=== PATIENT | male | born 1960 | race Caucasian/White ===

== ENCOUNTER 2023-01-07 07:30 | Outpatient (RCR) | payer BC, SELFPAY | END 2023-03-04 11:50 | disposition home or self-care (01) | PROVIDERS: PCP Family Medicine; Visit Provider Family Medicine | DX: M54.12 Radiculopathy, cervical region (principal); R07.89 Other chest pain; Z74.09 Other reduced mobility; Z51.89 Encounter for other specified aftercare | CPT/HCPCS: 97110; 97140; 97161 ==

== ENCOUNTER 2023-06-25 16:30 | Outpatient (RCR) | payer BC, SELFPAY | END 2023-08-13 10:17 | disposition home or self-care (01) | PROVIDERS: PCP Family Medicine; Visit Provider Family Medicine | DX: M17.0 Bilateral primary osteoarthritis of knee (principal); M25.562 Pain in left knee; M25.561 Pain in right knee; M62.81 Muscle weakness (generalized); Z51.89 Encounter for other specified aftercare | CPT/HCPCS: 97110; 97161 ==

== ENCOUNTER 2023-09-08 21:51 | Emergency (ER) | payer BC, SELFPAY ==
[2023-09-08] VITALS (8 sets, daily range): BP systolic 130–164; BP diastolic 66–88; PULSE 56–71; RESP 16; TEMP 36.6; O2SAT 92–95; BMI 35.7
--- NOTE | 2023-09-08 22:35 | CRLHL7_ITS ---
For Patients: As a result of the Century Cures Act, medical imaging exams and procedure reports are released immediately into your electronic medical record. You may view this report before your referring provider. If you have questions, please contact your health care provider. Indication: Chest pain Technique: Chest 2 views Comparison: September 19, 2020 Findings/Impression: Cardiovascular and mediastinum: Heart size and vasculature are normal in caliber and appearance. Mediastinum is within normal limits. Lungs and pleural spaces: Stable curvilinear density in the right upper lobe consistent with the known pulmonary venous anomaly. No sign of pleural effusion or infiltrate. No pneumothorax. Bones and soft tissues: No significant findings. Dictated by Elizabeth Luna MD @ 09/09/2023 1:00:23 AM (Electronically Signed)
--- OUTSIDE RECORDS SUMMARY | 2023-09-08 22:38 | XMS_ITS | Continuity of Care Document ---
Author Name Unknown Organization [facility] Address [address] [place] [address] Phone Care Team Providers Care Sheet Metal Contractor Name Role Phone Christiano Guzman Unavailable Unavailable Allergies, Adverse Reactions, Alerts Substance Reaction Status Criticality No Known Allergies Active No Inform ation Medications Medication Instructions Dosage Effective Dates (start - stop) Status Comments WARFARIN SODIUM (unknown strength) Not Available - Active GLUCOSAMINE-CHONDROITI N (unknown strength) Not Available - Active FLECAINIDE ACETATE (unknown strength) Not Available - Active DILTIAZEM 12HR ER (unknown strength) Not Available - Active ASPIRIN EC (unknown strength) Not Available - Active Procedures Procedure Date Office/Outpatient Visit,Est, Mod 2018 Office/Outpatient Visit,New, Mod 2017 Advance Directives Directive Yes / No Effective Date File Name No Information Encounters Encounter Description Practice Location Reason(s) For Visit Diagnoses Date Provider Providers Copied on Encounter Office/Outpat ient Visit,Est, Mod [facility], [address], [facility] [place], [id number], [place] tel:[phone] [facility] [place] Spinal stenosis, cervical regionOther spondylosis, lumbar region 9 Mike Alvarado. [facility], [address], [place], [place], [id number] , [place]. tel:[phone] Referring Provider: Christiano Mckeon, [facility] [address], [place], [address] . tel:[phone] Office/Outpat ient Visit,New, Mod [facility], [address], [place], [id number], [place] tel:[phone] [facility] [place] CervicalgiaLow back pain 8 Mike Alvarado. [facility], [address], [place], [place], [id number] , [place]. [phone] Referring Provider: Christiano Mckeon, [facility] [address], [facility] [place], [address] . tel:[phone] Family History Family Member Type Diagnosis Age At Onset No Information Payers Payer name Insurance type Covered democrat ID Valentine greer(s) [facility] [id number] [facility] [id number] Social History Type Description Quantity Date Captured Comments Alcohol Use Details Unknown Caffeine Use Details Unknown Tobacco Use Status Never smoked tobacco 2018 Smoking Status Never smoker Sex Male Vital Signs Date / Time: Height Weight BMI Pulse Rate Blood Pressure Temperature Respiratory Rate Body Surface Area Head Circumference Head Circ. Percentile Wt./Erick. Percentile BMI percentile Pulse Ox Inhaled Ox 1:29 PM 67.80 in 106.776 kg (235.40 lbs) 36.0 0 kg/m eter (2) 75 /min 112/68 mm[Hg] Chief Complaint And Reason For Visit No Information Reason For Referral Reason For Referral No Information History Of Present Illness Encounter Date Complaint History Of Prese nt Illness No Information Functional Status Date Functional Assessmen t No Information Instructions Date Instruction Additional Infor mation No Information Assessments Type Assessment Date assessment Spinal stenosis, cervical region assessment Other spondylosis, lumbar region Patient Care Teams Name Effective Dates (start - stop) Status Members No Information
--- OUTSIDE RECORDS SUMMARY | 2023-09-08 22:38 | XMS_ITS | Continuity of Care Document ---
Author Name Unknown Organization [facility] Address [address] [place] [address] Phone Care Team Providers Care Supervisor Hydrochloric Area Name Role Phone Christiano Guzman Unavailable Unavailable Allergies, Adverse Reactions, Alerts Substance Reaction Status Criticality No Known Allergies Active No Inform ation Medications Medication Instructions Dosage Effective Dates (start - stop) Status Comments ASPIRIN EC (unknown strength) Not Available - Active DILTIAZEM 12HR ER (unknown strength) Not Available - Active FLECAINIDE ACETATE (unknown strength) Not Available - Active GLUCOSAMINE-CHONDROITI N (unknown strength) Not Available - Active WARFARIN SODIUM (unknown strength) Not Available - Active Procedures Procedure Date Office/Outpatient Visit,Est, Mod 2018 Office/Outpatient Visit,New, Mod 2017 Advance Directives Directive Yes / No Effective Date File Name No Information Encounters Encounter Description Practice Location Reason(s) For Visit Diagnoses Date Provider Providers Copied on Encounter Office/Outpat ient Visit,Est, Mod [facility], [address], [facility] [place], [id number], [place] tel:[phone] [facility] [place] Spinal stenosis, cervical regionOther spondylosis, lumbar region 9 Mike Alvarado. [facility], [address], [place], [place], [id number] , [place]. tel:[phone] Referring Provider: Christiano Mckeon, [facility] [address], [place], [address] . tel:[phone] Office/Outpat ient Visit,New, Mod [facility], [address], [place], [id number], [place] tel:[phone] [facility] [place] CervicalgiaLow back pain 8 Mike Alvarado. [facility], [address], [place], [place], [id number] , [place]. [phone] Referring Provider: Christiano Mckeon, [facility] [address], [facility] [place], [address] . tel:[phone] Family History Family Member Type Diagnosis Age At Onset No Information Payers Payer name Insurance type Covered democrat ID Valentine greer(s) [facility] [id number] [facility] [id number] Social History Type Description Quantity Date Captured [...]
--- NOTE | 2023-09-08 22:58 | ED_ITS ---
HPI - Chest Pain General Date Seen: 09/08/23 <Cristi Marshall MD - Last Filed: 09/08/23 23:00> Chief Complaint: Chest Pain <Cristi Marshall MD - Last Filed: 09/08/23 23:00> Stated Complaint: afib <Cristi Marshall MD - Last Filed: 09/08/23 23:00> Time Seen by Provider: 09/08/23 22:18 <Cristi Marshall MD - Last Filed: 09/08/23 23:00> Source: patient and family <Cristi Marshall MD - Last Filed: 09/08/23 23:00> Mode of arrival: ambulatory <Cristi Marshall MD - Last Filed: 09/08/23 23:00> Limitations: no limitations <Cristi Marshall MD - Last Filed: 09/08/23 23:00> History of Present Illness HPI narrative: Patient is a 63-year-old gentleman, who presents here with chest pain and rapid heart rate, tells me has known atrial fibrillation tonight approximately an hour ago he felt his heart rate going fast her he felt some chest discomfort and some shortness of breath. He took his pulse and he thinks it was like 140. Feels better now, but not completely back to normal. He did drink some alcohol tonight, he just recently went off and went back on his Coumadin, as he had a colonoscopy. <Cristi Marshall MD - Last Filed: 09/08/23 23:00> MD complaint: chest pain and chest discomfort <Cristi Marshall MD - Last Filed: 09/08/23 23:00> Prior episodes: Yes <Cristi Marshall MD - Last Filed: 09/08/23 23:00> Onset: during rest <Cristi Marshall MD - Last Filed: 09/08/23 23:00> Pain location: substernal and left chest <Cristi Marshall MD - Last Filed: 09/08/23 23:00> Pain radiation: none <Cristi Marshall MD - Last Filed: 09/08/23 23:00> Severity: moderate <Cristi Marshall MD - Last Filed: 09/08/23 23:00> Quality: tightness and heaviness <Cristi Marshall MD - Last Filed: 09/08/23 23:00> Relieving factors: nothing <Cristi Marshall MD - Last Filed: 09/08/23 23:00> Exacerbating factors: nothing <Cristi Marshall MD - Last Filed: 09/08/23 23:00> Treatment prior to arrival: none <Cristi Marshall MD - Last Filed: 09/08/23 23:00> Related Data Home Medications: Home Medications Medication Instructions Recorded Confirmed diltiazem HCl 120 mg 120 mg PO DAILY 05/09/23 09/08/23 capsule,extended release 24 hr famotidine 20 mg tablet 20 mg PO BID PRN 05/09/23 09/08/23 flecainide 100 mg tablet 100 mg PO BID 05/09/23 09/08/23 omeprazole 20 mg capsule,delayed 20 mg PO DAILY 05/09/23 09/08/23 release warfarin 2 mg tablet 3 mg PO 05/09/23 05/09/23 <Cristi Marshall MD - Last Filed: 09/08/23 23:00> Allergies/Adverse Reactions: Allergies Allergy/AdvReac Type Severity Reaction Status Date / Time No Known Drug Allergies Allergy Verified 09/08/23 22:01 <Cristi Marshall MD - Last Filed: 09/08/23 23:00> Review of Systems Status of ROS Reports: 10 or more systems reviewed and unremarkable except as noted in History and below <Cristi Marshall MD - Last Filed: 09/08/23 23:00> [facility] Medical History: Medical History Elevated cholesterol ?E78.00 - Pure hypercholesterolemia, unspecified (ICD-10) Arthritis ?M19.90 - Unspecified osteoarthritis, unspecified site (ICD-10) GERD (gastroesophageal reflux disease) ?K21.9 - Gastro-esophageal reflux disease without esophagitis (ICD-10) DVT (deep venous thrombosis) ?I82.409 - Acute embolism and thrombosis of unspecified deep veins of unspecified lower extremity (ICD-10) Pulmonary emboli ?I26.99 - Other pulmonary embolism without acute cor pulmonale (ICD-10) Sleep apnea ?G47.30 - Sleep apnea, unspecified (ICD-10) Atrial fibrillation ?I48.91 - Unspecified atrial fibrillation (ICD-10) <Cristi Marshall MD - Last Filed: 09/08/23 23:00> Surgical History: Surgical History History of radiofrequency ablation (RFA) procedure for cardiac arrhythmia ?Z98.890 - Other specified postprocedural states (ICD-10) H/O cardiac catheterization (02/14/18) ?Z98.890 - Other specified postprocedural states (ICD-10) H/O arthroscopy of left knee ?Z98.890 - Other specified postprocedural states (ICD-10) H/O repair of right rotator cuff (11/2016) ?Z98.890 - Other specified postprocedural states (ICD-10) H/O excision of mass (10/05/19) ?Z98.890 - Other specified postprocedural states (ICD-10) S/P reconstruction of anterior cruciate ligament ?Z98.890 - Other specified postprocedural states (ICD-10) <Cristi Marshall MD - Last Filed: 09/08/23 23:00> Family History: Family History Mother Diabetes Father Brain tumor <Cristi Marshall MD - Last Filed: 09/08/23 23:00> Social History: Social History Smoking Status: Never smoker How often do you have a drink containing alcohol: 2-4 times a month How often do you have six or more drinks on one occasion: Never AUDIT-C Alcohol total score: 2 Non-prescribed substance use: denies use <Cristi Marshall MD - Last Filed: 09/08/23 23:00> Exam Narrative Exam Narrative: Patient is seen and stabilization room 2 he is in no apparent distress, he moves and speaks normally. Pupils equal round reactive to light there is no scleral icterus redness is TMs are normal oropharynx normal there is no adenopathy anterior posterior chains, chest is good air entry bilateral with no wheezing crackles noted his heart sounds are normal no clicks murmurs or gallops his abdomen is soft and obese there is no guarding no past splenomegaly. Bowel sounds are normal, he has no edema of his lower extremities. Skin reveals no petechiae rashes. <Cristi Marshall MD - Last Filed: 09/08/23 23:00> Const Vital Signs, click to edit/add: Vital Signs - 24 hr 09/08/23 22:01 09/08/23 22:19 09/08/23 22:30 Temperature 97.8 F Pulse Rate 63 68 Pulse Rate [Pulse Oximeter] 71 Respiratory Rate 16 Blood Pressure Blood Pressure [Right Upper Arm] 164/88 H Pulse Oximetry 94 93 92 Oxygen Delivery Method Room Air 09/08/23 22:32 09/08/23 23:22 Temperature Pulse Rate 67 60 Pulse Rate [Pulse Oximeter] Respiratory Rate Blood Pressure 146/88 H Blood Pressure [Right Upper Arm] Pulse Oximetry 94 95 Oxygen Delivery Method <Cristi Marshall MD - Last Filed: 09/08/23 23:00> Vital Signs - 24 hr 09/08/23 22:01 09/08/23 22:19 09/08/23 22:30 Temperature 97.8 F Pulse Rate 63 68 Pulse Rate [Pulse Oximeter] 71 Respiratory Rate 16 Blood Pressure Blood Pressure [Right Upper Arm] 164/88 H Pulse Oximetry 94 93 92 Oxygen Delivery Method Room Air 09/08/23 22:32 09/08/23 23:22 Temperature Pulse Rate 67 60 Pulse Rate [Pulse Oximeter] Respiratory Rate Blood Pressure 146/88 H Blood Pressure [Right Upper Arm] Pulse Oximetry 94 95 Oxygen Delivery Method <Romina Patel MD - Last Filed: 09/09/23 01:40> Documenting provider has reviewed patient's vital signs: yes <Cristi Marshall MD - Last Filed: 09/08/23 23:00> Course Course ED Course: This patient was signed out to me by Dr. Marshall. Patient had initial negative troponin and reassuring EKG. He has been resting comfortably. <Romina Patel MD - Last Filed: 09/09/23 01:40> Vital Signs Vital signs: Initial Vital Signs Temperature 97.8 F 09/08/23 22:01 Temperature Source Temporal Artery Scan 09/08/23 22:01 Pulse Rate 71 11/05/23 22:01 Respiratory Rate 16 09/08/23 22:01 Blood Pressure 164/88 H 09/08/23 22:01 Blood Pressure Mean 113 H 09/08/23 22:01 Blood Pressure Position Sitting 09/08/23 22:01 Pulse Oximetry 94 09/08/23 22:01 Oxygen Delivery Method Room Air 09/08/23 22:01 Vital Signs Temperature 97.8 F 09/08/23 22:01 Pulse Rate 71 09/08/23 22:01 Respiratory Rate 16 09/08/23 22:01 Blood Pressure 164/88 H 09/08/23 22:01 Pulse Oximetry 94 09/08/23 22:01 Oxygen Delivery Method Room Air 09/08/23 22:01 Temperature 97.8 F 09/08/23 22:01 Pulse Rate 60 09/08/23 23:22 Respiratory Rate 16 09/08/23 22:01 Blood Pressure 146/88 H 09/08/23 22:32 Pulse Oximetry 95 09/08/23 23:22 Oxygen Delivery Method Room Air 09/08/23 22:01 <Cristi Marshall MD - Last Filed: 09/08/23 23:00> Initial Vital Signs Temperature 97.8 F 09/08/23 22:01 Temperature Source Temporal Artery Scan 09/08/23 22:01 Pulse Rate 71 09/08/23 22:01 Respiratory Rate 16 09/08/23 22:01 Blood Pressure 164/88 H 09/08/23 22:01 Blood Pressure Mean 113 H 09/08/23 22:01 Blood Pressure Position Sitting 09/08/23 22:01 Pulse Oximetry 94 09/08/23 22:01 Oxygen Delivery Method Room Air 09/08/23 22:01 Vital Signs Temperature 97.8 F 09/08/23 22:01 Pulse Rate 71 09/08/23 22:01 Respiratory Rate 16 09/08/23 22:01 Blood Pressure 164/88 H 09/08/23 22:01 Pulse Oximetry 94 09/08/23 22:01 Oxygen Delivery Method Room Air 09/08/23 22:01 Temperature 97.8 F 09/08/23 22:01 Pulse Rate 60 09/08/23 23:22 Respiratory Rate 16 09/08/23 22:01 Blood Pressure 146/88 H 09/08/23 22:32 Pulse Oximetry 95 09/08/23 23:22 Oxygen Delivery Method Room Air 09/08/23 22:01 <Romina Patel MD - Last Filed: 09/09/23 01:40> MDM - Chest Pain MDM Narrative Medical decision making narrative: Differential diagnosis includes but is not limited to psychosocial stress, thyroid abnormalities, CHF, SVT, atrial fibrillation, ventricular tachycardia an d ventricular fibrillation. This includes the life-threatening complications of heart failure, V-tach, and VFib During the evaluation of this patient I considered multiple differential diagnosis is. The life-threatening differential diagnosis include coronary disease/IA, pulmonary embolism, pneumothorax, pneumonia, and aortic dissection. Other differential diagnosis included but were not limited to pericarditis, myocarditis, chest wall pain, GERD, esophageal rupture, rib fracture contusion, pleurisy, as well as other etiologies. <Cristi Marshall MD - Last Filed: 09/08/23 23:00> Differential diagnosis includes but is not limited to psychosocial stress, thyroid abnormalities, CHF, SVT, atrial fibrillation, ventricular tachycardia and ventricular fibrillation. This includes the life-threatening complications of heart failure, V-tach, and VFib During the evaluation of this patient I considered multiple differential darlene gnosis is. The life-threatening differential diagnosis include coronary disease/IA, pulmonary embolism, pneumothorax, pneumonia, and aortic dissection. Other differential diagnosis included but were not limited to pericarditis, myocarditis, chest wall pain, GERD, esophageal rupture, rib fracture contusion, pleurisy, as well as other etiologies. Assessment/plan: 1. Atrial fibrillation transient-patient noted rapid heart rate lasted approximately 30 minutes and was associated with chest pain. Fortunately 2 EKGs and 2 sets of cardiac enzymes in the ED 90 minutes apart were negative. Patient has been in sinus rhythm since he has been here. 2. Chronic anticoagulation-patient recently restarted warfarin after colonoscopy. INR pending. Patient may call tomorrow morning for results. 3. Disposition-patient is discharged home in the care of his . Recommend increasing fluids, avoiding alcohol, vagal maneuvers are discussed. Return as needed. <Romina Patel MD - Last Filed: 09/09/23 01:40> Medical Records Data Attestation: I reviewed the patient's medical records. <Cristi Marshall MD - Last Filed: 11/05/23 23:00> Lab Data Attestation: I reviewed the patient's lab results. <Romina Patel MD - Last Filed: 09/09/23 01:40> Labs: Lab Results 09/08/23 09/08/23 09/09/23 Range/Units 23:28 23:30 01:05 WBC 8.81 (4.50-11.00) K/uL RBC 5.19 (4.30-5.90) m/uL Hgb 14.9 (13.5-17.5) gm/dL Hct 45.2 (37.0-53.0) % MCV 87 (80-100) fL MCH 29 (26-34) pg MCHC 33 (32-36) gm/dL RDW Coeff of [place] 13.3 (11.5-15.5) % Plt Count 325 (140-440) K/uL Neut % (Auto) 60.7 (42.0-72.0) % Lymph % (Auto) 24.2 (20-44) % [place] % (Auto) 12.5 H (0.0-11.0) % Eos % (Auto) 1.7 (0.0-7.0) % Baso % (Auto) 0.6 (0.0-3.0) % Neut # (Auto) 5.35 (1.7-7.0) K/uL Lymph # (Auto) 2.13 (0.90-2.90) K/uL [place] # (Auto) 1.10 H (0.00-0.90) K/UL Eos # (Auto) 0.15 (0.00-0.50) K/uL Baso # (Auto) 0.05 (0.00-0.30) K/uL Abs Immat Gran (auto) 0.03 (0.00-0.30) K/uL Imm/Tot Granulo (auto) 0.3 % Sodium 137 (135-149) mmol/L Potassium 3.8 (3.6-5.1) mmol/L Chloride 104 (96-114) mmol/L Carbon Dioxide 26 (20-32) mmol/L Anion Gap 7 (7-15) mEq/L BUN 12 (7-30) mg/dL Creatinine 0.8 (0.5-1.5) mg/dL Estimated Creat Clear 71.25 Estimated GFR 98 ml/min Glucose 114 (60-115) mg/dL Calcium 9.0 (8.4-10.6) mg/dL Magnesium 2.4 (1.5-2.6) mg/dL NT-Pro-B Natriuret Pep 160 pg/mL Ethyl Alcohol < 0.01 L (0.01-0.03) % SARS-CoV-2 (PCR) Negative SARS-CoV-2 (Negative) Influenza Type A (PCR) Negative PCR FLU A (Negative) Influenza Type B (PCR) Negative PCR FLU B (Negative) RSV (PCR) Negative PCR RSV (Negative) Lab Acknowledgement POC Troponin I 0.00 L 0.00 L (0.01-0.04) ng/ml 09/09/23 Range/Units 01:29 WBC (4.50-11.00) K/uL RBC (4.30-5.90) m/uL Hgb (13.5-17.5) gm/dL Hct (37.0-53.0) % MCV (80-100) fL MCH (26-34) pg MCHC (32-36) gm/dL RDW Coeff of [place] (11.5-15.5) % Plt Count (140-440) K/uL Neut % (Auto) (42.0-72.0) % Lymph % (Auto) (20-44) % [place] % (Auto) (0.0-11.0) % Eos % (Auto) (0.0-7.0) % Baso % (Auto) (0.0-3.0) % Neut # (Auto) (1.7-7.0) K/uL Lymph # (Auto) (0.90-2.90) K/uL [place] # (Auto) (0.00-0.90) K/UL Eos # (Auto) (0.00-0.50) K/uL Baso # (Auto) (0.00-0.30) K/uL Abs Immat Gran (auto) (0.00-0.30) K/uL Imm/Tot Granulo (auto) % Sodium (135-149) mmol/L Potassium (3.6-5.1) mmol/L Chloride (96-114) mmol/L Carbon Dioxide (20-32) mmol/L Anion Gap (7-15) mEq/L BUN (7-30) mg/dL Creatinine (0.5-1.5) mg/dL Estimated Creat Clear Estimated GFR ml/min Glucose (60-115) mg/dL Calcium (8.4-10.6) mg/dL Magnesium (1.5-2.6) mg/dL NT-Pro-B Natriuret Pep pg/mL Ethyl Alcohol (0.01-0.03) % SARS-CoV-2 (PCR) (Negative) Influenza Type A (PCR) (Negative) Influenza Type B (PCR) (Negative) RSV (PCR) (Negative) Lab Acknowledgement Test Added POC Troponin I (0.01-0.04) ng/ml <Cristi Marshall MD - Last Filed: 09/08/23 23:00> Lab Results 09/08/23 09/08/23 09/09/23 Range/Units 23:28 23:30 01:05 WBC 8.81 (4.50-11.00) K/uL RBC 5.19 (4.30-5.90) m/uL Hgb 14.9 (13.5-17.5) gm/dL Hct 45.2 (37.0-53.0) % MCV 87 (80-100) fL MCH 29 (26-34) pg MCHC 33 (32-36) gm/dL RDW Coeff of [place] 13.3 (11.5-15.5) % Plt Count 325 (140-440) K/uL Neut % (Auto) 60.7 (42.0-72.0) % Lymph % (Auto) 24.2 (20-44) % [place] % (Auto) 12.5 H (0.0-11.0) % Eos % (Auto) 1.7 (0.0-7.0) % Baso % (Auto) 0.6 (0.0-3.0) % Neut # (Auto) 5.35 (1.7-7.0) K/uL Lymph # (Auto) 2.13 (0.90-2.90) K/uL [place] # (Auto) 1.10 H (0.00-0.90) K/UL Eos # (Auto) 0.15 (0.00-0.50) K/uL Baso # (Auto) 0.05 (0.00-0.30) K/uL Abs Immat Gran (auto) 0.03 (0.00-0.30) K/uL Imm/Tot Granulo (auto) 0.3 % Sodium 137 (135-149) mmol/L Potassium 3.8 (3.6-5.1) mmol/L Chloride 104 (96-114) mmol/L Carbon Dioxide 26 (20-32) mmol/L Anion Gap 7 (7-15) mEq/L BUN 12 (7-30) mg/dL Creatinine 0.8 (0.5-1.5) mg/dL Estimated Creat Clear 71.25 Estimated GFR 98 ml/min Glucose 114 (60-115) mg/dL Calcium 9.0 (8.4-10.6) mg/dL Magnesium 2.4 (1.5-2.6) mg/dL NT-Pro-B Natriuret Pep 160 pg/mL Ethyl Alcohol < 0.01 L (0.01-0.03) % SARS-CoV-2 (PCR) Negative SARS-CoV-2 (Negative) Influenza Type A (PCR) Negative PCR FLU A (Negative) Influenza Type B (PCR) Negative PCR FLU B (Negative) RSV (PCR) Negative PCR RSV (Negative) Lab Acknowledgement POC Troponin I 0.00 L 0.00 L (0.01-0.04) ng/ml 09/09/23 Range/Units 01:29 WBC (4.50-11.00) K/uL RBC (4.30-5.90) m/uL Hgb (13.5-17.5) gm/dL Hct (37.0-53.0) % MCV (80-100) fL MCH (26-34) pg MCHC (32-36) gm/dL RDW Coeff of [place] (11.5-15.5) % Plt Count (140-440) K/uL Neut % (Auto) (42.0-72.0) % Lymph % (Auto) (20-44) % [place] % (Auto) (0.0-11.0) % Eos % (Auto) (0.0-7.0) % Baso % (Auto) (0.0-3.0) % Neut # (Auto) (1.7-7.0) K/uL Lymph # (Auto) (0.90-2.90) K/uL [place] # (Auto) (0.00-0.90) K/UL Eos # (Auto) (0.00-0.50) K/uL Baso # (Auto) (0.00-0.30) K/uL Abs Immat Gran (auto) (0.00-0.30) K/uL Imm/Tot Granulo (auto) % Sodium (135-149) mmol/L Potassium (3.6-5.1) mmol/L Chloride (96-114) mmol/L Carbon Dioxide (20-32) mmol/L Anion Gap (7-15) mEq/L BUN (7-30) mg/dL Creatinine (0.5-1.5) mg/dL Estimated Creat Clear Estimated GFR ml/min Glucose (60-115) mg/dL Calcium (8.4-10.6) mg/dL Magnesium (1.5-2.6) mg/dL NT-Pro-B Natriuret Pep pg/mL Ethyl Alcohol (0.01-0.03) % SARS-CoV-2 (PCR) (Negative) Influenza Type A (PCR) (Negative) Influenza Type B (PCR) (Negative) RSV (PCR) (Negative) Lab Acknowledgement Test Added POC Troponin I (0.01-0.04) ng/ml <Romina Patel MD - Last Filed: 09/09/23 01:40> Imaging Data Chest x-ray: Attestation: I have reviewed the pertinent imaging results. <Romina Patel MD - Last Filed: 09/09/23 01:40> My impression: No obvious infiltrates by my read. <Romina Patel MD - Last Filed: 09/09/23 01:40> Radiologist's impression: Cardiovascular and mediastinum: Heart size and vasculature are normal in caliber and appearance. Mediastinum is within normal limits. Lungs and pleural spaces: Stable curvilinear density in the right upper lobe consistent with the known pulmonary venous anomaly. No sign of pleural effusion or infiltrate. No pneumothorax. Bones and soft tissues: No significant findings. <Romina Patel MD - Last Filed: 09/09/23 01:40> ECG Data Attestation: I personally reviewed and interpreted this ECG as follows: <Romina Patel MD - Last Filed: 09/09/23 01:40> ECG interpretation date: 09/09/23 <Romina Patel MD - Last Filed: 09/09/23 01:40> Interpretation: EKG 1. By my read shows sinus rhythm at a rate of 62. No acute ST or T- wave changes are noted. QT and [place] intervals within normal limits. EKG 2. Shows sinus rhythm at a rate of 57 by my read. No acute ST or T-wave changes are noted. <Romina Patel MD - Last Filed: 09/09/23 01:40> Discharge Plan Discharge Clinical Impression: Atrial fibrillation, transient Chest pain Qualifiers: Chest pain type: unspecified Qualified Code(s): R07.9 - Chest pain, unspecified <Cristi Marshall MD - Last Filed: 09/08/23 23:00> Patient Disposition: Home, Self-Care <Cristi Marshall MD - Last Filed: 09/08/23 23:00> Condition: Improved <Cristi Marshall MD - Last Filed: 09/08/23 23:00> Additional Instructions: Avoid alcohol. Stay well hydrated. Follow-up with your primary MD. You may call tomorrow morning for INR results. Return to the emergency room as needed. <Cristi Marshall MD - Last Filed: 09/08/23 23:00> Prescriptions: No Action warfarin 2 mg tablet 3 mg PO diltiazem HCl 120 mg capsule,extended release 24hr 120 mg PO DAILY flecainide 100 mg tablet 100 mg PO BID famotidine 20 mg tablet 20 mg PO BID PRN omeprazole 20 mg capsule,delayed release(DR/EC) 20 mg PO DAILY <Cristi Marshall MD - Last Filed: 09/08/23 23:00> Follow Up/Referrals: Ed Del Toro MD [Primary Care Provider] - <Cristi Marshall MD - Last Filed: 09/08/23 23:00> Stand Alone Forms: [facility] Info Instructions <Cristi Marshall MD - Last Filed: 09/08/23 23:00>
[2023-09-08] MEDS: 0.9 % SODIUM CHLORIDE 1000 ml 1,000 ML IV (23:30)
[2023-09-08 23:42] LABS: Basophils Absolute Auto 0.05 K/uL (0.00-0.30); Basophils Percent Auto 0.6 % (0.0-3.0); Eosinophils Absolute Auto 0.15 K/uL (0.00-0.50); Eosinophils Percent Auto 1.7 % (0.0-7.0); Hematocrit 45.2 % (37.0-53.0); Hemoglobin* 14.9 gm/dL (13.5-17.5); Immature Granulocytes Abs Auto 0.03 K/uL (0.00-0.30); Immature Granulocytes Pct Auto 0.3 %; Lymphocytes Absolute Auto 2.13 K/uL (0.90-2.90); Lymphocytes Percent Auto 24.2 % (20-44); Mean Corpuscular HGB Conc 33 gm/dL (32-36); Mean Corpuscular Hemoglobin 29 pg (26-34); Mean Corpuscular Volume 87 fL (80-100); Monocytes Percent Auto 12.5 % (0.0-11.0); Neutrophils Absolute Auto 5.35 K/uL (1.7-7.0); Neutrophils Percent Auto 60.7 % (42.0-72.0); Platelet Count* 325 K/uL (140-440); RDW Coefficient of Variation % 13.3 % (11.5-15.5); Red Blood Count 5.19 m/uL (4.30-5.90); White Blood Count* 8.81 K/uL (4.50-11.00)
[2023-09-08 23:55] LABS: Slide Review Reflex No
[2023-09-08 23:58] LABS: Chloride* 104 mmol/L (96-114); Sodium* 137 mmol/L (135-149)
[2023-09-08 23:59] LABS: Potassium* 3.8 mmol/L (3.6-5.1)
[2023-09-09] VITALS (8 sets, daily range): BP systolic 137–142; BP diastolic 58–83; PULSE 52–62; O2SAT 92–96
[2023-09-09 00:01] LABS: Anion Gap 7 mEq/L (7-15); Blood Urea Nitrogen* 12 mg/dL (7-30); Carbon Dioxide* 26 mmol/L (20-32); Creatinine* 0.8 mg/dL (0.5-1.5); Est. Creatinine Clearance* 71.25; Estimated Glomerular Filt Rate 98 ml/min
[2023-09-09 00:02] LABS: Glucose* 114 mg/dL (60-115); Magnesium* 2.4 mg/dL (1.5-2.6)
[2023-09-09 00:07] LABS: Ethanol* < 0.01 % (0.01-0.03)
[2023-09-09 00:11] LABS: NT Pro B Type NatriureticPept* 160 pg/mL
[2023-09-09 00:26] LABS: PCR FLU A Negative PCR FLU A (Negative); PCR FLU B Negative PCR FLU B (Negative); PCR RSV Negative PCR RSV (Negative)
[2023-09-09 00:33] LABS: SARS PCR* Negative SARS-CoV-2 (Negative)
[2023-09-09 01:41] LABS: Prothrombin Time 14.9 Seconds
== END 2023-09-09 01:41 | disposition home or self-care (01) ==
PROVIDERS: Family Medicine; Emergency Provider Family Medicine; PCP Family Medicine
DX: I48.91 Unspecified atrial fibrillation (principal); R07.9 Chest pain, unspecified
CPT/HCPCS: 36415; 71046; 80048; 82077; 83735; 83880; 84484; 85025; 85610; 87631; 93005; 94761; 99284; 99285; J7030

== ENCOUNTER 2024-04-02 20:47 | Observation (INO) | payer BC, MEDICARE, SELFPAY ==
[2024-04-02] VITALS (24 sets, daily range): BP systolic 93–168; BP diastolic 59–124; PULSE 77–143; RESP 16–32; TEMP 36.2; O2SAT 86–97; BMI 35.7
[2024-04-02 21:30] LABS: Basophils Percent Auto 0.3 % (0.0-3.0); Eosinophils Percent Auto 1.1 % (0.0-7.0); Hematocrit 48.5 % (37.0-53.0); Hemoglobin* 15.7 gm/dL (13.5-17.5); Immature Granulocytes Pct Auto 0.1 %; Lymphocytes Percent Auto 21.2 % (20-44); Mean Corpuscular HGB Conc 32 gm/dL (32-36); Mean Corpuscular Hemoglobin 27 pg (26-34); Mean Corpuscular Volume 85 fL (80-100); Monocytes Percent Auto 10.4 % (0.0-11.0); Neutrophils Percent Auto 66.9 % (42.0-72.0); Platelet Count* 411 K/uL (140-440); Red Blood Count 5.73 m/uL (4.30-5.90)
--- OUTSIDE RECORDS SUMMARY | 2024-04-02 21:41 | XMS_ITS | Encounter Summary ---
Author Organization [employer] Address [address] [place] [address] Care Team Providers Care Lens Block Gauger Name Role Phone Ed Del Toro MD Primary Care Provider Reason for Visit * Reason Comments Knee Problem Encounter Details Date Type Department Care Team (Late st Contact Info) Description 12/30/2023 4:00 PM PATIENT SERVICES SPECIALIST Therapy [facility], Physical Therapy [address] [place] [address] Álvaro Flores, PT [address] [place], [place] [id number] Aftercare following right knee joint replacement surgery (Primary Dx) Social History Tobacco Use Types Packs/Day Years Used Date Smoking Tobacco: Never Smokeless Tobacco: Never Humiliation, Afraid, Rape, and Kick questionnair e Answer Date Recorded Fear of Current or Ex-Partner Not on file Emotionally Abused Not on file 11/20/2023 Within the last year, have y ou been kicked, hit, slapped, or otherwise physically hurt by your partner or ex-partner? No 11/20/2023 Within the last year, have y ou been raped or forced to have any kind of sexual activity by your partner or ex-partner? No 11/20/2023 Housing Stability Vital Sign Answer Dimitry e Recorded In the last 12 months, was t here a time when you were not able to pay the mortgage or rent on time? No 11/20/2023 [address] of Places Lived in the Last Year Not on f ile 11/20/2023 In the last 12 months, was t here a time when you did not have a steady place to sleep or slept in a fci (including now)? No 11/20/2023 Sex and Gender Information Value Date Recorded Sex Assigned at Not on file Gender Identity Not on file Sexual Orientation Not on file documented as of this encounter Progress Notes * Álvaro Flores, PT - 12/30/2023 4:00 PM CST Physical Therapy Post-Op Right Total Knee Arthroplasty Daily Note Visit number: 11 + 1 for pre-operative evaluation [place]BS [place] Initial Certification Period: 10/23/23 to 01/21/24 Referring Provider: Costa Chino Referring Diagnosis: Osteoarthritis, R knee Scheduled Day of Surgery: 11/20/23 Orders: Evaluate and Treat, Total/Mohamud Knee Arthroplasty Gait Training and Exercise Instruction, Pre and Post-Op Education Precautions/Contraindications: None Weight-bearing Status: Post-operatively weight-bearing as tolerated Date of Onset: chronic History: DANITA: reports long history of R>L knee pain dating back 5-10 years which has progressively gottenworse over the past year. Denies DANITA. X-rays confirmed knee OA. Has tried conservative tx, such as physical therapy, biking, cortisone and lubricant injections, pain meds, ice, rest, and activity modification with short term relief. Decided to pursue R TKA scheduled for 11/20 at [facility] and will be piyush vering at the [facility] for 1-night. Functional Limitations: prolong walking, stairs, getting in/out of a car, sleep Patient's Therapy Goals: PLOF, pain free ADLs, walking, stairs, walking, ladders, Patient's gymnastic coach was physically present during pre-op session: No Yard Operator: - Emma Stairs INTO house: 3 steps Stairs WITHIN house: Basement stairs with single railing Pets: no Shower: Walk in Toilet Height: Comfort Assistive Devices: FWW and B crutches Vehicle: Float: [place] Outpatient PT plan: Here at [facility] SUBJECTIVE: Patient Report: Almost 6 weeks s/p R TKA and reports doing well overall. No longer walking with SPC, however still using it on stairs. HEP going well. Pain Ratin/10 current, 3/10 with activity OBJECTIVE: Observation/Gait: mild antalgic gait without AD, walking stiff legged Inspection of knee/LE: well healing incisions ROM ([id number]): Right Knee: 0-120 after manual tx Strength: Right Lower Extremity: Quad set: good Supine SLR: wnl TREATMENT TODAY: Manual Treatment x 8 minutes: Knee flex PROM with PT asssit Knee ext stretch with towel prop Therapeutic Exercise: 15 minutes: - Nu-step warm up - DL leg press 25lbs 2 x 10 - knee ext machine DL 20lbs and 30lbs x 10 each; SL 10lbs x 10 - Sit to stands with butt taps 2 x 10 - recumbent bike x 3 mins Gait Training x 8 minutes: Fwd walking along railing focusing on knee flex during swing phase Timed Code Treatment Minutes: 31 Total Treatment Minutes: 31 Plan for next treatment session: progress knee ROM, quad strength, gait training, step progression,leg press, Recumbent bike, ASSESSMENT: Therapist Impression: Almost 6 weeks s/p R TKA. Improved knee ROM to 0-120 after manual tx and stretching. Able to progress resistance on leg press and knee ext machine with great quad fatigue vs anterior knee discomfort. Good understanding with updated HEP. EXPECTED FUNCTIONAL OUTCOMES/GOALS: Post-operative Goals: HEP/Independent Management: Demonstrate independence with HEP and self- management following each treatment session Ambulation: Patient will be able to demonstrate up/down 1 flight of stairs with a step through gaitpattern and use of 0-1 railing in 10-12 weeks Ambulation: Patient will be able to ambulate community distances with minimal to no symptoms/limp in 12 weeks. ADL's: Resume previous sleep pattern without awakening due to symptoms in 4 weeks. ADL: Patient will be able to demonstrate sit to stand transfers using right /left LE equally 2-4 weeks ADL: Able to dress lower extremities with ease due to improved ROM in 4-6 weeks. ADL: Squat to peanut picker items from floor with minimal/no symptoms in 8-10 weeks. Therapist: Álvaro Flores, PT 4:06 PM 12/30/2023 ENT SERVICES SPECIALIST documented in this encounter Plan of Treatment Scheduled Procedures Name Priority Associated Diagnoses Date/Ti me TOTAL KNEE JOINT REPLACEMENT Arthritis of left knee documented as of this encounter Goals Goal Patient Goal Type Associated Problems Recent Progress Patient-Stated? Author Right Knee Replacement Care Plan ET PROE RIGHT KNEE Emperatriz Dover, RN, [place] PARAPROFESSIONAL ROLLING ATTENDANT documented as of this encounter Visit Diagnoses Diagnosis Aftercare following right knee joint replacement surgery- Primary documented in this encounter Additional Health Concerns Active Problems Noted Date Diagnosed Date ET PROE RIGHT KNEE 07/30/2023 documented as of this encounter Care Teams Lens Block Gauger Relationship Specialty Start Date End Date dE Del Toro MD [address] [place] [address] PCP - General Family Practice 07/25/22 documented as of this encounter
--- OUTSIDE RECORDS SUMMARY | 2024-04-02 21:41 | XMS_ITS | Encounter Summary ---
Author Organization [employer] Address [address] [place] [address] Care Team Providers Care Oil Expeller Operator Name Role Phone Ed Del Toro MD Primary Care Provider [phone] Reason for Visit * Reason Comments Knee Problem Encounter Details Date Type Department Care Team (Late st Contact Info) Description 01/06/2024 12:[address] ATTENDANT Therapy [facility], Physical Therapy [address] [place] [address] Álvaro Flores, PT [address] [place], [place] [id number] Aftercare following right knee joint replacement surgery [...] place to sleep or slept in a correction (including now)? No 11/20/2023 Sex and Gender Information Value Date Recorded Sex Assigned at Not on file Gender Identity Not on file Sexual Orientation Not on file documented as of this encounter Progress Notes * Álvaro Flores, PT - 01/06/2024 12:00 PM CST Physical Therapy Post-Op Right Total Knee Arthroplasty Daily Note Visit number: 13 + 1 for pre-operative evaluation [place] [...] pursue R TKA scheduled for 11/20 at [facility] and will be piyush vering at the [facility] for 1-night. Functional Limitations: prolong walking, stairs, getting in/out of a car, sleep Patient's Therapy Goals: PLOF, pain free ADLs, walking, stairs, walking, ladders, Patient's health and wellness coach was physically present during pre-op session: No Barman: - Emma Stairs INTO house: 3 steps Stairs WITHIN house: Basement stairs with single railing Pets: no Shower: Walk in Toilet Height: Comfort Assistive Devices: FWW and B crutches Vehicle: [place] Outpatient PT plan: Here at [facility] SUBJECTIVE: Patient Report: Dhaval 6+ weeks s/p R TKA and reports feeling good on average. Increased tolerance to ADLs, walking, and HEP. Still getting some soreness in lateral knee, but could be from over doingit. Pain Ratin/10 current, 3/10 with activity OBJECTIVE: Observation/Gait: mild antalgic gait without AD, less stiff today Inspection of knee/LE: well healing incisions ROM ([id number]): Right Knee: 0-120 after manual tx Strength: Right Lower Extremity: Quad set: good Supine SLR: wnl TREATMENT TODAY: Manual Treatment x 10 minutes: Supine knee flex PROM with PT assist Knee ext stretch with with PT overpressure Therapeutic Exercise: 15 minutes: - Recumbent bike warm up - DL leg press 25lbs x 10 - Eccentric leg press 25 lbs x 10 - SL Press with 10 lbs 2 x 10 reps Genu ease x 5 mins (0-125) Therapeutic Activities (CPT 98987) x 10 minutes: Dynamic activities utilized to improve functional performance. - step ups on 8 step 2 x 10 - butt tap squats on table Timed Code Treatment Minutes: 35 Total Treatment Minutes: 35 Plan for next treatment session: progress knee ROM, quad strength, gait training, step progression,leg press, Recumbent bike, genu ease as needed ASSESSMENT: Therapist Impression: 6+ weeks s/p R TKA. Maintained good knee ROM after manual tx and stretching, but improved knee flex to 125 degs on genu ease. Increased tolerance to functional exercises with step ups and squats. EXPECTED FUNCTIONAL OUTCOMES/GOALS: Post-operative Goals: HEP/Independent Management: [...] ROM in 4-6 weeks. ADL: Squat to bulk picker items from floor with minimal/no symptoms in 8-10 weeks. Therapist: Álvaro Flores, PT 12:02 PM 01/06/[address] documented in this encounter Plan of Treatment Scheduled Procedures Name Priority Associated Diagnoses Date/Ti me TOTAL KNEE JOINT REPLACEMENT Arthritis of left knee documented as of this encounter Goals Goal Patient Goal Type Associated Problems Recent Progress Patient-Stated? Author Right Knee Replacement Care Plan ET PROE RIGHT KNEE No Emperatriz Richter, RN, ELECTRIC TRUCK CRANE OPERATOR SURVEY RESEARCH PROFESSOR Left Knee Care Plan ET PROE LEFT KNEE No Emperatriz Richter, RN, ELECTRIC TRUCK CRANE OPERATOR SURVEY RESEARCH PROFESSOR documented as of this encounter Visit Diagnoses Diagnosis Aftercare following right knee joint replacement surgery- Primary documented in this encounter Additional Health Concerns Active Problems Noted Date Diagnosed Date ET PROE RIGHT KNEE 07/30/2023 ET PROE LEFT KNEE 12/31/2023 documented as of this encounter Care Teams Oil Expeller Operator Relationship Specialty Start Date End Date Ed Del Toro MD [address] [place] [address] PCP - General Family Practice 07/25/22 documented as of this encounter
--- OUTSIDE RECORDS SUMMARY | 2024-04-02 21:41 | XMS_ITS | Encounter Summary ---
Author Organization [employer] Address [address] [place] [address] [place] [address] Care Team Providers Care Psychology Intern Name Role Phone Ed Del Toro MD Primary Care Provider [phone] Reason for Visit * Reason Comments Knee Problem Encounter Details Date Type Department Care Team (Late st Contact Info) Description 01/31/2024 8:45 AM CDT Therapy [facility], Physical Therapy [address] [address] Elvis Nunn, PT [address] [place] [address] Aftercare following right knee joint replacement surgery [...] place to sleep or slept in a long term (including now)? No 11/20/2023 Sex and Gender Information Value Date Recorded Sex Assigned at Not on file Gender Identity Not on file Sexual Orientation Not on file documented as of this encounter Progress Notes * Elvis Nunn, PT - 01/31/2024 8:45 AM CDT Physical Therapy Post-Op Right Total Knee Arthroplasty Daily Note /Recertification of Physical Therapy Plan of Care Start of Care Date: 10/23/23 See below for current functional status, updated goals and therapy plan which necessitates continued therapy/skilled care treatment Visit number: 16 + 1 for pre-operative evaluation [place] Re-Certification Period: 01/31/24 to 04/30/24 Referring Provider: Costa Chino Referring Diagnosis: Osteoarthritis, [...] R TKA scheduled for 11/20 at [facility] and will be piyush vering at the [facility] for 1-night. Functional Limitations: prolong walking, stairs, getting in/out of a car, sleep Patient's Therapy Goals: PLOF, pain free ADLs, walking, stairs, walking, ladders, Patient's wrestling coach was physically present during pre-op session: No Cruise Staff Member: - Emma Stairs INTO house: 3 steps Stairs WITHIN house: Basement stairs with single railing Pets: no Shower: Walk in Toilet Height: Comfort Assistive Devices: FWW and B crutches Vehicle: [place] Outpatient PT plan: Here at [facility] SUBJECTIVE: Patient Report: Overall doing well and feeling improvement. Still feels stiff all the times, intermittent sharp pain along lateral knee-random causes but seems to happen more with weight bearing. Feels good after biking. Functionally he feels like he is more limited by his left knee at this point. Returns to work on Saturday. Pain Ratin/10 current, 2/10 with activity OBJECTIVE: Observation/Gait: very mild antalgic gait Inspection of knee/LE: well healing incisions ROM ([id number]-hgi-bshi): Right Knee: 0-124 after manual tx Strength: Right Lower Extremity: Quad set: good Supine SLR: wnl TREATMENT TODAY: Manual Treatment x 8 minutes: Supine knee flexion gapping mobilization grade 3-4 //Flexion to 124 with overpressure Therapeutic Exercise: 14 minutes: - Recumbent bike warm up - Eccentric leg press 25 lbs x 10 - Single leg press 2 x 10 reps at 10 to 20 lbs Therapeutic Activities (CPT 55964) x 10 minutes: Dynamic activities utilized to improve functional performance. - Staggered stance sit to stands, right leg back 3 x 10 reps - HEP Review. Encouraged him to focus on bike, knee flexion stretch on stair, step ups, squats, andknee extensions. Timed Code Treatment Minutes: 32 Total Treatment Minutes: 32 Plan for next treatment session: Discuss HEP and exercises to focus on. progress knee ROM, quad strength step progression, leg press, Recumbent bike, genu ease as needed; sled push? Continue with PT every other week for a couple more sessions. ASSESSMENT: Therapist Impression: 2+ months s/p R TKA. Maintaining good knee ROM at 0-124 after manual tx. Tolerating strengthening exercises well without increase in pain. Advised to progress activities as symptoms allow. EXPECTED FUNCTIONAL OUTCOMES/GOALS: Post-operative Goals: Met: HEP/Independent Management: Demonstrate independence with HEP and self- management following each treatment session ADL's: Resume previous sleep pattern without awakening due to symptoms in 4 weeks. ADL: Patient will be able to demonstrate sit to stand transfers using right /left LE equally 2-4 weeks ADL: Able to dress lower extremities with ease due to improved ROM in 4-6 weeks. ADL: Squat to pickle solution maker items from floor with minimal/no symptoms in 8-10 weeks. Ambulation: Patient will be able to demonstrate up/down 1 flight of stairs with a step through gaitpattern and use of 0-1 railing in 10-12 weeks Ongoing: Ambulation: Patient will be able to ambulate community distances with minimal to no symptoms/limp in 12 weeks. Sometimes knee still feels stiff. New: Return to work without limitations or increase in symptoms in 8 weeks. Therapist: Elvis Nunn, PT 9:17 AM 01/31/2024 documented in this encounter Plan of Treatment Scheduled Procedures Name Priority Associated Diagnoses Date/Ti me TOTAL KNEE JOINT REPLACEMENT Arthritis of left knee documented as of this encounter Goals Goal Patient Goal Type Associated Problems Recent Progress Patient-Stated? Author Right Knee Replacement Care Plan ET PROE RIGHT KNEE No Emperatriz Richter, RN, MUSHROOM CULTIVATOR BENDING SHED WORKER Left Knee Care Plan ET PROE LEFT KNEE No Emperatriz Richter, RN, MUSHROOM CULTIVATOR BENDING SHED WORKER documented as of this encounter Visit Diagnoses Diagnosis Aftercare following right knee joint replacement surgery- Primary documented in this encounter Additional Health Concerns Active Problems Noted Date Diagnosed Date ET PROE RIGHT KNEE 07/30/2023 ET PROE LEFT KNEE 12/31/2023 documented as of this encounter Care Teams Psychology Intern Relationship Specialty Start Date End Date Ed Del Toro MD [address] [place] [address] PCP - General Family Practice 07/25/22 documented as of this encounter
--- OUTSIDE RECORDS SUMMARY | 2024-04-02 21:41 | XMS_ITS | Encounter Summary ---
Author Organization [facility] Address [address] [place] [address] Care Team Providers Care System Architect Name Role Phone Ed Del Toro MD Primary Care Provider Reason for Visit * Procedure/Equipment (Routine) - Incomplete Specialty Diagnoses / Procedures Referred By Contac t Referred To Contact Diagnoses Arthritis of left knee Procedures XR Leg Length Emperatriz Richter RN, FIXTURE MAKER BEHAVIORAL CONSULTANT [address] [place] [address] Referral ID Status Reason Start Date Expiration Date V isits Requested Visits Authorized [id number] Incomplete 12/31/2023 03/31/2025 1 1 Encounter Details Date Type Department Care Team (Late st Contact Info) Description 12/31/2023 11:45 AM ASPHALT TAR AND GRAVEL ROOFER Ancillary Procedure [facility] [address] [place] [address] Emperatriz Richter RN, FIXTURE MAKER BEHAVIORAL CONSULTANT [address] [place] [address] Arthritis of left knee Social History Tobacco Use Types Packs/Day Years [...] place to sleep or slept in a retirement (including now)? No 11/20/2023 Sex and Gender Information Value Date Recorded Sex Assigned at Not on file Gender Identity Not on file Sexual Orientation Not on file documented as of this encounter Plan of Treatment Scheduled Procedures Name Priority Associated Diagnoses Date/Ti me TOTAL KNEE JOINT REPLACEMENT Arthritis of left knee documented as of this encounter Goals Goal Patient Goal Type Associated Problems Recent Progress Patient-Stated? Author Right Knee Replacement Care Plan ET PROE RIGHT KNEE No Emperatriz Richter, RN, FIXTURE MAKER BEHAVIORAL CONSULTANT Left Knee Care Plan ET PROE LEFT KNEE No Emperatriz Richter, RN, FIXTURE MAKER BEHAVIORAL CONSULTANT documented as of this encounter Procedures Procedure Name Priority Date/Time Associated Diagnosis Comments XR LEG LENGTH Routine 12/31/2023 11:53 AM ASPHALT TAR AND GRAVEL ROOFER Arthritis of left knee documented in this encounter Results * XR Leg Length (12/31/2023 11:53 AM ASPHALT TAR AND GRAVEL ROOFER) Anatomical Region Laterality Modality Lower Extremity, Pelvis, Hip, Thigh, Knee, Leg, Ankle Digital Radiography 12/31/2023 11:4 1 AM ASPHALT TAR AND GRAVEL ROOFER Impressions 12/31/2023 12:36 PM ASPHALT TAR AND GRAVEL ROOFER COMPARISON: ??07/30/2023. FINDINGS: ??Since the earlier study, the patient has undergone right total knee arthroplasty. Postsurgical changes of prior ACL repair and DJD again demonstrated on the left. The left lower extremity measures 77.3 cm, and the right lower extremity measures ??77.9 cm, for a discrepancy of 0.6 cm. Narrative Procedure Note Angeles Narvaez MD - 12/31/2023 IMPRESSION COMPARISON: 07/30/2023. FINDINGS: Since the earlier study, the patient has undergone right totalknee arthroplasty. Postsurgical changes of prior ACL repair and DJD againdemonstrated on the left. The left lower extremity measures 77.3 cm, andthe right lower extremity measures 77.9 cm, for a discrepancy of 0.6cm. Emperatriz Richter RN, FIXTURE MAKER BEHAVIORAL CONSULTANT RAD GD documented in this encounter Visit Diagnoses Diagnosis Arthritis of left knee Unspecified arthropathy, lower leg documented in this encounter Additional Health Concerns Active Problems Noted Date Diagnosed Date ET PROE RIGHT KNEE 07/30/2023 ET PROE LEFT KNEE 12/31/2023 documented as of this encounter Care Teams System Architect Relationship Specialty Start Date End Date Ed Del Toro MD [address] [place] [address] PCP - General Family Practice 07/25/22 documented as of this encounter
--- OUTSIDE RECORDS SUMMARY | 2024-04-02 21:41 | XMS_ITS | Encounter Summary ---
Author Organization [facility] Address [address] [place] [address] Care Team Providers Care Drilling Plant Operator Name Role Phone Ed Del Toro MD Primary Care Provider Reason for Visit * Procedure/Equipment (Routine) - Incomplete Specialty Diagnoses / Procedures Referred By Contac t Referred To Contact Diagnoses Status post total knee replacement, right Procedures XR Knee Rt 3 Views Emperatriz Richter RN, OVERHEAD GARAGE DOOR HANGER SENIOR CONSTRUCTION ESTIMATOR [address] [place] [address] Referral ID Status Reason Start Date Expiration Date V isits Requested Visits Authorized [id number] Incomplete 12/31/2023 03/31/2025 1 1 Encounter Details Date Type Department Care Team (Late st Contact Info) Description 12/31/2023 11:10 AM NOTE TELLER Ancillary Procedure [facility] [address] [place] [address] Emperatriz Richter, RN, OVERHEAD GARAGE DOOR HANGER SENIOR CONSTRUCTION ESTIMATOR [address] [place] [address] Status post total knee replacement, right Social History Tobacco Use Types Packs/Day Years [...] place to sleep or slept in a snf (including now)? No 11/20/2023 Sex and Gender [...] PROE RIGHT KNEE No Emperatriz Richter, RN, OVERHEAD GARAGE DOOR HANGER SENIOR CONSTRUCTION ESTIMATOR Left Knee Care Plan ET PROE LEFT KNEE No Emperatriz Richter, RN, OVERHEAD GARAGE DOOR HANGER SENIOR CONSTRUCTION ESTIMATOR documented as of this encounter Procedures Procedure Name Priority Date/Time Associated Diagnosis Comments XR KNEE RT 3 VIEWS Routine 12/31/2023 11 :14 AM NOTE TELLER Status post total knee replacement, right documented in this encounter Results * XR Knee Rt 3 Views (12/31/2023 11:14 AM NOTE TELLER) Anatomical Region Laterality Modality Lower Extremity, Knee Digital Ra diography 12/31/2023 11:0 6 AM NOTE TELLER Impressions 12/31/2023 11:45 AM NOTE TELLER COMPARISON: ??07/30/2023 FINDINGS: ??Postsurgical changes of right total knee arthroplasty; no evidence of hardware complication. Small-moderate joint effusion. No periprosthetic fracture. Calcific atherosclerotic disease identified within the soft tissues. Narrative Procedure Note Amandeep Agustin MD - 12/31/2023 IMPRESSION COMPARISON: 07/30/2023 FINDINGS: Postsurgical changes of right total knee arthroplasty; noevidence of hardware complication. Small-moderate joint effusion. Noperiprosthetic fracture. Calcific atherosclerotic disease identifiedwithin the soft tissues. Emperatriz Richter RN, OVERHEAD GARAGE DOOR HANGER SENIOR CONSTRUCTION ESTIMATOR RAD GD documented in this encounter Visit Diagnoses Diagnosis Status post total knee replacement, right documented in this encounter Additional Health Concerns Active Problems Noted Date Diagnosed Date ET PROE RIGHT KNEE 07/30/2023 ET PROE LEFT KNEE 12/31/2023 documented as of this encounter Care Teams Drilling Plant Operator Relationship Specialty Start Date End Date Ed Del Toro MD [address] [place] [address] PCP - General Family Practice 07/25/22 documented as of this encounter
--- OUTSIDE RECORDS SUMMARY | 2024-04-02 21:41 | XMS_ITS | Encounter Summary ---
[facility] Organization [facility] Address [address] [place] [address] Care Team Providers Care Power Sewing Machine Operator Name Role Phone Ed Del Toro MD Primary Care Provider [phone] Reason for Visit * Procedure/Equipment (Routine) - Incomplete Specialty Diagnoses / Procedures Referred By Contac t Referred To Contact Diagnoses Arthritis of left knee Procedures XR Knee Lt 2 Views Emperatriz Richter RN, DUST MIXER MANAGER SPA [address] [place] [address] Referral ID Status Reason Start Date Expiration Date V isits Requested Visits Authorized [id number] Incomplete 12/31/2023 03/31/2025 1 1 Encounter Details Date Type Department Care Team (Late st Contact Info) Description 12/31/2023 11:40 AM MARKET RESEARCH CONSULTANT Ancillary Procedure [facility] [address] [place] [address] Emperatriz Richter RN, DUST MIXER MANAGER SPA [address] [place] [address] Arthritis of left knee Social History Tobacco [...] place to sleep or slept in a halfway (including now)? No 11/20/2023 Sex and Gender [...] PROE RIGHT KNEE No Emperatriz Richter, RN, DUST MIXER MANAGER SPA Left Knee Care Plan ET PROE LEFT KNEE No Emperatriz Richter, RN, DUST MIXER MANAGER SPA documented as of this encounter Procedures Procedure Name Priority Date/Time Associated Diagnosis Comments XR KNEE LT 2 VIEWS Routine 12/31/2023 11 :52 AM MARKET RESEARCH CONSULTANT Arthritis of left knee documented in this encounter Results * XR Knee Lt 2 Views (12/31/2023 11:52 AM MARKET RESEARCH CONSULTANT) Anatomical Region Laterality Modality Lower Extremity, Knee Digital Ra diography 12/31/2023 11:4 1 AM MARKET RESEARCH CONSULTANT Impressions 12/31/2023 12:34 PM MARKET RESEARCH CONSULTANT COMPARISON: ??07/30/2023 FINDINGS: ??Severe joint space narrowing involving the medial and lateral compartments. Moderate degenerative changes of the patellofemoral compartment. Postoperative evidence of ACL reconstruction. No fracture or dislocation. Narrative Procedure Note Russell Flores MD - 12/31/2023 IMPRESSION COMPARISON: 07/30/2023 FINDINGS: Severe joint space narrowing involving the medial and lateralcompartments. Moderate degenerative changes of the patellofemoralcompartment. Postoperative evidence of ACL reconstruction. No fracture ordislocation. Emperatriz Richter RN, DUST MIXER MANAGER SPA RAD GD documented in this encounter Visit Diagnoses Diagnosis Arthritis of left knee Unspecified arthropathy, lower leg documented in this encounter Additional Health Concerns Active Problems Noted Date Diagnosed Date ET PROE RIGHT KNEE 07/30/2023 ET PROE LEFT KNEE 12/31/2023 documented as of this encounter Care Teams Power Sewing Machine Operator Relationship Specialty Start Date End Date Ed Del Toro MD [address] [place] [address] PCP - General Family Practice 07/25/22 documented as of this encounter
--- OUTSIDE RECORDS SUMMARY | 2024-04-02 21:41 | XMS_ITS | Encounter Summary ---
Author Organization [facility] Address [address] [place] [address] [place] [address] Care Team Providers Care Piped Pocket Machine Operator Name Role Phone Ed Del Toro MD Primary Care Provider Reason for Visit * Reason Comments Knee Problem Encounter Details Date Type Department Care Team (Late st Contact Info) Description 01/02/2024 11:15 AM OUTDOOR GUIDE Therapy [facility], Physical Therapy [address] [address] Elvis Nunn, PT [address] [place] [address] Aftercare following right knee joint replacement surgery (Primary Dx); Primary osteoarthritis of one knee Social History Tobacco Use Types Packs/Day [...] place to sleep or slept in a custodial (including now)? No 11/20/2023 Sex and Gender Information Value Date Recorded Sex Assigned at Not on file Gender Identity Not on file Sexual Orientation Not on file documented as of this encounter Progress Notes * Edouard Elvis Jose Luis, PT - 01/02/2024 11:15 AM CST Physical Therapy Post-Op Right Total Knee Arthroplasty Daily Note Visit number: 12 + 1 for pre-operative evaluation [place] [...] pursue R TKA scheduled for 11/20 at [facility] and will be piyush vering at the [place] for 1-night. Functional Limitations: prolong walking, stairs, getting in/out of a car, sleep Patient's Therapy Goals: PLOF, pain free ADLs, walking, stairs, walking, ladders, Patient's transit coach operator was physically present during pre-op session: No Garbage Pick Up Man: - Emma Stairs INTO house: 3 steps Stairs WITHIN house: Basement stairs with single railing Pets: no Shower: Walk in Toilet Height: Comfort Assistive Devices: FWW and B crutches Vehicle: [employer] Outpatient PT plan: Here at [facility] SUBJECTIVE: Patient Report: Dhaval reports doing well overall. HEP going well. Planning for left TKA later this year. Pain is tolerable-mostly feels stiff. Not relying on cane as much on stairs. Descending still more challenging than ascending stairs- feels like this is impacted more by his left knee than his right knee. Pain Ratin/10 current, 3/10 with activity OBJECTIVE: Observation/Gait: mild antalgic gait without AD, less stiff today Inspection of knee/LE: well healing incisions ROM ([id number]-hyu-vjpl): Right Knee: 0-120 after manual tx Strength: Right Lower Extremity: Quad set: good Supine SLR: wnl TREATMENT TODAY: Manual Treatment x 8 minutes: Seated knee flexion mobs, grade 3-4, multiple rounds Therapeutic Exercise: 12 minutes: - Recumbent bike warm up - Eccentric leg press 15 lbs x 10 - SL Press with 10 lbs 2 x 10 reps Therapeutic Activities (CPT 25032) x 10 minutes: Dynamic activities utilized to improve functional performance. - 6 Lateral step up 2 x 10 reps - PT instructed patient in floor transfers and cued for sequencing while patient practiced. Used chair for assistance. Timed Code Treatment Minutes: 30 Total Treatment Minutes: 30 Plan for next treatment session: progress knee ROM, quad strength, gait training, step progression,leg press, Recumbent bike, ASSESSMENT: Therapist Impression: About 6 weeks s/p R TKA. Has good range of motion and improving gait. Able toprogress to single leg press with great quad fatigue and no reports of pain. Good understanding with updated HEP. EXPECTED FUNCTIONAL [...] ROM in 4-6 weeks. ADL: Squat to sampler pickup items from floor with minimal/no symptoms in 8-10 weeks. Therapist: Elvis Nunn, PT 11:49 AM 01/02/2024 OOR GUIDE documented in this encounter Plan of Treatment Scheduled Procedures Name Priority Associated Diagnoses Date/Ti me TOTAL KNEE JOINT REPLACEMENT Arthritis of left knee documented as of this encounter Goals Goal Patient Goal Type Associated Problems Recent Progress Patient-Stated? Author Right Knee Replacement Care Plan ET PROE RIGHT KNEE No Emperatriz Richter, RN, PAPER SALES REPRESENTATIVE TERMINOLOGIST Left Knee Care Plan ET PROE LEFT KNEE No Emperatriz Richter, RN, PAPER SALES REPRESENTATIVE TERMINOLOGIST documented as of this encounter Visit Diagnoses Diagnosis Aftercare following right knee joint replacement surgery- Primary Primary osteoarthritis of one knee Primary localized osteoarthrosis, lower leg documented in this encounter Additional Health Concerns Active Problems Noted Date Diagnosed Date ET PROE RIGHT KNEE 07/30/2023 ET PROE LEFT KNEE 12/31/2023 documented as of this encounter Care Teams Piped Pocket Machine Operator Relationship Specialty Start Date End Date Ed Del Toro MD [address] [place] [address] PCP - General Family Practice 07/25/22 documented as of this encounter
--- OUTSIDE RECORDS SUMMARY | 2024-04-02 21:41 | XMS_ITS | Encounter Summary ---
Author Organization [facility] Address [address] [place] [address] Care Team Providers Care Real Estate Officer Name Role Phone Ed Del Toro MD Primary Care Provider Reason for Referral * Procedure/Equipment (Routine) - Incomplete Specialty Diagnoses / Procedures Referred By Contac t Referred To Contact Diagnoses Arthritis of left knee Procedures Case Request OR - Orthopedic Surgery: TOTAL KNEE JOINT REPLACEMENT - possible hardware removal Emperatriz Maldonado, RN, SPEARER EVENT PROMOTIONS COORDINATOR [address] [place] [address] Referral ID Status Reason Start Date Expiration Date V isits Requested Visits Authorized [id number] Incomplete 12/31/2023 03/31/2025 1 1 Electronically signed by Emperatriz Maldonado RN, SPEARER EVENT PROMOTIONS COORDINATOR at 12/31/2023 12:05 PM PRODUCTION DRILLING MACHINE OPERATOR * Procedure/Equipment (Routine) - Incomplete Specialty Diagnoses / Procedures Referred By Contac t Referred To Contact Diagnoses Arthritis of left knee Procedures XR Leg Length Emperatriz Maldonado, BARI, SPEARER EVENT PROMOTIONS COORDINATOR [address] [place] [address] Referral ID Status Reason Start Date Expiration Date V isits Requested Visits Authorized [id number] Incomplete 12/31/2023 03/31/2025 1 1 Electronically signed by Emperatriz Maldonado RN, SPEARER EVENT PROMOTIONS COORDINATOR at 12/31/2023 11:39 AM PRODUCTION DRILLING MACHINE OPERATOR * Procedure/Equipment (Routine) - Incomplete Specialty Diagnoses / Procedures Referred By Contac t Referred To Contact Diagnoses Arthritis of left knee Procedures XR Knee Lt 2 Views Emperatriz Maldonado, BARI, SPEARER EVENT PROMOTIONS COORDINATOR [address] [place] [address] Referral ID Status Reason Start Date Expiration Date V isits Requested Visits Authorized [id number] Incomplete 12/31/2023 03/31/2025 1 1 Electronically signed by Emperatriz Maldonado RN, SPEARER EVENT PROMOTIONS COORDINATOR at 12/31/2023 11:39 AM PRODUCTION DRILLING MACHINE OPERATOR * Procedure/Equipment (Routine) - Incomplete Specialty Diagnoses / Procedures Referred By Contac t Referred To Contact Diagnoses Status post total knee replacement, right Procedures XR Knee Rt 3 Views Emperatriz Maldonado RN, SPEARER EVENT PROMOTIONS COORDINATOR [address] [place] [address] Referral ID Status Reason Start Date Expiration Date V isits Requested Visits Authorized [id number] Incomplete 12/31/2023 03/31/2025 1 1 Electronically signed by Emperatriz Maldonado RN, SPEARER EVENT PROMOTIONS COORDINATOR at 12/31/2023 11:06 AM PRODUCTION DRILLING MACHINE OPERATOR Reason for Visit * Reason Comments Post Op Exam Encounter Details Date Type Department Care Team (Late st Contact Info) Description 12/31/2023 11:00 AM PRODUCTION DRILLING MACHINE OPERATOR Office Visit [facility] [address] [place] [address] Emperatriz Maldonado RN, SPEARER EVENT PROMOTIONS COORDINATOR [address] [place] [address] Status post total knee replacement, right (Primary Dx); Arthritis of left knee Social History Tobacco [...] on file documented as of this encounter Patient Instructions * Patient Instructions* Eli Sosa LPN - 12/31/2023 11:00 AM PRODUCTION DRILLING MACHINE OPERATOR Thank you for Choosing [employer] for your health care visit today. Emperatriz Chino MD Orthopaedic Surgeon Medication Requests: Prescriptions are not filled on weekends or on weekdays after 3:00 PM. For all medication refills: Request a refill using MyChart or contact your pharmacy. What is Know Your Cost? Know Your Cost is a service for patients and patient/members to call and receive personalized cost information and estimates across our care group. The phone number is (COST) Saturday - Saturday 8 AM to 5 PM Advanced Imaging Scheduling: To schedule an MRI, Ultrasound, or Image guided injection at [facility] please call [phone]. To schedule an MRI or CT at a [facility] please call [phone]. [facility] Workers' Compensation [address] [place] [address] (Phone) Email: [email or web address] Release of Information: Radiology/Imaging [address] [place], [place] [phone] (Phone) Health Information Management [address] [place] [address] (Phone) [employer] UCTION DRILLING MACHINE OPERATOR documented in this encounter Progress Notes * Emperatriz Maldonado RN, SPEARER EVENT PROMOTIONS COORDINATOR - 12/31/2023 11:00 AM CSTAddended by: EMPERATRIZ MALDONADO on: 12/31/2023 12:05 PM Modules accepted: Orders Electronically signed by Emperatriz Maldonado RN, SPEARER EVENT PROMOTIONS COORDINATOR at 12/31/2023 12:05 PM PRODUCTION DRILLING MACHINE OPERATOR * Emperatriz Maldonado RN, SPEARER EVENT PROMOTIONS COORDINATOR - 12/31/2023 11:00 AM CSTAddended by: EMPERATRIZ MALDONADO on: 12/31/2023 12:05 PM Modules accepted: Level of Service Electronically signed by Emperatriz Madlonado RN, SPEARER EVENT PROMOTIONS COORDINATOR at 12/31/2023 12:05 PM PRODUCTION DRILLING MACHINE OPERATOR * Emperatriz Maldonado RN, SPEARER EVENT PROMOTIONS COORDINATOR - 12/31/2023 11:00 AM CST Beau Melgar Age: 63 y.o. Date of : 1960 Interval History Beau Melgar is a 63 y.o. male who returns today for a post-operative follow up visit s/p: 11/20/23 right tka Dhaval has been making excellent progress following the knee replacement. The patient's pain, mobility has been steadily improving. The range of motion has also improved. He notes that the range of motion has been to 0-120 at physical therapy. He continues to do the knee exercises. He is currently not taking narcotics for pain. He is walking without any assistive devices. All-in-all he feels like he is good progress and is happy with progress he is making. Dhaval also wonders when he can proceed with his left tka. He states he now feels as though he is relying on the right knee to help support his left knee. He is thinking he would like to proceed with surgery sometime in 4th quarter. Physical Exam: NAD AOx3 Interactive and cooperative with the exam. He walks with a well-balanced gait. He has no pain with gentle knee range of motion. Knee range of motion is from 0 to 115. The extensor mechanism is intact. The incision is well-healed. left painful knee Overall limb alignment is: moderate varus, correctable Effusion or swelling of the knee: mild Tenderness to palpation: mild medial compartment ROM: 10 to 100 Pain with knee ROM: mild Extensor lag: none MCL stability: stable, mild laxity Lateral Stability: stable Lewis: stable Posterior stability: stable Pain with passive full hip range of motion: none Prior surgical incision: none Motor: normal ehl/fhl/gs/at strength Sensory: normal sensation in DP/SP/T/S/S distributions Vascular: 2+ PT pulse Data: Imaging: X-rays demonstrate well-fixed well-positioned cemented knee replacement implants. Full length standing bilateral lower extremity alignment radiograph was obtained which shows neutral of the right limb and varus alignment of the left limb. There is no degenerative arthritis of the bilateral hips. There are also severe degenerative changes of the right knee(s [place], lateral, and sunrise views of the patient's left knee were also obtained and shows severe degenerative arthritis, anchors present. Assessment and Plan: Beau Melgar is a 63 y.o. male is s/p the above procedure. He is making excellent progress following the knee replacement. He will continue to progress with activities as tolerated in a stepwise fashion. We discssed the terminal worker recovery process and naturalhistory of total knee replacement. I would expect the strength, mobility, and function to continue to steadily improve. If things continue to progress smoothly, I will see him back for a routine 1 year follow-up visit. He will let me know if he has any questions or concerns in meantime. We discussed and reviewed the patient???s symptoms, clinical exam findings and radiographs. The most likely source of the pain is from degenerative arthritis of the right knee. We discussed the natural history, treatment options and recommendations including operative and non-operative options. Thepatient has failed conservative treatment options including injections, therapy, activity modification. Their daily activities are negatively impacted. The patient has reasonable expectations of painrelief and return to activities following operative treatment. They are a good candidate for left total knee arthroplasty. Given his need for transport from [facility] to [facility] for YARELY concerns, we will plan on left tka at [facility] and again plan on coumadin POD#0, no bridge post operatively. Emperatriz Maldonado RN, SPEARER EVENT PROMOTIONS COORDINATOR 12/31/2023, 11:45 AM Electronically signed by Emperatriz Maldonado RN, SPEARER EVENT PROMOTIONS COORDINATOR at 12/31/2023 12:05 PM PRODUCTION DRILLING MACHINE OPERATOR documented in this encounter Plan of Treatment Scheduled Procedures Name Priority Associated Diagnoses Date/Ti me TOTAL KNEE JOINT REPLACEMENT Arthritis of left knee documented as of this encounter Goals Goal Patient Goal Type Associated Problems Recent Progress Patient-Stated? Author Right Knee Replacement Care Plan ET PROE RIGHT KNEE No Emperatriz Maldonado, BARI, SPEARER EVENT PROMOTIONS COORDINATOR Left Knee Care Plan ET PROE LEFT KNEE No Emperatriz Maldonado, BARI, SPEARER EVENT PROMOTIONS COORDINATOR documented as of this encounter Results * XR Leg Length (12/31/2023 11:53 AM PRODUCTION DRILLING MACHINE OPERATOR) Anatomical Region Laterality Modality Lower Extremity, Pelvis, Hip, Thigh, Knee, Leg, Ankle Digital Radiography 12/31/2023 11:4 1 AM PRODUCTION DRILLING MACHINE OPERATOR Impressions 12/31/2023 12:36 PM PRODUCTION DRILLING MACHINE OPERATOR COMPARISON: ??07/30/2023. FINDINGS: ??Since the earlier study, [...] cm, for a discrepancy of 0.6cm. Emperatriz Maldonado RN, SPEARER EVENT PROMOTIONS COORDINATOR RAD GD * XR Knee Lt 2 Views (12/31/2023 11:52 AM PRODUCTION DRILLING MACHINE OPERATOR) Anatomical Region Laterality Modality Lower Extremity, Knee Digital Ra diography 12/31/2023 11:4 1 AM PRODUCTION DRILLING MACHINE OPERATOR Impressions 12/31/2023 12:34 PM PRODUCTION DRILLING MACHINE OPERATOR COMPARISON: ??07/30/2023 FINDINGS: ??Severe joint space narrowing [...] of ACL reconstruction. No fracture ordislocation. Emperatriz Maldonado RN, SPEARER EVENT PROMOTIONS COORDINATOR RAD GD * XR Knee Rt 3 Views (12/31/2023 11:14 AM PRODUCTION DRILLING MACHINE OPERATOR) Anatomical Region Laterality Modality Lower Extremity, Knee Digital Ra diography 12/31/2023 11:0 6 AM PRODUCTION DRILLING MACHINE OPERATOR Impressions 12/31/2023 11:45 AM PRODUCTION DRILLING MACHINE OPERATOR COMPARISON: ??07/30/2023 FINDINGS: ??Postsurgical changes of right [...] atherosclerotic disease identifiedwithin the soft tissues. Emperatriz Maldonado RN, SPEARER EVENT PROMOTIONS COORDINATOR RAD GD documented in this encounter Visit Diagnoses Diagnosis Status post total knee replacement, right- Primary Arthritis of left knee Unspecified arthropathy, lower leg Status post total knee replacement, right Arthritis of left knee Unspecified arthropathy, lower leg Arthritis of left knee Unspecified arthropathy, lower leg documented in this encounter Additional Health Concerns Active Problems Noted Date Diagnosed Date ET PROE RIGHT KNEE 07/30/2023 ET PROE LEFT KNEE 12/31/2023 documented as of this encounter Care Teams Real Estate Officer Relationship Specialty Start Date End Date Ed Del Toro MD [address] [place] [address] PCP - General Family Practice 07/25/22 documented as of this encounter
--- OUTSIDE RECORDS SUMMARY | 2024-04-02 21:41 | XMS_ITS | Encounter Summary ---
Author Organization [facility] [facility] Address [address] [place] [address] Care Team Providers Care Fibre Technologist Name Role Phone Ed Del Toro MD Primary Care Provider Reason for Visit * Reason Comments Knee Problem Encounter Details Date Type Department Care Team (Late st Contact Info) Description 01/16/2024 9:00 AM CDT Therapy [facility], Physical Therapy [address] [place] [address] Álvaro Flores, PT [address] [place], [place] [id number] Aftercare following right knee joint replacement surgery [...] place to sleep or slept in a usp (including now)? No 11/20/2023 Sex and Gender Information Value Date Recorded Sex Assigned at Not on file Gender Identity Not on file Sexual Orientation Not on file documented as of this encounter Progress Notes * Álvaro Flores, PT - 01/16/2024 9:00 AM CDT Physical Therapy Post-Op Right Total Knee Arthroplasty Daily Note Visit number: 15 + 1 for pre-operative evaluation [place]BS [place] [...] pursue R TKA scheduled for 11/20 at [facility] and will be piyush vering at the [place] for 1-night. Functional Limitations: prolong walking, stairs, getting in/out of a car, sleep Patient's Therapy Goals: PLOF, pain free ADLs, walking, stairs, walking, ladders, Patient's etiquette coach was physically present during pre-op session: No Bicycle Ii Assembler: - Emma Stairs INTO house: 3 steps Stairs WITHIN house: Basement stairs with single railing Pets: no Shower: Walk in Toilet Height: Comfort Assistive Devices: FWW and B crutches Vehicle: [employer] Outpatient PT plan: Here at [facility] SUBJECTIVE: Patient Report: Dhaval is almost 2 months s/p R TKA and reports knee feeling ok on average, but morestiff than expected. Feels better after afternoon stationary bike ride. Pain Ratin/10 current, 2/10 with activity OBJECTIVE: Observation/Gait: very mild antalgic gait Inspection of knee/LE: well healing incisions ROM ([id number]-gjc-mory): Right Knee: 0-123 after manual tx Strength: Right Lower Extremity: Quad set: good Supine SLR: wnl TREATMENT TODAY: Manual Treatment x 10 minutes: Supine knee flex PROM with PT assist Knee ext stretch with with PT overpressure Therapeutic Exercise: 25 minutes: - Recumbent bike warm up - DL leg press 40lbs x 15 - Eccentric leg press 25 lbs x 10 - side steps with band - seated knee ext with band - genu ease x 5 mins (0-0-127) Therapeutic Activities (CPT 85136) x 10 minutes: Dynamic activities utilized to improve functional performance. - Runner step ups on 8 step 2 x 10 - butt tap squats on table - SL heel raise Timed Code Treatment Minutes: 45 Total Treatment Minutes: 45 Plan for next treatment session: progress knee ROM, quad strength step progression, leg press, Recumbent bike, genu ease as needed; sled push? ASSESSMENT: Therapist Impression: 2 months s/p R TKA. Maintained good knee ROM at 0-123 after manual tx and stretching, and improved knee ROM to 127 degs flex on genu ease. Able to increase resistance on leg press with good muscle fatigue with no knee discomfort. Advised to progress activities as symptoms allow. [...] ROM in 4-6 weeks. ADL: Squat to pick pulling machine operator items from floor with minimal/no symptoms in 8-10 weeks. Ongoing: Ambulation: Patient will be able to demonstrate up/down 1 flight of stairs with a step through gaitpattern and use of 0-1 railing in 10-12 weeks Ambulation: Patient will be able to ambulate community distances with minimal to no symptoms/limp in 12 weeks. Therapist: Álvaro Flroes PT 9:03 AM 01/16/2024 documented in this encounter Plan of Treatment Scheduled Procedures Name Priority Associated Diagnoses Date/Ti me TOTAL KNEE JOINT REPLACEMENT Arthritis of left knee documented as of this encounter Goals Goal Patient Goal Type Associated Problems Recent Progress Patient-Stated? Author Right Knee Replacement Care Plan ET PROE RIGHT KNEE No Emperatriz Richter, RN, TIMBER INCISOR OPERATOR HEALTH SCIENCE INSTRUCTOR Left Knee Care Plan ET PROE LEFT KNEE No Emperatriz Richter, RN, TIMBER INCISOR OPERATOR HEALTH SCIENCE INSTRUCTOR documented as of this encounter Visit Diagnoses Diagnosis Aftercare following right knee joint replacement surgery- Primary documented in this encounter Additional Health Concerns Active Problems Noted Date Diagnosed Date ET PROE RIGHT KNEE 07/30/2023 ET PROE LEFT KNEE 12/31/2023 documented as of this encounter Care Teams Fibre Technologist Relationship Specialty Start Date End Date Ed Del Toro MD [address] [place] [address] PCP - General Family Practice 07/25/22 documented as of this encounter
--- OUTSIDE RECORDS SUMMARY | 2024-04-02 21:41 | XMS_ITS | Encounter Summary ---
Author Organization [employer] Address [address] [place] [address] Care Team Providers Care Physical Therapist Center Manager Name Role Phone Ed Del Toro MD Primary Care Provider [phone] Reason for Visit * Reason Comments Knee Problem Encounter Details Date Type Department Care Team (Late st Contact Info) Description 01/09/2024 4:30 PM AIRCRAFT ENGINEER Therapy [facility], Physical Therapy [address] [place] [place] [address] Álvaro Flores, PT [address] [place], [place] [address] Aftercare following right knee joint replacement surgery [...] place to sleep or slept in a m[facility]p (including now)? No 11/20/2023 Sex and Gender Information Value Date Recorded Sex Assigned at Not on file Gender Identity Not on file Sexual Orientation Not on file documented as of this encounter Progress Notes * Álvaro Flores, PT - 01/09/2024 4:30 PM CST Physical Therapy Post-Op Right Total Knee Arthroplasty Daily Note Visit number: 14 + 1 for pre-operative evaluation [place] [...] pursue R TKA scheduled for 11/20 at [facility] and will be piyush vering at the [facility] for 1-night. Functional Limitations: prolong walking, stairs, getting in/out of a car, sleep Patient's Therapy Goals: PLOF, pain free ADLs, walking, stairs, walking, ladders, Patient's project manager/team coach was physically present during pre-op session: No Grinder Brake Lining: - Emma Stairs INTO house: 3 steps Stairs WITHIN house: Basement stairs with single railing Pets: no Shower: Walk in Toilet Height: Comfort Assistive Devices: FWW and B crutches Vehicle: [employer] Outpatient PT plan: Here at [facility] SUBJECTIVE: Patient Report: Dhaval 7 weeks s/p R TKA and reports knee feeling fairly good overall. Still gettingsome stiffness and swelling first thing in the morning and after prolong sitting. Feels much betterafter light activity and using stationary bike at home 2x daily. Pain Ratin/10 current, 2/10 with activity OBJECTIVE: Observation/Gait: very mild antalgic gait Inspection of knee/LE: well healing incisions ROM ([id number]-ktw-cxcz): Right Knee: 0-123 after manual tx Strength: Right Lower Extremity: Quad set: good Supine SLR: wnl TREATMENT TODAY: Manual Treatment x 10 minutes: Supine knee flex PROM with PT assist Knee ext stretch with with PT overpressure Therapeutic Exercise: 15 minutes: - Recumbent bike warm up - DL leg press 25lbs x 10 - Eccentric leg press 25 lbs x 10 - knee ext machine DL 40lbs and SL Therapeutic Activities (CPT 48760) x 10 minutes: Dynamic activities utilized to improve functional performance. - Runner step ups on 8 step 2 x 10 - butt tap squats on table Timed Code Treatment Minutes: 35 Total Treatment Minutes: 35 Plan for next treatment session: progress knee ROM, quad strength step progression, leg press, Recumbent bike, genu ease as needed; sled push? ASSESSMENT: Therapist Impression: 7 weeks s/p R TKA. Maintained good knee ROM at 0-123 after manual tx and stretching. Able to increase resistance on leg press and knee ext machine with good muscle fatigue and only slight anterior knee discomfort. EXPECTED FUNCTIONAL OUTCOMES/GOALS: Post-operative Goals: HEP/Independent Management: [...] ROM in 4-6 weeks. ADL: Squat to grain picker items from floor with minimal/no symptoms in 8-10 weeks. Therapist: Álvaro Flores, PT 4:33 PM 01/09/2024 RAFT ENGINEER documented in this encounter Plan of Treatment Scheduled Procedures Name Priority Associated Diagnoses Date/Ti me TOTAL KNEE JOINT REPLACEMENT Arthritis of left knee documented as of this encounter Goals Goal Patient Goal Type Associated Problems Recent Progress Patient-Stated? Author Right Knee Replacement Care Plan ET PROE RIGHT KNEE No Emperatriz Richter, RN, COMPRESSION MOLDING MACHINE TENDER ELECTRIC KNIFE OPERATOR Left Knee Care Plan ET PROE LEFT KNEE No Emperatriz Rihcter, RN, COMPRESSION MOLDING MACHINE TENDER ELECTRIC KNIFE OPERATOR documented as of this encounter Visit Diagnoses Diagnosis Aftercare following right knee joint replacement surgery- Primary documented in this encounter Additional Health Concerns Active Problems Noted Date Diagnosed Date ET PROE RIGHT KNEE 07/30/2023 ET PROE LEFT KNEE 12/31/2023 documented as of this encounter Care Teams Physical Therapist Center Manager Relationship Specialty Start Date End Date Ed Del Toro MD [address] [place] [address] PCP - General Family Practice 07/25/22 documented as of this encounter
--- OUTSIDE RECORDS SUMMARY | 2024-04-02 21:41 | XMS_ITS | Clinical Summary ---
Author Organization [facility] Address [address] [address] Care Team Providers Care Sales Planner Name Role Phone Ed Del Toro MD Primary Care Provider [phone] Source Comments You are receiving this document as you are listed as the primary care provider,follow-up provider, or the patient has been referred to you for consultation.This is in compliance with the Medicare and[facility] EHR Incentive Program,which states Providers who transition their patient to another setting of careor provider of care or refers their patient to another provider of care shouldprovide summary care record for each transition of care or referral. [facility] Allergies No known active allergies Medications Medication Sig Dispensed Refills Start Date End Date Status oxyCODONE (ROXICODONE) 5 MG immediate release tablet 5 mg tab, take 1-2 tablets by mouth every 4 hours as needed for pain 42 Tablet 11/20/2023 Active Additional Information Patient not taking.Reported on 12/05/2023 ondansetron (ZOFRAN-ODT) 4 MG disintegrating tablet Take 1 Tablet (4 mg) by mouth every 8 hours as needed for Nausea (Vomiting). Dissolve tablet on tongue. 30 Tablet 11/20/2023 Active senna (SENOKOT) 8.6 MG tablet Take 1 Tablet by mouth at bedtime as needed for Constipation (Constipation (while on pain pills)). 100 Tablet 11/20/2023 Active dilTIAZem CD (CARDIZEM CD) 120 MG 24 hour release capsule Take 1 Capsule (120 mg) by mouth daily. 11/01/2023 Active flecainide (TAMBOCOR) 100 MG tablet Take 1 Tablet (100 mg) by mouth two times a day. 11/03/2023 Active warfarin 2 MG tablet Take by mouth 3 mg every day in the evening OR as directed 11/07/2023 Active omeprazole (PRILOSEC) 20 MG capsule Take 1 Capsule (20 mg) by mouth daily. Take 1 hour before a meal. Active amoxicillin (AMOXIL) 500 MG capsuleIndications:S tatus post total knee replacement, right Take 4 capsules (2,000mg) 1 hour before Dental Procedure. 8 Capsule 1 12/10/2023 Active Active Problems Problem Noted Date Diagnosed Date Arthritis of left knee 12/31/2023 Status post total knee replacement, right 2023 Overview: Dr. Chino 11/20/2023 Hypoxia 11/20/2023 YARELY (obstructive sleep apnea) 11/20/2023 Atrial fibrillation, transient 11/20/2023 Primary localized osteoarthritis of right knee 0 07/30/2023 History of pulmonary embolus (PE) 08/31/2019 Overview: 2018 Obesity 08/07/2017 Encounters Date Type Department Care Team Description 02/18/2024 7:00 AM CDT Therapy [facility], Physical Therapy [facility] [place] [address] Álvaro Flores, PT Aftercare following right knee joint replacement surgery (Primary Dx) 01/31/2024 8:45 AM CDT Therapy [facility], Physical Therapy [facility] [place] [address] Elvis Nunn, PT Aftercare following right knee joint replacement surgery (Primary Dx) 01/16/2024 9:00 AM CDT Therapy [facility], Physical Therapy [address] [place] [address] Álvaro Flores, PT Aftercare following right knee joint replacement surgery (Primary Dx) 01/09/2024 4:30 PM COMMERCIAL SPECIALIST Therapy [facility], Physical Therapy [address] [place] [address] Álvaro Flores, PT Aftercare following right knee joint replacement surgery (Primary Dx) 01/06/2024 12:00 PM COMMERCIAL SPECIALIST Therapy [facility], Physical Therapy [address] [place] [address] Álvaro Flores, PT Aftercare following right knee joint replacement surgery (Primary Dx) 01/02/2024 11:15 AM COMMERCIAL SPECIALIST Therapy [facility], Physical Therapy [address] [place] [address] Elvis Nunn, PT Aftercare following right knee joint replacement surgery (Primary Dx); Primary osteoarthritis of one knee from Last 3 Months Social History Tobacco Use Types Packs/Day Years Used Date Smoking Tobacco: Never Smokeless Tobacco: Never Tobacco Cessation:Counseling Given: Not Answered Humiliation, Afraid, Rape, and Kick questionnair e [...] place to sleep or slept in a m[facility] (including now)? No 11/20/2023 Sex and Gender Information Value Date Recorded Sex Assigned at Not on file Gender Identity Not on file Sexual Orientation Not on file Last Filed Vital Signs Vital Sign Reading Time Taken Comments Blood Pressure 136/72 11/21/2023 10:46 AM COMMERCIAL SPECIALIST Pulse 61 11/21/2023 10:46 AM COMMERCIAL SPECIALIST Temperature 36.9 ??C (98.4 ??F) 11/21/2023 10:[address] Respiratory Rate 16 11/21/2023 10:46 AM COMMERCIAL SPECIALIST Oxygen Saturation 95% 11/21/2023 10:46 AM COMMERCIAL SPECIALIST Inhaled Oxygen Concentration - - Weight 108.9 kg (240 lb) 11/20/2023 3:50 PM COMMERCIAL SPECIALIST Height 172.7 cm (5' 8) 11/20/2023 5:33 PM COMMERCIAL SPECIALIST Body Mass Index 36.49 11/20/2023 3:50 PM COMMERCIAL SPECIALIST Plan of Treatment Scheduled Procedures Name Priority Associated Diagnoses Date/Ti me TOTAL KNEE JOINT REPLACEMENT Arthritis of left knee Health Maintenance Due Date Last Done Comments Colon Cancer Screening Plan Due 1960 Diabetes Screening- (based o n age and BMI) 1960 Hep C Screening (Preventive Services) 1960 Adult Preventive Visit 1976 Cholesterol 1993 Zoster/Shingles (1 of 2) 2008 Pneumococcal 65+ Yrs (1 - PCV) 2023 COVID-19 Vaccine (2 - 2022-2 4 season) 2023 02/13/2021 Influenza (Season Ended) 2024 PSA Screening Discussion 09/13/2024 09/13/2023 DTaP/Tdap/Td (2 - Tdap) 03/03/2025 03/03/2015 HepA Aged Out No longer eligi ble based on patient's age to complete this topic HepB Aged Out No longer eligi ble based on patient's age to complete this topic Hib Aged Out No longer eligi ble based on patient's age to complete this topic IPV (Polio) Aged Out No longer eligi ble based on patient's age to complete this topic MCV4 Aged Out No longer eligi ble based on patient's age to complete this topic Goals Goal Patient Goal Type Associated Problems Recent Progress Patient-Stated? Author Right Knee Replacement Care Plan ET PROE RIGHT KNEE No Emperatriz Richter, RN, TIRE SERVICE TECHNICIAN CIRCUIT WALKER Left Knee Care Plan ET PROE LEFT KNEE No Emperatriz Richter, RN, TIRE SERVICE TECHNICIAN CIRCUIT WALKER Medical Devices Implanted Type Area Evs Tech Device Identifier Shelf Expiration Date Model / Serial / Lot Jose Bone [employer]omet R 1x40 - [id number] Implanted:Qty: 2 on 11/20/2023 by Costa Chino MD at [facility] Right: KNEE [employer] 04/03/2026 [id number] / 0 / [id number] Patella All Poly Ply 35mm - [id number] Implanted:Qty: 1 on 11/20/2023 by Costa Chino MD at [facility] Right: KNEE [employer] 09/14/2028 [id number] / 0 / [id number] Comp Fem Ps Ccr Ps Std Sz7 Rt - [id number] Implanted:Qty: 1 on 11/20/2023 by Costa Chino MD at [facility] Right: KNEE [employer] 07/06/2033 [id number] / 0 / [id number] Stem Tib 5deg Szg Rt - [id number] Implanted:Qty: 1 on 11/20/2023 by Costa Chino MD at [facility] Right: KNEE [employer] 08/23/2033 [id number] / 0 / [id number] Asf Ps Poly 11mm 69 Gh Rt - [id number] Implanted:Qty: 1 on 11/20/2023 by Costa Chino MD at [facility] Right: KNEE [employer] 01/23/2028 [id number] / 0 / [id number] Additional Health Concerns Active Problems Noted Date Diagnosed Date ET PROE RIGHT KNEE 07/30/2023 ET PROE LEFT KNEE 12/31/2023 Advance Directives * Full Code (Latest Code Status on File) Date Activated Date Inactivated Comments 11/20/2023 4:32 PM 11/21/2023 3:07 PM * Full Code Date Activated Date Inactivated Comments 11/20/2023 7:10 AM 11/20/2023 3:45 PM Care Teams Sales Planner Relationship Specialty Start Date End Date Ed Del Toro MD [address] [place] [address] PCP - General Family Practice 07/25/22
--- OUTSIDE RECORDS SUMMARY | 2024-04-02 21:41 | XMS_ITS | Encounter Summary ---
Author Organization [employer] Address [address] [place] [address] Care Team Providers Care Bag Loader Machine Operator Name Role Phone Ed Del Toro MD Primary Care Provider [phone] Reason for Visit * Reason Comments Knee Problem Encounter Details Date Type Department Care Team (Late st Contact Info) Description 02/18/2024 7:00 AM CDT Therapy [facility], Physical Therapy [address] [place] [address] Álvaro Flores, PT [address] [place], [place] [address] Aftercare following right knee joint replacement surgery [...] Progress Notes * Álvaro Flores, PT - 02/18/2024 7:00 AM CDT Physical Therapy Post-Op Right Total Knee Arthroplasty Daily Note/Discharge Summary Start of Care Date: 10/23/23 See below for current functional status, updated goals and therapy plan which necessitates continued therapy/skilled care treatment Visit number: 17 + 1 for pre-operative evaluation [place] [...] pursue R TKA scheduled for 11/20 at [facility] and will be piyush vering at the [place] for 1-night. Functional Limitations: prolong walking, stairs, getting in/out of a car, sleep Patient's Therapy Goals: PLOF, pain free ADLs, walking, stairs, walking, ladders, Patient's coach tour driver was physically present during pre-op session: No Foam Rubber Molder: - Emma Stairs INTO house: 3 steps Stairs WITHIN house: Basement stairs with single railing Pets: no Shower: Walk in Toilet Height: Comfort Assistive Devices: FWW and B crutches Vehicle: [place] Outpatient PT plan: Here at [facility] SUBJECTIVE: Patient Report: 3 months s/p R TKA and reports feeling good overall. Still waking up with increasedstiffness, which improves after light activity and using stationary bike. Pain Ratin/10 current, 2/10 with activity OBJECTIVE: Observation/Gait: wnl Inspection of knee/LE: well healing incisions ROM (jvzihosvv-hss-eklt): Right Knee: 0-123 after manual tx Strength: Right Lower Extremity: Quad set: good Supine SLR: wnl TREATMENT TODAY: Manual Treatment x 8 minutes: Knee flex PROM with PT assist Posterior tibiofemoral jt oscillations grade 1-2 Therapeutic Exercise: 23 minutes: Recumbent bike warm up x 4 mins Bridge SL leg press 10lbs and 25 lbs x 10 Access Code: [email or web address] HEP Exercises performed and verbally reviewed: - Upright Bike Pendulum Swings - 1 x daily - 7 x weekly - 10-15 mins hold - Supine Bridge - 1 x daily - 5 x weekly - 2 sets - 10 reps - 2-3 sec hold - Small Range Straight Leg Raise (Mirrored) - 1 x daily - 5 x weekly - 2 sets - 10 reps - slow hold - Eccentric Knee Extension with Weight Machine - 1 x daily - 5 x weekly - 2 sets - 15 reps - slow hold - Sit to Stand Without Arm Support - 10 x daily - 5 x weekly - 2 sets - 10 reps - slow hold - Single Leg Stance (Mirrored) - 1 x daily - 5 x weekly - 2-3 sets - 30 sec hold - Side Stepping with Resistance at Ankles - 1 x daily - 5 x weekly - 4 sets - slow hold - 10 steps Timed Code Treatment Minutes: 31 Total Treatment Minutes: 31 Plan for next treatment session: D/c per HEP ASSESSMENT: Therapist Impression: 3 months s/p R TKA. Maintaining good knee ROM after stationary bike and lightactivity. Demonstrated great muscle fatigue during exercises progression. Updated HEP with good understanding. Advised to progress activities as symptoms allow. D/c per HEP. EXPECTED FUNCTIONAL OUTCOMES/GOALS: Post-operative Goals: Met: HEP/Independent [...] ROM in 4-6 weeks. ADL: Squat to filler picker items from floor with minimal/no symptoms in 8-10 weeks. Ambulation: Patient will be able to demonstrate up/down 1 flight of stairs with a step through gaitpattern and use of 0-1 railing in 10-12 weeks Ambulation: Patient will be able to ambulate community distances with minimal to no symptoms/limp in 12 weeks. Sometimes knee still feels stiff. Return to work without limitations or increase in symptoms in 8 weeks. Therapist: Álvaro Flores, PT 7:02 AM 02/18/2024 [facility] Physical Therapy Discharge Summary Attainment of goals: See above Patient Compliance with Physical Therapy: Patient was compliant with attendance and therapy recommendations. Discharge recommendations: Patient will continue to work independently with home program/self management strategies. documented in this encounter Plan of Treatment Scheduled Procedures Name Priority Associated Diagnoses Date/Ti me TOTAL KNEE JOINT REPLACEMENT Arthritis of left knee documented as of this encounter Goals Goal Patient Goal Type Associated Problems Recent Progress Patient-Stated? Author Right Knee Replacement Care Plan ET PROE RIGHT KNEE No Emperatriz Richter, RN, PAINTER APPRENTICE WHITE SUGAR PAN TANK OPERATOR Left Knee Care Plan ET PROE LEFT KNEE No Emperatriz Richter, RN, PAINTER APPRENTICE WHITE SUGAR PAN TANK OPERATOR documented as of this encounter Visit Diagnoses Diagnosis Aftercare following right knee joint replacement surgery- Primary documented in this encounter Additional Health Concerns Active Problems Noted Date Diagnosed Date ET PROE RIGHT KNEE 07/30/2023 ET PROE LEFT KNEE 12/31/2023 documented as of this encounter Care Teams Bag Loader Machine Operator Relationship Specialty Start Date End Date Ed Del Toro MD [address] [place] [address] PCP - General Family Practice 07/25/22 documented as of this encounter
[2024-04-02 21:42] LABS: Chloride* 105 mmol/L (96-114); Sodium* 138 mmol/L (135-149)
--- OUTSIDE RECORDS SUMMARY | 2024-04-02 21:42 | XMS_ITS | Continuity of Care Document ---
Author Organization [facility] Address [address] [place] [address] Phone Care Team Providers Care Release Manager Name Role Phone Christiano Guzman Unavailable Unavailable [...] Visit,Est, [facility], [address], [place], [place], [id number], [place] tel:[phone] [facility] [place] Spinal stenosis, cervical regionOther spondylosis, lumbar region 9 Mike Alvarado. [facility], [address], [place], [place], [id number] , [place]. tel:[phone] Referring Provider: Christiano Mckeon, [facility] [address], [place], [address] . tel:[phone] Office/Outpat ient Visit,New, [facility], [address], [place], [id number], [place] tel:[phone] [facility] [place] CervicalgiaLow back pain 8 Mike Alvarado. [facility], [address], [place], [place], [id number] , [place]. [phone] Referring Provider: Christiano Mckeon, [facility] [address], [place], [address] . tel:[phone] Family History Family Member Type Diagnosis Age At Onset No Information Payers Payer name Insurance type Covered libertarian ID Valentine greer(s) [facility] [id number] [facility] [id number] Social History Type Description Quantity Date Captured [...]
--- OUTSIDE RECORDS SUMMARY | 2024-04-02 21:42 | XMS_ITS | Clinical Summary ---
Author Organization [facility] Address [place], [place] [address] Care Team Providers Care Patient Service Associate Name Role Phone Romina Cristobal NP Unavailable Stephen Mcguire Unavailable [phone] Ed Del Toro MD Primary Care Provider Cassandra Kearney MD Unavailable Allergies No known active allergies Medications Medication Sig Dispensed Refills Start Date End Date Status famotidine (PEPCID) 20 mg tabletIndications :Chronic GERD TAKE UP TO 1 TABLET BY MOUTH TWICE DAILY WHEN NEEDED FOR REFLUX OR SYMPTOMS OR FLARE UP 180 Tablet 3 08/09/2023 Active omeprazole (PRILOSEC) 20 mg Delayed-Release capsuleIndication s:Chronic GERD Take 1 Capsule (20 mg) by mouth once daily before a meal. 90 Capsule 2 08/09/2023 Active warfarin (COUMADIN) 2 mg tabletIndications :Anticoagulation monitoring, INR range 2-3,History of pulmonary embolus (PE),Atrial fibrillation with RVR (HC) Take by mouth 3 mg (2 mg x 1.5) every day in the evening OR as directed. 138 Tablet 03/03/2024 Active dilTIAZem CD (CARDIZEM CD) 120 mg extended release 24 hr capsuleIndication s:Atrial fibrillation with RVR (HC) Take 1 Capsule (120 mg) by mouth once daily. This replaces previous Prescription 90 Capsule 04/01/2024 Active flecainide (TAMBOCOR) 100 mg tabletIndications :Atrial fibrillation with RVR (HC) Take 1 Tablet (100 mg) by mouth every 12 hours. 180 Tablet 04/01/2024 Active glucosamine-chond roitin, 500-400 mg, (COSAMIN DS 500/400) 500-400 mg cap Take by mouth 2 capsule by mouth once daily. 0 09/27/2020 4 Discontinue d(*Patient states no longer taking) flecainide (TAMBOCOR) 100 mg tabletIndications :Atrial fibrillation with RVR (HC) TAKE 1 TABLET(100 MG) BY MOUTH EVERY 12 HOURS 180 Tablet 02/12/2024 4 Discontinue d(Reorder (E-cancel not sent)) dilTIAZem CD (CARDIZEM CD) 120 mg extended release 24 hr capsuleIndication s:Atrial fibrillation with RVR (HC) Take 1 Capsule (120 mg) by mouth once daily. This replaces previous Prescription 90 Capsule 03/04/2024 4 Discontinue d(Reorder (E-cancel not sent)) Active Problems Problem Noted Date Diagnosed Date Hemosiderin pigmentation of skin 03/03/2021 Venous stasis dermatitis 03/03/2021 Varicose veins of both lower extremities 021 History of pulmonary embolus (PE) 08/31/2019 Overview: 2018 Anticoagulation monitoring, INR range 2-3 2017 ACP (advance care planning) 05/30/2018 Sinus tachycardia 05/30/2018 Obesity 08/07/2017 Hyperlipidemia 01/29/2007 Impotence of organic origin 01/29/2007 SYNDROME, CARPAL TUNNEL 12/13/2000 YARELY (obstructive sleep apnea) Resolved Problems Problem Noted Date Diagnosed Date Resolved Date Prediabetes 03/04/2022 08/09/2023 Other acute pulmonary emboli sm without acute cor pulmonale 06/02/2018 08/18/2019 Acute pulmonary embolism 05/30/2018 Overview: After cardiac ablation Snoring 09/13/2017 11/09/2020 Atrial fibrillation with RVR 08/07/2017 11/06/2023 Routine adult health maintenance 06/18/2017 11/09/2020 Overview: Colonoscopy 06/2017 diverticulosis repeat in 10 years EXAMINATION, PREOPERATIVE NEC 10/19/2002 11/13/2016 Encounters Date Type Department Care Team Description 04/01/2024 10:57 AM CDT - 04/01/2024 11:59 PM CDT Hospital Encounter [address] [place] [address] Romina Cristobal NP Atrial fibrillation with RVR (HC); Paroxysmal atrial fibrillation (HC) 04/01/2024 10:50 AM CDT Orders Only [facility] [address] [place] [address] Lab 04/01/2024 10:00 AM CDT Office Visit [facility] [address] [place] [address] Romina Cristobal NP Follow Up (overdue annual visit, ekg prior) 04/01/2024 9:30 AM CDT Nurse/Clinic Staff Only [facility] [address] [place] [address] Cardiovascular Diagnostic Testing (EKG) 04/01/2024 7:00 AM CDT Orders Only [facility] [address] [place] [address] [place] [facility] 04/01/2024 Anticoagulation (warfarin) [facility] [address] [place] [address] 1, [facility] Anticoagulation 04/01/2024 Travel 03/04/2024 Telephone [facility] [address] [place] [address] Ed Del Toro MD Refill Request (Warfarin/) 03/03/2024 Refill [facility] [address] [place] [address] Romina Cristobal NP Refill Request 03/03/2024 Refill [facility] [address] [facility] [place] [address] Ed Del Toro MD Refill Request (Warfarin) 02/27/2024 7:00 AM CDT Orders Only [facility] [address] [place] [address] Lab, [place] [facility] 02/27/2024 Anticoagulation (warfarin) [facility] [address] [place] [address] 1, [facility] Anticoagulation 02/27/2024 Travel 02/12/2024 Refill [facility] [address] [place] [address] Romina Cristobal NP Refill Request (Flecainide) 01/17/2024 8:30 AM CDT Orders Only [facility] [address] [facility] [place] [address] Lab, [place] [facility] 01/17/2024 Anticoagulation (warfarin) [facility] [address] [place] [address] 1, [place] Anticoagulation 01/17/2024 Travel from Last 3 Months Immunizations Name Administration Dates Next Due Tdap 03/03/2015 Family History Medical History Relation Name Comments Cancer Father Diabetes Mother Genetic Other No family histo ry of anesthetic problems. Anesthesia Problem No Family History Relation Name Status Comments Father brain tumor Mother diabetes compli catins Other Social History Tobacco Use Types Packs/Day Years Used Date Smoking Tobacco: Never Smokeless Tobacco: Never Tobacco Cessation:Counseling Given: No Alcohol Use Standard Drinks/Week Comments Yes 2 (1 standard drink = 0.6 oz pur e alcohol) 2 drinks/week PHQ-2 Answer Date Recorded PHQ-2 TOTAL SCORE 0 07/14/2021 Social Connections Answer Date Recorded Frequency of Communication with Friends and Fami ly 0 05/03/2023 Financial Resource Strain Answer Date R ecorded Difficulty of Paying Living Expenses 3 05/03/2023 Difficulty of Paying Living Expenses Not on file 05/03/2023 Food Insecurity Answer Date Recorded Worried About Running Out of Food in the Last Ye ar 1 05/03/2023 Transportation Needs Answer Date Record ed Lack of Transportation (Medical) 1 05/03/2023 Housing Stability Answer Date Recorded Unable to Pay for Housing in the Last Year 1 05/03/2023 Sex and Gender Information Value Date Recorded Sex Assigned at Male 03/01/2023 9:24 AM CDT Gender Identity Male 03/01/2023 9:24 AM CDT Sexual Orientation Not on file Obstetrics History Last Filed Vital Signs Vital Sign Reading Time Taken Comments Blood Pressure 128/72 04/01/2024 9:33 AM CDT Pulse 53 04/01/2024 9:33 AM CDT Temperature 36.5 ??C (97.7 ??F) 11/29/2022 3:21 PM CS T Respiratory Rate 16 04/01/2024 9:33 AM CDT Oxygen Saturation 98% 04/01/2024 9:33 AM CDT Inhaled Oxygen Concentration - - Weight 107.3 kg (236 lb 8 oz) 04/01/2024 9:33 AM CDT Height 172.7 cm (5' 7.99) 04/01/2024 9:33 AM CD T Body Mass Index 35.97 04/01/2024 9:33 AM CDT Plan of Treatment Health Maintenance Due Date Last Done Comments Zoster (shingles) series for age 50+ (1 of 2) 2008 Depression screening for age 12+ 07/18/2022 07/18/2021, 07/14/2021, 10/10/2018, Additional history exists Pneumococcal series for age 65+ (1 of 1 - PCV) 2023 COVID-19 vaccine series (2 - 2022- season) 2023 02/13/2021 Influenza for age 65+ 07/05/2024 Tetanus booster 03/03/2025 03/03/2015 BMI (ht and wt on same day) for age 18+ 04/01/2025 04/01/2024, 11/06/2023, 08/09/2023, Additional history exists Lipids for age 45-75 07/24/2028 07/24/2023, 03/19/2022, 11/09/2020, Additional history exists Colonoscopy through age 75 09/06/203309/06, 09/06/2023, 09/06/2023, Additional history exists Tdap Completed 03/03/2015 Hepatitis C screening for ag e 18-79 Completed 11/09/2020 HIV for age 15-65 Completed 07/24/2023 Procedures Procedure Name Priority Date/Time Associated Diagnosis Comments MAGNESIUM Routine 04/01/2024 10:50 AM CDT Paroxysmal atrial fibrillation (HC) BASIC METABOLIC PANEL Routine 04/01/2024 10:50 AM CDT Paroxysmal atrial fibrillation (HC) PROTIME-INR STAT 04/01/2024 10:50 AM CDT Atrial fibrillation with RVR (HC) Anticoagulation monitoring, INR range 2-3 EKG 12 LEAD Routine 04/01/2024 9:32 AM CDT Atrial fibrillation with RVR (HC) INR,POCT Routine 04/01/2024 7:05 AM CDT Atrial fibrillation with RVR (HC) Anticoagulation monitoring, INR range 2-3 INR,POCT Routine 02/27/2024 7:08 AM CDT Atrial fibrillation with RVR (HC) Anticoagulation monitoring, INR range 2-3 INR,POCT Routine 01/17/2024 8:38 AM CDT Atrial fibrillation with RVR (HC) Anticoagulation monitoring, INR range 2-3 COLONOSCOPY DIAGNOSTIC Routine 09/06/2023 10:14 AM CDT Hematochezia ANTI HIV 1/2 Routine 07/24/2023 7:47 AM CDT Screening for HIV (human immunodeficiency virus) LIPID PANEL W REFLEX MEASURED LDL Routine 07/24/2023 7:47 AM CDT Hyperlipidemia, unspecified hyperlipidemia type ANTI HCV Routine 11/09/2020 10:24 AM [employer] Need for hepatitis C screening test from Last 3 Months or Most Recently Relevant to Health Maintenance Results * (ABNORMAL) PROTIME-INR (04/01/2024 10:50 AM CDT) INR 2.2(H) <1.3 04/01/2024 11:06 AM CDT [facility] PROTIME 23.7(H) 10.3 - 12.3 sec 04/01/2024 11:06 AM CDT [facility] Blood BLOOD SPECIMEN / Unknown Butterfly / Unknown 04/01/2024 10:50 AM CDT 04/01/2024 10:55 AM CDT Narrative [facility] - 04/01/2024 11:06 AM CDT ?Therapeutic Range 2.0-3.0 for most anticoagulated patients 2.5-3.5 or 4.0 for high risk patients The INR is only used for patients on stable oral anticoagulant therapy. It makes no significant contribution to the diagnosis or treatment of patients whose Protime is prolonged for other reasons. INR results are increased when heparin levels exceed 1.0 U/mL, which corresponds to an aPTT >125 seconds if the patient is on UFH. Ed Del Toro MD HEMATOLOGY [facility] SENDOUT INTERNAL ZIP [id number] [place] [id number] * MAGNESIUM (04/01/2024 10:50 AM CDT) Pathologist [facility] MAGNESIUM 2.2 1.6 - 2.4 mg/dL 04/01/2024 11:20 AM CDT [facility] Blood BLOOD SPECIMEN / Unknown Butterfly / Unknown 04/01/2024 10:50 AM CDT 04/01/2024 10:55 AM CDT Romina Cristobal NP CHEMISTRY [facility] SENDOUT INTERNAL ZIP [address] [place] [address] * (ABNORMAL) BASIC METABOLIC PANEL (04/01/2024 10:50 AM CDT) [facility] SODIUM 138 136 - 145 mmol/L 04/01/2024 11:20 AM [facility] POTASSIUM 4.1 3.5 - 5.1 mmol/L 04/01/2024 11:20 AM [facility] CHLORIDE 102 98 - 107 mmol/L 04/01/2024 11:20 AM [facility] CO2,TOTAL 25 22 - 29 mmol/L 04/01/2024 11:20 AM [facility] ANION GAP 11 5 - 18 04/01/2024 11:20 AM [facility] GLUCOSE 102(H) 70 - 99 mg/dL 04/01/2024 11:20 AM [facility] CALCIUM 9.3 8.8 - 10.2 mg/dL 04/01/2024 11:20 AM [facility] BUN 22 8 - 23 mg/dL 04/01/2024 11:20 AM [facility] CREATININE 0.81 0.70 - 1.20 mg/dL 04/01/2024 11:20 AM [facility] BUN/CREAT RATIO 27(H) 10 - 20 11:20 AM [facility] eGFR >90 >90 mL/min/1.7 3m2 04/01/2024 11:20 AM [facility] Comment:As of 2022, eG FR is calculated by the CKD-EPI creatinine equation without race adjustment. ??eGFR can be influenced by muscle mass, exercise, and diet. ??The reported eGFR is an estimation only and is only applicable if the renal function is stable. Blood BLOOD SPECIMEN / Unknown Butterfly / Unknown 04/01/2024 10:50 AM CDT 04/01/2024 10:55 AM T Romina Cristobal NP CHEMISTRY [facility] SENDOUT INTER[place] Z[address] [address] [address] [place] [address] * EKG 12 LEAD (04/01/2024 9:32 AM CDT) Pathologist [facility] Interpretation Sinus bradycardia Otherwise normal ECG Ventricular Rate 48 BPM Atrial Rate 48 BPM P-R Interval 160 ms QRS Duration 108 ms QT 444 ms QTc 396 ms P Troy 17 degrees R Troy 58 degrees T Troy 39 degrees 04/01/2024 9:32 AM CDT 04/01/2024 1:07 PM CDT Romina Cristobal NP EKG ORD * (ABNORMAL) INR,POCT (04/01/2024 7:05 AM CDT) Only the most recent of3 resultswithin the time period is included. INR 1.9(H) <1.3 04/01/2024 7:07 AM CDT [facility] Blood BLOOD SPECIMEN / Unknown 04/01/2024 7:05 AM CDT 04/01/2024 7:07 AM CDT Narrative [facility] - 04/01/2024 7:07 AM CDT ?Therapeutic Range 2.0-3.0 for most anticoagulated patients 2.5-3.5 or 4.0 for high risk patients Ed Del Toro MD LABORATORY [facility] [address] [place] [address], * COLONOSCOPY (09/06/2023 10:16 AM CDT) 09/06/2023 10:1 6 AM CDT Narrative Transcriptions Adrien Hussein MD - 09/06/2023 11:50 AM CDT Patient Name: Beau Melgar Procedure Date: 09/06/2023 Gender: Male Date of : 1960 Admit Type: Outpatient Procedure: Colonoscopy Proceduralist: Adrien Hussein MD , Halima Ramirez, RN (Nurse), Mikayla Ochoa, RN (Nurse) Referring MD: Ed Del Toro Indications/Pre-Op Diagnosis: Evaluation of unexplained GI bleeding presenting with Hematochezia, Lastcolonoscopy: June 2017 Medications: Fentanyl 100 micrograms IV, Midazolam 4 mgIV, The level of sedation administered wasmoderate Procedure Description: The patient had risks, benefits and alternatives explained to andgave informed consent. The patient had a stable cardiopulmonary status and judged an adequate candidate for conscious sedation. The [id number] was passed through the anus and advanced to the cecum, identified by appendiceal orifice and ileocecal valve. Thecolonoscopy was performed without difficulty. The patient tolerated the procedure well. The quality of the bowel preparation was good. The ileocecal valve, appendiceal orifice, and rectum were photographed. Complications: No immediate complications. Estimated Blood Loss & Specimen: Estimated blood loss: none. Specimen collected - None Findings: The perianal and digital rectal examinations were normal. Scattered small-mouthed diverticula were found in the sigmoidcolon. The exam was otherwise without abnormality on direct and retroflexion views. Impressions/Post-Op Diagnosis: - Diverticulosis in the sigmoid colon. - The examination was otherwise normal on direct and retroflexionviews. - No specimens collected. Recommendation: - Patient has a contact number available for emergencies. The signsand symptoms of potential delayed complications were discussed with the patient. Return to normal activities tomorrow. Written discharge instructions were provided to the patient. - Resume previous diet. - Continue present medications. - Repeat colonoscopy in 10 years for screening purposes. - Resume Coumadin (warfarin) at prior dose today. Refer to [facility] for further adjustment of therapy. Moderate Sedation: A time out was performed before the procedure. Moderate (conscious) sedation was administered by the endoscopy nurse and supervised bythe endoscopist. The following parameters were monitored: oxygensaturation, heart rate, blood pressure, EKG, CO2, respiratory rate, adequacy of pulmonary ventilation and reponse to care. Please refer to the patient's medical record flowsheets and nursing notes for moderate sedation details. Total physician intraservice time was 16 minutes. Adrien Hussein MD 09/06/2023 11:50:36 AM This report has been signed electronically. Note Initiated On: 09/06/2023 10:16 AM Procedure Code(s): --- Professional --- 02144, Colonoscopy, flexible; diagnostic, including collection of specimen(s) bybrushing or washing, when performed (separateprocedure) Diagnosis Code(s): --- Professional --- K92.1, Melena (includes Hematochezia) K57.30, Diverticulosis of large intestine without perforation or abscess withoutbleeding CPT copyright 2021 [employer]. All rights reserved. The codes documented in this report are preliminary and upon packer operator automatic reviewmay be revised to meet current compliance requirements. Scope In: 11:22:55 AM Scope Withdrawal Time 0 hours 7 minutes 51 seconds Scope Out: 11:36:13 AM Adrien Hussein MD PROCEDURE ORD * (ABNORMAL) LIPID PANEL W REFLEX MEASURED LDL (07/24/2023 7:47 AM CDT) CHOLESTEROL,TOTAL 232(H) 100 - 199 mg/dL 07/24/2023 2:23 PM CDT [facility] [place] Comment: Cholesterol, Total Reference Ranges Desirable <200 mg/dL Borderline 200-239 mg/dL High >=240 mg/dL TRIGLYCERIDES 175(H) <150 mg/dL 07/24/2023 2:23 PM CDT [facility] HDL CHOLESTEROL 53 >40 mg/dL 3 2:23 PM CDT [facility] NON-HDL CHOLESTEROL 179(H) <145 mg/dl 07/24/2023 2:23 PM CDT [facility] [place] CHOL/HDL RATIO 4.38 <4.50 07/24/2023 2:23 PM CDT [facility] LDL CHOLESTEROL 144(H) <=130 mg/dL 07/24/2023 2:23 PM CDT [facility] VLDL CHOLESTEROL 35(H) <=30 mg/dL 07/24/2023 2:23 PM CDT [facility] PROVIDER ORDERED STATUS RANDOM 07/24/2023 2:23 PM CDT [facility] Blood BLOOD SPECIMEN / Unknown Venipuncture / Unknown 07/24/2023 7:47 AM CDT 07/24/2023 7:48 AM CDT Ed Del Toro MD CHEMISTRY Performing Organization Address City/[facility]/ZIP Co de Phone Number [facility] [address] [place] [address], * ANTI HIV 1/2 (07/24/2023 7:47 AM CDT) Pathologist [facility] HIV-1/HIV-2 SCREEN Non-Reacti ve Non-Reacti ve 07/24/2023 2:05 PM CDT [facility] Comment:HIV-1 p24 and HIV-1/ HIV-2 Ab Not Detected. Blood BLOOD SPECIMEN / Unknown Venipuncture / Unknown 07/24/2023 7:47 AM CDT 07/24/2023 7:48 AM CDT Ed Del Toro MD SEND OUTS Performing Organization Address City/[facility]/ZIP Co de Phone Number [facility] [address] [place] [address], [place] * ANTI HCV (11/09/2020 10:24 AM [employer]) Pathologist [facility] HEPATITIS C ANTIBODY Non-React johnathan Non-React johnathan 11/09/2020 6:25 PM [employer] [facility] Comment:Antibodies to HCV no t detected; does not exclude the possibility of exposure to HCV. Blood BLOOD SPECIMEN / Unknown Butterfly / Unknown 11/09/2020 10:24 AM [employer] 11/09/2020 10:25 AM [employer] Ed Del Toro MD SEND OUTS [facility] [address] [place] [address], [place] from Last 3 Months or Most Recently Relevant to Health Maintenance Advance Directives * Full Code (Latest Code Status on File) Date Activated Date Inactivated Comments 05/30/2018 8:19 AM 05/31/2018 5:26 PM Question Answer Comments Code Status Discussion: Discussed * Full Code Date Activated Date Inactivated Comments 02/03/2018 6:09 AM 02/03/2018 10:32 AM * Full Code Date Activated Date Inactivated Comments 08/07/2017 1:54 AM 08/09/2017 11:45 AM Care Teams Patient Service Associate Relationship Specialty Start Date End Date Ed Del Toro MD [address] [place] [address] PCP - General Family Practice 12/05/20 Romina Cristobal NP [address] [place] [address] Nurse Practitioner Cardiology - Electrophysiology 07/07/19 Stephen Mcguire MBBS [address] [place] [address] Cardiology - EP Cardiovascular Disease 07/07/19 Cassandra Kearney MD [address] [place] [address] Consulting Physician Cardiology - Electrophysiology 10/23/21
--- OUTSIDE RECORDS SUMMARY | 2024-04-02 21:42 | XMS_ITS | Encounter Summary ---
Author Organization [facility] Address [address] [place] [address] [place] [address] Care Team Providers Care New Accounts Representative Name Role Phone Ed Del Toro MD Primary Care Provider Reason for Visit * Reason Comments Knee Problem Encounter Details Date Type Department Care Team (Late st Contact Info) Description 12/26/2023 9:45 AM WIRE FENCE BUILDER Therapy [facility], Physical Therapy [address] [id number] Elvis Nunn, PT [address] [place] [address] Aftercare following right knee joint replacement surgery [...] as of this encounter Progress Notes * Arturo Dennis - 12/26/2023 9:45 AM CST Physical Therapy Post-Op Right Total Knee Arthroplasty Daily Note Visit number: 10 + 1 for pre-operative evaluation [place] [...] 11/20 at [facility] and will be piyush vering at the [place] for 1-night. 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 Reports CHRISTIANE is going well, but has some questions about biking at home. Pain has been tolerable, and notices he feels better after he bikes. Pain Ratin/10 current, 3/10 with activity OBJECTIVE: Observation/Gait: mild antalgic gait on R with SPC Inspection of knee/LE: well healing incisions ROM (zzwxwkdih-yov-nift): Right Knee: 0-1-110 at beginning improved to 0-0-117 after stretching Strength: Right Lower Extremity: Quad set: good- Supine SLR: 1-2 deg lag TREATMENT TODAY: Therapeutic Exercise: 16 minutes: - Nu-step warm up - Heel slides with strap - Sit to stands with butt taps 2 x 10 - felt challenging, tolerable Manual Therapy: 8 minutes - Supine knee flexion with gapping - Concurrent education on continuation of biking at home and ROM progression with seat heights Neuromuscular Reeducation: 10 minutes - Weight shifting with foot lifts - fairly easy - Single leg balance with UE support as needed 2 x 30 seconds - challenging, no pain - Concurrent education on HEP parameters and frequent mobility exercises throughout the day - Updated HEP with sit to stands with butt taps and single leg balance Timed Code Treatment Minutes: 34 Total Treatment Minutes: 34 Plan for next treatment session: progress knee ROM, quad strength, gait training, step progression,leg press, Recumbent bike, go over HEP with him/trim up ASSESSMENT: Therapist Impression: 1 month s/p R TKA. Slight improvement in knee flexion ROM today at beginning of treatment and after stretching. Introduced to single leg balance activities and tolerated this well with no symptoms and report of moderately challenging for him. Asked good questions regarding HEPand biking at home. Continues to progress nicely and appears motivated to complete PT. EXPECTED FUNCTIONAL OUTCOMES/GOALS: Post-operative Goals: HEP/Independent Management: [...] ROM in 4-6 weeks. ADL: Squat to case picker items from floor with minimal/no symptoms in 8-10 weeks. Therapist: Arturo Dennis 9:42 AM 12/26/2023 Completed by Arturo Dennis, SPT, under the supervision of Elvis Nunn DPT FENCE BUILDER documented in this encounter Plan of Treatment Scheduled Procedures Name Priority Associated Diagnoses Date/Ti me TOTAL KNEE JOINT REPLACEMENT Arthritis of left knee documented as of this encounter Goals Goal Patient Goal Type Associated Problems Recent Progress Patient-Stated? Author Right Knee Replacement Care Plan ET PROE RIGHT KNEE Emperatriz Dover, RN, MORTGAGE MANAGER PHP DEVELOPER documented as of this encounter Visit Diagnoses Diagnosis Aftercare following right knee joint replacement surgery- Primary Primary osteoarthritis of one knee Primary localized osteoarthrosis, lower leg documented in this encounter Additional Health Concerns Active Problems Noted Date Diagnosed Date ET PROE RIGHT KNEE 07/30/2023 documented as of this encounter Care Teams New Accounts Representative Relationship Specialty Start Date End Date Ed Del Toro MD [address] [place] [address] PCP - General Family Practice 07/25/22 documented as of this encounter
[2024-04-02 21:45] LABS: Anion Gap 8 mEq/L (7-15); Carbon Dioxide* 25 mmol/L (20-32); Creatinine* 0.9 mg/dL (0.5-1.5); Est. Creatinine Clearance* 71.25; Estimated Glomerular Filt Rate 95 ml/min
[2024-04-02 21:46] LABS: Blood Urea Nitrogen* 19 mg/dL (7-30); Calcium* 9.2 mg/dL (8.4-10.6); Glucose* 114 mg/dL (60-115); INR 1.28 (0.91-1.10); Magnesium* 2.3 mg/dL (1.5-2.6); Prothrombin Time 16.9 Seconds
[2024-04-02 21:55] LABS: Slide Review Reflex No
[2024-04-02 21:55] LABS: Troponin, Point-of-Care* 0.02 ng/ml (0.01-0.04)
[2024-04-02] MEDS: PROPOFOL 10 MG/ML INJ 200 MG IVP (22:25)
[2024-04-02] MEDS: dilTIAZem 5 MG/ML inj 20 MG IVP (22:42)
[2024-04-02] MEDS: dilTIAZem HCL 125 MG in 0.9 % SODIUM CHLORIDE 100 ml 100 ML 10 MG IVPB (22:54)
--- NOTE | 2024-04-02 22:54 | CRLHL7_ITS ---
For Patients: As a result of the Cures Act, medical imaging exams and procedure reports are released immediately into your electronic medical record. You may view this report before your referring provider. If you have questions, please contact your health care provider. INDICATION: Atrial fibrillation, chest palpitations TECHNIQUE: CT chest with i.v. contrast using pulmonary angiographic technique. Coronal and sagittal reformats were obtained. CONTRAST: 95 mL Isovue 370 COMPARISON: None FINDINGS: Cardiovascular: Moderate to severe enlargement of the main pulmonary artery is present and measures 4 cm in maximal short axis. The pulmonary arteries are unremarkable in enhancement with no evidence of acute pulmonary embolism. Left ventricular hypertrophy with mild enlargement of the atria and right ventricle are noted. No sign of aneurysm in the thoracic aorta. Mediastinum: There is a prominent and elongated right superior pulmonary vein measuring 10 mm coursing along the posterior right hemithorax. Lung: Bilateral mosaic attenuation of both lungs are present and may be due to small airways disease. Pleura and pericardium: No sign of pleural effusion seen. No significant pericardial effusion is present. Chest wall and axilla: No mass or adenopathy seen. Bone: Unremarkable for age. Upper abdomen: Unremarkable. IMPRESSIONS: 1. No CT evidence of acute pulmonary emboli seen. 2. Moderate to severe enlargement of the main pulmonary artery is present and measures 4 cm in maximal short axis. This is likely due to pulmonary hypertension or high cardiac output states. 3. Left ventricular hypertrophy with mild enlargement of the atria and right ventricle are noted. Dictated by Jos Toro MD @ 04/02/2024 11:44:53 PM Please note that all CT scans at this facility use dose modulation, iterative reconstruction, and/or weight-based dosing when appropriate to reduce radiation dose to as low as reasonably achievable. Dictated by: Jos Toro MD @ 04/02/2024 23:47:40 (Electronically Signed)
--- NOTE | 2024-04-02 23:25 | ED_ITS ---
HPI - Arrhythmia/Palpitations General Date Seen: 04/02/24 Chief Complaint: Arrhythmia/Palpitations Stated Complaint: A fib symptoms Time Seen by Provider: 04/02/24 20:49 Source: patient Mode of arrival: ambulatory Limitations: no limitations History of Present Illness HPI narrative: Patient is a 63-year-old male presenting to emergency department for concern of an irregular heart rate. He states he has a history of AFib and on warfarin. 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 Today at about 16:00 he notices heart rate seemed to be irregular. Was having a small amount of chest pain and shortness of breath at that time. Symptoms were not going away any checked his heart monitor on his watch showing his heart rate was in the 140s. Considering this was not resolving he came to the emergency department to be evaluated. He denies lightheadedness, dizziness, weakness, numbness, abdominal pain. States the chest pain feels more like a discomfort and feels like his previous episodes of AFib. Does have a previous ablation. No other history of heart disease. Related Data Home Medications ?Medication ?Instructions ?Recorded ?Confirmed diltiazem HCl 120 mg 120 mg PO DAILY 05/09/23 09/08/23 capsule,extended release 24 hr famotidine 20 mg tablet 20 mg PO BID PRN 05/09/23 09/08/23 flecainide 100 mg tablet 100 mg PO BID 05/09/23 09/08/23 omeprazole 20 mg capsule,delayed 20 mg PO DAILY 05/09/23 09/08/23 release warfarin 2 mg tablet 3 mg PO 05/09/23 05/09/23 Allergies Allergy/AdvReac Type Severity Reaction Status Date / Time No Known Drug Allergies Allergy Verified 04/02/24 23:41 Review of Systems Status of ROS: Reports: 10 or more systems reviewed and unremarkable except as noted in History and below [facility] Medical History Elevated cholesterol ?E78.00 - Pure hypercholesterolemia, unspecified (ICD-10) Arthritis ?M19.90 - Unspecified osteoarthritis, unspecified site (ICD-10) GERD (gastroesophageal reflux disease) ?K21.9 - Gastro-esophageal reflux disease without esophagitis (ICD-10) DVT (deep venous thrombosis) ?I82.409 - Acute embolism and thrombosis of unspecified deep veins of unspecified lower extremity (ICD-10) Pulmonary emboli ?I26.99 - Other pulmonary embolism without acute cor pulmonale (ICD-10) Sleep apnea ?G47.30 - Sleep apnea, unspecified (ICD-10) Atrial fibrillation ?I48.91 - Unspecified atrial fibrillation (ICD-10) Surgical History History of radiofrequency ablation (RFA) procedure for cardiac arrhythmia ?Z98.890 - Other specified postprocedural states (ICD-10) H/O cardiac catheterization (02/14/18) ?Z98.890 - Other specified postprocedural states (ICD-10) H/O arthroscopy of left knee ?Z98.890 - Other specified postprocedural states (ICD-10) H/O repair of right rotator cuff (11/2016) ?Z98.890 - Other specified postprocedural states (ICD-10) H/O excision of mass (10/05/19) ?Z98.890 - Other specified postprocedural states (ICD-10) S/P reconstruction of anterior cruciate ligament ?Z98.890 - Other specified postprocedural states (ICD-10) Family History Mother Diabetes Father Brain tumor Social History Smoking Status: Never smoker How often do you have a drink containing alcohol: 2-4 times a month How often do you have six or more drinks on one occasion: Never AUDIT-C Alcohol total score: 2 Non-prescribed substance use: denies use Exam Narrative: Exam Narrative: Const: Well-nourished, Well-developed, in mild distress Eyes: PERRL, no conjunctival injection, and symmetrical lids HENT: Atraumatic external nose and ears. Moist mucous membranes. Neck: Symmetric, trachea midline, No thyromegaly. CVS: Tachycardia with an irregular rhythm, No murmurs or gallops. Peripheral pulses 2+ and equal in all extremities RESP: Unlabored respiratory effort. Clear to auscultation bilaterally. GI: Nontender/Nondistended, No rebound or guarding. MSK:Extremities w/o deformity, Normal Active ROM Skin: Warm, Dry. No rashes or lesions. Neuro: Normal Muscle tone, No focal neurological deficits. Psych: Awake, Alert, & Oriented x3. Appropriate mood and affect. Const: Vital Signs, click to edit/add: Vital Signs - 24 hr 04/02/24 20:59 04/02/24 21:10 04/02/24 21:21 Temperature 97.1 F L Pulse Rate 116 H 104 H Pulse Rate [Pulse Oximeter] 77 Respiratory Rate 16 Blood Pressure Blood Pressure [Ri ght Upper Arm] 120/72 Pulse Oximetry 93 95 95 Oxygen Delivery Me thod Room Air Oxygen Flow Rate 04/02/24 21:23 04/02/24 21:31 04/02/24 21:32 Temperature Pulse Rate 88 80 112 H Pulse Rate [Pulse Oximeter] Respiratory Rate Blood Pressure 126/102 H 127/98 H Blood Pressure [Ri ght Upper Arm] Pulse Oximetry 94 96 93 Oxygen Delivery Me thod Oxygen Flow Rate 04/02/24 21:39 04/02/24 21:45 04/02/24 22:00 Temperature Pulse Rate 118 H 102 H Pulse Rate [Pulse Oximeter] Respiratory Rate Blood Pressure Blood Pressure [Ri ght Upper Arm] Pulse Oximetry 95 95 94 Oxygen Delivery Me thod Nasal Cannula Oxygen Flow Rate 04/02/24 22:02 04/02/24 22:03 04/02/24 22:21 Temperature Pulse Rate 111 H 112 H 108 H Pulse Rate [Pulse Oximeter] Respiratory Rate Blood Pressure 168/124 H Blood Pressure [Ri ght Upper Arm] Pulse Oximetry 94 93 95 Oxygen Delivery Me thod Oxygen Flow Rate 04/02/24 22:26 04/02/24 22:30 04/02/24 22:31 Temperature Pulse Rate 136 H 108 H 142 H Pulse Rate [Pulse Oximeter] Respiratory Rate 24 28 H 32 H Blood Pressure 155/91 H 128/82 Blood Pressure [Ri ght Upper Arm] Pulse Oximetry 95 86 L 93 Oxygen Delivery Me thod Nasal Cannula Nasal Cannula Nasal Cannula Oxygen Flow Rate 1 1 1 04/02/24 22:37 04/02/24 22:38 04/02/24 22:41 Temperature Pulse Rate 82 85 Pulse Rate [Pulse Oximeter] Respiratory Rate 28 H 32 H 20 Blood Pressure 93/59 L 107/67 97/73 Blood Pressure [Ri ght Upper Arm] Pulse Oximetry 91 91 Oxygen Delivery Me thod Nasal Cannula Nasal Cannula Nasal Cannula Oxygen Flow Rate 1 1 1 04/02/24 22:45 04/02/24 22:46 04/02/24 23:00 Temperature Pulse Rate 143 H 141 H 142 H Pulse Rate [Pulse Oximeter] Respiratory Rate 26 H 19 17 Blood Pressure 111/77 Blood Pressure [Ri ght Upper Arm] Pulse Oximetry 94 97 94 Oxygen Delivery Me thod Nasal Cannula Nasal Cannula Oxygen Flow Rate 1 1 Course Vital Signs Vital signs: Initial Vital Signs Temperature 97.1 F L 04/02/24 20:59 Temperature Source Temporal Artery Scan 04/02/24 20:59 Pulse Rate 77 04/02/24 20:59 Pulse Rhythm Irregular 04/02/24 20:59 Respiratory Rate 16 04/02/24 20:59 Blood Pressure 120/72 04/02/24 20:59 Blood Pressure Mean 88 04/02/24 20:59 Blood Pressure Position Sitting 04/02/24 20:59 Pulse Oximetry 93 04/02/24 20:59 Oxygen Delivery Method Room Air 04/02/24 20:59 Vital Signs Temperature 97.1 F L 04/02/24 20:59 Pulse Rate 77 04/02/24 20:59 Respiratory Rate 16 04/02/24 20:59 Blood Pressure 120/72 04/02/24 20:59 Pulse Oximetry 93 04/02/24 20:59 Oxygen Delivery Method Room Air 04/02/24 20:59 Temperature 97.1 F L 04/02/24 20:59 Pulse Rate 142 H 04/02/24 23:00 Respiratory Rate 17 04/02/24 23:00 Blood Pressure 111/77 04/02/24 22:46 Pulse Oximetry 94 04/02/24 23:00 Oxygen Delivery Method Nasal Cannula 04/02/24 22:46 Oxygen Flow Rate 1 04/02/24 22:46 Medications Administered Medications: Generic Name Dose Route Start Last Admin Trade Name Freq PRN Reason Stop Dose Admin Diltiazem HCl 125 mg/ Sodium 125 mls @ 10 mls/hr 04/02/24 22:40 04/02/24 22:54 Chloride IVPB 10 mls/hr .TITRATE DIANDRA Administration Protocol Discontinued Medications Generic Name Dose Route Start Last Admin Trade Name Freq PRN Reason Stop Dose Admin Diltiazem HCl 20 mg 04/02/24 22:40 04/02/24 22:42 Diltiazem 5 Mg/Ml Inj IVP 04/02/24 22:41 20 mg ONCE ONE Administration Propofol 200 mg 04/02/24 22:16 04/02/24 22:25 Propofol 10 Mg/Ml Inj IVP 04/02/24 22:17 200 mg ONCE ONE Administration MDM - Arrhythmia/Palpitations MDM Narrative Medical decision making narrative: Patient is 63-year-old male presenting to emergency department in AFib. Was having some mild chest discomfort with his likely from being in AFib. He is in AFib with RVR at this time. He is on warfarin and had a cardiology appointment yesterday showing a normal sinus rhythm. At this point I am confident his AFib started less than 48 hours ago. We will to recheck an INR. Will also order a troponin, EKG, CBC, magnesium, BMP. Lab work returned showing no concerning abnormalities other than a slightly elevated white count at 13.6 but no obvious signs of infection at this time. The electrodes are within normal limits. EKG shows AFib. Troponin within normal limits. His INR is 1.28 and a did check epic and yesterday was 2.2. Again though he did see cardiology yesterday and was not in AFib at this time. Do that I do feel comfortable doing a cardioversion. I was assisted by the hospitalist. See my procedure note. Patient continued to go back in AFib so it was decided we will treat him with Cardizem. Patient is agreeable to this plan. The hospitalist did see and his previous chart history he had AFib that is ref ractory to a blood clot in did request this to be evaluated prior to admission. CTA was ordered. It returned reviewed by myself and radiologist showing no signs of PE. There does appear to be pulmonary hypertension. I spoke to the [facility] hospitalist who accepted the patient for admission Lab Data Labs: Lab Results 04/02/24 04/02/24 Range/Units 21:15 21:16 WBC 13.60 H (4.50-11.00) K/uL RBC 5.73 (4.30-5.90) m/uL Hgb 15.7 (13.5-17.5) gm/dL Hct 48.5 (37.0-53.0) % MCV 85 (80-100) fL MCH 27 (26-34) pg MCHC 32 (32-36) gm/dL RDW Coeff of [place] 14.0 (11.5-15.5) % Plt Count 411 (140-440) K/uL Neut % (Auto) 66.9 (42.0-72.0) % Lymph % (Auto) 21.2 (20-44) % [place] % (Auto) 10.4 (0.0-11.0) % Eos % (Auto) 1.1 (0.0-7.0) % Baso % (Auto) 0.3 (0.0-3.0) % Neut # (Auto) 9.10 H (1.7-7.0) K/uL Lymph # (Auto) 2.90 (0.90-2.90) K/uL [place] # (Auto) 1.40 H (0.00-0.90) K/UL Eos # (Auto) 0.10 (0.00-0.50) K/uL Baso # (Auto) 0.00 (0.00-0.30) K/uL Abs Immat Gran (auto) 0.00 (0.00-0.30) K/uL Imm/Tot Granulo (auto) 0.1 % INR 1.28 H (0.91-1.10) Sodium 138 (135-149) mmol/L Potassium 4.0 (3.6-5.1) mmol/L Chloride 105 (96-114) mmol/L Carbon Dioxide 25 (20-32) mmol/L Anion Gap 8 (7-15) mEq/L BUN 19 (7-30) mg/dL Creatinine 0.9 (0.5-1.5) mg/dL Estimated Creat Clear 71.25 Estimated GFR 95 ml/min Glucose 114 (60-115) mg/dL Calcium 9.2 (8.4-10.6) mg/dL Magnesium 2.3 (1.5-2.6) mg/dL POC Troponin I 0.02 (0.01-0.04) ng/ml Imaging Data CTA chest: Attestation: I have reviewed the pertinent imaging results. Radiologist's impression: 1. No CT evidence of acute pulmonary emboli seen. 2. Moderate to severe enlargement of the main pulmonary artery is present and measures 4 cm in maximal short axis. This is likely due to pulmonary hypertension or high cardiac output states. 3. Left ventricular hypertrophy with mild enlargement of the atria and right ventricle are noted. Dictated by Jos Toro MD @ 04/02/2024 11:44:53 PM Please note that all CT scans at this facility use dose modulation, iterative reconstruction, and/or weight-based dosing when appropriate to reduce radiation dose to as low as reasonably achievable. Dictated by: Jos Toro MD @ 04/02/2024 23:47:40 ECG Data Attestation: I personally reviewed and interpreted this ECG as follows: Prior ECG tracings: available for review Interpretation: AFib with RVR at a rate 150 beats per minute, normal axis, no ST or T-wave abnormalities. Previous EKGs on file showed normal sinus rhythm. Discharge Plan Discharge Clinical Impression: Atrial fibrillation with rapid ventricular response Patient Disposition: Admitted As Observation Condition: Stable Procedures Additional Procedures Procedure name: Cardioversion with procedural sedation Written consent by: patient Site marking: not applicable Verification/time out: correct patient, correct site, correct procedure and time out performed Estimated blood loss (if any): none Conclusion: patient tolerated procedure Additional comments: Cardioversion performed. Was assisted by Una Lua. Cardioversion: Consent for operation or procedure: Risks and benefits discussed with patient and consent obtained Anesthesia: propofol (200 mg total) The appropriate time-out procedure was performed including proper identification of the patient, physician, procedure, documentation, and there were no safety issues identified. The patient participated actively in this. After sedation was achieved, the patient was placed in the supine position and hands free patches were placed on his chest in the AP position. Oxygen with capnography was also on the patient 3 shock was provided at, 200 Joules with initial resumption of normal sinus rhythm follow-up but patient going back into AFib. This was confirmed on EKG. . Complications: The patient tolerated the procedure well without complications.
[2024-04-03] VITALS (21 sets, daily range): BP systolic 91–132; BP diastolic 57–106; PULSE 53–139; RESP 18–20; TEMP 36.2–37; O2SAT 93–97; BMI 35.6
--- NOTE | 2024-04-03 01:29 | W.PM.TELEH&P ---
Telehealth- H&P: HPI History of Present Illness Date Seen: 04/03/24 Chief complaint: A fib symptoms Narrative: Beau Melgar is seen as an Interactive Telehealth visit. Beau Melgar is a 63 year old male who is Seen in his hospital room at [facility]. He is seen with the assistance of nursing staff. He has been admitted through the emergency room. His is present during the interview and exam. He has a history of atrial fibrillation and chronic anticoagulation. He has undergone ablation in the past. Around 4:00 in the evening he woke up felt his heart palpating and felt it to be fast and irregular. He had some mild chest discomfort but no dawit chest pain. He waited about 4 hours symptoms did not improve his heart rate was noted to be around 140s to 150s on his heart monitor. He came into the emergency room to be evaluated. He was noted to be in A-fib with RVR. Patient was noted to be in normal sinus rhythm yesterday at his cardiology appointment. He was anticoagulated on Coumadin. The decision was made to attempt to cardiovert him. Patient was cardioverted 3 times General return to atrial fibrillation. Because patient was refractory to cardioversion and had a previous PE a CTA was done which was negative for pulmonary embolism. He has now been admitted for further evaluation and treatment. He currently feels better he does not feel his heart racing. However on the monitor he appears to be in a 2-1 flutter at about 137 bpm. Review of Systems Narrative: A complete review of systems was performed positive pertinent and negatives in the history of present illness. [facility] Medical History (Updated 04/03/24 @ 01:38 by Asim Morfin DO) Elevated cholesterol ?E78.00 - Pure hypercholesterolemia, unspecified (ICD-10) Arthritis ?M19.90 - Unspecified osteoarthritis, unspecified site (ICD-10) GERD (gastroesophageal reflux disease) ?K21.9 - Gastro-esophageal reflux disease without esophagitis (ICD-10) DVT (deep venous thrombosis) ?I82.409 - Acute embolism and thrombosis of unspecified deep veins of unspecified lower extremity (ICD-10) Pulmonary emboli ?I26.99 - Other pulmonary embolism without acute cor pulmonale (ICD-10) Sleep apnea ?G47.30 - Sleep apnea, unspecified (ICD-10) Atrial fibrillation ?I48.91 - Unspecified atrial fibrillation (ICD-10) Surgical History History of radiofrequency ablation (RFA) procedure for cardiac arrhythmia ?Z98.890 - Other specified postprocedural states (ICD-10) H/O cardiac catheterization (02/14/18) ?Z98.890 - Other specified postprocedural states (ICD-10) H/O arthroscopy of left knee ?Z98.890 - Other specified postprocedural states (ICD-10) H/O repair of right rotator cuff (11/2016) ?Z98.890 - Other specified postprocedural states (ICD-10) H/O excision of mass (10/05/19) ?Z98.890 - Other specified postprocedural states (ICD-10) S/P reconstruction of anterior cruciate ligament ?Z98.890 - Other specified postprocedural states (ICD-10) Family History Mother Diabetes Father Brain tumor Social History Smoking Status: Never smoker How often do you have a drink containing alcohol: 2-4 times a month How often do you have six or more drinks on one occasion: Never AUDIT-C Alcohol total score: 2 Non-prescribed substance use: denies use Meds Home Medications and Allergies Home Medications ?Medication ?Instructions ?Recorded ?Confirmed ?Type diltiazem HCl 120 mg 120 mg PO DAILY 05/09/23 09/08/23 History capsule,extended release 24 hr famotidine 20 mg tablet 20 mg PO BID PRN 05/09/23 09/08/23 History flecainide 100 mg tablet 100 mg PO BID 05/09/23 09/08/23 History omeprazole 20 mg capsule,delayed 20 mg PO DAILY 05/09/23 09/08/23 History release warfarin 2 mg tablet 3 mg PO 05/09/23 05/09/23 History Allergies Allergy/AdvReac Type Severity Reaction Status Date / Time No Known Drug Allergies Allergy Verified 04/02/24 23:41 Exam Narrative Exam Narrative: Physical Exam GENERAL: ?vital signs reviewed, well developed and nourished, in no distress HEENT: pupils are equal round and reactive to light, extraocular movements are grossly within normal limits and oral mucosa is moist. NECK: Supple without lymphadenopathy or thyromegaly according to nursing staff examination observation HEART: Regular rate and rhythm without any rubs, murmurs, or gallops. LUNGS: Clear to auscultation bilaterally with good air movement throughout ABDOMEN: Observation from nurse assisted exam, abdomen appears soft, nontender, and nondistended with Positive bowel sounds noted. EXTREMITIES: Strength and sensation is observed to be grossly within normal limits in the upper and lower extremities.? No focal strength deficit is observed. SKIN:? Observed warm and dry with color normal Const Vital Signs, click to edit/add: Vital Signs - 24 hr 04/02/24 20:59 04/02/24 21:10 04/02/24 21:21 Temperature 97.1 F L Pulse Rate 116 H 104 H Pulse Rate [Pulse Oximeter] 77 Respiratory Rate 16 Blood Pressure Blood Pressure [Left Arm] Blood Pressure [Right Upper Arm] 120/72 Pulse Oximetry 93 95 95 Oxygen Delivery Method Room Air Oxygen Flow Rate 04/02/24 21:23 04/02/24 21:31 04/02/24 21:32 Temperature Pulse Rate 88 80 112 H Pulse Rate [Pulse Oximeter] Respiratory Rate Blood Pressure 126/102 H 127/98 H Blood Pressure [Left Arm] Blood Pressure [Right Upper Arm] Pulse Oximetry 94 96 93 Oxygen Delivery Method Oxygen Flow Rate 04/02/24 21:39 04/02/24 21:45 04/02/24 22:00 Temperature Pulse Rate 118 H 102 H Pulse Rate [Pulse Oximeter] Respiratory Rate Blood Pressure Blood Pressure [Left Arm] Blood Pressure [Right Upper Arm] Pulse Oximetry 95 95 94 Oxygen Delivery Method Nasal Cannula Oxygen Flow Rate 04/02/24 22:02 04/02/24 22:03 04/02/24 22:21 Temperature Pulse Rate 111 H 112 H 108 H Pulse Rate [Pulse Oximeter] Respiratory Rate Blood Pressure 168/124 H Blood Pressure [Left Arm] Blood Pressure [Right Upper Arm] Pulse Oximetry 94 93 95 Oxygen Delivery Method Oxygen Flow Rate 04/02/24 22:26 04/02/24 22:30 04/02/24 22:31 Temperature Pulse Rate 136 H 108 H 142 H Pulse Rate [Pulse Oximeter] Respiratory Rate 24 28 H 32 H Blood Pressure 155/91 H 128/82 Blood Pressure [Left Arm] Blood Pressure [Right Upper Arm] Pulse Oximetry 95 86 L 93 Oxygen Delivery Method Nasal Cannula Nasal Cannula Nasal Cannula Oxygen Flow Rate 1 1 1 04/02/24 22:37 04/02/24 22:38 04/02/24 22:41 Temperature Pulse Rate 82 85 Pulse Rate [Pulse Oximeter] Respiratory Rate 28 H 32 H 20 Blood Pressure 93/59 L 107/67 97/73 Blood Pressure [Left Arm] Blood Pressure [Right Upper Arm] Pulse Oximetry 91 91 Oxygen Delivery Method Nasal Cannula Nasal Cannula Nasal Cannula Oxygen Flow Rate 1 1 1 04/02/24 22:45 04/02/24 22:46 04/02/24 23:00 Temperature Pulse Rate 143 H 141 H 142 H Pulse Rate [Pulse Oximeter] Respiratory Rate 26 H 19 17 Blood Pressure 111/77 Blood Pressure [Left Arm] Blood Pressure [Right Upper Arm] Pulse Oximetry 94 97 94 Oxygen Delivery Method Nasal Cannula Nasal Cannula Oxygen Flow Rate 1 1 04/02/24 23:30 04/02/24 23:32 04/02/24 23:49 Temperature Pulse Rate 133 H 131 H 135 H Pulse Rate [Pulse Oximeter] Respiratory Rate 20 20 20 Blood Pressure 126/87 132/82 113/81 Blood Pressure [Left Arm] Blood Pressure [Right Upper Arm] Pulse Oximetry 95 93 94 Oxygen Delivery Method Oxygen Flow Rate 04/03/24 00:07 04/03/24 00:20 04/03/24 00:28 Temperature 97.1 F L 98.3 F 97.1 F L Pulse Rate Pulse Rate [Pulse Oximeter] 131 H 131 H Respiratory Rate 20 20 20 Blood Pressure Blood Pressure [Left Arm] 121/81 Blood Pressure [Right Upper Arm] 132/74 132/74 Pulse Oximetry 97 93 Oxygen Delivery Method Room Air Room Air Oxygen Flow Rate Hospitalist - H&P: Result Labs Labs: Short CBC 04/02/24 Range/Units 21:16 WBC 13.60 H (4.50-11.00) K/uL Hgb 15.7 (13.5-17.5) gm/dL Hct 48.5 (37.0-53.0) % Plt Count 411 (140-440) K/uL BMP 04/02/24 21:16 Sodium 138 Potassium 4.0 Chloride 105 Carbon Dioxide 25 BUN 19 Creatinine 0.9 Glucose 114 Calcium 9.2 Assessment and Plan Assessment and plan (1) Atrial fibrillation with rapid ventricular response: Status: Acute (2) Chronic anticoagulation: Status: Acute (3) GERD (gastroesophageal reflux disease): Status: Acute Plan atrial fibrillation with rapid ventricular response?currently on a diltiazem drip will titrate between 5 and 15 mg/h he is currently on a 2-1 flutter this will ultimately deteriorate into either atrial fibrillation or back into sinus rhythm. He is currently asymptomatic so we will continue a rate control strategy. At this point he appears to be resistant to cardioversion and going back into a sinus rhythm. Will add on a another troponin to make sure he does not have a acute coronary syndrome but clinically this seems much less likely. He is chronically anticoagulated on Coumadin goal INR will be between 2 and 3. He will ultimately need to see electrophysiology again. Will consider ordering echo in the morning if it is available. Will continue him on PPI and H2 jay for his gastric esophageal reflux disease. For DVT prophylaxis he is fully anticoagulated he will not need DVT prophylaxis. Telehealth: Statement Statement Telehealth Visit: Today's History and Physical is provided via interactive telehealth by Asim Morfin DO.? Patient is located at [facility].? Provider is located at [facility].? Nursing staff assisted with the patient's exam. The visit being done today meets criteria for a telehealth visit and the patient or patient?s parent/guardian is aware the visit is a telehealth visit. Camera Start Time: 12:37 Camera End Time: 01:03
[2024-04-03] MEDS: ENOXAPARIN 120 MG/0.8 ML INJ 100 MG SUBCUT (04:59)
[2024-04-03] MEDS: 0.9 % SODIUM CHLORIDE 250 ml IV (05:00)
--- NOTE | 2024-04-03 05:44 | PC.NURSE ---
pleasant and cooperative. indep in rm. came to the floor with dilt running at 15mg/hr. Tele = Atrial Flutter -> AFib/Flutter -> NSR (Ron). Pt converted to NSR at approx 0437, at that time the dilt drip was stopped. HR maintaining in the 50s. Pt stated his chest felt heavy upon arrival to the floor. at end of shift pt reports feeling fine, doesn't feel the heaviness at end of shift.
[2024-04-03] MEDS: OMEPRAZOLE 20 MG CAPSULE DR PO (06:11)
--- OUTSIDE RECORDS SUMMARY | 2024-04-03 07:35 | XMS_ITS | Encounter Summary ---
Author Organization [email or web address] Address [address] [place] [address] Care Team Providers Care Casting Tester Name Role Phone Ed Del Toro MD Primary Care Provider Reason for Visit * Reason Comments Knee Problem Encounter Details Date Type Department Care Team (Late st Contact Info) Description 01/06/2024 12:00 PM GRADUATION COACH Therapy [facility], Physical Therapy [address] [place] [address] Álvaro Flores, PT [address] [place], [place] [address] Aftercare following right knee joint replacement surgery [...] pursue R TKA scheduled for 11/[address] [facility] and will be piyush vering at the [place] for 1-night. Functional Limitations: prolong walking, stairs, getting in/out of a car, sleep Patient's Therapy Goals: PLOF, pain free ADLs, walking, stairs, walking, ladders, Patient's sales coach was physically present during pre-op session: No Electric Sealing Machine Operator: - Emma Stairs INTO house: 3 steps Stairs WITHIN house: Basement stairs with single railing Pets: no Shower: Walk in Toilet Height: Comfort Assistive Devices: FWW and B crutches Vehicle: [place] Outpatient PT plan: Here at [facility] SUBJECTIVE: Patient Report: Dhaval 6+ weeks s/p R TKA and reports feeling good on average. Increased tolerance to ADLs, walking, and HEP. Still getting some soreness in lateral knee, but could be from over doingit. Pain Ratin/10 current, 3/10 with activity OBJECTIVE: Observation/Gait: mild antalgic gait without AD, less stiff today Inspection of knee/LE: well healing incisions ROM ([id number]): Right Knee: 0-120 after manual tx Strength: [...] x 5 mins (0-125) Therapeutic Activities (CPT 00748) x 10 minutes: Dynamic activities utilized to [...] ROM in 4-6 weeks. ADL: Squat to bean picker items from floor with minimal/no symptoms in 8-10 weeks. Therapist: Álvaro Flores, PT 12:02 PM 01/06/2024 UATION COACH documented in this encounter Plan of Treatment Scheduled Procedures Name Priority Associated Diagnoses Date/Ti me TOTAL KNEE JOINT REPLACEMENT Arthritis of left knee documented as of this encounter Goals Goal Patient Goal Type Associated Problems Recent Progress Patient-Stated? Author Right Knee Replacement Care Plan ET PROE RIGHT KNEE No Emperatriz Richter, RN, POLITICAL WORKER DIRECTOR OF DIGITAL PLATFORMS Left Knee Care Plan ET PROE LEFT KNEE No Emperatriz Richter, RN, POLITICAL WORKER DIRECTOR OF DIGITAL PLATFORMS documented as of this encounter Visit Diagnoses Diagnosis Aftercare following right knee joint replacement surgery- Primary documented in this encounter Additional Health Concerns Active Problems Noted Date Diagnosed Date ET PROE RIGHT KNEE 07/30/2023 ET PROE LEFT KNEE 12/31/2023 documented as of this encounter Care Teams Casting Tester Relationship Specialty Start Date End Date Ed Del Toro MD [address] [place] [address] PCP - General Family Practice 07/25/22 documented as of this encounter
--- OUTSIDE RECORDS SUMMARY | 2024-04-03 07:35 | XMS_ITS | Encounter Summary ---
Author Organization [employer] ? [facility] Address [address] [place] [address] [place] [address] Care Team Providers Care Cinetechnician Name Role Phone Ed Del Toro MD Primary Care Provider Reason for Visit * Reason Comments Knee Problem Encounter Details Date Type Department Care Team (Late st Contact Info) Description 01/02/2024 11:15 AM TRANSMISSION SUPERINTENDENT Therapy [facility], Physical Therapy [address] [address] Elvis Nunn, PT [address] [address] Aftercare following right knee joint replacement surgery [...] pursue R TKA scheduled for 11/20 at [facility] and will be piyush vering at the [place] for 1-night. Functional Limitations: prolong walking, stairs, getting in/out of a car, sleep Patient's Therapy Goals: PLOF, pain free ADLs, walking, stairs, walking, ladders, Patient's volleyball assistant coach was physically present during pre-op session: No Handicapped Teacher: - Emma Stairs INTO house: 3 steps Stairs WITHIN house: Basement stairs with single railing Pets: no Shower: Walk in Toilet Height: Comfort Assistive Devices: FWW and B crutches Vehicle: [employer] Outpatient PT plan: Here at [facility] SUBJECTIVE: Patient Report: Dhaval reports doing well [...] Inspection of knee/LE: well healing incisions ROM ([id number]): Right Knee: 0-120 after manual tx Strength: Right Lower Extremity: Quad set: good Supine SLR: wnl TREATMENT TODAY: Manual Treatment x 8 minutes: Seated knee flexion mobs, grade 3-4, multiple rounds Therapeutic Exercise: 12 minutes: - Recumbent bike warm up - Eccentric leg press 15 lbs x 10 - SL Press with 10 lbs 2 x 10 reps Therapeutic Activities (CPT 98851) x 10 minutes: Dynamic activities utilized to [...] ROM in 4-6 weeks. ADL: Squat to quill picking machine operator items from floor with minimal/no symptoms in 8-10 weeks. Therapist: Elvis Nunn, PT 11:49 AM 01/02/2024 SMISSION SUPERINTENDENT documented in this encounter Plan of Treatment Scheduled Procedures Name Priority Associated Diagnoses Date/Ti me TOTAL KNEE JOINT REPLACEMENT Arthritis of left knee documented as of this encounter Goals Goal Patient Goal Type Associated Problems Recent Progress Patient-Stated? Author Right Knee Replacement Care Plan ET PROE RIGHT KNEE No Emperatriz Richter, RN, MGMT SPECIALIST CORD TIRE BUILDER Left Knee Care Plan ET PROE LEFT KNEE No Emperatriz Richter, RN, MGMT SPECIALIST CORD TIRE BUILDER documented as of this encounter Visit Diagnoses Diagnosis Aftercare following right knee joint replacement surgery- Primary Primary osteoarthritis of one knee Primary localized osteoarthrosis, lower leg documented in this encounter Additional Health Concerns Active Problems Noted Date Diagnosed Date ET PROE RIGHT KNEE 07/30/2023 ET PROE LEFT KNEE 12/31/2023 documented as of this encounter Care Teams Cinetechnician Relationship Specialty Start Date End Date Ed Del Toro MD [address] [place] [address] PCP - General Family Practice 07/25/22 documented as of this encounter
--- OUTSIDE RECORDS SUMMARY | 2024-04-03 07:35 | XMS_ITS | Encounter Summary ---
Author Organization [employer] Address [address] [place] [address] Care Team Providers Care Herpetology Teacher Name Role Phone Ed Del Toro MD Primary Care Provider Reason for Visit * Reason Comments Knee Problem Encounter Details Date Type Department Care Team (Late st Contact Info) Description 01/09/2024 4:30 PM TRANSPORTATION DRIVER Therapy [facility], Physical Therapy [address] [place] [address] Álvaro Flores, PT [address] [place], [place] [address] Aftercare following right knee joint replacement surgery [...] place to sleep or slept in a [place] facility (including now)? No 11/20/2023 Sex and Gender [...] at [facility] and will be piyush vering at the [place] for 1-night. Functional Limitations: prolong walking, stairs, getting in/out of a car, sleep Patient's Therapy Goals: PLOF, pain free ADLs, walking, stairs, walking, ladders, Patient's job coaching was physically present during pre-op session: No Tandem Mill Roller: - Emma Stairs INTO house: 3 steps Stairs WITHIN house: Basement stairs with single railing Pets: no Shower: Walk in Toilet Height: Comfort Assistive Devices: FWW and B crutches Vehicle: [employer] Outpatient PT plan: Here at [facility] SUBJECTIVE: Patient Report: Dhaval 7 weeks s/p R TKA and reports knee feeling fairly good overall. Still gettingsome stiffness and swelling first thing in the morning and after prolong sitting. Feels much betterafter light activity and using stationary bike at home 2x daily. Pain Ratin/10 current, 2/10 with activity OBJECTIVE: Observation/Gait: very mild antalgic gait Inspection of knee/LE: well healing incisions ROM ([id number]): Right Knee: 0-123 after manual tx Strength: [...] DL 40lbs and SL Therapeutic Activities (CPT 85700) x 10 minutes: Dynamic activities utilized to [...] ROM in 4-6 weeks. ADL: Squat to fruit picker machine operator items from floor with minimal/no symptoms in 8-10 weeks. Therapist: Álvaro Flores, PT 4:33 PM 01/09/2024 SPORTATION DRIVER documented in this encounter Plan of Treatment Scheduled Procedures Name Priority Associated Diagnoses Date/Ti me TOTAL KNEE JOINT REPLACEMENT Arthritis of left knee documented as of this encounter Goals Goal Patient Goal Type Associated Problems Recent Progress Patient-Stated? Author Right Knee Replacement Care Plan ET PROE RIGHT KNEE No Emperatriz Richter, RN, MANAGER RESEARCH AND DEVELOPMENT ANTIQUE AUTOMOBILES REPAIRER Left Knee Care Plan ET PROE LEFT KNEE No Emperatriz Richter, RN, MANAGER RESEARCH AND DEVELOPMENT ANTIQUE AUTOMOBILES REPAIRER documented as of this encounter Visit Diagnoses Diagnosis Aftercare following right knee joint replacement surgery- Primary documented in this encounter Additional Health Concerns Active Problems Noted Date Diagnosed Date ET PROE RIGHT KNEE 07/30/2023 ET PROE LEFT KNEE 12/31/2023 documented as of this encounter Care Teams Herpetology Teacher Relationship Specialty Start Date End Date Ed Del Toro MD [address] [place] [address] PCP - General Family Practice 07/25/22 documented as of this encounter
--- OUTSIDE RECORDS SUMMARY | 2024-04-03 07:35 | XMS_ITS | Encounter Summary ---
Author Organization [facility] Address [address] [place] [address] Care Team Providers Care Pest Locator Name Role Phone Ed Del Toro MD Primary Care Provider Reason for Visit * Procedure/Equipment (Routine) - Incomplete Specialty Diagnoses / Procedures Referred By Contac t Referred To Contact Diagnoses Arthritis of left knee Procedures XR Leg Length Emperatriz Richter RN, PATIENT SAFETY TECH CLAY ARTIST [address] [place] [address] Referral ID Status Reason Start Date Expiration Date V isits Requested Visits Authorized [id number] Incomplete 12/31/2023 03/31/2025 1 1 Encounter Details Date Type Department Care Team (Late st Contact Info) Description 12/31/2023 11:45 AM GATE MORTISER OPERATOR Ancillary Procedure [facility] [address] [place] [address] Emperatriz Richter RN, PATIENT SAFETY TECH CLAY ARTIST [address] [place] [address] Arthritis of left knee Social History Tobacco [...] place to sleep or slept in a fdc (including now)? No 11/20/2023 Sex and Gender [...] PROE RIGHT KNEE No Emperatriz Richter, RN, PATIENT SAFETY TECH CLAY ARTIST Left Knee Care Plan ET PROE LEFT KNEE No Emperatriz Richter, RN, PATIENT SAFETY TECH CLAY ARTIST documented as of this encounter Procedures Procedure Name Priority Date/Time Associated Diagnosis Comments XR LEG LENGTH Routine 12/31/2023 11:53 AM GATE MORTISER OPERATOR Arthritis of left knee documented in this encounter Results * XR Leg Length (12/31/2023 11:53 AM GATE MORTISER OPERATOR) Anatomical Region Laterality Modality Lower Extremity, Pelvis, Hip, Thigh, Knee, Leg, Ankle Digital Radiography 12/31/2023 11:4 1 AM GATE MORTISER OPERATOR Impressions 12/31/2023 12:36 PM GATE MORTISER OPERATOR COMPARISON: ??07/30/2023. FINDINGS: ??Since the earlier [...] a discrepancy of 0.6cm. Emperatriz Richter RN, PATIENT SAFETY TECH CLAY ARTIST RAD GD documented in this encounter Visit Diagnoses Diagnosis Arthritis of left knee Unspecified arthropathy, lower leg documented in this encounter Additional Health Concerns Active Problems Noted Date Diagnosed Date ET PROE RIGHT KNEE 07/30/2023 ET PROE LEFT KNEE 12/31/2023 documented as of this encounter Care Teams Pest Locator Relationship Specialty Start Date End Date Ed Del Toro MD [address] [place] [address] PCP - General Family Practice 07/25/22 documented as of this encounter
--- OUTSIDE RECORDS SUMMARY | 2024-04-03 07:35 | XMS_ITS | Clinical Summary ---
[facility] Organization [facility] Address [address], [place] [address] Care Team Providers Care Plycor Operator Name Role Phone Ed Del Toro MD Primary Care Provider Source Comments You are receiving this document as you are listed as the primary care provider,follow-up provider, or the patient has been referred to you for consultation.This is in compliance with the Medicare and[facility] EHR Incentive Program,which states Providers who transition their patient to another setting of careor provider of care or refers their patient to another provider of care shouldprovide summary care record for each transition of care or referral. [facility] Allergies No known active allergies Medications Medication [...] [facility] [place] [address] Álvaro Flores, PT Aftercare following right knee joint replacement surgery (Primary Dx) 01/31/2024 8:45 AM CDT Therapy [facility] Physical Therapy [facility] [place] [address] Elvis Nunn, PT Aftercare following right knee joint replacement surgery (Primary Dx) 01/16/2024 9:00 AM CDT Therapy [facility] Therapy [address] [place] [address] Álvaro Flores, PT Aftercare following right knee joint replacement surgery (Primary Dx) 01/09/2024 4:30 PM INVESTOR RELATIONS SPECIALIST Therapy [facility] Therapy [address] [place] [address] Álvaro Flores, PT Aftercare following right knee joint replacement surgery (Primary Dx) 01/06/2024 12:00 PM INVESTOR RELATIONS SPECIALIST Therapy [facility] Physical Therapy [address] [place] [address] Álvaro Flores, PT Aftercare following right knee joint replacement surgery (Primary Dx) 01/02/2024 11:15 AM INVESTOR RELATIONS SPECIALIST Therapy [facility] [place] Physical Therapy [address] [place] [id number] Elvis Nunn, PT Aftercare following right knee [...] Comments Blood Pressure 136/72 11/21/2023 10:46 AM INVESTOR RELATIONS SPECIALIST Pulse 61 11/21/2023 10:46 AM INVESTOR RELATIONS SPECIALIST Temperature 36.9 ??C (98.4 ??F) 11/21/2023 10:[address] Respiratory Rate 16 11/21/2023 10:46 AM INVESTOR RELATIONS SPECIALIST Oxygen Saturation 95% 11/21/2023 10:46 AM INVESTOR RELATIONS SPECIALIST Inhaled Oxygen Concentration - - Weight 108.9 kg (240 lb) 11/20/2023 3:50 PM INVESTOR RELATIONS SPECIALIST Height 172.7 cm (5' 8) 11/20/2023 5:33 PM INVESTOR RELATIONS SPECIALIST Body Mass Index 36.49 11/20/2023 3:50 PM INVESTOR RELATIONS SPECIALIST Plan of Treatment Scheduled Procedures Name [...] PROE RIGHT KNEE No Emperatriz Richter, RN, POT BUILDER COMMODITY SUPERVISOR Left Knee Care Plan ET PROE LEFT KNEE No Emperatriz Richter, RN, POT BUILDER COMMODITY SUPERVISOR Medical Devices Implanted Type Area Physician Credentialing Specialist Device Identifier Shelf Expiration Date Model / Serial / Lot Jose Bone Biomet R 1x40 - [id number] Implanted:Qty: 2 on 11/20/2023 by Costa Chino MD at [facility] Right: KNEE [employer] 04/03/2026 [id number] / 0 / [id number] Patella All Poly Ply 35mm - [id number] Implanted:Qty: 1 on 11/20/2023 by Costa Chino MD at [facility] DEV[facility] Right: KNEE [employer] 09/14/2028 [id number] / 0 / [id number] Comp Fem Ps Ccr Ps Std Sz7 Rt - [id number] Implanted:Qty: 1 on 11/20/2023 by Costa Chino MD at [facility] DEV[facility] Right: KNEE [employer] 07/06/2033 [id number] / 0 / [id number] Stem Tib 5deg Szg Rt - [id number] Implanted:Qty: 1 on 11/20/2023 by Costa Chino MD at [facility] DEV[facility] Right: KNEE [employer] 08/23/2033 [id number] / 0 / [id number] Asf Ps Poly 11mm 69 Gh Rt - [id number] Implanted:Qty: 1 on 11/20/2023 by Costa Chino MD at [facility] DEV[facility] Right: KNEE [employer] 01/23/2028 [id number] / 0 / [id number] Additional Health Concerns Active Problems Noted Date Diagnosed Date ET PROE RIGHT KNEE 07/30/2023 ET PROE LEFT KNEE 12/31/2023 Advance Directives * Full Code (Latest Code Status on File) Date Activated Date Inactivated Comments 11/20/2023 4:32 PM 11/21/2023 3:07 PM * Full Code Date Activated Date Inactivated Comments 11/20/2023 7:10 AM 11/20/2023 3:45 PM Care Teams Plycor Operator Relationship Specialty Start Date End Date Ed Del Toro MD [address] [place] [address] PCP - General Family Practice 07/25/22
--- OUTSIDE RECORDS SUMMARY | 2024-04-03 07:35 | XMS_ITS | Encounter Summary ---
Author Organization [facility] Address [address] [place] [address] Care Team Providers Care Senior Chemist Name Role Phone Ed Del Toro MD Primary Care Provider Reason for Visit * Reason Comments Knee Problem Encounter Details Date Type Department Care Team (Late st Contact Info) Description 12/30/2023 4:00 PM CROSS TIE CUTTER Therapy [facility] Therapy [address] [place] [address] Álvaro Flores, PT [address] [place], [place] [id number] Aftercare following right knee joint replacement surgery [...] place to sleep or slept in a skilled nursing (including now)? No 11/20/2023 Sex and Gender [...] pursue R TKA scheduled for 11/20 at [facility] and will be piyush vering at the [facility] for 1-night. Functional Limitations: prolong walking, stairs, getting in/out of a car, sleep Patient's Therapy Goals: PLOF, pain free ADLs, walking, stairs, walking, ladders, Patient's customer care team coach was physically present during pre-op session: No Clinical Research Specialist: - Emma Stairs INTO house: 3 steps Stairs WITHIN house: Basement stairs with single railing Pets: no Shower: Walk in Toilet Height: Comfort Assistive Devices: FWW and B crutches Vehicle: [employer] Outpatient PT plan: Here at [facility] SUBJECTIVE: Patient Report: Almost 6 weeks s/p R TKA and reports doing well overall. No longer walking with SPC, however still using it on stairs. HEP going well. Pain Ratin/10 current, 3/10 with activity OBJECTIVE: Observation/Gait: mild antalgic gait without AD, walking stiff legged Inspection of knee/LE: well healing incisions ROM (dveynswrt-aoe-kgns): Right Knee: 0-120 after manual tx Strength: [...] Therapist: Álvaro Flores, PT 4:06 PM 12/30/2023 S TIE CUTTER documented in this encounter Plan of Treatment Scheduled Procedures Name Priority Associated Diagnoses Date/Ti me TOTAL KNEE JOINT REPLACEMENT Arthritis of left knee documented as of this encounter Goals Goal Patient Goal Type Associated Problems Recent Progress Patient-Stated? Author Right Knee Replacement Care Plan ET PROE RIGHT KNEE Emperatriz Dover, RN, MANAGER ASSISTED LIVING FIBER TECHNOLOGIST documented as of this encounter Visit Diagnoses Diagnosis Aftercare following right knee joint replacement surgery- Primary documented in this encounter Additional Health Concerns Active Problems Noted Date Diagnosed Date ET PROE RIGHT KNEE 07/30/2023 documented as of this encounter Care Teams Senior Chemist Relationship Specialty Start Date End Date Ed Del Toro MD [address] [place] [address] PCP - General Family Practice 07/25/22 documented as of this encounter
--- OUTSIDE RECORDS SUMMARY | 2024-04-03 07:35 | XMS_ITS | Encounter Summary ---
Author Organization [email or web address] Address [address] [place] [address] [place] [address] Care Team Providers Care R&D Engineer Name Role Phone Ed Del Toro MD Primary Care Provider Reason for Visit * Reason Comments Knee Problem Encounter Details Date Type Department Care Team (Late st Contact Info) Description 12/26/2023 9:45 AM CLEANER FURNITURE Therapy [facility] Therapy [address] [address] Elvis Nunn, PT [address] [facility] [place] [place] [address] Aftercare following right knee joint replacement surgery [...] place to sleep or slept in a penitentiary (including now)? No 11/20/2023 Sex and Gender [...] pursue R TKA scheduled for 11/20 at [facility] and will be piyush vering at the [place] for 1-night. Functional Limitations: prolong walking, stairs, getting in/out of a car, sleep Patient's Therapy Goals: PLOF, pain free ADLs, walking, stairs, walking, ladders, Patient's online health and fitness coach was physically present during pre-op session: No Master Automotive Technician: - Emma Stairs INTO house: 3 steps Stairs WITHIN house: Basement stairs with single railing Pets: no Shower: Walk in Toilet Height: Comfort Assistive Devices: FWW and B crutches Vehicle: [facility] Outpatient PT plan: Here at [facility] SUBJECTIVE: Patient Report: Overall Dhaval is doing well. Reports CHRISTIANE is going well, but has some questions about biking at home. Pain has been tolerable, and notices he feels better after he bikes. Pain Ratin/10 current, 3/10 with activity OBJECTIVE: Observation/Gait: mild antalgic gait on R with SPC Inspection of knee/LE: well healing incisions ROM (hejznafpv-oon-ecmq): Right Knee: 0-1-110 at beginning improved to [...] ROM in 4-6 weeks. ADL: Squat to cigar packer and picker items from floor with minimal/no symptoms in 8-10 weeks. Therapist: Arturo Dennis 9:42 AM 12/26/2023 Completed by Arturo Dennis, SPT, under the supervision of Elvis Nunn DPT NER FURNITURE documented in this encounter Plan of Treatment Scheduled Procedures Name Priority Associated Diagnoses Date/Ti me TOTAL KNEE JOINT REPLACEMENT Arthritis of left knee documented as of this encounter Goals Goal Patient Goal Type Associated Problems Recent Progress Patient-Stated? Author Right Knee Replacement Care Plan ET PROE RIGHT KNEE Emperatriz Dover, RN, MANAGER PART PROFESSOR OF MUSICOLOGY documented as of this encounter Visit Diagnoses Diagnosis Aftercare following right knee joint replacement surgery- Primary Primary osteoarthritis of one knee Primary localized osteoarthrosis, lower leg documented in this encounter Additional Health Concerns Active Problems Noted Date Diagnosed Date ET PROE RIGHT KNEE 07/30/2023 documented as of this encounter Care Teams R&D Engineer Relationship Specialty Start Date End Date Ed Del Toro MD [address] [place] [address] PCP - General Family Practice 07/25/22 documented as of this encounter
--- OUTSIDE RECORDS SUMMARY | 2024-04-03 07:35 | XMS_ITS | Continuity of Care Document ---
Author Organization [facility] Address [address] [place] [address] Phone Care Team Providers Care Religious Activities Director Name Role Phone Christiano Guzman Unavailable Unavailable [...] Visit,Est, Mod [facility], [address], [place], [place], [id number], [place] tel:[phone] [facility] Spinal stenosis, cervical regionOther spondylosis, lumbar region 9 Mike Alvarado. [facility], [address], [place], [place], [id number] , [place]. tel:[phone] Referring Provider: Christiano Mckeon, [facility] [address], [place], [address] . tel:[phone] Office/Outpat ient Visit,New, Mod [facility], [address], [place], [id number], [place] tel:[phone] [facility] [place] CervicalgiaLow back pain 8 Mike Alvarado. [facility], [address], [place], [place], [id number] , [place]. [phone] Referring Provider: Christiano Mckeon, [facility] [address], [place], [address] . tel:[phone] Family History Family Member Type Diagnosis Age At Onset No Information Payers Payer name Insurance type Covered republican ID Valentine greer(s) [facility] [id number] [facility] [id number] Social History Type Description Quantity Date Captured [...]
--- OUTSIDE RECORDS SUMMARY | 2024-04-03 07:35 | XMS_ITS | Encounter Summary ---
Author Organization [employer] Address [address] [place] [address] Care Team Providers Care Arts And Crafts Teacher Name Role Phone Ed Del Toro MD Primary Care Provider Reason for Visit * Reason Comments Knee Problem Encounter Details Date Type Department Care Team (Late st Contact Info) Description 02/18/2024 7:00 AM CDT Therapy [facility], Physical Therapy [address] [place] [address] Álvaro Flores, PT [address] [place], [place] [address] Aftercare following right knee joint replacement surgery [...] place to sleep or slept in a long-term (including now)? No 11/20/2023 Sex and Gender [...] pursue R TKA scheduled for 11/20 at [facility] and will be piyush vering at the [place] for 1-night. Functional Limitations: prolong walking, stairs, getting in/out of a car, sleep Patient's Therapy Goals: PLOF, pain free ADLs, walking, stairs, walking, ladders, Patient's job coach/job developer was physically present during pre-op session: No Gastrointestinal Technician: - Emma Stairs INTO house: 3 steps Stairs WITHIN house: Basement stairs with single railing Pets: no Shower: Walk in Toilet Height: Comfort Assistive Devices: FWW and B crutches Vehicle: [place] Outpatient PT plan: Here at [facility] SUBJECTIVE: Patient Report: 3 months s/p R TKA and reports feeling good overall. Still waking up with increasedstiffness, which improves after light activity and using stationary bike. Pain Ratin/10 current, 2/10 with activity OBJECTIVE: Observation/Gait: wnl Inspection of knee/LE: well healing incisions ROM (beviabnlj-thm-gndn): Right Knee: 0-123 after manual tx Strength: Right Lower Extremity: Quad set: good Supine SLR: wnl TREATMENT TODAY: Manual Treatment x 8 minutes: Knee flex PROM with PT assist Posterior tibiofemoral jt oscillations grade 1-2 Therapeutic Exercise: 23 minutes: Recumbent bike warm up x 4 mins Bridge SL leg press 10lbs and 25 lbs x 10 Access Code: [email or web address] Exercises performed and verbally reviewed: - [...] ROM in 4-6 weeks. ADL: Squat to greens picker items from floor with minimal/no symptoms [...] Therapist: Álvaro Flores, PT 7:02 AM 02/18/2024 [facility] Physical Therapy Discharge Summary Attainment of goals: [...] PROE RIGHT KNEE No Emperatriz Richter, RN, CERAMIC COATER CUSTOMER OPERATIONS REPRESENTATIVE Left Knee Care Plan ET PROE LEFT KNEE No Emperatriz Richter, RN, CERAMIC COATER CUSTOMER OPERATIONS REPRESENTATIVE documented as of this encounter Visit Diagnoses Diagnosis Aftercare following right knee joint replacement surgery- Primary documented in this encounter Additional Health Concerns Active Problems Noted Date Diagnosed Date ET PROE RIGHT KNEE 07/30/2023 ET PROE LEFT KNEE 12/31/2023 documented as of this encounter Care Teams Arts And Crafts Teacher Relationship Specialty Start Date End Date Ed Del Toro MD [address] [place] [address] PCP - General Family Practice 07/25/22 documented as of this encounter
--- OUTSIDE RECORDS SUMMARY | 2024-04-03 07:35 | XMS_ITS | Encounter Summary ---
Author Organization [facility] Address [address] [place] [address] [place] [address] Care Team Providers Care Placing Judge Name Role Phone Ed Del Toro MD Primary Care Provider Reason for Visit * Reason Comments Knee Problem Encounter Details Date Type Department Care Team (Late st Contact Info) Description 01/31/2024 8:45 AM CDT Therapy [facility] Physical Therapy [address] [address] Elvis Nunn, PT [address] [facility] [place] [address] Aftercare following right knee joint replacement surgery [...] TKA scheduled for 11/20 at [facility] and will be piyush vering at the [facility] for 1-night. Functional Limitations: prolong walking, stairs, getting in/out of a car, sleep Patient's Therapy Goals: PLOF, pain free ADLs, walking, stairs, walking, ladders, Patient's employment coach was physically present during pre-op session: No Transport Pilot: - Emma Stairs INTO house: 3 steps Stairs WITHIN house: Basement stairs with single railing Pets: no Shower: Walk in Toilet Height: Comfort Assistive Devices: FWW and B crutches Vehicle: [facility] Outpatient PT plan: Here at [facility] SUBJECTIVE: Patient Report: Overall doing well [...] Inspection of knee/LE: well healing incisions ROM (wlielcbrp-ftf-ouwl): Right Knee: 0-124 after manual tx Strength: [...] 10 to 20 lbs Therapeutic Activities (CPT 10959) x 10 minutes: Dynamic activities utilized to [...] ROM in 4-6 weeks. ADL: Squat to sweet pickle maker items from floor with minimal/no symptoms [...] PROE RIGHT KNEE No Emperatriz Richter, RN, BROADCAST CHIEF ENGINEER SENIOR ENERGY TRADER Left Knee Care Plan ET PROE LEFT KNEE No Emperatriz Richter, RN, BROADCAST CHIEF ENGINEER SENIOR ENERGY TRADER documented as of this encounter Visit Diagnoses Diagnosis Aftercare following right knee joint replacement surgery- Primary documented in this encounter Additional Health Concerns Active Problems Noted Date Diagnosed Date ET PROE RIGHT KNEE 07/30/2023 ET PROE LEFT KNEE 12/31/2023 documented as of this encounter Care Teams Placing Judge Relationship Specialty Start Date End Date Ed Del Toro MD [address] [place] [address] PCP - General Family Practice 07/25/22 documented as of this encounter
--- OUTSIDE RECORDS SUMMARY | 2024-04-03 07:35 | XMS_ITS | Clinical Summary ---
Author Organization [facility] Address [place], [place] [address] Care Team Providers Care Linux Unix Administrator Name Role Phone Romina Cristobal NP Unavailable Stephen Mcguire Unavailable [phone] Ed Del Toro MD Primary Care Provider [...] - 04/01/2024 11:59 PM CDT Hospital Encounter [facility] [address] [place] [address] Romina Cristobal NP Atrial fibrillation with RVR (HC); Paroxysmal atrial fibrillation (HC) 04/01/2024 10:50 AM CDT Orders Only [facility] [address] [place] [address] Lab 04/01/2024 10:00 AM CDT Office Visit [facility] [address] [place] [address] Romina Cristobal NP Follow Up (overdue annual visit, ekg prior) 04/01/2024 9:30 AM CDT Nurse/Clinic Staff Only [facility] [address] [place] [address] Cardiovascular Diagnostic Testing (EKG) 04/01/2024 7:00 AM CDT Orders Only [facility] [address] [place] [address] Lab, [place] [facility] 04/01/2024 Anticoagulation (warfarin) [facility] [address] [place] [address] 1, [place] [facility] Anticoagulation 04/01/2024 Travel 03/04/2024 Telephone [facility] [address] [place] [address] Ed Del Toro MD Refill Request (Warfarin/) 03/03/2024 Refill [facility] [address] [place] [address] Romina Cristobal NP Refill Request 03/03/2024 Refill [facility] [address] [facility] [place] [address] Ed Del Toro MD Refill Request (Warfarin) 02/27/2024 7:00 AM CDT Orders Only [facility] [address] [place] [address] Lab, [place] [facility] 02/27/2024 Anticoagulation (warfarin) [facility] [address] [place] [address] 1, [place] Anticoagulation 02/27/2024 Travel 02/12/2024 Refill [facility] [address] [place] [address] Romina Cristobal NP Refill Request (Flecainide) 01/17/2024 8:30 AM CDT Orders Only [facility] [address] [facility] [place] [address] Lab, [place] [facility] 01/17/2024 Anticoagulation (warfarin) [facility] [address] [place] [address] 1, [place] [facility] Anticoagulation 01/17/2024 Travel [...] type ANTI HCV Routine 11/09/2020 10:24 AM SENIOR SOUS CHEF Need for hepatitis C screening test from Last 3 Months or Most Recently Relevant to Health Maintenance Results * (ABNORMAL) PROTIME-INR (04/01/2024 10:50 AM CDT) INR 2.2(H) <1.3 04/01/2024 11:06 AM CDT [facility] PROTIME 23.7(H) 10.3 - 12.3 sec 04/01/2024 11:06 AM CDT [facility] Blood BLOOD SPECIMEN / Unknown Butterfly / Unknown 04/01/2024 10:50 AM CDT 04/01/2024 10:55 AM CDT Narrative [facility] - 04/01/2024 11:06 AM CDT [...] on UFH. Ed Del Toro MD HEMATOLOGY [facility] SENDOUT INTERNAL ZIP [id number] [place] [address] * MAGNESIUM (04/01/2024 10:50 AM CDT) Pathologist [facility] MAGNESIUM 2.2 1.6 - 2.4 mg/dL 04/01/2024 11:20 AM CDT [facility] Blood BLOOD SPECIMEN / Unknown Butterfly / Unknown 04/01/2024 10:50 AM CDT 04/01/2024 10:55 AM CDT Romina Cristobal NP CHEMISTRY [facility] SENDOUT INTERNAL ZIP [address] [place] [address] * (ABNORMAL) BASIC METABOLIC PANEL (04/01/2024 10:50 AM CDT) [facility] SODIUM 138 136 - 145 mmol/L 04/01/2024 11:20 AM [facility] POTASSIUM 4.1 3.5 - 5.1 mmol/L 04/01/2024 11:20 AM [facility] CHLORIDE 102 98 - 107 mmol/L 04/01/2024 11:20 AM [facility] CO2,TOTAL 25 22 - 29 mmol/L 04/01/2024 11:20 AM [facility] ANION GAP 11 5 - 18 04/01/2024 11:20 AM [facility] GLUCOSE 102(H) 70 - 99 mg/dL 04/01/2024 11:20 AM [facility] CALCIUM 9.3 8.8 - 10.2 mg/dL 04/01/2024 11:20 AM [facility] BUN 22 8 - 23 mg/dL 04/01/2024 11:20 AM [facility] CREATININE 0.81 0.70 - 1.20 mg/dL 04/01/2024 11:20 AM [facility] BUN/CREAT RATIO 27(H) 10 - 20 11:20 AM [facility] eGFR >90 >90 mL/min/1.7 3m2 04/01/2024 11:20 AM [facility] Comment:As of 2022, eG FR [...] 10:55 AM T Romina Cristobal NP CHEMISTRY [facility] SENDOUT [place] [address] [address] [address] [place] [address] * EKG 12 LEAD (04/01/2024 9:32 AM CDT) Pathologist [facility] Interpretation Sinus bradycardia Otherwise normal ECG Ventricular Rate 48 BPM Atrial Rate 48 BPM P-R Interval 160 ms QRS Duration 108 ms QT 444 ms QTc 396 ms P [place] 17 degrees R [place] 58 degrees T [place] 39 degrees 04/01/2024 9:32 AM CDT 04/01/2024 1:07 PM CDT Romina Cristobal NP EKG ORD * (ABNORMAL) INR,POCT (04/01/2024 7:05 AM CDT) Only the most recent of3 resultswithin the time period is included. INR 1.9(H) <1.3 04/01/2024 7:07 AM CDT [facility] Blood BLOOD SPECIMEN / Unknown 04/01/2024 7:05 AM CDT 04/01/2024 7:07 AM CDT Narrative [facility] - 04/01/2024 7:07 AM CDT ?Therapeutic Range 2.0-3.0 for most anticoagulated patients 2.5-3.5 or 4.0 for high risk patients Ed Del Toro MD LABORATORY [facility] [address] [place] [address], * COLONOSCOPY (09/06/2023 10:16 AM CDT) 09/06/2023 [...] an adequate candidate for conscious sedation. The [id number] was passed through the anus and advanced [...] 10:16 AM Procedure Code(s): --- Professional --- 37524, Colonoscopy, flexible; diagnostic, including collection of specimen(s) bybrushing or washing, when performed (separateprocedure) Diagnosis Code(s): --- Professional --- K92.1, Melena (includes Hematochezia) K57.30, Diverticulosis of large intestine without perforation or abscess withoutbleeding CPT copyright 2021 [employer]. All rights reserved. The codes documented in this report are preliminary and upon birthing nurse reviewmay be revised to meet current compliance requirements. Scope In: 11:22:55 AM Scope Withdrawal Time 0 hours 7 minutes 51 seconds Scope Out: 11:36:13 AM Adrien Hussein MD PROCEDURE ORD * (ABNORMAL) LIPID PANEL W REFLEX MEASURED LDL (07/24/2023 7:47 AM CDT) CHOLESTEROL,TOTAL 232(H) 100 - 199 mg/dL 07/24/2023 2:23 PM CDT [facility] Comment: Cholesterol, Total Reference Ranges Desirable <200 mg/dL Borderline 200-239 mg/dL High >=240 mg/dL TRIGLYCERIDES 175(H) <150 mg/dL 07/24/2023 2:23 PM CDT [facility] HDL CHOLESTEROL 53 >40 mg/dL 3 2:23 PM CDT [facility] NON-HDL CHOLESTEROL 179(H) <145 mg/dl 07/24/2023 2:23 PM CDT [facility] CHOL/HDL RATIO 4.38 <4.50 07/24/2023 2:23 PM CDT [facility] LDL CHOLESTEROL 144(H) <=130 mg/dL 07/24/2023 2:23 PM CDT [facility] VLDL CHOLESTEROL 35(H) <=30 mg/dL 07/24/2023 2:23 PM CDT [facility] PROVIDER ORDERED STATUS RANDOM 07/24/2023 2:23 PM CDT [facility] Blood BLOOD SPECIMEN / Unknown Venipuncture / Unknown 07/24/2023 7:47 AM CDT 07/24/2023 7:48 AM CDT Ed Del Toro MD CHEMISTRY Performing Organization Address City/[facility]/ZIP Co de Phone Number [facility] [address] [place] [address], * ANTI HIV 1/2 (07/24/2023 7:47 AM CDT) Pathologist [facility] HIV-1/HIV-2 SCREEN Non-Reacti ve Non-Reacti ve 07/24/2023 2:05 PM CDT [facility] Comment:HIV-1 p24 and HIV-1/ HIV-2 Ab Not Detected. Blood BLOOD SPECIMEN / Unknown Venipuncture / Unknown 07/24/2023 7:47 AM CDT 07/24/2023 7:48 AM CDT Ed Del Toro MD SEND OUTS Performing Organization Address City/[facility]/ZIP Co de Phone Number [facility] [address] [place] [address], [place] * ANTI HCV (11/09/2020 10:24 AM SENIOR SOUS CHEF) Pathologist [facility] HEPATITIS C ANTIBODY Non-React johnathan Non-React johnathan 11/09/2020 6:25 PM SENIOR SOUS CHEF [facility] Comment:Antibodies to HCV no t detected; does not exclude the possibility of exposure to HCV. Blood BLOOD SPECIMEN / Unknown Butterfly / Unknown 11/09/2020 10:24 AM SENIOR SOUS CHEF 11/09/2020 10:25 AM SENIOR SOUS CHEF Ed Del Toro MD SEND OUTS [place] [facility] [address] [place] [address], [place] from Last 3 Months or Most [...] 1:54 AM 08/09/2017 11:45 AM Care Teams Linux Unix Administrator Relationship Specialty Start Date End Date Ed Del Toro MD [address] [place] [address] PCP - General Family Practice 12/05/20 Romina Cristobal NP [address] [place] [address] Nurse Practitioner Cardiology - Electrophysiology 07/07/19 Stephen Mcguire MBBS [address] [place] [address] Cardiology - EP Cardiovascular Disease 07/07/19 Cassandra Kearney MD [address] [place] [address] Consulting Physician Cardiology - Electrophysiology 10/23/21
--- OUTSIDE RECORDS SUMMARY | 2024-04-03 07:35 | XMS_ITS | Encounter Summary ---
Author Organization [facility] Address [address] [place] [address] Care Team Providers Care Head Custodian Name Role Phone Ed Del Toro MD Primary Care Provider Reason for Referral * Procedure/Equipment (Routine) - Incomplete Specialty Diagnoses / Procedures Referred By Contac t Referred To Contact Diagnoses Arthritis of left knee Procedures Case Request OR - Orthopedic Surgery: TOTAL KNEE JOINT REPLACEMENT - possible hardware removal Emperatriz Maldonado, RN, ORDER SELECTOR LOAN SERVICING REPRESENTATIVE [address] [place] [address] Referral ID Status Reason Start Date Expiration Date V isits Requested Visits Authorized [id number] Incomplete 12/31/2023 03/31/2025 1 1 Electronically signed by Emperatriz Maldonado RN, ORDER SELECTOR LOAN SERVICING REPRESENTATIVE at 12/31/2023 12:05 PM DIP DYER * Procedure/Equipment (Routine) - Incomplete Specialty Diagnoses / Procedures Referred By Contac t Referred To Contact Diagnoses Arthritis of left knee Procedures XR Leg Length Emperatriz Maldonado, BARI, ORDER SELECTOR LOAN SERVICING REPRESENTATIVE [address] [place] [address] Referral ID Status Reason Start Date Expiration Date V isits Requested Visits Authorized [id number] Incomplete 12/31/2023 03/31/2025 1 1 Electronically signed by Emperatriz Maldonado RN, ORDER SELECTOR LOAN SERVICING REPRESENTATIVE at 12/31/2023 11:39 AM DIP DYER * Procedure/Equipment (Routine) - Incomplete Specialty Diagnoses / Procedures Referred By Contac t Referred To Contact Diagnoses Arthritis of left knee Procedures XR Knee Lt 2 Views Emperatriz Maldonado, BARI, ORDER SELECTOR LOAN SERVICING REPRESENTATIVE [address] [place] [address] Referral ID Status Reason Start Date Expiration Date V isits Requested Visits Authorized [id number] Incomplete 12/31/2023 03/31/2025 1 1 Electronically signed by Emperatriz Maldonado RN, ORDER SELECTOR LOAN SERVICING REPRESENTATIVE at 12/31/2023 11:39 AM DIP DYER * Procedure/Equipment (Routine) - Incomplete Specialty Diagnoses / Procedures Referred By Contac t Referred To Contact Diagnoses Status post total knee replacement, right Procedures XR Knee Rt 3 Views Emperatriz Maldonado RN, ORDER SELECTOR LOAN SERVICING REPRESENTATIVE [address] [place] [address] Referral ID Status Reason Start Date Expiration Date V isits Requested Visits Authorized [id number] Incomplete 12/31/2023 03/31/2025 1 1 Electronically signed by Emperatriz Maldonado RN, ORDER SELECTOR LOAN SERVICING REPRESENTATIVE at 12/31/2023 11:06 AM DIP DYER Reason for Visit * Reason Comments Post Op Exam Encounter Details Date Type Department Care Team (Late st Contact Info) Description 12/31/2023 11:00 AM DIP DYER Office Visit [facility] [address] [place] [address] Emperatriz Maldonado RN, ORDER SELECTOR LOAN SERVICING REPRESENTATIVE [address] [place] [phone] Status post total knee replacement, right (Primary [...] place to sleep or slept in a alf (including now)? No 11/20/2023 Sex and Gender Information Value Date Recorded Sex Assigned at Not on file Gender Identity Not on file Sexual Orientation Not on file documented as of this encounter Patient Instructions * Patient Instructions* Eli Sosa LPN - 12/31/2023 11:00 AM DIP DYER Thank you for Choosing [facility] for your health care visit today. Emperatriz [...] MRI, Ultrasound, or Image guided injection at [facility] please call [phone]. To schedule an MRI or CT at a [facility] please call [phone]. [facility] Workers' Compensation [address] [place] [address] (Phone) Email: [email or web address] Release of Information: Radiology/Imaging [address] [place], [place] [phone] (Phone) Health Information Management [address] [place] [address] (Phone) [employer] DYER documented in this encounter Progress Notes * Emperatriz Maldonado RN, ORDER SELECTOR LOAN SERVICING REPRESENTATIVE - 12/31/2023 11:00 AM CSTAddended by: EMPERATRIZ MALDONADO on: 12/31/2023 12:05 PM Modules accepted: Orders Electronically signed by Emperatriz Maldonado RN, ORDER SELECTOR LOAN SERVICING REPRESENTATIVE at 12/31/2023 12:05 PM DIP DYER * Emperatriz Maldonado RN, ORDER SELECTOR LOAN SERVICING REPRESENTATIVE - 12/31/2023 11:00 AM CSTAddended by: EMPERATRIZ MALDONADO on: 12/31/2023 12:05 PM Modules accepted: Level of Service Electronically signed by Emperatriz Maldonado RN, ORDER SELECTOR LOAN SERVICING REPRESENTATIVE at 12/31/2023 12:05 PM DIP DYER * Emperatriz Maldonado RN, ORDER SELECTOR LOAN SERVICING REPRESENTATIVE - 12/31/2023 11:00 AM CST Beau Melgar [...] a stepwise fashion. We discssed the terminal makeup operator recovery process and naturalhistory of total knee [...] arthroplasty. Given his need for transport from [facility] to [facility] for YARELY concerns, we will plan on left tka at [facility] and again plan on coumadin POD#0, no bridge post operatively. Emperatriz Maldonado RN, ORDER SELECTOR LOAN SERVICING REPRESENTATIVE 12/31/2023, 11:45 AM Electronically signed by Emperatriz Maldonado RN, ORDER SELECTOR LOAN SERVICING REPRESENTATIVE at 12/31/2023 12:05 PM DIP DYER documented in this encounter Plan of Treatment Scheduled Procedures Name Priority Associated Diagnoses Date/Ti me TOTAL KNEE JOINT REPLACEMENT Arthritis of left knee documented as of this encounter Goals Goal Patient Goal Type Associated Problems Recent Progress Patient-Stated? Author Right Knee Replacement Care Plan ET PROE RIGHT KNEE No Emperatriz Maldonado, BARI, ORDER SELECTOR LOAN SERVICING REPRESENTATIVE Left Knee Care Plan ET PROE LEFT KNEE No Emperatriz Maldonado, BARI, ORDER SELECTOR LOAN SERVICING REPRESENTATIVE documented as of this encounter Results * XR Leg Length (12/31/2023 11:53 AM DIP DYER) Anatomical Region Laterality Modality Lower Extremity, Pelvis, Hip, Thigh, Knee, Leg, Ankle Digital Radiography 12/31/2023 11:4 1 AM DIP DYER Impressions 12/31/2023 12:36 PM DIP DYER COMPARISON: ??07/30/2023. FINDINGS: ??Since the earlier study, [...] a discrepancy of 0.6cm. Emperatriz Maldonado RN, ORDER SELECTOR LOAN SERVICING REPRESENTATIVE RAD GD * XR Knee Lt 2 Views (12/31/2023 11:52 AM DIP DYER) Anatomical Region Laterality Modality Lower Extremity, Knee Digital Ra diography 12/31/2023 11:4 1 AM DIP DYER Impressions 12/31/2023 12:34 PM DIP DYER COMPARISON: ??07/30/2023 FINDINGS: ??Severe joint space narrowing [...] reconstruction. No fracture ordislocation. Emperatriz Maldonado RN, ORDER SELECTOR LOAN SERVICING REPRESENTATIVE RAD GD * XR Knee Rt 3 Views (12/31/2023 11:14 AM DIP DYER) Anatomical Region Laterality Modality Lower Extremity, Knee Digital Ra diography 12/31/2023 11:0 6 AM DIP DYER Impressions 12/31/2023 11:45 AM DIP DYER COMPARISON: ??07/30/2023 FINDINGS: ??Postsurgical changes of right [...] identifiedwithin the soft tissues. Emperatriz Maldonado RN, ORDER SELECTOR LOAN SERVICING REPRESENTATIVE RAD GD documented in this encounter Visit [...] documented as of this encounter Care Teams Head Custodian Relationship Specialty Start Date End Date Ed Del Toro MD [address] [place] [address] PCP - General Family Practice 07/25/22 documented as of this encounter
--- OUTSIDE RECORDS SUMMARY | 2024-04-03 07:35 | XMS_ITS | Encounter Summary ---
Author Organization [facility] Address [address] [place] [address] Care Team Providers Care Poly Operator Name Role Phone Ed Del Toro MD Primary Care Provider [phone] Reason for Visit * Reason Comments Knee Problem Encounter Details Date Type Department Care Team (Late st Contact Info) Description 01/16/2024 9:00 AM CDT Therapy [facility], Physical Therapy [address] [place] [address] Álvaro Flores, PT [address] [place], [place] [phone] Aftercare following right knee joint replacement surgery [...] TKA scheduled for 11/20 at [facility] and will be piyush vering at the [facility] for 1-night. Functional Limitations: prolong walking, stairs, getting in/out of a car, sleep Patient's Therapy Goals: PLOF, pain free ADLs, walking, stairs, walking, ladders, Patient's livestock judging coach was physically present during pre-op session: No Nuclear Weapons Custodian: - Emma Stairs INTO house: 3 steps Stairs WITHIN house: Basement stairs with single railing Pets: no Shower: Walk in Toilet Height: Comfort Assistive Devices: FWW and B crutches Vehicle: [employer] Outpatient PT plan: Here at [facility] SUBJECTIVE: Patient Report: Dhaval is almost 2 months s/p R TKA and reports knee feeling ok on average, but morestiff than expected. Feels better after afternoon stationary bike ride. Pain Ratin/10 current, 2/10 with activity OBJECTIVE: Observation/Gait: very mild antalgic gait Inspection of knee/LE: well healing incisions ROM ([id number]): Right Knee: 0-123 after manual tx Strength: [...] x 5 mins (0-0-127) Therapeutic Activities (CPT 68366) x 10 minutes: Dynamic activities utilized to [...] ROM in 4-6 weeks. ADL: Squat to fiber picker items from floor with minimal/no symptoms in 8-10 weeks. Ongoing: Ambulation: Patient will be able to demonstrate up/down 1 flight of stairs with a step through gaitpattern and use of 0-1 railing in 10-12 weeks Ambulation: Patient will be able to ambulate community distances with minimal to no symptoms/limp in 12 weeks. Therapist: Álvaro Flores PT 9:03 AM 01/16/2024 documented in this encounter Plan of Treatment Scheduled Procedures Name Priority Associated Diagnoses Date/Ti me TOTAL KNEE JOINT REPLACEMENT Arthritis of left knee documented as of this encounter Goals Goal Patient Goal Type Associated Problems Recent Progress Patient-Stated? Author Right Knee Replacement Care Plan ET PROE RIGHT KNEE No Emperatriz Richter, RN, AIRFIELD MANAGER KILN LOADER Left Knee Care Plan ET PROE LEFT KNEE No Emperatriz Richter, RN, AIRFIELD MANAGER KILN LOADER documented as of this encounter Visit Diagnoses Diagnosis Aftercare following right knee joint replacement surgery- Primary documented in this encounter Additional Health Concerns Active Problems Noted Date Diagnosed Date ET PROE RIGHT KNEE 07/30/2023 ET PROE LEFT KNEE 12/31/2023 documented as of this encounter Care Teams Poly Operator Relationship Specialty Start Date End Date Ed Del Toro MD [address] [place] [address] PCP - General Family Practice 07/25/22 documented as of this encounter
--- OUTSIDE RECORDS SUMMARY | 2024-04-03 07:35 | XMS_ITS | Encounter Summary ---
Author Organization [facility] Address [address] [place] [address] Care Team Providers Care Customer Program Manager Name Role Phone Ed Del Toro MD Primary Care Provider [phone] Reason for Visit * Procedure/Equipment (Routine) - Incomplete Specialty Diagnoses / Procedures Referred By Contac t Referred To Contact Diagnoses Arthritis of left knee Procedures XR Knee Lt 2 Views Emperatriz Richter RN, COO E D TECH [address] [place] [address] Referral ID Status Reason Start Date Expiration Date V isits Requested Visits Authorized [id number] Incomplete 12/31/2023 03/31/2025 1 1 Encounter Details Date Type Department Care Team (Late st Contact Info) Description 12/31/2023 11:40 AM SHOT PEENING OPERATOR Ancillary Procedure [facility] [address] [place] [address] Emperatriz Richter RN, COO E D TECH [address] [place] [address] Arthritis of left knee Social History Tobacco [...] place to sleep or slept in a intermediate (including now)? No 11/20/2023 Sex and Gender [...] PROE RIGHT KNEE No Emperatriz Richter, RN, COO E D TECH Left Knee Care Plan ET PROE LEFT KNEE No Emperatriz Richter, RN, COO E D TECH documented as of this encounter Procedures Procedure Name Priority Date/Time Associated Diagnosis Comments XR KNEE LT 2 VIEWS Routine 12/31/2023 11 :52 AM SHOT PEENING OPERATOR Arthritis of left knee documented in this encounter Results * XR Knee Lt 2 Views (12/31/2023 11:52 AM SHOT PEENING OPERATOR) Anatomical Region Laterality Modality Lower Extremity, Knee Digital Ra diography 12/31/2023 11:4 1 AM SHOT PEENING OPERATOR Impressions 12/31/2023 12:34 PM SHOT PEENING OPERATOR COMPARISON: ??07/30/2023 FINDINGS: ??Severe joint space [...] reconstruction. No fracture ordislocation. Emperatriz Richter RN, COO E D TECH RAD GD documented in this encounter Visit Diagnoses Diagnosis Arthritis of left knee Unspecified arthropathy, lower leg documented in this encounter Additional Health Concerns Active Problems Noted Date Diagnosed Date ET PROE RIGHT KNEE 07/30/2023 ET PROE LEFT KNEE 12/31/2023 documented as of this encounter Care Teams Customer Program Manager Relationship Specialty Start Date End Date Ed Del Toro MD [address] [place] [address] PCP - General Family Practice 07/25/22 documented as of this encounter
--- OUTSIDE RECORDS SUMMARY | 2024-04-03 07:35 | XMS_ITS | Encounter Summary ---
Author Organization [facility] Address [address] [place] [id number] Care Team Providers Care Cotton Classer Name Role Phone Ed Del Toro MD Primary Care Provider [phone] Reason for Visit * Procedure/Equipment (Routine) - Incomplete Specialty Diagnoses / Procedures Referred By Contac t Referred To Contact Diagnoses Status post total knee replacement, right Procedures XR Knee Rt 3 Views Emperatriz Richter RN, SOC ANALYST HISTOTECHNOLOGIST SUPERVISOR [address] [place] [address] Referral ID Status Reason Start Date Expiration Date V isits Requested Visits Authorized [id number] Incomplete 12/31/2023 03/31/2025 1 1 Encounter Details Date Type Department Care Team (Late st Contact Info) Description 12/31/2023 11:10 AM PUBLIC RELATIONS SENIOR ASSOCIATE Ancillary Procedure [facility] [address] [place] [address] Emperatriz Richter, RN, SOC ANALYST HISTOTECHNOLOGIST SUPERVISOR [address] [place] [address] Status post total knee replacement, right Social [...] Plan ET PROE RIGHT KNEE No Emperatriz iRchter, RN, SOC ANALYST HISTOTECHNOLOGIST SUPERVISOR Left Knee Care Plan ET PROE LEFT KNEE No Emperatriz Richter, RN, SOC ANALYST HISTOTECHNOLOGIST SUPERVISOR documented as of this encounter Procedures Procedure Name Priority Date/Time Associated Diagnosis Comments XR KNEE RT 3 VIEWS Routine 12/31/2023 11 :14 AM PUBLIC RELATIONS SENIOR ASSOCIATE Status post total knee replacement, right documented in this encounter Results * XR Knee Rt 3 Views (12/31/2023 11:14 AM PUBLIC RELATIONS SENIOR ASSOCIATE) Anatomical Region Laterality Modality Lower Extremity, Knee Digital Ra diography 12/31/2023 11:0 6 AM PUBLIC RELATIONS SENIOR ASSOCIATE Impressions 12/31/2023 11:45 AM PUBLIC RELATIONS SENIOR ASSOCIATE COMPARISON: ??07/30/2023 FINDINGS: ??Postsurgical changes of right [...] identifiedwithin the soft tissues. Emperatriz Richter RN, SOC ANALYST HISTOTECHNOLOGIST SUPERVISOR RAD GD documented in this encounter Visit Diagnoses Diagnosis Status post total knee replacement, right documented in this encounter Additional Health Concerns Active Problems Noted Date Diagnosed Date ET PROE RIGHT KNEE 07/30/2023 ET PROE LEFT KNEE 12/31/2023 documented as of this encounter Care Teams Cotton Classer Relationship Specialty Start Date End Date Ed Del Toro MD [address] [place] [address] PCP - General Family Practice 07/25/22 documented as of this encounter
[2024-04-03 08:17] LABS: Troponin I* 0.02 ng/mL (0.01-0.04)
[2024-04-03] MEDS: FLECAINIDE ACETATE 50 MG TABLET 100 MG PO (09:21)
[2024-04-03] MEDS: SODIUM CHLORIDE 0.9 % (FLUSH) 10 ML SYRINGE 5 ML IVF (09:22)
--- NOTE | 2024-04-03 09:39 | NUTR.NU ---
RDN with diet education related to low fat/low cholesterol diet. Patient admitted for A.Fib with RVR. Current weight 233 lb 14.4 oz; Height 5ft 8in; BMI 35.6 kg/m2. Per weight records, weight has been stable recently. Current diet is low fat/low cholesterol. One meal of 25% recorded since admit. RDN visited with patient whom reports not following a diet at home. He denied changes in weight recently. He declined diet education related to heart healthy diet at this time, however he did accept educational materials. RDNs contact information included in materials and patient was encouraged to call with questions or concerns. No nutrition interventions at this time. RDN to continue to monitor.
--- NOTE | 2024-04-03 12:25 | P.DS_ITS ---
DS: Providers Provider Date Seen: 04/03/24 Date of admission: 04/03/24 00:10 Primary care physician: Ed Del Toro MD Admitting Clinician: Asim Morfin DO Attending Physician on discharge: Gifty Hardy MD Date of Discharge: 04/03/24 DS: Diagnosis Discharge Diagnosis (1) Atrial fibrillation with rapid ventricular response: Status: Acute Problem details: - Cardioversion attempted thrice in ED with return to a fib/flutter - admitted on Diltiazem gtt, cardioverted around 043, home medications restarted and remained in sinus rhythm at that time - Beau had seen Cardiology on 04/01 with Zio Patch placed at that time, will f/u with their team regarding hospital stay - TTE obtained with formal cardiology read below Final Impressions: 1. Mild to moderately increased left ventricular size, normal wall thickness, normal global systolic function, calculated EF of 69 %. 2. Severely enlarged left atrium. Moderate RA. 3. 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 4. 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 He had a sudden onset of arrhythmia with chest pressure around 4:00pm on 04/02, presented to the emergency room with the above-noted rhythm. TSH, electrolytes, troponin all within normal limits. No known inciting incident or exposures (patient queries stress/dehydration as cause, as he had worked a very long day prior to symptom onset). Beau has a history of a fib, s/p ablation. Had seen his Cardiology team on 04/01/24, had Zio patch placed at that time. INR on 04/01 was 2.2 In the emergency room, cardioversion was attempted thrice and unsuccessful. He was subsequently admitted to the floor and placed on a diltiazem drip. Around 0430 on 04/03, he converted into sinus rhythm and felt back to baseline, requesting discharge home. TTE obtained with findings above. Patient medically appropriate for discharge home on 04/03 with close cardiology and PCP follow-up. Status at Discharge Functional status at discharge: independent ambulation Time Spent with Patient Time attestation: Total time spent providing and/or coordinating discharge services: Time spent: Greater than 30 minutes Specific discharge activities: Evaluation of Cardiology notes and chart review, Education, medication reconciliation Exam Narrative: Exam Narrative: GEN: Alert and oriented, sitting up in bed and speaking in full sentences, nontoxic CV: RRR, no concerning murmurs R: LCTA bilaterally without concerning wheezing, air movement adequate Ext: wwp, no pretibial edema Skin: No concerning skin lesions or rashes on exposed skin Neuro: Nonfocal Psych: Appropriate Const: Vital Signs, click to edit/add: Vital Signs - 24 hr 04/02/24 20:59 04/02/24 21:10 04/02/24 21:21 Temperature 97.1 F L Pulse Rate 116 H 104 H Pulse Rate [Apical ] Pulse Rate [Pulse Oximeter] 77 Respiratory Rate 16 Blood Pressure Blood Pressure [Le ft Arm] Blood Pressure [Ri ght Arm] Blood Pressure [Ri ght Upper Arm] 120/72 Pulse Oximetry 93 95 95 Oxygen Delivery Me thod Room Air Oxygen Flow Rate 04/02/24 21:23 04/02/24 21:31 04/02/24 21:32 Temperature Pulse Rate 88 80 112 H Pulse Rate [Apical ] Pulse Rate [Pulse Oximeter] Respiratory Rate Blood Pressure 126/102 H 127/98 H Blood Pressure [Le ft Arm] Blood Pressure [Ri ght Arm] Blood Pressure [Ri ght Upper Arm] Pulse Oximetry 94 96 93 Oxygen Delivery Me thod Oxygen Flow Rate 04/02/24 21:39 04/02/24 21:45 04/02/24 22:00 Temperature Pulse Rate 118 H 102 H Pulse Rate [Apical ] Pulse Rate [Pulse Oximeter] Respiratory Rate Blood Pressure Blood Pressure [Le ft Arm] Blood Pressure [Ri ght Arm] Blood Pressure [Ri ght Upper Arm] Pulse Oximetry 95 95 94 Oxygen Delivery Me thod Nasal Cannula Oxygen Flow Rate 04/02/24 22:02 04/02/24 22:03 04/02/24 22:21 Temperature Pulse Rate 111 H 112 H 108 H Pulse Rate [Apical ] Pulse Rate [Pulse Oximeter] Respiratory Rate Blood Pressure 168/124 H Blood Pressure [Le ft Arm] Blood Pressure [Ri ght Arm] Blood Pressure [Ri ght Upper Arm] Pulse Oximetry 94 93 95 Oxygen Delivery Me thod Oxygen Flow Rate 04/02/24 22:26 04/02/24 22:30 04/02/24 22:31 Temperature Pulse Rate 136 H 108 H 142 H Pulse Rate [Apical ] Pulse Rate [Pulse Oximeter] Respiratory Rate 24 28 H 32 H Blood Pressure 155/91 H 128/82 Blood Pressure [Le ft Arm] Blood Pressure [Ri ght Arm] Blood Pressure [Ri ght Upper Arm] Pulse Oximetry 95 86 L 93 Oxygen Delivery Me thod Nasal Cannula Nasal Cannula Nasal Cannula Oxygen Flow Rate 1 1 1 04/02/24 22:37 04/02/24 22:38 04/02/24 22:41 Temperature Pulse Rate 82 85 Pulse Rate [Apical ] Pulse Rate [Pulse Oximeter] Respiratory Rate 28 H 32 H 20 Blood Pressure 93/59 L 107/67 97/73 Blood Pressure [Le ft Arm] Blood Pressure [Ri ght Arm] Blood Pressure [Ri ght Upper Arm] Pulse Oximetry 91 91 Oxygen Delivery Me thod Nasal Cannula Nasal Cannula Nasal Cannula Oxygen Flow Rate 1 1 1 04/02/24 22:45 04/02/24 22:46 04/02/24 23:00 Temperature Pulse Rate 143 H 141 H 142 H Pulse Rate [Apical ] Pulse Rate [Pulse Oximeter] Respiratory Rate 26 H 19 17 Blood Pressure 111/77 Blood Pressure [Le ft Arm] Blood Pressure [Ri ght Arm] Blood Pressure [Ri ght Upper Arm] Pulse Oximetry 94 97 94 Oxygen Delivery Me thod Nasal Cannula Nasal Cannula Oxygen Flow Rate 1 1 04/02/24 23:30 04/02/24 23:32 04/02/24 23:49 Temperature Pulse Rate 133 H 131 H 135 H Pulse Rate [Apical ] Pulse Rate [Pulse Oximeter] Respiratory Rate 20 20 20 Blood Pressure 126/87 132/82 113/81 Blood Pressure [Le ft Arm] Blood Pressure [Ri ght Arm] Blood Pressure [Ri ght Upper Arm] Pulse Oximetry 95 93 94 Oxygen Delivery Me thod Oxygen Flow Rate 04/03/24 00:07 04/03/24 00:20 04/03/24 00:28 Temperature 97.1 F L 98.3 F 97.1 F L Pulse Rate Pulse Rate [Apical ] Pulse Rate [Pulse Oximeter] 131 H 131 H Respiratory Rate 20 20 20 Blood Pressure Blood Pressure [Le ft Arm] 121/81 Blood Pressure [Ri ght Arm] Blood Pressure [Ri ght Upper Arm] 132/74 132/74 Pulse Oximetry 97 93 Oxygen Delivery Me thod Room Air Room Air Oxygen Flow Rate 04/03/24 00:46 04/03/24 01:08 04/03/24 01:15 Temperature Pulse Rate 136 H Pulse Rate [Apical ] 139 H 137 H Pulse Rate [Pulse Oximeter] Respiratory Rate Blood Pressure Blood Pressure [Le ft Arm] 104/83 113/91 H Blood Pressure [Ri ght Arm] Blood Pressure [Ri ght Upper Arm] Pulse Oximetry Oxygen Delivery Ri thod Oxygen Flow Rate 04/03/24 01:17 04/03/24 01:30 04/03/24 02:00 Temperature Pulse Rate Pulse Rate [Apical ] 138 H 136 H Pulse Rate [Pulse Oximeter] Respiratory Rate 20 Blood Pressure Blood Pressure [Le ft Arm] 114/91 H 109/82 Blood Pressure [Ri ght Arm] Blood Pressure [Ri ght Upper Arm] Pulse Oximetry 93 Oxygen Delivery Ri thod Room Air Oxygen Flow Rate 04/03/24 02:30 04/03/24 02:58 04/03/24 03:00 Temperature 97.1 F L Pulse Rate 122 H Pulse Rate [Apical ] 136 H 133 H Pulse Rate [Pulse Oximeter] Respiratory Rate 18 Blood Pressure Blood Pressure [Le ft Arm] 118/92 H 126/106 H Blood Pressure [Ri ght Arm] Blood Pressure [Ri ght Upper Arm] Pulse Oximetry 93 Oxygen Delivery Ri thod Room Air Oxygen Flow Rate 04/03/24 03:00 04/03/24 04:00 04/03/24 04:30 Temperature Pulse Rate Pulse Rate [Apical ] 135 H 137 H Pulse Rate [Pulse Oximeter] Respiratory Rate 18 Blood Pressure Blood Pressure [Le ft Arm] 110/67 91/60 Blood Pressure [Ri ght Arm] Blood Pressure [Ri ght Upper Arm] Pulse Oximetry Oxygen Delivery Me thod Oxygen Flow Rate 04/03/24 04:37 04/03/24 04:38 04/03/24 05:00 Temperature Pulse Rate 53 L Pulse Rate [Apical ] 53 L 54 L Pulse Rate [Pulse Oximeter] Respiratory Rate Blood Pressure Blood Pressure [Le ft Arm] 97/57 L 113/66 Blood Pressure [Ri ght Arm] Blood Pressure [Ri ght Upper Arm] Pulse Oximetry Oxygen Delivery Me thod Oxygen Flow Rate 04/03/24 05:30 04/03/24 07:00 04/03/24 07:00 Temperature 98.6 F Pulse Rate Pulse Rate [Apical ] 55 L 55 L Pulse Rate [Pulse Oximeter] Respiratory Rate 18 18 Blood Pressure Blood Pressure [Le ft Arm] 105/63 Blood Pressure [Ri ght Arm] 124/79 Blood Pressure [Ri ght Upper Arm] Pulse Oximetry 96 Oxygen Delivery Me thod Room Air Oxygen Flow Rate 04/03/24 07:14 04/03/24 11:00 Temperature 98.0 F Pulse Rate 54 L Pulse Rate [Apical ] 60 Pulse Rate [Pulse Oximeter] Respiratory Rate 18 Blood Pressure Blood Pressure [Le ft Arm] Blood Pressure [Ri ght Arm] 117/69 Blood Pressure [Ri ght Upper Arm] Pulse Oximetry 96 Oxygen Delivery Me thod Room Air Oxygen Flow Rate DS: Data Data Completed and Pending Labs on day of discharge: Labs from last 24 hours 04/03/24 04/02/24 04/02/24 06:11 21:16 21:15 WBC 13.60 H RBC 5.73 Hgb 15.7 Hct 48.5 MCV 85 MCH 27 MCHC 32 RDW Coeff of [place] 14.0 Plt Count 411 Neut % (Auto) 66.9 Lymph % (Auto) 21.2 [place] % (Auto) 10.4 Eos % (Auto) 1.1 Baso % (Auto) 0.3 Neut # (Auto) 9.10 H Lymph # (Auto) 2.90 [place] # (Auto) 1.40 H Eos # (Auto) 0.10 Baso # (Auto) 0.00 Abs Immat Gran (auto) 0.00 Imm/Tot Granulo (auto) 0.1 INR 1.28 H Sodium 138 Potassium 4.0 Chloride 105 Carbon Dioxide 25 Anion Gap 8 BUN 19 Creatinine 0.9 Estimated Creat Clear 71.25 Estimated GFR 95 Glucose 114 Calcium 9.2 Magnesium 2.3 Troponin I 0.02 TSH 1.340 POC Troponin I 0.02 Discharge Plan Discharge Disposition: Home, Self-Care Date of Admission: 04/03/24 00:10 Attending Provider on Discharge: Gifty Carrillo Care Provider: Ed Del Toro Condition: Stable Anticipated Discharge Date/Time: 04/03/24 12:19 Discharge Medications: Continued warfarin 2 mg tablet 3 mg PO DAILY diltiazem HCl 120 mg capsule,extended release 24hr 120 mg PO DAILY flecainide 100 mg tablet 100 mg PO BID famotidine 20 mg tablet 20 mg PO BID PRN omeprazole 20 mg capsule,delayed release(DR/EC) 20 mg PO DAILY Discharge Orders: Discharge Order (Routine); Ordered 04/03/24 Ordered By: Gifty Hardy Patient Education: A-fib (Atrial Fibrillation) (DC) Additional Instructions: No changes to home medications, keep an eye on hydration status over the next few days and take things easy. Let your Cardiology team know about your recent stay here - we will fax over the hospital notes, but they will be able to see your echocardiogram results. Activity Level: Activity as Tolerated and No strenuous activity Discharge Diet: Regular Follow Up Appointments: Ed Del Toro MD [Primary Care Provider] - 04/16/24 2:05 pm ([facility] for post hospital follow-up) Forms: [employer] Info Instructions
--- NOTE | 2024-04-03 14:47 | PC.NURSE ---
Discharge-- Pleasant and cooperative, alert and oriented patient discharged to home ambulatory with at approximately 1415. VSS and pt is afebrile. SPO2 maintained >90% on RA. He denied any pain. Telemetry showed sinus bradycardia to NSR. Discharge education provided including diagnosis info, symptoms to report, medications and follow up plan. All questions answered and SL (x2) were removed with tip intact.
== END 2024-04-03 14:13 | disposition home or self-care (01) ==
LOC: ED 23:32 → MEDSURG 04-03 00:21
PROVIDERS: Admitting Provider Internal Medicine; Emergency Provider Student in an Organized Health Care Education/Training Program; PCP Family Medicine; Visit Provider Internal Medicine
DX: I48.91 Unspecified atrial fibrillation (principal); I49.9 Cardiac arrhythmia, unspecified; Z79.01 Long term (current) use of anticoagulants; Z51.81 Encounter for therapeutic drug level monitoring; R00.0 Tachycardia, unspecified; D72.829 Elevated white blood cell count, unspecified; K21.9 Gastro-esophageal reflux disease without esophagitis; I77.819 Aortic ectasia, unspecified site; G47.30 Sleep apnea, unspecified; Z98.890 Other specified postprocedural states
CPT/HCPCS: 92960; 36415; 71275; 80048; 83735; 84443; 84484; 85025; 85610; 93005; 93306; 96365; 96366; 96372; 96375; 99284; 99285; G0378; A9270; J1650; J2704; J3490; J7050; Q9967

== ENCOUNTER 2024-06-29 22:36 | Emergency (ER) | payer BC, SELFPAY ==
[2024-06-29] VITALS (26 sets, daily range): BP systolic 112–155; BP diastolic 68–107; PULSE 63–153; RESP 19–24; TEMP 36.8; O2SAT 92–97; BMI 33.5
--- NOTE | 2024-06-29 23:06 | ED.ARRPALP ---
HPI - Arrhythmia/Palpitations General Chief Complaint: Arrhythmia/Palpitations <Russell Rodgers MD - Last Filed: 06/30/24 00:01> Stated Complaint: Irregular heartbeat <Russell Rodgers MD - Last Filed: 06/30/24 00:01> Time Seen by Provider: 06/29/24 22:48 <Russell Rodgers MD - Last Filed: 06/30/24 00:01> History of Present Illness HPI narrative: This 64-year-old male comes in reporting rapid heart rate. He has a history of atrial flutter and has had ablation is a in the past. He states that he had an ablation a couple weeks ago. He has been on flecainide but this has been discontinued he is also currently taking diltiazem but there was a plan to switch to a different medicine tomorrow. He states that he was out doing some light work and felt normal and after returning inside he noticed that his heart was fast. He does report some very mild chest tightness but does not indicate any shortness of breath or lightheadedness. He arrives here with a heart rate in the 140s. He states that he is taking warfarin. <Russell Rodgers MD - Last Filed: 06/30/24 00:01> Related Data Home Medications: Home Medications ?Medication ?Instructions ?Recorded ?Confirmed famotidine 20 mg tablet 20 mg PO BID PRN 05/09/23 04/03/24 omeprazole 20 mg capsule,delayed 20 mg PO DAILY 05/09/23 06/29/24 release warfarin 2 mg tablet 3 mg PO DAILY 05/09/23 06/29/24 <Russell Rodgers MD - Last Filed: 06/30/24 00:01> Allergies/Adverse Reactions: Allergies Allergy/AdvReac Type Severity Reaction Status Date / Time No Known Drug Allergies Allergy Verified 04/02/24 23:41 <Russell Rodgers MD - Last Filed: 06/30/24 00:01> Review of Systems Status of ROS: Reports: 10 or more systems reviewed and unremarkable except as noted in History and below <Russell Rodgers MD - Last Filed: 06/30/24 00:01> Narrative: Constitutional: No fevers, no weight gain or loss. Eyes: No discharge. No vision changes. HENT: No congestion, no sore throat, no ear pain. Cardiovascular: Rapid heart rate. Respiratory: No shortness of breath, no wheezes, no cough. Gastrointestinal: No abdominal pain, no vomiting, no diarrhea. Genitourinary: No dysuria, no hematuria. Musculoskeletal: Normal range of motion. Skin: No rashes, no pruritis. Neurological: No dizziness, weakness, sensory change, speech change. Endo/Heme/Allergies: No bruising or bleeding. No polydipsia. Pysch: no suicidality, no anxiety, no insomnia. All other systems reviewed and are negative. <Russell Rodgers MD - Last Filed: 06/30/24 00:01> [facility] Medical History: Medical History (Updated 06/30/24 @ 00:01 by Russell Rodgers MD) Elevated cholesterol ?E78.00 - Pure hypercholesterolemia, unspecified (ICD-10) Arthritis ?M19.90 - Unspecified osteoarthritis, unspecified site (ICD-10) GERD (gastroesophageal reflux disease) ?K21.9 - Gastro-esophageal reflux disease without esophagitis (ICD-10) DVT (deep venous thrombosis) ?I82.409 - Acute embolism and thrombosis of unspecified deep veins of unspecified lower extremity (ICD-10) Pulmonary emboli ?I26.99 - Other pulmonary embolism without acute cor pulmonale (ICD-10) Sleep apnea ?G47.30 - Sleep apnea, unspecified (ICD-10) Atrial fibrillation ?I48.91 - Unspecified atrial fibrillation (ICD-10) <Russell Rodgers MD - Last Filed: 06/30/24 00:01> Surgical History: Surgical History History of radiofrequency ablation (RFA) procedure for cardiac arrhythmia ?Z98.890 - Other specified postprocedural states (ICD-10) H/O cardiac catheterization (02/14/18) ?Z98.890 - Other specified postprocedural states (ICD-10) H/O arthroscopy of left knee ?Z98.890 - Other specified postprocedural states (ICD-10) H/O repair of right rotator cuff (11/2016) ?Z98.890 - Other specified postprocedural states (ICD-10) H/O excision of mass (10/05/19) ?Z98.890 - Other specified postprocedural states (ICD-10) S/P reconstruction of anterior cruciate ligament ?Z98.890 - Other specified postprocedural states (ICD-10) <Russell Rodgers MD - Last Filed: 06/30/24 00:01> Family History: Family History Mother Diabetes Father Brain tumor <Russell Rodgers MD - Last Filed: 06/30/24 00:01> Social History: Social History What is your current living situation?: I presently have a place to live Problems where you live: no known problems Problems where you live details: n/a In the past 12 months, utilities in danger of being shut off: no In past 12 months, lack of transportation kept you from medical appts, meetings, work, or getting things needed for daily living: no In the past 12 mos, have been you worried that your food would run out before you had money to buy more?: never true In the past 12 mos, the food you bought just didn't last and you didn't have money to buy more?: never true Smoking Status: Never smoker Do you use any of these nicotine containing products: None Second hand tobacco smoke exposure: No How often do you have a drink containing alcohol: never How often do you have six or more drinks on one occasion: Never AUDIT-C Alcohol total score: 0 Non-prescribed substance use: denies use How often does anyone, including family, friends and others, physically hurt you: never How often does anyone, including family, friends and others, insult or talk down to you: never How often does anyone, including family, friends and others, threaten you with harm: never How often does anyone, including family, friends and others, scream or curse at you: never service: No <Russell Rodgers MD - Last Filed: 06/30/24 00:01> Exam Narrative: Exam Narrative: Constitutional: Well-developed, well-nourished, no acute distress. HEENT: Normocephalic, atraumatic. Neck: Normal range of motion. Nontender. Supple. Heart: No murmurs. Tachycardia. Intact distal pulses. Lungs: Clear to auscultation. No chest discomfort. No wheezes, rhonchi, or rales. Abdomen: Normal bowel sounds. Nontender. No rebound tenderness. Genitalia: Deferred. Back: No midline tenderness. Normal range of motion. Extremities: Normal range of motion. No injury. Skin: Intact. No rash. Warm. No erythema or pallor. Neurologic: No altered sensation. No weakness. Alert and oriented. Psychiatric: No suicidality. No anxiety or depression. No insomnia. Nursing notes and vitals signs are reviewed. <Russell Rodgers MD - Last Filed: 06/30/24 00:01> Const: Vital Signs, click to edit/add: Vital Signs - 24 hr 06/29/24 22:42 06/29/24 22:49 Temperature 98.2 F Pulse Rate [Pulse Oximeter] 148 H Respiratory Rate 20 Blood Pressure [Le ft Upper Arm] 151/105 H Pulse Oximetry 95 Oxygen Delivery Me thod Room Air <Russell Rodgers MD - Last Filed: 06/30/24 00:01> Vital Signs, click to edit/add: Vital Signs - 24 hr 06/29/24 22:42 06/29/24 22:49 Temperature 98.2 F Pulse Rate [Pulse Oximeter] 148 H Respiratory Rate 20 Blood Pressure [Le ft Upper Arm] 151/105 H Pulse Oximetry 95 Oxygen Delivery Me thod Room Air <Ledy Castañeda MD - Last Filed: 07/07/24 11:01> Course Course ED Course: Provided procedure sedation for this patient. At patient has no history to reaction anesthesia. Time-out was done prior to procedure. Patient received 130 mg of IV propofol with good sedation. Patient remained hemodynamically stable throughout the procedure. Woke up without difficulty. <Ledy Castañeda MD - Last Filed: 07/07/24 11:01> Vital Signs Vital signs: Initial Vital Signs Pulse Rate 148 H 06/29/24 22:42 Pulse Rhythm Irregularly Irregular 06/29/24 22:42 Respiratory Rate 20 06/29/24 22:42 Blood Pressure 151/105 H 06/29/24 22:42 Blood Pressure Mean 120 H 06/29/24 22:42 Blood Pressure Position Supine 06/29/24 22:42 Pulse Oximetry 95 06/29/24 22:42 Oxygen Delivery Method Room Air 06/29/24 22:42 Vital Signs Pulse Rate 148 H 06/29/24 22:42 Respiratory Rate 20 06/29/24 22:42 Blood Pressure 151/105 H 06/29/24 22:42 Pulse Oximetry 95 06/29/24 22:42 Oxygen Delivery Method Room Air 06/29/24 22:42 Temperature 98.0 F 06/30/24 00:52 Pulse Rate 68 06/30/24 00:52 Respiratory Rate 16 06/30/24 00:52 Blood Pressure 117/71 06/30/24 00:52 Pulse Oximetry 96 06/29/24 23:55 Oxygen Delivery Method Room Air 06/29/24 22:42 <Russell Rodgers MD - Last Filed: 06/30/24 00:01> Initial Vital Signs Pulse Rate 148 H 06/29/24 22:42 Pulse Rhythm Irregularly Irregular 06/29/24 22:42 Respiratory Rate 20 06/29/24 22:42 Blood Pressure 151/105 H 06/29/24 22:42 Blood Pressure Mean 120 H 06/29/24 22:42 Blood Pressure Position Supine 06/29/24 22:42 Pulse Oximetry 95 06/29/24 22:42 Oxygen Delivery Method Room Air 06/29/24 22:42 Vital Signs Pulse Rate 148 H 06/29/24 22:42 Respiratory Rate 20 06/29/24 22:42 Blood Pressure 151/105 H 06/29/24 22:42 Pulse Oximetry 95 06/29/24 22:42 Oxygen Delivery Method Room Air 06/29/24 22:42 Temperature 98.0 F 06/30/24 00:52 Pulse Rate 68 06/30/24 00:52 Respiratory Rate 16 06/30/24 00:52 Blood Pressure 117/71 06/30/24 00:52 Pulse Oximetry 96 06/29/24 23:55 Oxygen Delivery Method Room Air 06/29/24 22:42 <Ledy Castañeda MD - Last Filed: 07/07/24 11:01> Medications Administered Medications: Discontinued Medications Generic Name Dose Route Start Last Admin Trade Name Freq PRN Reason Stop Dose Admin Adenosine 6 mg 06/29/24 23:22 06/29/24 23:30 Adenosine 6 Mg/2ml Inj IVP 06/29/24 23:23 6 mg ONCE ONE Administration Diltiazem HCl 20 mg 06/29/24 23:04 06/29/24 23:18 Diltiazem 5 Mg/Ml Inj IVP 06/29/24 23:05 20 mg ONCE ONE Administration Sodium Chloride 1,000 mls @ 1,000 mls/hr 06/29/24 23:15 06/29/24 23:18 0.9 % Sodium Chloride 1000 Ml IV 06/30/24 00:14 1,000 mls/hr .Q1H DIANDRA Administration Propofol 200 mg 06/29/24 23:32 06/29/24 23:48 Propofol 10 Mg/Ml Inj IVP 06/29/24 23:33 130 mg ONCE ONE Administration <Russell Rodgers MD - Last Filed: 06/30/24 00:01> Discontinued Medications Generic Name Dose Route Start Last Admin Trade Name Freq PRN Reason Stop Dose Admin Adenosine 6 mg 06/29/24 23:22 06/29/24 23:30 Adenosine 6 Mg/2ml Inj IVP 06/29/24 23:23 6 mg ONCE ONE Administration Diltiazem HCl 20 mg 06/29/24 23:04 06/29/24 23:18 Diltiazem 5 Mg/Ml Inj IVP 06/29/24 23:05 20 mg ONCE ONE Administration Sodium Chloride 1,000 mls @ 1,000 mls/hr 06/29/24 23:15 06/29/24 23:18 0.9 % Sodium Chloride 1000 Ml IV 06/30/24 00:14 1,000 mls/hr .Q1H DIANDRA Administration Propofol 200 mg 06/29/24 23:32 06/29/24 23:48 Propofol 10 Mg/Ml Inj IVP 06/29/24 23:33 130 mg ONCE ONE Administration <Ledy Castañeda MD - Last Filed: 07/07/24 11:01> MDM - Arrhythmia/Palpitations MDM Narrative Medical decision making narrative: This patient comes in with a rapid heart rate. He has had ablation is a in the past and 1 rather recently just a bit less than 2 weeks ago. He states that he noticed his heart rate going fast after coming inside from doing some activities outside today. Today was a very hot and humid day. He has had symptoms like this in the past and has been successfully cardioverted several times however the last attempt was unsuccessful. Today he received IV fluids then was given 20 mg of diltiazem. This did nothing to adjust his heart rate or rhythm. 6 mg of adenosine was administered and this brought temporary better viewing of his heart rate which is clearly in atrial fibrillation or atrial flutter pattern. Within a few seconds he resumed back to a heart rate in the 140s. I did speak to the patient about synchronized cardioversion. I explained risks and benefits and he is agreeable to this treatment. The patient has INR returns at 1.29 which is subtherapeutic for 1 who is currently taking warfarin. He is nevertheless a candidate for cardioversion as his symptoms started several hours prior to arrival here. After obtaining informed consent the patient received 130 mg of propofol administered by Dr. Castañeda. Synchronized cardioversion was attempted once using 150 joules of energy. This was successful to return to normal sinus rhythm at a rate of a of about 60-65 beats per minute. The patient tolerated this procedure well and did not need any supportive cares throughout the time of his sedation. This patient has received a prescription for a new rate controlling medicine and will begin taking that tomorrow. This came from his biopharmaceutical rep. <Russell Rodgers MD - Last Filed: 06/30/24 00:01> Lab Data Labs: Lab Results 06/29/24 06/29/24 06/29/24 Range/Units 22:46 22:50 23:09 INR 1.29 H (0.91-1.10) Magnesium 2.3 (1.5-2.6) mg/dL POC Troponin I 0.02 (0.01-0.04) ng/ml <Russell Rodgers MD - Last Filed: 06/30/24 00:01> Lab Results 06/29/24 06/29/24 06/29/24 Range/Units 22:46 22:50 23:09 INR 1.29 H (0.91-1.10) Magnesium 2.3 (1.5-2.6) mg/dL POC Troponin I 0.02 (0.01-0.04) ng/ml <Ledy Castañeda MD - Last Filed: 07/07/24 11:01> ECG Data Attestation: I personally reviewed and interpreted this ECG as follows: <Russell Rodgers MD - Last Filed: 06/30/24 00:01> Interpretation: Atrial flutter with rapid ventricular response. Rate is 143 beats per minute. There are no specific ST or T-wave abnormalities. <Russell Rodgers MD - Last Filed: 06/30/24 00:01> Discharge Plan Discharge Clinical Impression: Atrial fibrillation with rapid ventricular response <Russell Rodgers MD - Last Filed: 06/30/24 00:01> Patient Disposition: Home w/ Parent or Adult <Russell Rodgers MD - Last Filed: 06/30/24 00:01> Condition: Improved <Russell Rodgers MD - Last Filed: 06/30/24 00:01> Additional Instructions: Take medications as prescribed by her primary physicians. Follow-up with biopharmaceutical rep as scheduled or sooner if needed. Return if symptoms are recurrent. <Russell Rodgers MD - Last Filed: 06/30/24 00:01> Prescriptions: No Action warfarin 2 mg tablet 3 mg PO DAILY famotidine 20 mg tablet 20 mg PO BID PRN omeprazole 20 mg capsule,delayed release(DR/EC) 20 mg PO DAILY <Russell Rodgers MD - Last Filed: 06/30/24 00:01> Follow Up/Referrals: Ed Del Toro MD [Primary Care Provider] - <Russell Rodgers MD - Last Filed: 06/30/24 00:01> [facility] <Russell Rodgers MD - Last Filed: 06/30/24 00:01>
[2024-06-29 23:07] LABS: Troponin, Point-of-Care* 0.02 ng/ml (0.01-0.04)
[2024-06-29] MEDS: 0.9 % SODIUM CHLORIDE 1000 ml 1,000 ML IV (23:18)
[2024-06-29] MEDS: dilTIAZem 5 MG/ML inj 20 MG IVP (23:18)
[2024-06-29 23:19] LABS: INR 1.29 (0.91-1.10)
[2024-06-29 23:19] LABS: Magnesium* 2.3 mg/dL (1.5-2.6)
[2024-06-29] MEDS: ADENOSINE 6 MG/2ML INJ IVP (23:30)
--- OUTSIDE RECORDS SUMMARY | 2024-06-29 23:33 | XMS_ITS | Encounter Summary ---
Author Organization [facility] Address [address] [facility] [place] [address] Care Team Providers Care Undercollar Maker Name Role Phone Ed Del Toro MD Primary Care Provider Reason for Referral * Therapies (Routine) - New Request Specialty Diagnoses / Procedures Referred By Contoscar t Referred To Contact Diagnoses Trigger finger, left ring finger Pierre Ku MD [address] [place] [address] [place] [id number] Referral ID Status Reason Start Date Expiration Date V isits Requested Visits Authorized [id number] New Request 05/27/2024 05/27/2025 1 1 Scheduling Instructions Your clinician has recommended an appointment with Rehabilitation Services. You can quickly make your appointment online at [employer]/schedule. You can also call [phone] for help scheduling your appointment. We suggest you call your health insurance company about your coverage and benefits for this appointment. Question Answer Appointment Urgency? Non-Urgent Eval and Treat Eval and Treat Post Op Protocols Trigger Finger Release Encounter Details Date Type Department Care Team (Late st Contact Info) Description 05/27/2024 8:00 AM CDT Procedure Visit [facility] [address] [facility] [place], [place] [id number] Pierre Ku MD [address] [place] [address] [place]OA[place] DANIELLE [id number] Social History Tobacco Use Types Packs/Day Years Used Date Smoking Tobacco: Never Smokeless Tobacco: Never [facility] Utilities Answer Date Recorded In the past 12 months has th e electric, gas, oil, or water company threatened to shut off services in your home? No 11/20/2023 Humiliation, Afraid, Rape, and Kick questionnair e [...] by your partner or ex-partner? No 11/20/2023 Hunger Vital Sign Answer Date Recorded Within the past 12 months, y ou worried that your food would run out before you got the money to buy more. Never true 11/20/19 24 Within the past 12 months, t he food you bought just didn't last and you didn't have money to get more. Never true 11/20/2023 PRAPARE - Transportation Answer Date Re corded In the past 12 months, has l ack of transportation kept you from medical appointments or from getting medications? No 11/04 In the past 12 months, has l ack of transportation kept you from meetings, work, or from getting things needed for daily living? No 11/20/2023 Housing Stability Vital Sign Answer [...] this encounter Patient Instructions * Patient Instructions* Pierre Ku MD - 05/27/2024 8:00 AM CDT Home Care following Hand Surgery Diet You may resume your regular diet. During the evening following surgery, drink plenty of fluids and eat a light supper. Discomfort The amount of discomfort is unpredictable. If you have pain that cannot be controlled with acetaminophen and/or an anti-inflammatory, notify your physician. Do not drink alcoholic beverages while taking prescription pain medication. Fever A low grade fever (not more than 101 degrees) is common after this procedure. Do not hesitate to notify your physician if your fever seems excessive. Activity Elevate the operative extremity above the level of the heart for the next 48-72 hours. Light use ofthe hand for activities of daily living is permitted. Dressing Keep your dressing clean, dry, and in good condition. You may remove your dressing in 4 days and then cover your wound with a band aid. Continue to keep your wound clean and dry. Do not apply any lotions or ointments to your wound. Your sutures will be removed 10-14 days after surgery. You may thenbegin to get your wound wet. Contact your physician for A fever more than 101 degrees, a large amount of bleeding of drainage, swelling, pain, foul-smelling drainage, redness, excessive tenderness at the operative site, or separation of the skin closure. Post-Surgical Care If you have any questions or concerns about your surgery or post-surgical care call [facility] ([phone]) and ask for nurse triage. documented in this encounter Progress Notes * Pierre Ku MD - 05/27/2024 8:00 AM CDT Operative Note PATIENT: Beau Melgar : 1960 DATE OF OPERATION: 05/27/2024 Pre-operative Diagnosis: Left ring trigger finger Post-operative Diagnosis: Same Procedure: Left ring trigger finger release Surgeon: Pierre Ku M.D. Assist: Abel Bourgeois Anesthesia: 1% lidocaine with epinephrine (5 mL) EBL: Minimal UOP: Not measured Fluids: None Indications: For surgical indications please refer to my clinic note found in the electronic medical record. Procedure Details The patient was brought into a clinic room. I had the opportunity to re-examine the patient as wellas to revisit the indications for surgery including the risks, benefits, and alternatives. Informedconsent was obtained. I initialed the left ring finger. I then planned a longitudinal incision overlying the A1 lucia of the left ring finger. Using aseptic technique, a field block was completed using 5 mL of 1% lidocaine with epinephrine. The local anesthetic was then allowed to mature for 20-30minutes. We transitioned into the procedure room. The left upper extremity was prepped and draped in the standard sterile fashion. A time-out was completed. The planned incision overlying the A1 lucia of the left ring finger was then made. Dissection continued bluntly through the subcutaneous tissue. The A1 lucia was identified. Under direct visualization the A1 lucia was divided. Upon division of the A1 lucia the patient was asked to attempt to elicit triggering and was unable to do so. The wound was then irrigated with saline and closed with 4-0 nylon suture. A sterile dressing was applied. The patient tolerated the procedure well and there were no immediate complications. The [facility] in good condition. Pierre Ku MD 9:02 AM 05/27/2024 documented in this encounter Plan of Treatment Scheduled Procedures Name Priority Associated Diagnoses Date/Ti me TOTAL KNEE JOINT REPLACEMENT Arthritis of left knee Scheduled Referrals Name Type Priority Associated Diagnoses Orde r Schedule Hand Occupational Therapy Referral Routine Trigger finger, left ring finger Ordered: 05/27/2024 documented as of this encounter Goals Goal Patient Goal Type Associated Problems Recent Progress Patient-Stated? Author Right Knee Replacement Care Plan ET PROE RIGHT KNEE No Emperatriz Richter, RN, CONCRETE WALL GRINDER OPERATOR PROFESSOR OF MATHEMATICS Left Knee Care Plan ET PROE LEFT KNEE No Emperatriz Richter, RN, CONCRETE WALL GRINDER OPERATOR PROFESSOR OF MATHEMATICS documented as of this encounter Visit Diagnoses Diagnosis Trigger finger, left ring finger- Primary documented in this encounter Additional Health Concerns Active Problems Noted Date Diagnosed Date ET PROE RIGHT KNEE 07/30/2023 ET PROE LEFT KNEE 12/31/2023 documented as of this encounter Care Teams Undercollar Maker Relationship Specialty Start Date End Date Ed Del Toro MD [address] [place] [address] PCP - General Family Practice 07/25/22 documented as of this encounter
--- OUTSIDE RECORDS SUMMARY | 2024-06-29 23:33 | XMS_ITS | Encounter Summary ---
[facility] Address [address] [address] Care Team Providers Care It Generalist Name Role Phone Ed Del Toro MD Primary Care Provider Reason for Visit * Procedure/Equipment (Routine) - Incomplete Specialty Diagnoses / Procedures Referred By Contac t Referred To Contact Diagnoses Degenerative arthritis of thumb, right Procedures XR Finger Rt Thumb 2+ Views Pierre Ku MD [address] [place] [address] Referral ID Status Reason Start Date Expiration Date V isits Requested Visits Authorized [id number] Incomplete 05/11/2024 08/10/2025 1 1 Encounter Details Date Type Department Care Team (Late st Contact Info) Description 05/11/2024 2:00 PM CDT Ancillary Procedure [facility] [address] [place] [address] Pierre Ku MD [address] [place] [address] [place] [address] Degenerative arthritis of thumb, right Social History Tobacco Use Types Packs/Day Years Used Date Smoking Tobacco: Never Smokeless Tobacco: Never [facility] Utilities Answer Date Recorded In the past 12 months has e electric, gas, oil, or water company [...] PROE RIGHT KNEE No Emperatriz Richter, RN, CONVERSION WORKER SURGICAL TECHNICIAN Left Knee Care Plan ET PROE LEFT KNEE No Emperatriz Richetr, RN, CONVERSION WORKER SURGICAL TECHNICIAN documented as of this encounter Procedures Procedure Name Priority Date/Time Associated Diagnosis Comments XR FINGER RT THUMB 2+ VIEWS Routine 05/11/2024 2:02 PM CDT Degenerative arthritis of thumb, right documented in this encounter Results * XR Finger Rt Thumb 2+ Views (05/11/2024 2:02 PM CDT) Anatomical Region Laterality Modality Upper Extremity, Hand Digital Ra diography Narrative 05/20/2024 12:12 PM CDT Imaging: Accession: [id number] These films were independently ordered and reviewed by me. ?? Indications: Pain Three views of the right thumb Findings: There are end-stage degenerative changes seen at the right thumb carpometacarpal joint. ??There is joint space narrowing, subchondral sclerosis, and peripheral osteophyte formation. ??The STT joint is spared. Pierre Ku MD ??05/20/2024, 12:10 PM Pierre Ku MD RAD GD documented in this encounter Visit Diagnoses Diagnosis Degenerative arthritis of thumb, right documented in this encounter Additional Health Concerns Active Problems Noted Date Diagnosed Date ET PROE RIGHT KNEE 07/30/2023 ET PROE LEFT KNEE 12/31/2023 documented as of this encounter Care Teams It Generalist Relationship Specialty Start Date End Date Ed Del Toro MD [address] [place] [address] PCP - General Family Practice 07/25/22 documented as of this encounter
--- OUTSIDE RECORDS SUMMARY | 2024-06-29 23:33 | XMS_ITS | Clinical Summary ---
Author Organization [facility] Address [place], [place] [address] Care Team Providers Care Parachute Supervisor Name Role Phone Romina Cristobal NP Unavailable [phone] Ed Del Toro MD Primary Care Provider Cassandra Kearney MD Unavailable [phone] Allergies No known active allergies Medications Medication Sig Dispensed Refills Start Date End Date Status omeprazole (PRILOSEC) 40 mg Delayed-Release capsuleIndications :Chronic GERD Take 1 Capsule (40 mg) by mouth once daily before a meal. 60 Capsule 05/20/20 24 024 Active acetaminophen (TYLENOL EXTRA STRGTH) 500 mg tabletIndications: H/O radiofrequency ablation for complex left atrial arrhythmia Take 2 Tablets (1,000 mg) by mouth every 6 hours if needed for Pain (For mild pain.). Max acetaminophen dose: 4000mg in 24 hrs. 06/17/20 24 Active colchicine 0.6 mg tabletIndications: H/O radiofrequency ablation for complex left atrial arrhythmia Take 1 Tablet (0.6 mg) by mouth once daily. 6 Tablet 06/18/20 24 Active warfarin (COUMADIN) 2 mg tabletIndications: Anticoagulation monitoring, INR range 2-3,History of pulmonary embolus (PE),Atrial fibrillation with RVR (HC) Take by mouth 06/22: Hold; Otherwise 2 mg every Sat, Sat; 3 mg all other days in the evening OR as directed 06/23/20 24 Active bisoprolol (ZEBETA) 5 mg tabletIndications: Atrial fibrillation with RVR (HC) Take 1 Tablet (5 mg) by mouth once daily. 90 Tablet 3 06/25/20 24 Active warfarin (COUMADIN) 2 mg tabletIndications: Anticoagulation monitoring, INR range 2-3,History of pulmonary embolus (PE),Atrial fibrillation with RVR (HC) Take by mouth 3 mg (2 mg x 1.5) every day in the evening OR as directed. 138 Tablet 03/03/20 24 024 Discontinued dilTIAZem CD (CARDIZEM CD) 120 mg extended release 24 hr capsuleIndications :Atrial fibrillation with RVR (HC) Take 1 Capsule (120 mg) by mouth two times daily. This replaces previous Prescription 180 Capsule 04/24/20 24 024 Discontinued(*M ed complete/Regime n complete/Level of care change) flecainide (TAMBOCOR) 100 mg tabletIndications: Atrial fibrillation with RVR (HC) Take 1.5 Tablets (150 mg) by mouth every 12 hours. 90 Tablet 04/24/20 24 024 Discontinued(*I P Discontinued) warfarin (COUMADIN) 2 mg tabletIndications: Anticoagulation monitoring, INR range 2-3,History of pulmonary embolus (PE),Atrial fibrillation with RVR (HC) Take by mouth 3 mg (2 mg x 1.5) every day in the evening OR as directed 140 Tablet 06/16/20 24 024 Discontinued(Ot her - add note to specify (E-cancel not sent)) Active Problems Problem Noted Date Diagnosed Date Longstanding persistent atrial fibrillation 06/04 Paroxysmal atrial fibrillation 05/28/2024 Hemosiderin pigmentation of skin 03/03/2021 Venous stasis [...] Encounters Date Type Department Care Team Description 06/25/2024 Telephone [facility] [address] [place] [address] Cassandra Kearney MD Atrial Fibrillation 06/22/2024 11:15 AM CDT Orders Only [facility] [address] [place] [address] Lab, [facility] 06/22/2024 Anticoagulation (warfarin) [facility] [address] [place] [address] 1, [facility] Anticoagulation 06/22/2024 Travel 06/22/2024 Orders Only [facility] [address] [place] [address] Romina Cristobal NP <No scans attached> 06/19/2024 3:30 PM CDT Nurse/Clinic Staff Only [facility] [address] [place] [address] 06/19/2024 3:00 PM CDT Nurse/Clinic Staff Only [facility] [address] [place] [address] Cardiovascular Diagnostic Testing (12 Lead EKG performed. ) 06/19/2024 Travel 06/17/2024 7:25 AM CDT Anesthesia Event [facility] [address] [address] Regina Davis MD 06/17/2024 5:51 AM CDT - 06/17/2024 2:45 PM CDT Hospital Encounter [facility] [address] [address] Cassandra Kearney MD Lahr, Aaron J, CRNA H/O radiofrequency ablation for complex left atrial arrhythmia (Primary Dx); Atrial fibrillation with RVR (HC) Discharge Disposition: Home Self Care 06/17/2024 Travel 06/16/2024 Refill [facility] [address] [place] [address] Ed Del Toro MD Refill Request (Warfarin) 06/10/2024 8:45 AM CDT Orders Only [facility] [address] [place] [address] Lab[facility] 06/10/2024 Telephone [facility] [address] [facility] [address] [place] [phone] Cassandra Kearney MD Pre Procedure (Repeat AF Ablation) 06/10/2024 Anticoagulation (warfarin) [facility] [address] [place] [address] 1, [facility] Anticoagulation 06/10/2024 Travel 06/04/2024 3:45 PM CDT Orders Only [facility] [address] [place] [address] Lab[facility] 06/04/2024 Anticoagulation (warfarin) [facility] [address] [place] [address] 1, [facility] Anticoagulation 06/04/2024 Travel 06/02/2024 Telephone [facility] [address] [facility] [address] [place] [phone] Cassandra Kearney MD Results (Subtherapeutic INR) 05/28/2024 8:05 AM CDT Preop Visit [facility] [address] [place] [address] Ed Del Toro MD Preoperative Exam (DOS: 06/17/2024, AFIB ABLATION, [place], Dr. Kearney) 05/28/2024 Anticoagulation (warfarin) [facility] [address] [place] [address] 1, [facility] Anticoagulation 05/28/2024 Travel 05/25/2024 Telephone [facility] [address] [place] [address] Ed Del Toro MD Anticoagulation (Unable to Contact) 05/22/2024 3:45 PM CDT Orders Only [facility] [address] [place] [address] Lab, [facility] 05/22/2024 Anticoagulation (warfarin) [facility] [address] [place] [address] 1, [facility] Anticoagulation 05/22/2024 Travel 05/20/2024 Telephone [facility] [address] [place] [address] Ed Del Toro MD Anticoagulation (Upcoming procedure) 05/20/2024 Telephone [facility] [address] [place] [address] Cassandra Kearney MD Letter (Repeat A-fib Ablation) 05/15/2024 Telephone [facility] [address] [place] [address] Ed Del Toro MD Anticoagulation (Annual re-enrollment ) 05/14/2024 Telephone [facility] [address] [place] [address] Cassandra Kearney MD Questions 05/06/2024 2:00 PM CDT - 05/06/2024 11:59 PM CDT Hospital Encounter [facility] [address] [place] [address] Cassandra Kearney MD Atrial fibrillation with RVR (HC) 05/06/2024 Travel 05/04/2024 4:30 PM CDT Office Visit [facility] [address] [place] [address] Cassandra Kearney MD Follow Up (Afib / SVT) 05/04/2024 4:00 PM CDT Nurse/Clinic Staff Only [facility] [address] [place] [address] Cardiovascular Diagnostic Testing (EKG) 05/04/2024 Travel 04/30/2024 12:45 PM CDT Orders Only [facility] [address] [place] [address] Lab[facility] 04/30/2024 Anticoagulation (warfarin) [facility] [address] [place] [address] 1, [facility] Anticoagulation 04/30/2024 Travel 04/27/2024 4:00 PM CDT Nurse/Clinic Staff Only [facility] [address] [place] [address] 04/27/2024 3:30 PM CDT Nurse/Clinic Staff Only [facility] [address] [place] [address] Cardiovascular Diagnostic Testing (EKG) 04/27/2024 Travel 04/23/2024 Telephone [facility] [address] [place] [address] Romina Cristobal NP IRhythm Alert (Afib with RVR up to 201 bpm); Medication Management (Increasing flecainide to 150 BID from 100 BID/Increasing diltiazem to 120 mg BID from 120 mg daily ) 04/16/2024 2:05 PM CDT Office Visit [facility] [address] [place] [address] Ed Del Toro MD Hospital F/U ([facility], 04/02/2024 - 04/03/2024, A-fib) 04/16/2024 Travel 04/15/2024 Telephone [facility] [address] [place] [phone] Romina Cristobal NP Questions 04/03/2024 11:00 AM CDT Ancillary Procedure [facility] [address] [place] [address] 04/02/2024 Orders Only [facility] Scanner 1 scan: (1-Ord) [facility], CT ANGIO CHEST PE, 04/02/2024 04/01/2024 10:57 AM CDT - 04/01/2024 11:59 PM CDT Hospital Encounter [facility] [address] [place] [address] Romina Cristobal NP Atrial fibrillation with RVR (HC); Paroxysmal atrial fibrillation (HC) 04/01/2024 10:50 AM CDT Orders Only [facility] [address] [place] [address] Lab 04/01/2024 10:00 AM CDT Office Visit [facility] [address] [place] [phone] Romina Cristobal NP Follow Up (overdue annual visit, ekg prior) 04/01/2024 9:30 AM CDT Nurse/Clinic Staff Only [facility] [address] [place] [phone] Cardiovascular Diagnostic Testing (EKG) 04/01/2024 7:00 AM CDT Orders Only [facility] [address] [place] [address] Lab[facility] 04/01/2024 Anticoagulation (warfarin) [facility] [address] [place] [address] 1, [facility] Anticoagulation 04/01/2024 Travel from Last 3 Months Immunizations Name [...] Communication with Friends and Fami ly 0 05/28/2024 Financial Resource Strain Answer Date R ecorded Difficulty of Paying Living Expenses 3 05/28/2024 Difficulty of Paying Living Expenses Not on file 05/28/2024 Food Insecurity Answer Date Recorded Worried About Running Out of Food in the Last Ye ar 1 05/28/2024 Transportation Needs Answer Date Record ed Lack of Transportation (Medical) 1 05/28/2024 Housing Stability Answer Date Recorded Unable to Pay for Housing in the Last Year 1 05/28/2024 Sex and Gender Information Value Date Recorded Sex Assigned at Male 03/01/2023 9:24 AM CDT Gender Identity Male 03/01/2023 9:24 AM CDT Sexual Orientation Not on file Obstetrics History Last Filed Vital Signs Vital Sign Reading Time Taken Comments Blood Pressure 114/70 06/19/2024 3:30 PM CDT Pulse 49 06/19/2024 3:30 PM CDT Temperature 36.8 ??C (98.2 ??F) 06/19/2024 3:30 PM CD T Respiratory Rate 14 06/19/2024 3:30 PM CDT Oxygen Saturation 97% 06/19/2024 3:30 PM CDT Inhaled Oxygen Concentration - - Weight 102.5 kg (226 lb) 06/19/2024 3:30 PM CDT Height 172.7 cm (5' 7.99) 06/19/2024 3:30 PM CD T Body Mass Index 34.37 06/19/2024 3:30 PM CDT Plan of Treatment Upcoming Encounters Date Type Department Care Team (Late st Contact Info) Description 06/30/2024 10:30 AM CDT Orders Only [facility] [address] [place] [address] Lab, Farm 07/07/2024 11:00 AM CDT Orders Only [facility] [address] [place] [address] Lab, Farm 07/29/2024 3:00 PM CDT Appointment [facility] [address] [place] [address] Health Maintenance Due Date Last Done Comments [...] wt on same day) for age 18+ 06/19/2025 06/19/2024, 05/28/2024, 05/04/2024, Additional history exists Lipids for age 45-75 07/24/2028 07/24/2023, 03/19/2022, 11/09/2020, Additional history exists Colonoscopy through age 75 09/06/203309/06, 09/06/2023, 09/06/2023, Additional history exists Tdap Completed 03/03/2015 Hepatitis C screening for ag e 18-79 Completed 11/09/2020 Procedures Procedure Name Priority Date/Time Associated Diagnosis Comments PROTIME-INR Routine 06/22/2024 11:48 AM CDT Anticoagulation monitoring, INR range 2-3 History of pulmonary embolus (PE) EKG 12 LEAD Routine 06/19/2024 3:26 PM CDT Longstanding persistent atrial fibrillation (HC) SCAN-CARDIAC STRIP 06/17/2024 1: 36 PM CDT EKG 12 LEAD Routine 06/17/2024 12:19 PM CDT [facility] ACTIVATED CLOTTING TM CV Timed 06/17/2024 10:36 AM CDT H[facility] ACTIVATED CLOTTING TM CV Timed 06/17/2024 10:15 AM CDT [facility] ACTIVATED CLOTTING TM CV Timed 06/17/2024 9:55 AM CDT H[facility] ACTIVATED CLOTTING TM CV Timed 06/17/2024 9:32 AM CDT H[facility] ACTIVATED CLOTTING TM CV Timed 06/17/2024 9:10 AM CDT HCH[facility] ACTIVATED CLOTTING TM CV Timed 06/17/2024 8:50 AM CDT H[facility] ACTIVATED CLOTTING TM CV Timed 06/17/2024 8:29 AM CDT HCHG ACTIVATED CLOTTING TM CV Timed 06/17/2024 8:18 AM CDT EP STUDY /ABLATION Routine 06/17/2024 8: 04 AM CDT ENDOTRACHEAL TUBE Routine 06/17/2024 7:5 1 AM CDT ENDOTRACHEAL TUBE Routine 06/17/2024 7:5 1 AM CDT ENDOTRACHEAL TUBE Routine 06/17/2024 7:5 1 AM CDT ENDOTRACHEAL TUBE Routine 06/17/2024 7:5 1 AM CDT EKG 12 LEAD Preop 06/17/2024 6:25 AM CDT BASIC METABOLIC PANEL Preop 06/17/2024 6:23 AM CDT PROTIME-INR Preop 06/17/2024 6:22 AM CDT CBC W PLT NO DIFF Preop 06/17/2024 6:2 2 AM CDT SCAN-CARDIAC STRIP 06/17/2024 12 :00 AM CDT INR,POCT Routine 06/10/2024 8:43 AM CDT Anticoagulation monitoring, INR range 2-3 History of pulmonary embolus (PE) INR,POCT Routine 06/04/2024 3:51 PM CDT Anticoagulation monitoring, INR range 2-3 History of pulmonary embolus (PE) INR,POCT Routine 05/28/2024 8:33 AM CDT Anticoagulation monitoring, INR range 2-3 History of pulmonary embolus (PE) INR,POCT Routine 05/22/2024 3:47 PM CDT Anticoagulation monitoring, INR range 2-3 History of pulmonary embolus (PE) CT CARDIAC MORPHOLOGY W DUAL READ ENEDINA 05/06/2024 2:36 PM CDT Atrial fibrillation with RVR (HC) CREATININE,ISTAT Routine 05/06/2024 2:19 PM CDT EKG 12 LEAD Routine 05/04/2024 4:07 PM CDT Atrial fibrillation with RVR (HC) INR,POCT Routine 04/30/2024 12:57 PM CDT Atrial fibrillation with RVR (HC) Anticoagulation monitoring, INR range 2-3 EKG 12 LEAD Routine 04/27/2024 3:47 PM CDT Paroxysmal atrial fibrillation (HC) EXTENDED HOLTER Routine 04/23/2024 Atrial fibrillation with RVR (HC) Paroxysmal atrial fibrillation (HC) ECHO TTE COMPLETE WO CONTRAST Routine 04/03/2024 10:53 AM CDT A-fib (HC) SCAN-CT INTERPRETATION 12:00 AM CDT MAGNESIUM Routine 04/01/2024 10:50 AM CDT Paroxysmal [...] monitoring, INR range 2-3 COLONOSCOPY DIAGNOSTIC Routine 10:14 AM CDT Hematochezia LIPID PANEL W REFLEX MEASURED LDL Routine 07/24/2023 7:47 AM CDT Hyperlipidemia, unspecified hyperlipidemia type ANTI HCV Routine 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 INR 4.3(H) <1.3 06/22/2024 3:33 PM CDT [facility] PROTIME 46.4(H) 10.3 - 12.3 sec 06/22/2024 3:33 PM CDT [facility] Blood BLOOD SPECIMEN / Unknown Venipuncture / Unknown 06/22/2024 11:48 AM CDT 06/22/2024 11:48 AM CDT [facility] 06/22/2024 3:33 PM CDT ?Therapeutic Range 2.0-3.0 for most anticoagulated [...] on UFH. Ed Del Toro MD HEMATOLOGY Performing Organization Address City/[facility]/ZIP Co de Phone Number [facility] [address] [place] [address], * SCAN-CARDIAC STRIP (06/17/2024 1:36 PM CDT) Scanner OTHER * EKG 12 LEAD (06/17/2024 12:19 PM CDT) Only the most recent of5 resultswithin the time period is included. Interpretation Normal sinus rhythm Non-specific intra-ventric ular conduction delay Otherwise Normal ECG BEYOND NOW Ventricular Rate 69 BPM BEYOND NOW Atrial Rate 69 BPM BEYOND NOW P-R Interval 162 ms BEYOND NOW QRS Duration 108 ms BEYOND NOW QT 438 ms BEYOND NOW QTc 469 ms BEYOND NOW P [place] 71 degrees BEYOND NOW R [place] -30 degrees BEYOND NOW T [place] 14 degrees BEYOND NOW 06/17/2024 12:1 9 PM CDT 06/17/2024 3:12 PM CDT Cassandra Kearney MD EKG ORD Performing Organization Address City/[facility]/ZIP Co de Phone Number BEYOND NOW [place], [place] * (ABNORMAL) ACTIVATED CLOTTING TIME [id number] ACT (06/17/2024 10:36 AM CDT) Only the most recent of8 resultswithin the time period is included. ACTIVATED CLOTTING TIME, POCT 337(H) 74 - 125 sec 06/17/2024 10:44 AM CDT [facility] Blood BLOOD SPECIMEN / Unknown 06/17/2024 10:36 AM CDT 06/17/2024 10:44 AM CDT Cassandra Kearney MD HEMATOLOGY [facility] SENDOUT INTERNAL ZIP [id number] [address] [place] [address] * EP STUDY /ABLATION (06/17/2024 8:04 AM CDT) Anatomical Region Laterality Modality X-Ray Angiograph y 06/17/2024 8:04 AM CDT Narrative Procedure Note Cassandra Kearney MD - 06/17/2024 11:01 AM CDT Images from the original note were not included. EP PROCEDURE NOTE Procedures: Redo complex left and right atrial ablations for persistent refractoryatrial fibrillation and flutter. Complex left atrial ablation included the following: Large circumferential atrial ablation (single ring) and repeat isolationof all pulmonary veins. Left atrial posterior wall ablation. Additional post-PVI left atrial substrate mapping and ablation forpersistent atrial fibrillation. Right atrial ablation, cavotricuspid isthmus ablation for recurrent atrialflutter. Transseptal puncture and left atrial catheterization. Intracardiac echocardiography. 3D electroanatomic mapping using [employer]. Esophageal temperature monitoring. Left atrial pacing recording, bundle of His recording, decremental burstleft atrial pacing. Vascular ultrasound used to guide venous arterial access Pre-operative Diagnosis: Persistent defibrillation and flutter, highlysymptomatic and drug refractory. Post-operative diagnosis: Same as preop Complications: None, immediately Clinical history and informed consent: 64-year-old patient with history of highly symptomatic, drug refractoryatrial fibrillation underwent his index catheter ablation procedure [id number], continues to struggle with recurrent atrial arrhythmias including AFand flutter, referred for redo catheter ablation. Procedure details: The risks and benefits of the procedure were explained to the patient infull. The risks include, but are not limited to: pain, bleeding, bloodtransfusion reactions, arrhythmia, life-threatening esophageal injuries,phrenic nerve palsy dissection of vessels, cardiac perforation,pericardial effusion, stroke, and . Informed Consent was obtained.The patient was brought to the EP lab in a fasting and hemodynamicallystable condition. The patient was prepped and draped in a sterile fashion. Sheaths and Catheters: Using ultrasound guidance and percutaneous technique, the right and leftfemoral veins and the right common femoral artery were accessed.Ultrasound was used to confirm vessel patency, localizing the needle intothe lumen of the vessel. For safety purposes, a picture was saved for themedical record. Anticoagulation: Activated clotting time maintained between 350 and 400seconds using boluses of unfractionated heparin and drip at 3000 units/h. Esophageal temperature monitoring performed throughout the procedure.Anesthesia assisted in moving the temperature probe in the cranial caudaldirections to match the location of the ablation catheter on the posteriorwall. Based on review of CT, the esophagus passed in proximity of theinferior posterior wall between the left and right inferior veins. Thebaseline esophageal temperature was 36.4 ??C, the maximal temperaturerecorded was 36.8 ??C during RF delivery along the inferior posterior wallof the left atrium 11 American sheath used to introduce the intracardiac echocardiographycatheter into the right atrium and right ventricle used to image thecardiac structures including right atrium, left atrium, left atrialappendage and pericardium. There was no evidence of left atrial appendagethrombus, no pericardial effusion at baseline. 8 American sheath used to introduce a decapolar catheter into the rightatrium, right ventricle and used to cannulate the coronary sinus where itwas used for atrial pacing recording. A 8.0 American preface sheath inserted via the right common femoral vein andused to perform the transseptal puncture, multipolar mapping catheter,Pentarray and later used to introduce the ablation catheter, TactiFlex F/Jirrigated tip ablation catheter. After appropriate anticoagulation and using intracardiac echo guidance, asingle transseptal puncture was performed using assembly of prefacesheath, Negritough #0 needle and a safesept wire, allowed to deliverthe preface sheath into the left atrium Baseline diagnostic electrophysiology study demonstrated normal basicintervals including normal AH and HV intervals of 80 and the 45 ms. TheAV radha Wenckebach cycle length at baseline was normal 300 ms. The AVnode ERP was 600/220 msec. Mapping and 3D reconstruction of the left atrial anatomy showed unusualanatomy of the pulmonary veins and left atrium. Common right largepulmonary vein with early branching, formed a common trunk with the leftinferior pulmonary vein. Large left superior pulmonary vein. At baseline, all veins reconnected, abnormal voltage along the inferiorposterior wall, mild to moderate atrial myopathy throughout the leftatrium Phrenic nerve mapping conducted along the septum and antrum of the rightpulmonary vein, no phrenic nerve capture seen with pacing at maximaloutput. Radiofrequency ablation: Because of the persistent AF/AFL and atrialmyopathy, we proceeded with reisolation of all pulmonary veins andisolation of the posterior wall. A single circumferential line of RFapplication were extended from the left superior pulmonary vein-appendageridge into the left atrial roof, anterior antrum of the right vein andinferior posterior wall. Additional applications on the right superiorposterior wall were necessary to complete isolation of the left atrialposterior wall. Additionally, during this process, abnormal substratepromoting a trigger atrial fibrillation was targeted on the interatrialseptum. We use radiofrequency energy of 40 to 45 W, RF applications 15 to 20seconds anteriorly and on the roof away from the esophagus.Radiofrequency energy of 45 W duration less than 12 seconds, contact forceless than 15 g on the posterior wall. Proximity to the esophagus,radiofrequency applications were abbreviated to less than 10 seconds using45 W while keeping contact force less than 10 g. Post-ablation mapping using the multipolar HD grid catheter confirmedcomplete PV isolation and isolation of the posterior wall. the anteriorand roof segments of the line were also completely ablation doublepotentials recorded along these areas. Right atrial ablation: Performed linear ablation of the cavotricuspidisthmus using the same ablation catheter using energy 40 W. the ablationline connected the inferior tricuspid valve annulus to the SVC/RAjunction. Postablation intracardiac echo surveillance confirmed absence ofpericardial effusion. The venous sheath were removed and hemostasis achieved [id number] sutures. The patient was extubated in the EP lab, transferred to PACU in stablecondition. Plan: Resume OAC -continue Coumadin, recheck INR on SaturdayJune 19 andcontinue with weekly INR checks for at least 4 weeks post ablation Antiarrhythmic medication management -discontinue flecainide. AV Radha medication management continue Cardizem CD 120 mg twice daily. Esophageal prophylaxis with PPI x 30 days. Pericarditis prophylaxis with colchicine 1.2 mg once then 0.6 mg daily x 6days. Suture removal with EP NC on Saturday. Event monitor in 6 weeks. Follow-up in [facility] 3 months post procedure. Anticipate discharge later today. Cassandra Kearney MD Cardiac Electrophysiology Cassandra Kearney MD CV IMAGING * [facility] TUBE PR1, [facility] KIT CO2 DETECTOR PR5, [facility] STYLET PR1, [facility] MOUTHPIECE PR1 (06/17/2024 7:51 AM CDT) Narrative Mateo Rogel CRNA - 06/17/2024 7:51 AM CDT Mateo Rogel CRNA ? 06/17/2024 ??7:52 AM Procedure: ETT Patient location during procedure: mechanical shop laborer ETT Properties Mask Ventilation: easy and oral airway Final Technique: direct laryngoscopy Type: straight Location: oral Cuffed: yes Tube Size: 8.0 mm Stylet: yes Laryngoscope Blade: Luna Blade Size: 2 Cormack-Lehane Grade View: 2 Insertion Attempts: 1 Placement Verification: auscultation, end tidal CO2 and symmetrical chest wall movement Assessment: pharynx clear, atraumatic and dentition unchanged Secured at: 24 Measured From: lips Tooth guard used and removed: yes Difficulty: 0 (not difficult) Regina Davis MD ANESTHESIA PX NOTE O RDERABLES * (ABNORMAL) Basic Metabolic Panel (06/17/2024 6:23 AM CDT) Only the most recent of2 resultswithin the time period is included. SODIUM 137 136 - 145 mmol/L 06/17/2024 7:00 AM [facility] POTASSIUM 3.9 3.5 - 5.1 mmol/L 06/17/2024 7:00 AM [facility] CHLORIDE 102 98 - 107 mmol/L 06/17/2024 7:00 AM [facility] CO2,TOTAL 23 22 - 29 mmol/L 06/17/2024 7:00 AM [facility] ANION GAP 12 5 - 18 06/17/2024 7:00 AM [facility] GLUCOSE 107(H) 70 - 99 mg/dL 06/17/2024 7:00 AM [facility] CALCIUM 9.1 8.8 - 10.2 mg/dL 06/17/2024 7:00 AM [facility] BUN 15 8 - 23 mg/dL 06/17/2024 7:00 AM [facility] CREATININE 0.90 0.70 - 1.20 mg/dL 06/17/2024 7:00 AM [facility] BUN/CREAT RATIO 17 10 - 20 7:00 AM [facility] eGFR >90 >90 mL/min/1.7 3m2 06/17/2024 7:00 AM [facility] Comment:As of 2022, eG FR is calculated by the CKD-EPI creatinine equation without race adjustment. ??eGFR can be influenced by muscle mass, exercise, and diet. ??The reported eGFR is an estimation only and is only applicable if the renal function is stable. Blood BLOOD SPECIMEN / Unknown Venipuncture / Unknown 06/17/2024 6:23 AM CDT 06/17/2024 6:32 AM T Cassandra Kearney MD CHEMISTRY [facility] SENDOUT INTERNAL ZIP [id number] [place] [address] * CBC with Platelet no Diff (06/17/2024 6:22 AM T) WHITE BLOOD COUNT 9.0 4.5 - 11.0 thou/cu mm 06/17/2024 6:41 AM [facility] RED BLOOD COUNT 5.49 4.30 - 5.90 mil/cu mm 06/17/2024 6:41 AM [facility] HEMOGLOBIN 14.9 13.5 - 17.5 g/dL 06/17/2024 6:41 AM [facility] HEMATOCRIT 45.7 37.0 - 53.0 % 06/17/2024 6:41 AM [facility] MCV 83 80 - 100 fL 06/17/2024 6:41 AM [facility] MCH 27.1 26.0 - 34.0 pg 06/17/2024 6:41 AM [facility] MCHC 32.6 32.0 - 36.0 g/dL 06/17/2024 6:41 AM CDT [facility] RDW 13.7 11.5 - 15.5 % 06/17/2024 6:41 AM CDT [facility] PLATELET COUNT 372 140 - 440 thou/cu mm 06/17/2024 6:41 AM CDT [facility] MPV 9.1 6.5 - 11.0 fL 06/17/2024 6:41 AM CDT [facility] NRBC 0.0 % 06/17/2024 6:41 AM CDT [facility] ABS NRBC 0.0 thou /cu mm 06/17/2024 6:41 AM CDT [facility] Blood BLOOD SPECIMEN / Unknown Venipuncture / Unknown 06/17/2024 6:22 AM CDT 06/17/2024 6:32 AM CDT Cassandra Kearney MD HEMATOLOGY [facility] SENDOUT INTERNAL [facility] [id number] [place] [address] * SCAN-CARDIAC STRIP (06/17/2024 12:00 AM CDT) Narrative 06/17/2024 12:00 AM CDT Ordered by an unspecified provider. Other Clinical Staff OTHER * (ABNORMAL) INR,POCT (06/10/2024 8:43 AM CDT) Only the most recent of6 resultswithin the time period is included. INR 2.6(H) <1.3 06/10/2024 8:43 AM CDT [facility] Blood BLOOD SPECIMEN / Unknown Capillary / Unknown 06/10/2024 8:43 AM CDT 06/10/2024 8:43 AM CDT Narrative [facility] - 06/10/2024 8:43 AM CDT ?Therapeutic Range 2.0-3.0 for most anticoagulated patients 2.5-3.5 or 4.0 for high risk patients Ed Del Toro MD LABORATORY [facility] [address] [place] [address], [place] [phone] * CT CARDIAC MORPHOLOGY W DUAL READ (05/06/2024 2:36 PM CDT) Anatomical Region Laterality Modality HEART Computed Tomogra phy Impressions 05/08/2024 4:45 PM CDT 1. ?No significant incidental extracardiac findings. 2. ?Please refer to breaster's dictation for the cardiac CT report. Narrative 05/08/2024 4:45 PM CDT Results are automatically released to your [employer] account once available, in compliance with federal regulations. ??This means that you may see your results before your provider has had a chance to review them. ??Please allow 2-3 business days for your provider to comment on the results. CT CARDIAC MORPHOLOGY STUDY (PULMONARY VEIN PROTOCOL), 05/06/2024 INDICATION: Atrial fibrillation. CONCLUSIONS: This is a dual read study - please review [facility] over-read below for incidental non cardiac findings. Variant pulmonary vein anatomy with a single right-sided pulmonary vein branching into upper and lower components. Two left-sided veins are present. No evidence of stenosis or obstruction. No evidence of left atrial appendage thrombus. No obvious atrial septal defect. No pericardial effusion. TECHNIQUE: ECG-gated CT angiogram of the heart with intravenous contrast Omnipaque 350, 95 cc, was performed on a Siemens SOMATOM Force CT scanner. The imaging protocol was individualized to minimize radiation exposure. The following ECG-gated acquisition protocol was used: Prospective. Delayed imaging was performed for assessment of the left atrial appendage. Tube potential: 80 kV. Tube current: 2782 mAs. Total DLP: 153 mGy*cm; mSv: 2.1; CTDI: 14.9. Image post processing was performed on a [employer] Workstation. Images were reconstructed at a slice thickness of 1 mm with 1 mm overlap. There were no immediate complications. TECHNICAL QUALITY: Good. FINDINGS PULMONARY VEINS: One right-sided and two left-sided pulmonary veins enter the left atrium without evidence of stenosis or obstruction. LEFT ATRIUM AND LEFT ATRIAL APPENDAGE FINDINGS: Left atrial appendage has a windsock morphology. No evidence of left atrial appendage thrombus. Grossly normal left atrial size. Grossly intact atrial septum without evidence of obvious atrial septal defect. CARDIAC: Grossly normal left ventricular chamber size. Grossly normal right ventricular chamber size. No intra-cardiac mass or thrombus. No evidence of abnormal thickening or calcification of the mitral and aortic valves. Normal pericardial thickness. No pericardial effusion. CORONARY ARTERIES: The study was not protocoled for evaluation of the coronary arteries. Right dominant coronary artery system. Mild coronary calcifications are present. VESSELS: Normal caliber of the visualized ascending and descending thoracic aorta. No evidence of aortic atherosclerosis. ??Normal pulmonary artery caliber. NON-CARDIAC: Please review radiology report below for incidental non-cardiovascular findings. Singh Aguiar MD Cardiology [facility] JJO/car For Patients: As a result of the Cures Act, medical imaging exams and procedure reports are released immediately into your electronic medical record. You may view this report before your referring provider. If you have questions, please contact your health care provider. EXAM: OVER READ: DETAILED [facility] EXTRACARDIAC OVER READ OF CARDIAC CT LOCATION: [facility] MEDICAL IMAG[facility] DATE: 05/06/2024 INDICATION: Cardiac - Other. Pre PVI - Please screen MANNY for thrombus and map pulmonary veins. TECHNIQUE: Dose reduction techniques were used. COMPARISON: 01/27/2018. FINDINGS: LIMITED CHEST: Negative. LIMITED MEDIASTINUM: Negative. LIMITED UPPER ABDOMEN: Negative. Cassandra Kearney MD CT * (ABNORMAL) CREATININE,ISTAT (05/06/2024 2:19 PM CDT) CREATININE, POCT 1.30(H) 0.57 - 1.11 mg/dL 05/06/2024 2:25 PM CDT [facility] Comment:Caution: Patients ta nargis Hydroxyurea have falsely increased iStat Creatinine results. Verify creatinine results ordering a Creatinine (00589.2) eGFR 61(L) >90 mL/min/1.7 3m2 05/06/2024 2:25 PM CDT [facility] Comment:As of 2022, eG FR is calculated by the CKD-EPI creatinine equation without race adjustment. eGFR can be influenced by muscle mass, exercise, and diet. The reported eGFR is an estimation only and is only applicable if the renal function is stable. Blood BLOOD SPECIMEN / Unknown 05/06/2024 2:19 PM CDT 05/06/2024 2:25 PM CDT Cassandra Kearney MD CHEMISTRY [facility] SENDOUT INTERNAL ZIP [address] [address] [place] [address] * EXTENDED HOLTER (04/23/2024) Romina Cristobal NP CARDIAC SERVICES ORD * ECHO TTE COMPLETE WO CONTRAST (04/03/2024 10:53 AM CDT) AORTIC VALVE MEAN PG 5 mmHg EJECTION FRACTION 69 % PEAK TR VELOCITY 2.8 m/s LVEDD 5.9 cm Anatomical Region Laterality Modality Ultrasound 04/03/2024 10:2 3 AM CDT Narrative 04/03/2024 11:44 AM CDT ECHOCARDIOGRAM KAJAL JEANDEBBY ?Accession#: ?? [id number] : ?1960 63 years Study Date: ?? 04/03/2024 10:23:13 AM Gender: M ? BP: ? 124/79 mmHg Height: 173.00 cm ? BSA: ?2.19 m? ? ? Weight: 106.00 kg ? Tech: ? MJW ?Referring MD: DESHAWN MORFIN Site: ? [facility] Reading Location: [facility] Patient Location: Inpatient. Procedure: 2D, Color Doppler and Spectral Doppler. Indication for study: Paroxysmal A Fib Cardiac Rhythm: Normal sinus.Study quality: Good. Final Impressions: 1. Mild to moderately increased left ventricular size, normal wall thickness, normal global systolic function, calculated EF of 69 %. 2. Severely enlarged left atrium. Moderate RA. 3. 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 4. 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 Chamber Sizes and Function Mild to moderately increased left ventricular size, normal wall thickness, normal global systolic function, calculated EF of 69 %. No definite resting regional wall motion abnormality seen. Left atrial size is severely enlarged. Right ventricular cavity size is normal, global systolic RV function is normal. The right atrium is moderately enlarged. Right atrial volume index is 30 ml/m? ? ?. Right atrial area is 22 cm? ? ?. The pulmonary artery is of normal size and origin. The sinus of Valsalva is dilated. The ascending aorta is dilated. Valves, RV Pressures and Diastolic Function The aortic valve is normal in structure and trileaflet, no stenosis and no regurgitation. The mitral valve is normal in structure, trace mitral regurgitation. Normal diastolic function. The tricuspid valve is normal in structure. Tricuspid regurgitation is mild regurgitation. The tricuspid regurgitant velocity is 2.8 m/s, the estimated right ventricular systolic pressure is 31 mmHg plus right atrial pressure. The pulmonic valve is normal. No pulmonary regurgitation. Masses, Effusion, Shunts There is no pericardial effusion. The inferior vena cava is normal sized, respiratory size variation greater than 50%. No left to right shunting was detected by limited color flow Doppler interrogation of the interatrial septum. MEASUREMENTS AND CALCULATIONS 2-D Measurements and LV Function: LVID (d) 5.9 cm Planimetered EF 69 % LVID (s) 4.1 cm LV FS% (2D) ? 31 % IVS (d) ??0.8 cm LVOT diameter ?? 2.4 cm LVPW (d) 0.8 cm HR ?60 bpm Ao Sinus 4.1 cm LA Vol index ?47 ml/m2 Asc Ao ?? 4.0 cm RA Vol index ?30 ml/m2 LA ? 3.4 cm RA area ? 22 cm?RV Max 4C (d) ?? 4.1 cm Diastology: Mitral ?Tissue Doppler E Peak 0.8 m/s ??e', Septum ? 0.08 m/s A Peak 0.4 m/s ??e', Lateral ?0.16 m/s E/A ?2.2 ?E/e' Average ?? 6.30 DT ? 202 msec Aortic Valve: Vmax ? 1.6 m/s ??CALDERON (V) ?? 4.29 cm? ? ? VTI ?0.30 m ?? CALDERON (I) ?? 4.07 cm? ? ? LVOT V max 1.5 m/s ??Max PG ?10 mmHg LVOT VTI ?? 0.27 m ?? Mean PG ?? 5 mmHg SV ? 122 ml ?? Dim Index 0.91 SV index ?? 56 ml/m? ? ? CO ?7.3 l/min ?CI ?3.3 l/min/m? ? ? Mitral Valve: MVA ?3.8 cm? ? ? MV P 1/2 59 msec Tricuspid Valve and estimated PA pressures: TR Vmax 2.8 m/s TAPSE 2.4 cm TR maxG 31 mmHg . This study was interpreted by an [facility] accredited facility. CC: HIM (med records) [facility], Med/Surg - IP [facility]. ??Final ?? Procedure Note Kristian Partida MD - 04/03/2024 ECHOCARDIOGRAM KAJAL CORTEZ : 1960 63 years Study Date: 04/03/2024 10:23:13 AM Gender: M BP: 124/79 mmHg Height: 173.00 cm BSA: 2.19 m? ? ? Weight: 106.00 kg Tech: SAE Referring MD: DESHAWN MORFIN Site: [facility] Reading Location: [facility] Patient Location: Inpatient. Procedure: 2D, Color Doppler and Spectral Doppler. Indication for study: Paroxysmal A Fib Cardiac Rhythm: Normal sinus.Study quality: Good. Final Impressions: 1. Mild to moderately increased left ventricular size, normal wallthickness, normal global systolic function, calculated EF of 69 %. 2. Severely enlarged left atrium. Moderate RA. 3. 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 4. 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 Chamber Sizes and Function Mild to moderately increased left ventricular size, normal wall thickness,normal global systolic function, calculated EF of 69 %. No definiteresting regional wall motion abnormality seen. Left atrial size isseverely enlarged. Right ventricular cavity size is normal, globalsystolic RV function is normal. The right atrium is moderately enlarged.Right atrial volume index is 30 ml/m? ? ?. Right atrial area is 22 cm? ? ?. Thepulmonary artery is of normal size and origin. The sinus of Valsalva isdilated. The ascending aorta is dilated. Valves, RV Pressures and Diastolic Function The aortic valve is normal in structure and trileaflet, no stenosis and noregurgitation. The mitral valve is normal in structure, trace mitralregurgitation. Normal diastolic function. The tricuspid valve is normal instructure. Tricuspid regurgitation is mild regurgitation. The tricuspidregurgitant velocity is 2.8 m/s, the estimated right ventricular systolicpressure is 31 mmHg plus right atrial pressure. The pulmonic valve isnormal. No pulmonary regurgitation. Masses, Effusion, Shunts There is no pericardial effusion. The inferior vena cava is normal sized,respiratory size variation greater than 50%. No left to right shunting wasdetected by limited color flow Doppler interrogation of the interatrialseptum. MEASUREMENTS AND CALCULATIONS 2-D Measurements and LV Function: LVID (d) 5.9 cm Planimetered EF 69 % LVID (s) 4.1 cm LV FS% (2D) 31 % IVS (d) 0.8 cm LVOT diameter 2.4 cm LVPW (d) 0.8 cm HR 60 bpm Ao Sinus 4.1 cm LA Vol index 47 ml/m2 Asc Ao 4.0 cm RA Vol index 30 ml/m2 LA 3.4 cm RA area 22 cm? ? ? RV Max 4C (d) 4.1 cm Diastology: Mitral Tissue Doppler E Peak 0.8 m/s e', Septum 0.08 m/s A Peak 0.4 m/s e', Lateral 0.16 m/s E/A 2.2 E/e' Average 6.30 DT 202 msec Aortic Valve: Vmax 1.6 m/s CALDERON (V) 4.29 cm? ? ? VTI 0.30 m CALDERON (I) 4.07 cm? ? ? LVOT V max 1.5 m/s Max PG 10 mmHg LVOT VTI 0.27 m Mean PG 5 mmHg SV 122 ml Dim Index 0.91 SV index 56 ml/m? ? ? CO 7.3 l/min CI 3.3 l/min/m? ? ? Mitral Valve: MVA 3.8 cm? ? ? MV P 1/2 59 msec Tricuspid Valve and estimated PA pressures: TR Vmax 2.8 m/s TAPSE 2.4 cm TR maxG 31 mmHg . This study was interpreted by an [facility] accredited facility. CC: LYNDSAY (med records) [facility], Med/Surg - IP [facility]. Final Deshawn Morfin DO ECHO ORD * SCAN-CT INTERPRETATION (04/02/2024 12:00 AM CDT) Anatomical Region Laterality Modality Other Scanner OTHER * MAGNESIUM (04/01/2024 10:50 AM CDT) MAGNESIUM 2.2 1.6 - 2.4 mg/dL 04/01/2024 11:20 AM CDT [facility] Blood BLOOD SPECIMEN / Unknown Butterfly / Unknown 04/01/2024 10:50 AM CDT 04/01/2024 10:55 AM CDT Romina Cristobal NP CHEMISTRY [facility] SENDOUT INTERNAL ZIP [address] [address] [place] [address] * COLONOSCOPY (09/06/2023 10:16 AM CDT) 09/06/2023 10:1 6 AM CDT Narrative Transcriptions Adrien Hussein MD - 09/06/2023 11:50 AM CDT Patient Name: Kajal Cortez Procedure Date: 09/06/2023 Gender: Male Date of : 1960 Admit Type: Outpatient Procedure: Colonoscopy Proceduralist: Adrien Hussein MD , Halima Ramirez RN (Nurse), Mikayla Ochoa RN (Nurse) Referring MD: Ed Del Toro [...] an adequate candidate for conscious sedation. The [id number] was passed through the anus and advanced [...] 10:16 AM Procedure Code(s): --- Professional --- 77559, Colonoscopy, flexible; diagnostic, including collection of specimen(s) bybrushing or washing, when performed (separateprocedure) Diagnosis Code(s): --- Professional --- K92.1, Melena (includes Hematochezia) K57.30, Diverticulosis of large intestine without perforation or abscess withoutbleeding CPT copyright 2021 [employer]. All rights reserved. The codes documented in this report are preliminary and upon stereoplotter operator reviewmay be revised to meet current compliance requirements. Scope In: 11:22:55 AM Scope Withdrawal Time 0 hours 7 minutes 51 seconds Scope Out: 11:36:13 AM Adrien Hussein MD PROCEDURE ORD * (ABNORMAL) LIPID PANEL W REFLEX MEASURED LDL (07/24/2023 7:47 AM CDT) CHOLESTEROL,TOTAL 232(H) 100 - 199 mg/dL 07/24/2023 2:23 PM CDT [facility] Comment: Cholesterol, Total Reference Ranges Desirable <200 mg/dL Borderline 200-239 mg/dL High >=240 mg/dL TRIGLYCERIDES 175(H) <150 mg/dL 07/24/2023 2:23 PM CDT [facility] HDL CHOLESTEROL 53 >40 mg/dL 2:23 PM CDT [facility] NON-HDL CHOLESTEROL 179(H) <145 mg/dl 07/24/2023 2:23 PM CDT [facility] CHOL/HDL RATIO 4.38 <4.50 07/24/2023 2:23 PM CDT [facility] LDL CHOLESTEROL 144(H) <=130 mg/dL 07/24/2023 2:23 PM CDT [facility] VLDL CHOLESTEROL 35(H) <=30 mg/dL 07/24/2023 2:23 PM CDT [facility] PROVIDER ORDERED STATUS RANDOM 07/24/2023 2:23 PM CDT [facility] Blood BLOOD SPECIMEN / Unknown Venipuncture / Unknown 07/24/2023 7:47 AM CDT 07/24/2023 7:48 AM CDT Ed Del Toro MD CHEMISTRY [facility] [address] [place] [address], * ANTI HCV (11/09/2020 10:24 AM TAXICAB DRIVER) HEPATITIS C ANTIBODY Non-React johnathan Non-React johnathan 11/09/2020 6:25 PM TAXICAB DRIVER [facility] Comment:Antibodies to HCV no t detected; does not exclude the possibility of exposure to HCV. Blood BLOOD SPECIMEN / Unknown Butterfly / Unknown 11/09/2020 10:24 AM TAXICAB DRIVER 11/09/2020 10:25 AM TAXICAB DRIVER Ed Del Toro MD SEND OUTS [facility] [address] [place] [address], from Last 3 Months or Most Recently Relevant to Health Maintenance Advance Directives * Full Code (Latest Code Status on File) Date Activated Date Inactivated Comments 06/17/2024 11:01 AM 06/17/2024 4:56 PM Question Answer Comments Code Status Discussion: Reviewed Preferences * Full Code Date Activated Date Inactivated Comments 05/30/2018 8:19 AM 05/31/2018 5:26 PM Question Answer Comments Code Status Discussion: Discussed * Full Code Date Activated Date Inactivated Comments 02/03/2018 6:09 AM 02/03/2018 10:32 AM * Full Code Date Activated Date Inactivated Comments 08/07/2017 1:54 AM 08/09/2017 11:45 AM Care Teams Parachute Supervisor Relationship Specialty Start Date End Date Ed Del Toro MD [address] [place] [address] PCP - General Family Practice 12/05/20 Romina Cristobal NP [address] [facility] [address] [place] [address] Nurse Practitioner Cardiology - Electrophysiology 07/07/19 Cassandra Kearney MD [address] [facility] [address] [place] [address] Consulting Physician Cardiology - Electrophysiology 10/23/21
--- OUTSIDE RECORDS SUMMARY | 2024-06-29 23:33 | XMS_ITS | Clinical Summary ---
Author Organization [facility] Address [address], [place] [address] Care Team Providers Care Generation Manager Name Role Phone Ed Del Toro MD Primary Care Provider Source Comments You are receiving this document as you are listed as the primary care provider,follow-up provider, or the patient has been referred to you for consultation.This is in compliance with the Medicare and[facility] EHR Incentive Program,which states Providers who transition their patient to another setting of careor provider of care or refers their patient to another provider of care shouldprovide summary care record for each transition of care or referral. [employer] Allergies No known active allergies Medications Medication [...] mouth two times a day. 11/03/2023 Active omeprazole (PRILOSEC) 20 MG capsule Take 1 Capsule (20 mg) by mouth daily. Take 1 hour before a meal. Active amoxicillin (AMOXIL) 500 MG capsuleIndications:S tatus post total knee replacement, right Take 4 capsules (2,000mg) 1 hour before Dental Procedure. 8 Capsule 1 12/10/2023 Active warfarin 2 MG tablet Managed by outside facility/provider 04/07/2024 Active Active Problems Problem Noted Date Diagnosed Date Arthritis of left knee 12/31/2023 Status post total knee replacement, right 2023 Overview (11/21/2023): Dr. Chino 11/20/2023 Hypoxia 11/20/2023 YARELY (obstructive sleep apnea) 11/20/2023 Atrial fibrillation, transient 11/20/2023 Primary localized osteoarthritis of right knee 0 07/30/2023 History of pulmonary embolus (PE) 08/31/2019 Overview (11/20/2023): 2018 Obesity 08/07/2017 Encounters Date Type Department Care Team Description 06/26/[address] [address] Emperatriz Richter RN, CANE BURNER CALENDER FEEDER Surgery 06/08/2024 7:00 AM CDT Office Visit [facility] [address] [place] [address] Christiano Suh, OTR/L Trigger ring finger of left hand (Primary Dx); S/P trigger finger release; Aftercare following surgery of the musculoskeletal system 05/27/2024 8:00 AM CDT Procedure Visit [facility] [address] [place] [address] Pierre Ku MD 05/11/2024 2:00 PM CDT Ancillary Procedure [facility] [address] [place] [address] Pierre Ku MD Degenerative arthritis of thumb, right 05/11/2024 1:30 PM CDT Office Visit [facility] [address] [place] [address] Pierre Ku MD Arthritis of carpometacarpal (CMC) joint of right thumb (Primary Dx); Trigger finger, left ring finger 04/07/2024 Telephone [facility] [id number] [address] [place] [phone] Ed Del Toro MD Anticoagulation from Last 3 Months Social History Tobacco Use Types Packs/Day Years Used Date Smoking Tobacco: Never Smokeless Tobacco: Never Tobacco Cessation:Counseling Given: Not Answered [facility] Utilities Answer Date Recorded In the past [...] Comments Blood Pressure 136/72 11/21/2023 10:46 AM [facility] Pulse 61 11/21/2023 10:46 AM [facility] Temperature 36.9 ??C (98.4 ??F) 11/21/2023 10:[address] Respiratory Rate 16 11/21/2023 10:46 AM [facility] Oxygen Saturation 95% 11/21/2023 10:46 AM [facility] Inhaled Oxygen Concentration - - Weight 108.9 kg (240 lb) 11/20/2023 3:50 PM [facility] Height 172.7 cm (5' 8) 11/20/2023 5:33 PM [facility] Body Mass Index 36.49 11/20/2023 3:50 PM [facility] Plan of Treatment Scheduled Procedures Name Priority [...] - 2022-2 4 season) 2023 02/13/2021 Influenza (#1) 2024 PSA Screening Discussion 09/13/2024 09/13/2023 DTaP/Tdap/Td [...] PROE RIGHT KNEE No Emperatriz Richter, RN, CANE BURNER CALENDER FEEDER Left Knee Care Plan ET PROE LEFT KNEE No Emperatriz Richter, RN, CANE BURNER CALENDER FEEDER Medical Devices Implanted Type Area Sweater Designer Device Identifier Shelf Expiration Date Model / Serial / Lot Jose Bone [employer]omet R 1x40 - [id number] Implanted:Qty: 2 on 11/20/2023 by Costa Chino MD at [facility] Right: KNEE [employer] 04/03/2026 [id number] / 0 / [id number] Patella All Poly Ply 35mm - [id number] Implanted:Qty: 1 on 11/20/2023 by Costa Chino MD at [facility] Right: KNEE [employer] 09/14/2028 [id number] / 0 / [id number] Comp Fem Ps Ccr Ps Std Sz7 Rt - [id number] Implanted:Qty: 1 on 11/20/2023 by Costa Chino MD at [facility] Right: KNEE [employer] 07/06/2033 [id number] / 0 / [id number] Stem Tib 5deg Szg Rt - [id number] Implanted:Qty: 1 on 11/20/2023 by Costa Chino MD at [facility] Right: KNEE [employer] 08/23/2033 [id number] / 0 / [id number] Asf Ps Poly 11mm 69 Gh Rt - [id number] Implanted:Qty: 1 on 11/20/2023 by Costa Chino MD at [facility] Right: KNEE [employer] 01/23/2028 [id number] / 0 / [id number] Procedures Procedure Name Priority Date/Time Associated Diagnosis Comments XR FINGER RT THUMB 2+ VIEWS Routine 05/11/2024 2:02 PM CDT Degenerative arthritis of thumb, right from Last 3 Months Results * XR Finger Rt Thumb 2+ Views (05/11/2024 2:02 PM CDT) Anatomical Region Laterality Modality Upper Extremity, Hand Digital Ra diography Narrative 05/20/2024 12:12 PM CDT Imaging: Accession: [id number] These films were independently ordered and reviewed by me. ?? Indications: Pain Three views of the right thumb Findings: There are end-stage degenerative changes seen at the right thumb carpometacarpal joint. ??There is joint space narrowing, subchondral sclerosis, and peripheral osteophyte formation. ??The STT joint is spared. Pierre Ku MD ??05/20/2024, 12:10 PM Pierre Ku MD RAD GD from Last 3 Months Additional Health Concerns Active Problems Noted Date Diagnosed Date ET PROE RIGHT KNEE 07/30/2023 ET PROE LEFT KNEE 12/31/2023 Advance Directives * Full Code (Latest Code Status on File) Date Activated Date Inactivated Comments 11/20/2023 4:32 PM 11/21/2023 3:07 PM * Full Code Date Activated Date Inactivated Comments 11/20/2023 7:10 AM 11/20/2023 3:45 PM Care Teams Generation Manager Relationship Specialty Start Date End Date Ed Del Toro MD [address] [facility] [address] PCP - General Family Practice 07/25/22
--- OUTSIDE RECORDS SUMMARY | 2024-06-29 23:33 | XMS_ITS | Encounter Summary ---
Author Organization [facility] Address [address] [place] [address] Care Team Providers Care Signs Cleaner Name Role Phone Ed Del Toro MD Primary Care Provider Reason for Visit * Reason Comments Surgery Encounter Details Date Type Department Care Team (Late st Contact Info) Description 06/26/2024 Telephone [facility] [address] [place], [place] [phone] Emperatriz Richter RN, SODA FOUNTAIN MANAGER FACILITIES SPECIALIST [address] [place] [address] Surgery Social History Tobacco Use Types Packs/Day Years Used Date Smoking Tobacco: Never Smokeless Tobacco: Never [facility] Utilities Answer Date Recorded In the past 12 months has [facility] electric, gas, oil, or water company threatened [...] on file documented as of this encounter Nursing Notes * Yung Zhu - 06/26/2024 12:48 PM CDT Poolroom/Poolhall Manager called patient to get scheduled for surgery. Call Attempt #1: 06/24 Call Attempt #2: 06/26 Provided direct phone # for callback. documented in this encounter Plan of Treatment Scheduled Procedures Name Priority Associated Diagnoses Date/Ti me TOTAL KNEE JOINT REPLACEMENT Arthritis of left knee documented as of this encounter Goals Goal Patient Goal Type Associated Problems Recent Progress Patient-Stated? Author Right Knee Replacement Care Plan ET PROE RIGHT KNEE No Emperatriz Richter, RN, SODA FOUNTAIN MANAGER FACILITIES SPECIALIST Left Knee Care Plan ET PROE LEFT KNEE No Emperatriz Richter, RN, SODA FOUNTAIN MANAGER FACILITIES SPECIALIST documented as of this encounter Visit Diagnoses Not on filedocumented in this encounter Additional Health Concerns Active Problems Noted Date Diagnosed Date ET PROE RIGHT KNEE 07/30/2023 ET PROE LEFT KNEE 12/31/2023 documented as of this encounter Care Teams Signs Cleaner Relationship Specialty Start Date End Date Ed Del Toro MD [address] [place] [address] PCP - General Family Practice 07/25/22 documented as of this encounter
--- OUTSIDE RECORDS SUMMARY | 2024-06-29 23:33 | XMS_ITS | Encounter Summary ---
Author Organization [facility] Address [address], [place] [address] Care Team Providers Care Summer Analyst Name Role Phone Ed Del Toro MD Primary Care Provider Reason for Visit * Reason Comments Hand Problem * Therapies (Routine) - New Request Specialty Diagnoses / Procedures Referred By Contac t Referred To Contact Diagnoses Trigger finger, left ring finger Pierre Ku MD [address] [address] Referral ID Status Reason Start Date Expiration Date V isits Requested Visits Authorized [id number] New Request 05/27/2024 05/27/2025 1 1 Encounter Details Date Type Department Care Team (Late st Contact Info) Description 06/08/2024 7:00 AM CDT Office Visit [facility] [address] [place], [place] [phone] Christiano Suh, OTR/L [address] [place] [address] Trigger ring finger of left hand (Primary Dx); S/P trigger finger release; Aftercare following surgery of the musculoskeletal system Social History Tobacco Use Types Packs/Day Years Used Date Smoking Tobacco: Never Smokeless Tobacco: Never [facility] Utilities Answer Date Recorded In the past 12 months has [employer] electric, gas, oil, or water company threatened [...] money to buy more. Never true 11/20/19 Within the past 12 months, t he [...] as of this encounter Progress Notes * Christiano Suh, OTR/L - 06/08/2024 7:00 AM CDT Hand Occupational Therapy - Evaluation/Plan of Care Referring Provider: Pierre Ku Diagnosis: L RF Trigger Finger. Orders: Evaluate and treat per MD post operative protocol. Date of Onset: years Cause: insidious Date of Surgery: 05/27/24 Surgery: L RF Trigger Finger Release. Hand Dominance: Right PMH/Precautions: Refer to EMR for past medical history, medications, and drug allergies. Pt has a past medical history of Gastroesophageal reflux disease and Sleep apnea. Occupation/Job Duties: self-employed (semi-retired) Leisure/Sports: family/friends, golf. Functional Limitations: Gripping, pinching, carrying, lifting, work/leisure activities, general use/movement, golf, some work and home cares, and ADLs. Functional Goals: The patient will be able to manage self-care ADLs with minimal to no difficulty in 2 weeks. The patient will be able to resume all work and home cares with minimal to no difficulty in 6-8 weeks. SUBJECTIVE: Patient is 1 week 5 days post-operative. Pt reports his hand is doing well so far, with no major complaints. OBJECTIVE: Pain: Resting pain /10. Pain with activity /10. Description/frequency/location of pain: incisional. Edema: Mild swelling observed at the surgical site. Circumferential measurements in cm: Ring finger Right 06/08/2024 Left 06/08/2024 MCP Joints of Hand 21.5 21.1 P1 6.8 7.1 AROM: Mild limitation observed with finger ROM. Ring finger Right 06/08/2024 Left 06/08/2024 MP Extension/Flexion 0/65 0/60 PIP Extension/Flexion 0/94 0/90 DIP Extension/Flexion 0/62 0/60 Strength: Deferred secondary to post-operative pain/discomfort. Sensation: The patient reports their sensation is intact. Scar: Closed, no active drainage or signs of infection, scar is mostly flat and is mildly adhered. TODAY'S TREATMENT INTERVENTION: OT Evaluation CPT 38780 (15 minutes untimed) A Low Complexity Occupational Therapy Evaluation was completed. Occupational profile/history: brief history relating to presenting problem. Assessment: 1-3 performance deficits. Clinical decision making: limited number of treatment options. The patient was educated on the condition, planned therapy intervention, and expectations from treatment. Goals were a collaborative effort between the patient and therapist. Risks, benefits, and alternatives to treatment were explained. Patient or guardian in agreement with care plan. Therapeutic Exercise CPT 94105 (15 minutes) Exercise: Issued handout, instructed in, and performed finger AROM, differential tendon glides, and PROM for finger extension. Patient was also instructed to keep their wrist, forearm, elbow, and shoulder moving through their normal ROM. Issued handout and instructed in pediatrics hospitalist and pinch strengthening exercises, to begin three to four weeks post operatively. Incision, Scar, and Edema Management: Sutures were removed today. The patient was instructed in and issued written information on scar mobilization with recommendations to perform 3 times per day for 3-5 minutes as soon as incision is healed. The patient was issued a scar pad to use 8 hours out of 24 hours a day. Written instructions were issued regarding scar pad wear, care and precautions. Compression sleeve was also provided for ed isabel management and use with scar pad. Education: The patient was educated on the diagnosis, post-operative precautions and resuming activity as tolerated. Timed Code Treatment Minutes: 15 Total Treatment Minutes: 30 ASSESSMENT: Symptoms are consistent with status post trigger finger release. Functional limitations are due to:pain, edema, decreased strength, and post-operative restrictions. Rehab prognosis is good to achieve stated goals. Mood, orientation, and behavior were appropriate. No barriers to learning noted today. PLAN: Today???s treatment goals were achieved and the patient is able to progress independently towards their remaining short and long-term goals. The patient will follow up with the referring provider as directed. If no new orders in the next 30 days, discharge hand therapy. The patient was provided with the clinic number and instructed to call with any questions or concerns. Treatment Plan: AROM, AAROM, PROM, strengthening, edema control, scar management, modalities, manual therapy, patient education and training. Therapist Signature: Christiano Suh MS, OTR/L # [id number] Visit # 1 Payor: [facility] / Plan: [facility] [place] / Product Type: Commercial / Medicare/Medicaid Initial Certification Period: 06/08/2024 - 09/06/24 Medicare Unit Trackin The language therapist is completed by the therapist and the referring clinician's electronic signature certifies medical necessity for the plan above. documented in this encounter Plan of Treatment [...] PROE RIGHT KNEE No Emperatriz Richter, RN, DIGITAL IMAGING TECHNICIAN FIRE SPRINKLER APPARATUS INSPECTOR Left Knee Care Plan ET PROE LEFT KNEE No Emperatriz Richter, RN, DIGITAL IMAGING TECHNICIAN FIRE SPRINKLER APPARATUS INSPECTOR documented as of this encounter Visit Diagnoses Diagnosis Trigger ring finger of left hand- Primary Trigger finger (acquired) S/P trigger finger release Aftercare following surgery of the musculoskeletal system Aftercare following surgery of the musculoskeletal system, NEC documented in this encounter Additional Health Concerns Active Problems Noted Date Diagnosed Date ET PROE RIGHT KNEE 07/30/2023 ET PROE LEFT KNEE 12/31/2023 documented as of this encounter Care Teams Summer Analyst Relationship Specialty Start Date End Date Ed Del Toro MD [address] [place] [address] PCP - General Family Practice 07/25/22 documented as of this encounter
--- OUTSIDE RECORDS SUMMARY | 2024-06-29 23:33 | XMS_ITS | Encounter Summary ---
Author Organization [facility] Address [address] [place] [address] Care Team Providers Care Blood Bank Attendant Name Role Phone Ed Del Toro MD Primary Care Provider Reason for Visit * Reason Comments Anticoagulation Encounter Details Date Type Department Care Team (Late st Contact Info) Description 04/07/2024 Telephone [facility] [id number] [address] [place] [id number] Ed Del Toro MD [address] [place] [phone] Anticoagulation Social History Tobacco Use Types Packs/Day Years Used Date Smoking Tobacco: Never Smokeless Tobacco: Never [facility] Utilities Answer Date Recorded In the past [address] [facility] [place] electric, gas, oil, or water company threatened [...] as of this encounter Nursing Notes * Stevan Winter, RN - 04/07/2024 5:32 PM CDT Chart reviewed. Patient remains on the anticoagulant, but care is managed by an outside clinician/health system: Change the anticoagulant to historical documented in this encounter Plan of Treatment Scheduled Procedures Name Priority Associated Diagnoses Date/Ti me TOTAL KNEE JOINT REPLACEMENT Arthritis of left knee documented as of this encounter Goals Goal Patient Goal Type Associated Problems Recent Progress Patient-Stated? Author Right Knee Replacement Care Plan ET PROE RIGHT KNEE No Emperatriz Richter, RN, SUPERINTENDENT RENTING MANAGING BONE DENSITY TECHNICIAN Left Knee Care Plan ET PROE LEFT KNEE No Emperatriz Richter, RN, SUPERINTENDENT RENTING MANAGING BONE DENSITY TECHNICIAN documented as of this encounter Visit Diagnoses Not on filedocumented in this encounter Additional Health Concerns Active Problems Noted Date Diagnosed Date ET PROE RIGHT KNEE 07/30/2023 ET PROE LEFT KNEE 12/31/2023 documented as of this encounter Care Teams Blood Bank Attendant Relationship Specialty Start Date End Date Ed Del Toro MD [address] [place] [address] PCP - General Family Practice 07/25/22 documented as of this encounter
--- OUTSIDE RECORDS SUMMARY | 2024-06-29 23:33 | XMS_ITS | Continuity of Care Document ---
Author Organization [facility] Address [address] [place] [address] Phone Care Team Providers Care Mental Health Aide Name Role Phone Christiano Guzman Unavailable Unavailable [...] Visit,Est, [facility], [address], [place], [place], [id number], [place] tel:[phone] [facility] Spinal stenosis, cervical regionOther spondylosis, lumbar region 9 Mike Alvarado. [facility], [address], [place], [place], [id number] , [place]. tel:[phone] Referring Provider: Christiano Mckeon, [facility] [address], [place], [address] . tel:[phone] Office/Outpat ient Visit,New, [facility], [address], [place], [id number], [place] tel:[phone] [facility] CervicalgiaLow back pain 8 Mike Alvarado. [facility], [address], [place], [place], [id number] , [place]. [phone] Referring Provider: Christiano Mckeon, [facility] [address], [place], [address] . tel:[phone] Family History Family Member Type Diagnosis Age At Onset No Information Payers Payer name Insurance type Covered democrat ID Valentine greer(s) [facility] [id number] [facility] [id number] Social History Type Description Quantity Date Captured [...]
--- OUTSIDE RECORDS SUMMARY | 2024-06-29 23:33 | XMS_ITS | Encounter Summary ---
Author Organization [facility] Address [address] [place] [address] Care Team Providers Care Hazard Mitigation Officer Name Role Phone Ed Del Toro MD Primary Care Provider Reason for Referral * Procedure/Equipment (Routine) - Incomplete Specialty Diagnoses / Procedures Referred By Contac t Referred To Contact Diagnoses Degenerative arthritis of thumb, right Procedures XR Finger Rt Thumb 2+ Views Pierre Ku MD [address] [place] [address] [place] [address] Referral ID Status Reason Start Date Expiration Date V isits Requested Visits Authorized [id number] Incomplete 05/11/2024 08/10/2025 1 1 Reason for Visit * Reason Comments Follow-up Right thumb CMC arth ritisLeft ring trigger finger Encounter Details Date Type Department Care Team (Late st Contact Info) Description 05/11/2024 1:30 PM CDT Office Visit [facility] [address] [facility] [place] [address] Pierre Ku MD [address] [facility] [place] [id number] Arthritis of carpometacarpal (CMC) joint of right thumb (Primary Dx); Trigger finger, left ring finger Social History Tobacco Use Types Packs/Day Years Used Date Smoking Tobacco: Never Smokeless Tobacco: Never [facility] Utilities Answer Date Recorded In the past 12 months has th e electric, gas, oil, or water [employer] threatened to shut off services in your [...] this encounter Patient Instructions * Patient Instructions* No Hoang, OA - 05/11/2024 1:30 PM CDT Thank you for Choosing [facility] for your health care visit today. Dr. Pierre Ku MD Hand & Upper Extremity Surgeon Medication Requests: Prescriptions are not filled on weekends or on weekdays after 3:00 PM. For all medication refills: Request a refill using 66. comt or contact your pharmacy. What is Know Your Cost? Know Your Cost is a service for patients and patient/members to call and receive personalized cost information and estimates across our care group. The phone number is (COST) Saturday - Saturday 8 AM to 5 PM Advanced Imaging Scheduling: To schedule an MRI, Ultrasound, or Image guided injection at [facility] please call [phone]. To schedule an MRI or CT at a [facility] please call [phone]. [facility] [address] [place] [address] (Phone) Email: [email or web address] Release of Information: Radiology/Imaging [address] [place] [address] (Phone) Health Information Management [address] [place] [address] (Phone) [place] documented in this encounter Progress Notes * Pierre Ku MD - 05/11/2024 1:30 PM CDT PATIENT: Beau Melgar : 1960 [facility] Established Patient New Problem Hand Dominance: Right Occupation: Self-employed remodeled contractor Last Visit: 08/01/2023 Impression: 1. Recurrent left ring trigger finger status post 2 previous corticosteroid injections 2. Right thumb carpometacarpal arthritis Plan: I have reviewed this with the patient. We have decided to proceed with a left ring trigger finger release given that he is failed 2 previous corticosteroid injections. I have reviewed the indicationsfor surgery. I have reviewed the risks, benefits, and alternatives. I have reviewed the anticipatedoperative and postoperative course. Questions were solicited and all were answered. No guarantees were made. He endorses the plan and would like to proceed. History of Present Illness: The patient is primarily here because of his left ring trigger finger. He is still getting good relief from the corticosteroid injection into his right thumb carpometacarpal joint which was done on 08/01/2023. He indicates that his triggering in the left ring finger has recurred after a 2nd corticosteroid injection. Physical Exam: There is overt triggering of the left ring finger. He is able to make a fist and has full extension. There is tenderness and crepitus with palpation overlying the A1 lucia of the left ring finger. Diagnostic Studies: None Diagnosis and Associated Orders ICD-10-CM 1. Arthritis of carpometacarpal (CMC) joint of right thumb M18.11 XR Finger Rt Thumb 2+ Views CANCELED: Inject/Asp Small Joint Or Bursa,Eg Finger/T CANCELED: Methylprednisolone 40 Mg Inj (J1010) 2. Trigger finger, left ring finger M65.342 Procedure: None Pierre Ku MD 2:27 PM 05/18/2024 documented in this encounter Plan of Treatment Scheduled Procedures Name Priority Associated Diagnoses Date/Ti me TOTAL KNEE JOINT REPLACEMENT Arthritis of left knee documented as of this encounter Goals Goal Patient Goal Type Associated Problems Recent Progress Patient-Stated? Author Right Knee Replacement Care Plan ET PROE RIGHT KNEE No Emperatriz Richter, RN, PLANT PRODUCTION WORKER [employer]PP[employer] BURNISHER Left Knee Care Plan ET PROE LEFT KNEE No Emperatriz Richter, RN, PLANT PRODUCTION WORKER UPPERS EDGE BURNISHER documented as of this encounter Results * XR Finger Rt Thumb 2+ Views (05/11/2024 2:02 PM CDT) Anatomical Region Laterality Modality Upper Extremity, Hand Digital Ra diography Narrative 05/20/2024 12:12 PM CDT Imaging: Accession: [id number] These films were independently ordered and reviewed [...] this encounter Visit Diagnoses Diagnosis Arthritis of carpometacarpal (CMC) joint of right thumb- Primary Trigger finger, left ring finger Degenerative arthritis of thumb, right documented in this encounter Additional Health Concerns Active Problems Noted Date Diagnosed Date ET PROE RIGHT KNEE 07/30/2023 ET PROE LEFT KNEE 12/31/2023 documented as of this encounter Care Teams Hazard Mitigation Officer Relationship Specialty Start Date End Date Ed Del Toro MD [address] [place] [address] PCP - General Family Practice 07/25/22 documented as of this encounter
[2024-06-29] MEDS: PROPOFOL 10 MG/ML INJ 200 MG IVP (23:48)
[2024-06-30] VITALS: RESP 20
[2024-06-30 00:02] VITALS: BP 111/75; RESP 20
[2024-06-30 00:06] VITALS: BP 104/75; RESP 20
[2024-06-30 00:07] VITALS: RESP 16
[2024-06-30 00:10] VITALS: RESP 20
[2024-06-30 00:52] VITALS: BP 117/71; PULSE 68; RESP 16; TEMP 36.7
== END 2024-06-30 00:53 | disposition home or self-care (01) ==
PROVIDERS: Emergency Provider Emergency Medicine Emergency Medical Services; PCP Family Medicine
DX: I48.20 Chronic atrial fibrillation, unspecified (principal)
CPT/HCPCS: 92960; 36415; 83735; 84484; 85610; 93005; 99284; 99285; J0153; J2704; J7030

== ENCOUNTER 2024-12-31 08:17 | Outpatient (CLI) | payer BC, SELFPAY | END 2024-12-31 08:18 | disposition home or self-care (01) | LOC: RAD 08:17 | PROVIDERS: PCP Family Medicine; Visit Provider Surgery | DX: K57.92 Diverticulitis of intestine, part unspecified, without perforation or abscess without bleeding (principal) | CPT/HCPCS: 74270; Q9963 ==

== ENCOUNTER 2025-01-04 07:49 | Inpatient (IN) | payer BC, MEDICARE, SELFPAY ==
[2025-01-04] VITALS (17 sets, daily range): BP systolic 102–131; BP diastolic 58–72; PULSE 49–87; RESP 12–16; TEMP 36.4–37; O2SAT 88–96; BMI 34.5
[2025-01-04] MEDS: LACTATED RINGERS 1000 ML 1,000 ML 100 ML IV ×4 (08:50→22:58)
[2025-01-04] MEDS: SODIUM CHLORIDE 0.9 % (FLUSH) 10 ML SYRINGE IVF (08:52)
[2025-01-04] MEDS: ERTAPENEM 1 GM inj IVPB (09:41)
[2025-01-04] MEDS: BUPIVACAINE 0.25% 30 ML INJECTION (10:20)
--- NOTE | 2025-01-04 11:11 | W.PM.NB ---
Nerve Block Nerve Block Time Seen by Provider: 09:43 Date Seen: 01/04/25 Type of block requested by surgeon for post-operative analgesia: TAP Side: bilateral Time out performed: Yes Verification of patient name: Yes Verification of date of : Yes Site marking: site marked Name of person performing procedure: Jose Luis Continuous monitoring Was continuous monitoring of O2 sat, B/P, rn cardiac, recorded every 15 minutes?: Yes Procedure Checklist: sterile prep, needles and gloves Ultrasound guided. Images saved: Yes Medications given in 5ml increments after negative aspiration: Marcaine %: 0.25 mL: 30 Needle gauge: 20 and Exparel mL: 10 Patient tolerated procedure well: Yes Additional comments: Needle noted between internal oblique and transversus abdominus. Local spread visualized Block Charges Block Charge (with Pro Fee): TAP Bilateral Use of Ultrasound Machine for Block: Yes- US Guidance/pain block
--- NOTE | 2025-01-04 11:25 | SUR.OPER ---
RN UPDATED FAMILY VIA PHONE CALL
--- NOTE | 2025-01-04 12:15 | W.ANESCHARGE ---
Anesthesia Charges Start Date/Time Anesthesia Start Date: 01/04/25 Anesthesia Start Time: 09:34 Stop Date/Time Anesthesia Stop Date: 01/04/25 Anesthesia Stop Time: 15:52 Coding CPT Codes CPT Codes: ANESTH SURG LOWER ABDOMEN - 48099 ([id number]) P2 - PATIENT W/MILD SYST DISEASE, QK - REPORTS DEVELOPER 2-4 CNCRNT ANES PROC, QX - PERSONAL SHOPPER SVC W/ MD MED DIRECTION
--- NOTE | 2025-01-04 14:27 | SUR.OPER ---
FAMILY UPDATED AT 2390
--- NOTE | 2025-01-04 14:53 | SUR.OPER ---
FAMILY UPDATED AT THIS TIME
--- NOTE | 2025-01-04 15:41 | PM.GSPRC ---
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 Laparoscopic-assisted sigmoidectomy 2. Complete mobilization of splenic flexure 3. Repair bladder serosal tear 4. Rigid proctoscopy Indications: The patient is a 64-year-old male who presented to clinic with left lower quadrant and suprapubic abdominal pain. This have been going on for several months. Workup revealed a pericolonic diverticulum overlying the bladder with adjacent bowel and bladder thickening. He had had a colonoscopy 1 year prior. Given the patient's ongoing symptoms, it was recommended he undergo sigmoidectomy. Please see Dr. Gr's documentation for preoperative decision making. Procedure Description: I arrived to the operating room with the patient intubated and prepped and draped. Dr. Gr had completed the ureteral stent placement and had begun laparoscopic port placement. Please see her report for details. We first examined the pelvis. The sigmoid colon was densely adherent to the anterior pelvis and the left lateral pelvic side wall. Dr. Gr began by mobilizing the small bowel out of the pelvis. This was noted to be adherent to the inflammatory mass. Using a combination of sharp dissection with Metzenbaum scissors and gentle blunt dissection, she was able to tease this away from the inflammation in the pelvis. The small bowel was examined. No serosal injury was noted after adhesiolysis. We then began mobilizing the sigmoid colon from the lateral pelvis. I provided gentle medial retraction while Dr. Gr carefully took down adhesions with a combination of sharp dissection with the Metzenbaum scissors and the Harmonic scalpel. She then continued the dissection onward, dividing the white line of Toldt and the small wispy fibers between the colonic mesentery and the retroperitoneum and Gerota's fascia. I again provided retraction of the colon laterally during this dissection. We then turned our attention to the transverse colon. I was able to grasp the omentum and retract this cephalad while Dr. Gr divided the gastrocolic ligament using the Harmonic scalpel. She was able to divide the wispy fibers between the colon and the retroperitoneum, allowing the colon to be reflected completely inferiorly, completely mobilizing the splenic flexure. Once this was done, we turned our attention to dividing the mesenteric vessels. Now that the colon was mobilized laterally, I was able to retract this anteriorly, inferior mesenteric pedicle was visualized. Dr. Gr then carefully dissected out the sigmoidal branches and clipped this with 1 clip proximal and clipped 2 clips distal. This was divided then with the Metzenbaum scissors. I then continue to provide retraction of the colon anteriorly while Dr. Gr used LigaSure to divide the mesentery heading down into the pelvis. The ureteral stent was visualized during this dissection and care was taken to avoid the ureter. Once we reached the inflammatory mass, Dr. Gr did attempt to dissect the colon free from the anterior pelvis with a combination of sharp dissection and the Harmonic scalpel, however there was not a clear plane. Given this, we elected to complete the pelvic dissection in an open fashion. A low midline incision was then created and Dr. Gr dissected down to subcutaneous fat and incised the fascia. The peritoneum was then incised. An Rm wound protector was then placed in the wound. I grasped the colon and was able to pull this through the incision. The inflammatory mass was palpated. This was densely adherent to the anterior peritoneum in the area of the bladder. It was very difficult to identify a plane between the inflamed mass on the anterior colon and anterior peritoneum. The peritoneum over the top was scored with cautery. The soft, normal fat overlying the bladder was identified. Dr. Gr attempted to dissect through the inflammatory mass using a combination of cautery and dissection with a right angle, however a clear plane was very difficult to identify. She then used a Metzenbaum scissors to carefully dissect between the mass and the bladder wall. I continued to provide retraction of the colon cephalad and bladder wall caudad to assist. The colon was entered during this dissection. This was found to be the diverticulum which connected to the remaining colon through a small opening. The diverticulum was noted to be very large. It appeared as though the entire anterior wall was densely adherent to the bladder/anterior abdominal wall. To further facilitate visualization of the colon, a blue load KARIE stapler was then used to divide the colon proximally. Healthy area of bowel was chosen by Dr. Gr. A mesenteric window was created. The small amount of remaining mesentery was able to be divided with cautery. She then fired the stapler. This was dropped down into the abdomen. Now we were able to examine the colon posteriorly and divide the mesocolon to the superior rectum using LigaSure. I reflected the colon anteriorly and dissected out the tissue using a right angle while Dr. Gr divided this using a Harmonic scalpel. Ties were used on larger vessels. We reached a healthy area of sigmoid just below the adherent and inflamed diverticulum. Now we were able to visualize that only the diverticulum was attached to the bladder/anterior peritoneum. However again, it was difficult to visualize a clear plane between the structures. Since the diverticulum had been entered, Dr. Gr was then able to use this to guide her dissection and she carefully, using a combination of cautery and Metzenbaum scissors was able to dissect this free from the bladder, carefully dissecting through the rind, avoiding leaving sigmoid mucosa behind and also avoiding injury to the bladder. Once this was free, the bladder was examined. There was a large inflammatory rind noted. There was no obvious injury noted, however using 3-0 PDS, Dr. Gr did over-sew several areas of this thick rind where it appeared thinned. We then had nursing inflate bladder with sterile saline using Stephen catheter. The bladder was distended and there was no leak noted, however there did appear to be thinning of the serosa on the right superior dome of the bladder. The bladder was deflated and Dr. Gr then oversewed this again with 3-0 PDS suture, imbricating the edges. Dr. Gr then reapproximated the anterior peritoneum over the bladder with a running stitch. A healthy appearing area on the distal aspect of the superior rectum was identified and Dr. Gr divided this with a contour stapler. She then oversewed a small area of bleeding on the mesenteric aspect of the staple line. Once hemostasis was achieved, the specimen was passed off to pathology. Once this was done, we turned our attention to creation of the anastomosis. The proximal aspect of the colon was then pulled into view. It did reach the pelvis without tension. Small amount of as a tear it fat was cleared and Dr. Gr then divided the staple line from the end of the colon. I then provided exposure while she created a pursestring at the end of the colon using 2-0 Prolene suture. Through this a 28 mm anvil was placed. Dr. Gr then snugged the pursestring around the anvil. I then used cautery to help clear the fat off of the colon while Dr. Gr carefully dissected this away with a mosquito. Dr. Gr then sewed a 2nd pursestring around the bowel using 3-0 Vicryl. She was able to son this of around the anvil. I then scrubbed out and did a digital rectal exam. The patient had a pendulous hemorrhoid or skin tag noted in the right lateral position. No masses were noted on digital rectal exam. I then passed 2 dilators, sequentially and they passed easily to the rectal stump. Once this was done, the EEA stapler was then passed. Once it was positioned appropriately, the trocar was deployed. Dr. Gr then attached the anvil to the trocar. I then closed the stapler. Once the tissue was allowed to rest, I then fired the stapler and waited 15 seconds prior to opening the stapler. The stapler was then opened according to manufacture instructions and removed. There were 2 full-thickness intact anastomotic rings noted. These were sent with the specimen. I then performed a rigid proctoscopy. The anastomosis was not seen, however was at least higher than 20 cm. No blood was noted in the rectum. A leak test was then performed which was negative. I then scrubbed back into the case. Dr. Gr examined the small bowel which had been adherent to the pelvis and again determined no serosal injury was noted. The abdomen was then irrigated with copious saline. Once this was done done, the peritoneum was closed with a running [address] Gr. We then each closed the fascia with running looped 0 Maxon suture. The abdomen was then insufflated once again. The anastomosed this is appeared to lay nicely in the pelvis. Dr. Gr then closed the 12 mm right lower quadrant port site with Lee-Rufus device. Once this was done, the abdomen was desufflated. I then closed the incisions with 4-0 Monocryl suture at the port sites and clarisa at the lower midline incision. Sterile dressings were applied. I then removed the patient's left ureteral stent. There was some blood noted in the stent however the stent was removed intact. Instrument sponge needle counts were correct at the end of the case. ? The patient was then woken and transported to the recovery area in stable condition. ? The patient tolerated the procedure well. Findings: 1. Thickened and firm sigmoid colon with large diverticulum with chronic inflammation, densely adherent to the anterior abdominal wall and bladder. 2. Negative leak test and intact anastomotic rings after primary anastomosis. Anesthesia: GETA Surgeon: Rosanna Gr MD Co-Surgeon: Sandi Cuevas MD Estimated blood loss (mL): 25 Specimen: Other Additional Specimen Information: Sigmoid colon and anastomotic rings, diverticulum with perforation distal Condition: stable Disposition: PACU
--- NOTE | 2025-01-04 15:55 | W.ANESCHARGE ---
Anesthesia Charges Start Date/Time Anesthesia Start Date: 01/04/25 Anesthesia Start Time: 09:34 Stop Date/Time Anesthesia Stop Date: 01/04/25 Anesthesia Stop Time: 15:52 Coding CPT Codes CPT Codes: ANESTH SURG LOWER ABDOMEN - 29101 ([id number]) P2 - PATIENT W/MILD SYST DISEASE, QK - LENS CEMENTER 2-4 CNCRNT ANES PROC, QX - MEDIA MARKETING SPECIALIST SVC W/ MD MED DIRECTION
--- NOTE | 2025-01-04 16:34 | SUR.PHASEI ---
bonilla catheter emptied at 1623; 800cc urine output
[2025-01-04] MEDS: HYDROmorphone 0.5 mg/0.5 ml inj IVP ×2 (17:25→20:57)
--- NOTE | 2025-01-04 23:29 | PC.NURSE ---
Patient denies nausea. Taking dilaudid for pain PRN. Able to get up in the room to ambulate, patient tolerated well. Midline incision is clean dry and intact along with lap sites that are dry and intact. Bowel sounds hypoactive.
[2025-01-05] VITALS (8 sets, daily range): BP systolic 110–120; BP diastolic 65–77; PULSE 54–66; RESP 16–18; TEMP 36.5–37.1; O2SAT 93–98
[2025-01-05] MEDS: HYDROmorphone 0.5 mg/0.5 ml inj IVP ×11 (04:23→21:56)
[2025-01-05] MEDS: LACTATED RINGERS 1000 ML 1,000 ML 100 ML IV ×2 (06:30→15:58)
--- NOTE | 2025-01-05 06:47 | PC.NURSE ---
shift note: BS hypo x4. drsg c/d/i and steri strips covering lap sites intact. Abd distended & tender. No flatus. IV pain meds x2 for pain 8/10 with relief. bonilla output 650cc dk babar urine.
--- NOTE | 2025-01-05 07:13 | P.GSOP_ITS ---
Operative Note Date of procedure: 01/04/25 Pre-op diagnosis: 1. Chronic sigmoid diverticulitis with large diverticulum adjacent to the bladder. Post-op diagnosis: Same Type of Procedure: 1. Cystoscopy with lighted left ureteral stent placement. 2. Laparoscopic assisted sigmoidectomy with primary anastomosis. 3. Laparoscopic mobilization of the splenic flexure. 4. Over-sewing of the bladder serosal tear. 5. Rigid proctoscopy. Indications: 64-year-old male was seen in clinic for evaluation of left lower quadrant suprapubic abdominal pain. The pain started in September and was described as constant with episodes of severe pain that subsided to the background of milder pain. Patient complained of difficulty completing his bowel movements. He was not seen by a provider until recently. He was tolerating regular diet and passing gas. Patient had similar episodes of pain previously and those episodes would last for up to a week and then resolved spontaneously. Upon his workup an abdominal CT was obtained that showed a pericolonic diverticulum overlying the bladder. Diverticulum was measuring 7 x 6 cm with asymmetric wall thickening and adjacent bowel wall thickening and bladder thickening. The differential included chronic diverticulitis versus neoplasm. Patient's last colonoscopy was in September of 2023. A 10 year follow-up was recommended. On clinical exam patient had tenderness to palpation in the left lower quadrant and right lower quadrant with no peritoneal signs. Given patient's clinical history, and his fairly recent colonoscopy, a Gastrografin enema was recommended to evaluate the large diverticulum and possible colovesical fistula. Patient had no clinical symptoms of colovesical fistula. Gastrografin enema showed no fistula present and there was a segment of sigmoid colon adjacent to diverticulum that appeared to be inflamed. Given patient's ongoing symptoms and his CT findings, laparos copic sigmoidectomy was recommended. I also recommended placement of a ureteral stents to minimize risk of injury to the left ureter. The procedure was discussed in detail. The risks associated procedure including infection, bleeding, ureteral injury, injury to intra-abdominal organs, injury to the bladder, possible need for prolonged Stephen catheter were all discussed with the patient, he agreed to proceed. Procedure Description: After discussing the risks and benefits of the procedure, the patient signed informed consent.? The operative site was marked and the patient was brought to the operating room and placed on the operating table in supine position.? Patient was intubated by anesthesia. Patient was then placed in the modified lithotomy position with all pressure points padded. The surgical site was then prepped and draped in the usual sterile fashion.? A time-out was then performed. We first started with cystoscopy. The 5 mm 30 degree camera was advanced into the bladder. The bladder was inflated with sterile water. The trigone was identified, but we were having a hard time finding ureteral openings. After exploring in the usual locations, 10 mg of fluorescein was injected intravenously to identify the ureters better. I was finally able to identify the left ureteral opening. The 0.035 in Glidewire was placed into the ureteral opening and a left-sided 6 F stent was advanced through the camera into the bladder and over the guidewire into the left ureter. The wire was then removed and the stent was left in place at 25 cm. We then continued surgeon for the right ureteral opening but after sometime were not successful. The bladder water was clotted with fluorescein. We elected to abort placement of the right- sided wire. The camera with the introducer was then withdrawn from the bladder leaving the left stent in place. The Stephen catheter was then placed into the bladder and the balloon was inflated. The left ureteral stent was then secured in place to the Stephen catheter with a silk tie. The optical component for lighted stent was placed into left stent and connected to the [place] box. The abdomen was then re- prepped and redraped under sterile conditions. The abdomen was entered in the left upper quadrant using a Visiport technique. The abdominal wall layers were visualized and the abdomen was entered. The abdomen was insufflated with carbon dioxide. No intra-abdominal injury was noted in the left upper quadrant. We then placed additional laparoscopic ports under direct visualization. A 5 mm port was placed above the umbilicus, slightly to the right and inferior to the umbilicus, and 12 mm port was placed in the right lower quadrant. The patient was placed in the Trendelenburg position with the left side up. The sigmoid colon was identified. Sigmoid colon was tightly adherent to the anterior peritoneum or the bladder was expected to be. These adhesions were firm. Some of the adhesions were lysed with Metzenbaum scissors but it was difficult to identify the plane between the colon and the anterior abdominal wall. The small bowel was adherent to this thickened sigmoid colon and those adhesions were taken down with Metzenbaum scissors. No serosal tears were seen after these adhesions were lysed. The lighted stent on the left side of the abdominal wall was visualized, and this was away from our dissection. We then turned our attention to sigmoid colon adhesions to the lateral abdominal wall. Those were lysed with Harmonic scalpel. We continued this dissection along the lateral abdominal wall towards the splenic flexure. The sigmoid and descending colon were rotated medially and tissues posterior to the sigmoid colon were then divided with Harmonic scalpel. This was extended around the splenic flexure. The gastric colic ligament of the mid transverse colon was then incised with Harmonic scalpel as well. By retracting the omentum towards the abdominal wall, we were able to identify avascular plane parallel to the transverse colon. This was divided and this dissection was carried towards the splenic flexure. The splenic flexure was then rotated medially and posterior attachments were also divided with Harmonic scalpel. Pancreas was visualized and care was taken not to injure the pancreas. When the splenic flexure was mobile, we turned our attention to the medial sigmoid colon mesentery. The sigmoid vascular pedicle was then identified and peritoneum overlying the vascular pedicle was incised with Harmonic scalpel. The sigmoid artery and vein was circumferentially dissected with Harmonic scalpel. The artery and vein were then controlled with vascular clips on the specimen side and on the patient's side and divided with scissors in between the clips. No bleeding was seen. We then continued dividing the sigmoid mesentery with Harmonic scalpel. This dissection was carried towards the pelvis. Since were still having a difficult time identifying the plane between the thickened sigmoid colon and enlarged diverticulum and the bladder, we elected to convert this procedure to open. A lower midline incision was then made vertically with a scalpel. Subcutaneous fat was divided with cautery down to the anterior fascia. The anterior fascia was then incised with cautery as well. Abdomen was entered and the peritoneal and fascial incision was then extended superiorly and inferiorly with cautery. A medium-sized Rm was placed into the incision. The thickened sigmoid colon was then eviscerated an it was still extremely difficult to tell if the sigmoid diverticulum was attached just abdominal wall or the bladder. The peritoneum surrounding this inflammatory mass was incised circumferentially with cautery. The soft normal fat surrounding the bladder was identified. We proceeded with lysis of adhesions between the sigmoid colon large diverticulum and abdominal wall. This was done with Metzenbaum scissors. Colonic diverticulum was then entered during this dissection. We then palpated from the inside lumen of the colon the extent of the diverticular wall and this helped us guide dissection between the diverticulum and the abdominal wall. The dissection of rectosigmoid mesentery and bilateral peritoneum was difficult and we elected to divide the colon proximally to allow better visualization posterior to the sigmoid colon. The descending colon was then divided with a blue load of KARIE stapler at the transition of descending and sigmoid colon. No bleeding was seen from the staple line. The proximal end was then tucked into the abdomen and then we proceeded with further dissection of posterior mesentery to the sigmoid colon. This was done with Harmonic scalpel. Hemostasis achieved with Harmonic scalpel and Vicryl ties. Superior rectal vascular pedicle was identified, clamped with right angle clamps and divided between the clamps. The vasculature was then controlled with Vicryl sutures. We continued out dissection of peritoneum on the right and left with Harmonic scalpel. The anterior abdominal wall and diverticulum were still fused and we divided this connection with Metzenbaum scissors. We stayed close to the sigmoid diverticulum to avoid injury to the bladder. This tissue was thickened with diverticular wall being at least 1 cm thick. This was suggestive of diverticular disease and not malignancy. The colonic mucosa and serosa was shaved off of what was thought to be the bladder. During this dissection peritoneum surrounding the area where the bladder was expected was incised to be able to identify the plane between the bladder and diverticulum easier. Once the sigmoid colon diverticulum was off the anterior abdominal wall, this was examined. No clear injury to the bladder was identified. The thickened inflammatory tissue was oversewn with 3-0 PDS suture with a running stitch. The bladder was then insufflated with sterile water by OR banquet stewardess through the Stephen catheter and the bladder distended well. Right laterally we noted a serosal tear of the bladder. This was then oversewn with 3-0 PDS suture after the bladder was deflated. The dissection of sigmoid colon was then continued towards the superior rectum with Harmonic scalpel. When we were distal to the area inflammation, the superior rectum was then stapled with a contour stapler. The specimen was passed off the field and sent to pathology. The rectal stump was examined and hemostasis was achieved with 3-0 silk sutures. We then proceeded with creating end-to-end anastomosis. The descending colon stapled end was eviscerated and examined. The colon was soft to palpation with no inflammation. The staple line was excised with cautery. The open end of the descending colon was grasped with Lillie clamps. The lumen was widely patent. A pursestring suture was then placed with 2-0 Prolene suture. An anvil of 28 EEA stapler was then inserted into the lumen and the s uture was tied around the anvil. A second pursestring suture was then placed using 3-0 Vicryl. At this point Dr. Cuevas proceeded with proctoscopy and I remained sterile. Anal sizers were sequentially placed through the anus into the rectal stump. The anal sizers fit into the rectal stump very easily. The stapler was then inserted through the anus, and the pin was deployed. The stapler was then fired and removed according to trouble dispatcher's recommendations. The stapler was then removed and the donuts were examined. Both donuts were intact. No tension was seen at anastomosis. The proctoscope was inserted into the rectum. No bleeding was seen in the lumen. With compression of the proximal colon, a leak test was performed. No leak was identified from our staple line. The proctoscope was then removed. Dr. Cuevas scrubbed back into the sterile part of the case. All dirty towels were removed. The gloves were changed by the surgeon and assistants. The abdomen was irrigated with warm normal saline. Small bowel was examined and the mobilized area of the small intestine was identified in the distal jejunum. There was possibly a serosal tear at the small-bowel mesenteric border. This was oversewn with a single 3-0 silk suture. The peritoneum of lower midline incision was then closed with 2 running 0-0 Vicryl sutures. The fascia was closed with 2 running 0-0 Maxon sutures. Moist gauze was placed into the lower abdominal incision. The abdomen was then insufflated. The colon appeared to lay laterally with no undue tension. No bleeding was identified. The right lower quadrant 12 mm port fascia was closed with 0-0 Vicryl suture using Lee-Rufus needle. All laparoscopic ports were removed under direct visualization. The skin of all incisions was closed with 4-0 Monocryl stitch. Steri-Strips and sterile dressings were placed over the incisions. All counts were correct at the end of the case.. ? The patient was then woken and transported to the recovery area in stable condition. ? The patient tolerated the procedure well. Findings: Thickened firm to palpation sigmoid colon with enlarged diverticulum adjacent to the anterior abdominal wall and bladder. This enlarged diverticulum was entered during the dissection. Primary anastomosis was created with healthy colonic ends. Anesthesia: GETA Surgeon: Mychal Gr MD Estimated blood loss (mL): 25 Additional Specimen Information: 1. Sigmoid colon with diverticulum at the distal end, anastomotic rings. Condition: stable Disposition: PACU
[2025-01-05] MEDS: SODIUM CHLORIDE 0.9 % (FLUSH) 10 ML SYRINGE IVF (08:41)
--- NOTE | 2025-01-05 09:56 | PM.GSPN ---
Subjective Subjective Date Seen: 01/05/25 Interval history: Patient is doing well. He does complain of abdominal pain but that is controlled with pain medications. He denies passing gas. He did not ambulate. He had 650 mL of urine since midnight. The urine is not bloody. Patient denies nausea. Exam Narrative: Exam Narrative: Abdomen is soft, protuberant, tender to palpation in bilateral mid abdomen, laparoscopic incisions and midline incision are covered with dry dressings. Const: Vital Signs, click to edit/add: Vital Signs - 24 hr 01/04/25 15:49 01/04/25 15:55 01/04/25 16:00 Temperature 97.6 F Pulse Rate 87 81 80 Pulse Rate [Right Pulse Oximeter] Respiratory Rate 12 13 14 Blood Pressure 131/71 122/66 121/70 Blood Pressure [Le ft Arm] Pulse Oximetry 94 92 96 Oxygen Delivery Me thod Room Air Oxygen Flow Rate 01/04/25 16:05 01/04/25 16:10 01/04/25 16:15 Temperature 97.5 F L Pulse Rate 76 78 77 Pulse Rate [Right Pulse Oximeter] Respiratory Rate 12 14 13 Blood Pressure 124/71 102/72 122/66 Blood Pressure [Le ft Arm] Pulse Oximetry 94 93 92 Oxygen Delivery Me thod Oxygen Flow Rate 01/04/25 16:45 01/04/25 16:55 01/04/25 17:00 Temperature 97.5 F L 97.5 F L 97.6 F Pulse Rate 72 78 78 Pulse Rate [Right Pulse Oximeter] Respiratory Rate 16 16 16 Blood Pressure 112/58 L 117/69 111/59 L Blood Pressure [Le ft Arm] Pulse Oximetry 92 88 92 Oxygen Delivery Me thod Room Air Room Air Nasal Cannula Oxygen Flow Rate 2 01/04/25 17:15 01/04/25 17:30 01/04/25 18:00 Temperature 97.5 F L Pulse Rate 78 78 78 Pulse Rate [Right Pulse Oximeter] Respiratory Rate 16 16 16 Blood Pressure 116/63 104/64 110/61 Blood Pressure [Le ft Arm] Pulse Oximetry 92 92 92 Oxygen Delivery Me thod Nasal Cannula Nasal Cannula Nasal Cannula Oxygen Flow Rate 2 2 2 01/04/25 18:30 01/04/25 19:30 01/04/25 20:30 Temperature 97.8 F 97.6 F Pulse Rate 78 78 78 Pulse Rate [Right Pulse Oximeter] Respiratory Rate 16 16 16 Blood Pressure 104/64 115/61 117/60 Blood Pressure [Le ft Arm] Pulse Oximetry 92 95 93 Oxygen Delivery Me thod Nasal Cannula Nasal Cannula Room Air Oxygen Flow Rate 2 2 01/04/25 23:00 01/05/25 00:29 01/05/25 04:26 Temperature 97.7 F 98.4 F Pulse Rate Pulse Rate [Right Pulse Oximeter] 58 L 66 Respiratory Rate 16 16 18 Blood Pressure Blood Pressure [Le ft Arm] 110/70 117/77 Pulse Oximetry 94 94 98 Oxygen Delivery Me thod Room Air Room Air Room Air Oxygen Flow Rate 01/05/25 07:45 Temperature 98.8 F Pulse Rate Pulse Rate [Right Pulse Oximeter] 60 Respiratory Rate 18 Blood Pressure Blood Pressure [Le ft Arm] 115/66 Pulse Oximetry 94 Oxygen Delivery Me thod Room Air Oxygen Flow Rate Progress Note:A&P Assessment and plan (1) S/P laparoscopic-assisted sigmoidectomy: Status: Acute Plan 64-year-old male s/p laparoscopic assisted sigmoid colectomy POD 1. Patient is doing well. I discussed with the patient that we can advance him to clear liquid diet. We will obtain labs to look at his hemoglobin and electrolytes. If his hemoglobin is stable, will start him on therapeutic Lovenox due to history of PE. I discussed with the patient that his Stephen catheter was stay for 7-10 days and he will be discharged home with Stephen catheter.
[2025-01-05 10:12] LABS: Basophils Percent Auto 0.1 % (0.0-3.0); Eosinophils Percent Auto 0.1 % (0.0-7.0); Hematocrit 41.4 % (37.0-53.0); Hemoglobin* 13.1 gm/dL (13.5-17.5); Immature Granulocytes Pct Auto 1.4 %; Mean Corpuscular HGB Conc 32 gm/dL (32-36); Mean Corpuscular Hemoglobin 27 pg (26-34); Mean Corpuscular Volume 84 fL (80-100); Neutrophils Percent Auto 73.4 % (42.0-72.0); Platelet Count* 456 K/uL (140-440); RDW Coefficient of Variation % 16.1 % (11.5-15.5); Red Blood Count 4.92 m/uL (4.30-5.90); White Blood Count* 14.75 K/uL (4.50-11.00)
[2025-01-05] MEDS: ERTAPENEM 1 GM in 0.9 % SODIUM CHLORIDE Mini-bag 100 ML IVPB (10:13)
[2025-01-05 10:17] LABS: Slide Review Reflex No
[2025-01-05 10:27] LABS: Chloride* 100 mmol/L (96-114); Potassium* 4.1 mmol/L (3.6-5.1); Sodium* 136 mmol/L (135-149)
[2025-01-05 10:29] LABS: Blood Urea Nitrogen* 14 mg/dL (7-30); Creatinine* 0.8 mg/dL (0.5-1.5); Est. Creatinine Clearance* 67.94; Estimated Glomerular Filt Rate 98 ml/min
[2025-01-05 10:30] LABS: Anion Gap 9 mEq/L (7-15); Calcium* 8.7 mg/dL (8.4-10.6); Carbon Dioxide* 27 mmol/L (20-32); Glucose* 110 mg/dL (60-115)
[2025-01-05] MEDS: ENOXAPARIN 40 MG/0.4 ML INJ SUBCUT (14:01)
--- NOTE | 2025-01-05 14:09 | PC.NURSE ---
End of shift: Pt ambulated twice, 250 feet each time. Tolerated well. Stephen 400cc mildly concentrated urine. C/O pain to abd, slightly distended. Dressing and lap sites CDI. Tolerated sips of juice. Hypoactive BS but improving to upper quads at 1215.
[2025-01-05] MEDS: METOPROLOL TARTRATE 1 MG/ML inj 2.5 MG IVP (18:50)
--- NOTE | 2025-01-05 19:21 | PC.NURSE ---
End of shift [id number] - RN took over pt care at approximately 1500. Pt alert, oriented, cooperative. Not up from bed during shift, reporting pain in abdomen as /10. Medication given per MAR with pt reporting improved comfort. Stephen catheter noted to be patent and draining. Tolerating RA and clear fluid diet. Denied SOB, n/v. Family at bedside during shift. Pt appears to be resting comfortably at end of shift with call light within reach.
--- NOTE | 2025-01-05 23:18 | PC.NURSE ---
End of Shift: Patient pleasant and cooperative. Afebrile. Dressing to abdomen C/D/I. Stephen patent. Patient up walking in hallway with SBA. Rating pain up to 7/10 and PRN Dilaudid given x2.
[2025-01-06] VITALS (8 sets, daily range): BP systolic 106–137; BP diastolic 57–84; PULSE 56–67; RESP 16–18; TEMP 36.4–37.1; O2SAT 92–98
[2025-01-06] MEDS: METOPROLOL TARTRATE 1 MG/ML inj 2.5 MG IVP ×3 (01:04→11:40)
[2025-01-06] MEDS: HYDROmorphone 0.5 mg/0.5 ml inj IVP ×5 (01:04→21:45)
[2025-01-06] MEDS: LACTATED RINGERS 1000 ML 1,000 ML 100 ML IV (01:52)
--- NOTE | 2025-01-06 07:13 | PC.NURSE ---
Pt alert and oriented x3. Afebrile. Pt reports 5-7/10 pain in abdomen, pain managed with cold pack and PRN medications. Pt?s 3 lap sites and midline incision dressings are CDI. Pt?s catheter is patent and draining. Pt is up SBA with IV pole and tolerating NPO diet with sips and chips. Pt walked casanova x1, tolerated but reported increase in burning pain, pain decreased when back in bed. ?Pt attempted to sit up in chair but pt could not get comfortable and pain increased. Pt currently reporting he is comfortable sitting semi conway's in bed. Pt denies passing gas. ?
[2025-01-06] MEDS: ERTAPENEM 1 GM in 0.9 % SODIUM CHLORIDE Mini-bag 100 ML IVPB (09:53)
[2025-01-06 09:54] LABS: Basophils Absolute Auto 0.02 K/uL (0.00-0.30); Basophils Percent Auto 0.2 % (0.0-3.0); Eosinophils Absolute Auto 0.14 K/uL (0.00-0.50); Eosinophils Percent Auto 1.5 % (0.0-7.0); Hematocrit 37.6 % (37.0-53.0); Hemoglobin* 11.7 gm/dL (13.5-17.5); Immature Granulocytes Abs Auto 0.03 K/uL (0.00-0.30); Immature Granulocytes Pct Auto 0.3 %; Lymphocytes Percent Auto 16.9 % (20-44); Mean Corpuscular HGB Conc 31 gm/dL (32-36); Mean Corpuscular Hemoglobin 27 pg (26-34); Mean Corpuscular Volume 86 fL (80-100); Monocytes Percent Auto 12.7 % (0.0-11.0); Neutrophils Absolute Auto 6.45 K/uL (1.7-7.0); Neutrophils Percent Auto 68.4 % (42.0-72.0); Platelet Count* 334 K/uL (140-440); RDW Coefficient of Variation % 15.7 % (11.5-15.5); Red Blood Count 4.37 m/uL (4.30-5.90); White Blood Count* 9.43 K/uL (4.50-11.00)
[2025-01-06 09:56] LABS: Slide Review Reflex No
[2025-01-06] MEDS: ENOXAPARIN 40 MG/0.4 ML INJ SUBCUT (11:40)
--- NOTE | 2025-01-06 12:25 | PM.GSPN ---
Subjective Subjective Date Seen: 01/06/25 Interval history: Patient is doing well. He still has abdominal pain but that is controlled with pain medications. He tolerated some clears with no nausea or vomiting. He is not passing gas. He ambulated several times. He is urine output has been great and the urine is clear. Exam Narrative: Exam Narrative: Abdomen is soft, minimally distended and protuberant, were lower midline incision was uncovered and they were intact clarisa with no surrounding erythema. Const: Vital Signs, click to edit/add: Vital Signs - 24 hr 01/05/25 14:14 01/05/25 16:00 01/05/25 19:16 Temperature 98.5 F Pulse Rate [Right Pulse Oximeter] 58 L Respiratory Rate 18 18 Blood Pressure [Le ft Arm] 120/65 Pulse Oximetry 95 93 Oxygen Delivery Me thod Room Air Room Air Room Air 01/05/25 20:00 01/06/25 01:00 01/06/25 03:40 Temperature 98.6 F 98.4 F 98.7 F Pulse Rate [Right Pulse Oximeter] 65 63 59 L Respiratory Rate 18 16 16 Blood Pressure [Le ft Arm] 117/73 129/69 124/70 Pulse Oximetry 94 98 95 Oxygen Delivery Me thod Room Air Room Air Room Air 01/06/25 07:30 01/06/25 07:30 01/06/25 07:59 Temperature 98.1 F Pulse Rate [Right Pulse Oximeter] 60 60 Respiratory Rate 16 16 16 Blood Pressure [Le ft Arm] 114/57 L Pulse Oximetry 92 92 Oxygen Delivery Me thod Room Air Room Air 01/06/25 11:00 Temperature 98.4 F Pulse Rate [Right Pulse Oximeter] 67 Respiratory Rate 18 Blood Pressure [Le ft Arm] 137/84 Pulse Oximetry 93 Oxygen Delivery Me thod Room Air Progress Note:A&P Assessment and plan (1) S/P laparoscopic-assisted sigmoidectomy: Status: Acute Assessment and Plan: 64-year-old male s/p laparoscopic assisted sigmoid colectomy POD 2. I discussed with the patient that were waiting for return of bowel function. Patient will continue on clears for now. We will continue with ertapenem due to contamination intraoperatively. Patient's WBC went down to normal. Patient will continue having Stephen catheter in place for a total of 10 days postoperatively.
[2025-01-06] MEDS: HYDROCODONE-ACETAMIN 5-325 MG 1 TAB PO ×3 (12:29→19:45)
[2025-01-06] MEDS: LACTATED RINGERS 1000 ML 1,000 ML 75 ML IV (12:36)
--- NOTE | 2025-01-06 19:02 | PC.NURSE ---
Patient VSS and is SBA. Ambulating halls frequently. Rates pain from 7-10 when ambulating, managing with PO [place]. Denies N/V and SOB. Tolerating clear liquid diet. Denies passing flatus. Stephen remains intact. Patient is saline locked.
[2025-01-07] VITALS (7 sets, daily range): BP systolic 107–132; BP diastolic 62–75; PULSE 50–67; RESP 16–18; TEMP 36.4–36.7; O2SAT 93–97
[2025-01-07] MEDS: HYDROCODONE-ACETAMIN 5-325 MG 1 TAB PO ×3 (03:37→17:49)
--- NOTE | 2025-01-07 06:33 | PC.NURSE ---
End of shift report [id number]: Pleasant and cooperative with cares. Pain to abdomen well managed with current regimen. 3 laparoscopic sites and midline incision free from any signs of infection. Bowel sounds active x 4 quadrants. Patient unable to pass flatus this shift. Did ambulate x 2 [address]. Indwelling catheter patent, draining pale yellow urine. Tolerating clear liquid diet. Denies any nausea or vomiting.
[2025-01-07 07:14] LABS: Hemoglobin* 11.9 gm/dL (13.5-17.5)
--- NOTE | 2025-01-07 08:39 | P.GSPN_ITS ---
Subjective Subjective Date Seen: 01/07/25 Interval history: Patient is doing well. He tolerated clears yesterday with no nausea vomiting. He feels like he needs to pass gas but no gas came out. He ambulated several times. His urine is draining into Stephen catheter clear. His pain is controlled with pain medications. Exam Narrative: Exam Narrative: Abdomen is soft, protuberant, not really distended, tender to palpation in bilateral lower quadrants and near the lower midline incision. All incisions are without surrounding erythema. [place] are in place in the lower midline incision. Const: Vital Signs, click to edit/add: Vital Signs - 24 hr 01/06/25 11:00 01/06/25 15:00 01/06/25 15:00 Temperature 98.4 F Pulse Rate [Right Pulse Oximeter] 67 60 Respiratory Rate 18 16 Blood Pressure [Le ft Arm] 137/84 Pulse Oximetry 93 93 Oxygen Delivery Me thod Room Air Room Air 01/06/25 15:00 01/06/25 19:00 01/06/25 23:00 Temperature 97.5 F L 98.2 F Pulse Rate [Right Pulse Oximeter] 60 56 L 63 Respiratory Rate 16 18 16 Blood Pressure [Le ft Arm] 106/61 110/63 Pulse Oximetry 93 96 Oxygen Delivery Me thod Room Air Room Air 01/06/25 23:00 01/06/25 23:00 01/07/25 03:00 Temperature 98.0 F 98.1 F Pulse Rate [Right Pulse Oximeter] 63 56 L Respiratory Rate 16 16 18 Blood Pressure [Le ft Arm] 114/71 118/75 Pulse Oximetry 95 95 93 Oxygen Delivery Me thod Room Air Room Air Room Air Progress Note:A&P Assessment and plan (1) S/P laparoscopic-assisted sigmoidectomy: Status: Acute Assessment and Plan: 64-year-old male s/p laparoscopic assisted sigmoid colectomy POD 3. I discussed with the patient that he can advance to full liquid diet but with still waiting for return of bowel function. He should continue pain control with p.o. pain medications. His hemoglobin is stable at 11 today and 11 yesterday. He is on Lovenox for DVT prophylaxis. Will restart his warfarin and start checking his INR daily. We will continue Lovenox and warfarin until he is therapeutic. Patient will continue on IV ertapenem prophylactically until he go es home. Will schedule him for retrograde cystogram on postop day 10.
[2025-01-07] MEDS: ERTAPENEM 1 GM in 0.9 % SODIUM CHLORIDE Mini-bag 100 ML IVPB (09:25)
--- NOTE | 2025-01-07 11:39 | NUTR.NU ---
Nutrition Education: Patient admit sigmoidectomy 01/04/25. Height 67, weight 220.4 lbs, BMI 34.5. 04/03/24 chart weight 233.14. Not a significant weight loss. Patient reports having made some changes in his diet related to desire to lose weight. Diet advanced to full liquids at breakfast today with intake of cream of wheat and pudding, currently well tolerated. Provided education on low fiber diet recommendations when advance from full liquids. Recommendations included foods recommended and foods not recommended--soft low fiber foods, including the initial benefit of small meals, limiting fat, spice and sugar. Handout provided. Also, discussed when recommended to advance from low fiber to high fiber the importance of gradual increase of types of foods and amounts. Patient asked good questions and verbalized understanding. Contact information provided and encouraged patient to contact with questions.
[2025-01-07] MEDS: ENOXAPARIN 40 MG/0.4 ML INJ SUBCUT (12:14)
[2025-01-07] MEDS: WARFARIN 3 MG TABLET PO (17:28)
--- NOTE | 2025-01-07 18:21 | PC.NURSE ---
End of shift [id number]: Pt AxOx4, pleasant, and cooperative with cares. Pt reported abdominal pain ranging 4-7/10 throughout the shift. Neuropsychiatrist utilized repositioning, walking, eating, heat, and PRN medication. Pt was advanced to a full liquid diet. Tolerating well. Stephen remains patent and draining. Pt went on multiple walk today. SBA with GB. Pt had a small liquid BM this evening. Op sites of the abdomen remain CDI, CMS intact. Stephen remains patent and draining. Using call light appropriately. Family at bedside, call light within reach.
[2025-01-07] MEDS: HYDROmorphone 0.5 mg/0.5 ml inj IVP (20:01)
[2025-01-08] MEDS: HYDROCODONE-ACETAMIN 5-325 MG 1 TAB PO ×3 (02:35→16:25)
[2025-01-08 03:00] VITALS: BP 118/71; PULSE 50; RESP 18; TEMP 36.8; O2SAT 96
--- NOTE | 2025-01-08 06:39 | PC.NURSE ---
End of shift report [id number]: Pleasant and cooperative with cares. Pain to abdomen reported at 8/10 at start of shift with patient reporting no relief from PRN norco administered at 1750. PRN dilaudid administered and effective for pain, patient reports that pain decreased to 3/10 and that he was able to rest well through most the night. At 0230 patient reporting pain to right lower abdomen increasing, PRN norco administered and effective for pain. Patient ambulated in hallway x 1 with SBA, patient able to transfer self in and out of the bed. Bowel sounds active x 4, denies passing flatus this shift and no bowel movement. Denies any nausea or vomiting, tolerating full liquid diet. Stephen catheter patent, draining clear, pale yellow urine.
[2025-01-08 07:14] LABS: INR 1.09 (0.91-1.10)
[2025-01-08 07:50] VITALS: BP 107/63; PULSE 54; RESP 12; RESP 18; O2SAT 95
[2025-01-08] MEDS: ERTAPENEM 1 GM in 0.9 % SODIUM CHLORIDE Mini-bag 100 ML IVPB (09:35)
--- NOTE | 2025-01-08 10:16 | PM.GSPN ---
Subjective Subjective Date Seen: 01/08/25 Interval history: Patient is doing well this morning. His abdominal pain is better today compared to yesterday. He has already walked the halls a few times this morning. Tolerating full liquids with no nausea or vomiting. Feels ?like gas is gurgling in his stomach?. Last night he did pass gas and had some diarrhea. Some incontinence of loose stool. Exam Narrative: Exam Narrative: General: Alert and oriented, no acute distress Abdomen: Soft, nondistended, appropriate tenderness to palpation of lower incision. Lower incision with clarisa in place and some resolving surrounding ecchymoses, no concern for infection. Steri-Strips in place at laparoscopic sites. Const: Vital Signs, click to edit/add: Vital Signs - 24 hr 01/07/25 10:56 01/07/25 15:00 01/07/25 15:00 Temperature 97.6 F 98 F Pulse Rate [Right Pulse Oximeter] 63 50 L Respiratory Rate 16 16 16 Blood Pressure [Le ft Arm] 132/73 107/62 Blood Pressure [Ri ght Arm] Pulse Oximetry 95 95 95 Oxygen Delivery Me thod Room Air Room Air Room Air 01/07/25 19:00 01/07/25 23:00 01/07/25 23:00 Temperature 97.7 F Pulse Rate [Right Pulse Oximeter] 54 L 56 L Respiratory Rate 18 16 16 Blood Pressure [Le ft Arm] 120/70 Blood Pressure [Ri ght Arm] Pulse Oximetry 95 95 Oxygen Delivery Ks thod Room Air Room Air 01/07/25 23:00 01/08/25 03:00 01/08/25 07:50 Temperature 97.7 F 98.3 F Pulse Rate [Right Pulse Oximeter] 56 L 50 L 54 L Respiratory Rate 16 18 18 Blood Pressure [Le ft Arm] 109/66 118/71 Blood Pressure [Ri ght Arm] Pulse Oximetry 95 96 Oxygen Delivery Ks thod Room Air Room Air 01/08/25 07:50 01/08/25 07:50 Temperature Pulse Rate [Right Pulse Oximeter] 54 L Respiratory Rate 12 12 Blood Pressure [Le ft Arm] Blood Pressure [Ri ght Arm] 107/63 Pulse Oximetry 95 95 Oxygen Delivery Me thod Room Air Room Air Labs/Imaging Labs Labs: No new labs. Progress Note:A&P Assessment and plan (1) S/P laparoscopic-assisted sigmoidectomy: Status: Acute Assessment and Plan: 64-year-old male s/p laparoscopic assisted sigmoid colectomy POD 4. Patient with return of bowel function. Okay to advance diet as tolerated to regular. Warfarin to start today with INR checked tomorrow. He takes anticoagulation for atrial fibrillation. Continue on Lovenox for DVT prophylaxis and encourage ambulation. Stephen to remain in place. Dr. Gr to schedule retrograde cystogram on postop day 10 and removal in the clinic. Will continue on IV ertapenem until discharge. Recommendations to then transition to oral antibiotics to complete a 7 day course. Anticipate discharge to home in next 1-2 days.
[2025-01-08 10:56] VITALS: BP 118/67; PULSE 51; RESP 16; TEMP 36.6; O2SAT 97
[2025-01-08 15:00] VITALS: BP 108/63; PULSE 57; RESP 18; O2SAT 97
[2025-01-08] MEDS: WARFARIN 3 MG TABLET PO (16:26)
[2025-01-08] MEDS: ENOXAPARIN 40 MG/0.4 ML INJ SUBCUT (16:31)
[2025-01-08 19:00] VITALS: BP 129/91; PULSE 59; RESP 18; TEMP 36.5; O2SAT 96
--- NOTE | 2025-01-08 19:20 | PC.NURSE ---
Nursing Care Hours: [id number] Pt this shift calm and cooperative. Alert and oriented. Pain rated 4-8/10 and stating main cause is gas. Abdomen soft but distended, BS active x4. Incision CDI, no redness or drainage. VSS. Pt has small loose BM this shift. Stephen patent. Advanced to regular diet. Educated on choosing soft and semi bland foods, lower in fiber. Refused dinner d/t no appetite. Walked in casanova with SB assist.
[2025-01-08] MEDS: HYDROmorphone 0.5 mg/0.5 ml inj IVP (21:02)
[2025-01-08 23:00] VITALS: BP 126/76; PULSE 51; RESP 18; TEMP 36.6; O2SAT 96
[2025-01-09] VITALS (7 sets, daily range): BP systolic 100–118; BP diastolic 58–81; PULSE 47–59; RESP 16–18; TEMP 36.4–36.7; O2SAT 96–98
[2025-01-09] MEDS: HYDROCODONE-ACETAMIN 5-325 MG 1 TAB PO ×4 (00:11→22:50)
--- NOTE | 2025-01-09 06:41 | PC.NURSE ---
Pt up for walk in hallway
--- NOTE | 2025-01-09 07:56 | PM.GSPN ---
Subjective Subjective Date Seen: 01/09/25 Interval history: Patient continues to walk the halls. Had some increase in pain last night, he thinks from all the activity he has been doing. This was controlled with pain medicines. He continues to pass gas and have liquidy stools. Tolerated a regular diet yesterday and this morning with no nausea or vomiting. Denies any bloating or distention. Does still intermittently feel some gas pains. No other concerns. Exam Narrative: Exam Narrative: General: Alert and oriented, no acute distress Abdomen: Soft, nondistended, appropriately tender to palpation of the lower midline incision. Steri strips in place overlap sites. Basil in place. No surrounding erythema or induration to the incision sites. No concern for infection. Const: Vital Signs, click to edit/add: Vital Signs - 24 hr 01/08/25 10:56 01/08/25 15:00 01/08/25 15:00 Temperature 97.9 F Pulse Rate [Right Pulse Oximeter] 51 L 57 L 57 L Respiratory Rate 16 18 18 Blood Pressure [Le ft Arm] Blood Pressure [Ri ght Arm] 118/67 108/63 Pulse Oximetry 97 97 Oxygen Delivery Me thod Room Air Room Air 01/08/25 15:00 01/08/25 19:00 01/08/25 23:00 Temperature 97.7 F Pulse Rate [Right Pulse Oximeter] 59 L Respiratory Rate 18 18 18 Blood Pressure [Le ft Arm] 129/91 H Blood Pressure [Ri ght Arm] Pulse Oximetry 97 96 96 Oxygen Delivery Me thod Room Air Room Air Room Air 01/08/25 23:00 01/08/25 23:00 01/09/25 02:59 Temperature 98 F Pulse Rate [Right Pulse Oximeter] 51 L 51 L Respiratory Rate 18 18 18 Blood Pressure [Le ft Arm] 126/76 Blood Pressure [Ri ght Arm] Pulse Oximetry 96 Oxygen Delivery Me thod Room Air 01/09/25 04:04 Temperature 97.5 F L Pulse Rate [Right Pulse Oximeter] 47 L Respiratory Rate 18 Blood Pressure [Le ft Arm] 118/73 Blood Pressure [Ri ght Arm] Pulse Oximetry 96 Oxygen Delivery Me thod Room Air Labs/Imaging Labs Labs: INR pending this morning Progress Note:A&P Assessment and plan (1) S/P laparoscopic-assisted sigmoidectomy: Status: Acute Assessment and Plan: 64-year-old male s/p laparoscopic assisted sigmoid colectomy POD 5. Tolerating a regular diet. Return of bowel function. INR pending this morning with warfarin restarted. Continue on IV ertapenem until tomorrow. Anticipate discharge to home tomorrow.
[2025-01-09 08:28] LABS: INR 1.19 (0.91-1.10)
[2025-01-09] MEDS: ERTAPENEM 1 GM in 0.9 % SODIUM CHLORIDE Mini-bag 100 ML IVPB (09:06)
[2025-01-09] MEDS: ENOXAPARIN 40 MG/0.4 ML INJ SUBCUT (12:49)
[2025-01-09] MEDS: WARFARIN 2 MG TABLET PO (19:53)
--- NOTE | 2025-01-09 20:07 | PC.NURSE ---
Pt up independent in casanova multiple times during shift. Stool loose, bonilla patent and draining. See MAR for medication administration for pain management.
[2025-01-10 04:26] VITALS: BP 109/67; PULSE 48; RESP 16; TEMP 36.6; O2SAT 96
--- NOTE | 2025-01-10 06:40 | PC.NURSE ---
Pt alert and oriented. Pt up independently in hallways. Pt?s steri strips intact. Pt had complaints of pain ranging from 2-5;see EMAR for intervention. Pt slept through the night.? ?Pt up walking in hallways this AM.
[2025-01-10 08:15] VITALS: BP 113/57; PULSE 51; RESP 16; TEMP 36.7; O2SAT 94
[2025-01-10] MEDS: ERTAPENEM 1 GM in 0.9 % SODIUM CHLORIDE Mini-bag 100 ML IVPB (08:46)
--- NOTE | 2025-01-10 09:42 | PM.DS1 ---
DS: Providers Provider Date Seen: 01/10/25 Date of admission: 01/04/25 07:49 Primary care physician: Ed Del Toro MD Admitting Clinician: Mychal Gr MD Attending Physician on discharge: Mychal Gr MD DS: Summary Hospital Course Hospital Course: Patient was taken to the operating room for a laparoscopic assisted sigmoidectomy. 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 Patient did well during his hospital stay. He did have return of bowel function and we were able to advance his diet to low fiber. His Stephen remained in place during his hospital stay, with plan for a cystogram 10 days postop. He continued on IV ertapenem and completed 7 doses prior to discharge. At the time of discharge his pain was well controlled on oral medication, he was ambulating independently, passing gas and having bowel movements. He has scheduled follow-up with a cystogram and staple removal on 01/14/2025. Time Spent with Patient Time attestation: Total time spent providing and/or coordinating discharge services: Exam Narrative: Exam Narrative: General: Alert and oriented, no acute distress Abdomen: Soft, nondistended. Steri-Strips in place clean/dry/intact. Midline lower incision with clarisa intact. No concern for infection. Const: Vital Signs, click to edit/add: Vital Signs - 24 hr 01/09/25 15:00 01/09/25 15:00 01/09/25 15:00 Temperature 97.6 F Pulse Rate [Right Pulse Oximeter] 55 L 55 L Respiratory Rate 16 16 Blood Pressure [Le ft Arm] Blood Pressure [Ri ght Arm] 107/58 L Pulse Oximetry 98 98 Oxygen Delivery Me thod Room Air Room Air Oxygen Flow Rate 01/09/25 19:55 01/09/25 22:48 01/09/25 22:49 Temperature 98.0 F 98.0 F Pulse Rate [Right Pulse Oximeter] 57 L 58 L Respiratory Rate 18 18 18 Blood Pressure [Le ft Arm] 100/71 Blood Pressure [Ri ght Arm] 100/65 Pulse Oximetry 97 96 96 Oxygen Delivery Me thod Room Air Room Air Room Air Oxygen Flow Rate 0 01/10/25 04:26 Temperature 97.9 F Pulse Rate [Right Pulse Oximeter] 48 L Respiratory Rate 16 Blood Pressure [Le ft Arm] 109/67 Blood Pressure [Ri ght Arm] Pulse Oximetry 96 Oxygen Delivery Me thod Oxygen Flow Rate DS: Data Data Completed and Pending Labs on day of discharge: Labs from last 24 hours 01/09/25 08:07 INR 1.19 H Discharge Plan Discharge Disposition: Home, Self-Care Date of Admission: 01/04/25 07:49 Attending Provider on Discharge: Shanthi Randolph Primary Care Provider: Ed Del Toro Condition: Improved Anticipated Discharge Date/Time: 01/10/25 08:00 Discharge Medications: New hydrocodone-acetaminophen 5-325 mg tablet 1 tab PO Q6H PRN (Reason: pain) Qty: 20 0RF Continued warfarin 2 mg tablet 2 - 3 mg PO DIRECTED Rx Instructions: TAKE 2MG ON MON AND SAT, 3MG ON ALL OTHER DAYS famotidine 20 mg tablet 20 mg PO BID PRN omeprazole 20 mg capsule,delayed release(DR/EC) 20 mg PO DAILY bisoprolol fumarate 5 mg tablet 5 mg PO DAILY Discharge Orders: Discharge Order (Routine); Ordered 01/10/25 Ordered By: Shanthi Randolph Patient Education: Hydrocodone/Acetaminophen (By mouth), VCUG (Voiding Cystourethrogram) (DC), Colectomy (DC) Additional Instructions: patient needs retrograde cystourethrogram on POD 10 01/14. Please tell radiology that Jeremie Calderón RN @[phone] need to be contacted to remove clarisa. Follow up with Dr. Gr at 2 weeks after discharge. You were prescribed a narcotic pain medication. In addition you may supplement with Tylenol and/or ibuprofen. Be sure to not exceed greater than 4 g of Tylenol in a 24 hour period. While on narcotic pain medicine please take stool softeners. A prescription of stool softeners has been sent to the pharmacy. Stop if having greater than 2 stools per day. You have Steri-Strips dressings in place, allow these to fall off on their own. Your clarisa will be removed at a nursing visit. Okay to shower. Do not soak in a bath or swim for 2 weeks. Activity Level: No strenuous activity Activity Detail: Activity as tolerated. Avoid strenuous activity. No lifting greater than 20 lb for 6 weeks. Discharge Diet: Low Fiber Follow Up Appointments: Mychal Gr MD [Staff Physician] - 01/18/25 2:45 pm ([facility] for follow-up.) Forms: [employer] Info Instructions
[2025-01-10] MEDS: HYDROCODONE-ACETAMIN 5-325 MG 1 TAB PO (10:30)
== END 2025-01-10 10:35 | disposition home or self-care (01) | DRG 221 ==
PROVIDERS: Admitting Provider Surgery; PCP Family Medicine; Visit Provider Surgery
PROC: 0DTN0ZZ Resection of Sigmoid Colon, Open Approach (ICD-10-PCS; CPT 44204; principal; 2025-01-04 10:00)
PROC: 0DTN0ZZ Resection of Sigmoid Colon, Open Approach (ICD-10-PCS; 2025-01-04 10:00)
DX: K57.32 Diverticulitis of large intestine without perforation or abscess without bleeding (principal); N32.1 Vesicointestinal fistula; N99.72 Accidental puncture and laceration of a genitourinary system organ or structure during other procedure; G89.18 Other acute postprocedural pain; N32.3 Diverticulum of bladder; K64.4 Residual hemorrhoidal skin tags; R19.7 Diarrhea, unspecified; I48.91 Unspecified atrial fibrillation; Z79.01 Long term (current) use of anticoagulants; G47.33 Obstructive sleep apnea (adult) (pediatric); Z86.711 Personal history of pulmonary embolism; E66.9 Obesity, unspecified; Z68.34 Body mass index [BMI] 34.0-34.9, adult
CPT/HCPCS: 00840; 36415; 64488; 76942; 80048; 85018; 85025; 85610; 88307; A4314; A9270; C1758; C1769; J0330; J0665; J0666; J1100; J1171; J1335; J1630; J1650; J1885; J2704; J3010; J3475; J3490; J7120

== ENCOUNTER 2025-01-14 09:19 | Outpatient (CLI) | payer BC, SELFPAY ==
--- NOTE | 2025-01-14 09:15 | CRLHL7_ITS ---
For Patients: As a result of the Century Cures Act, medical imaging exams and procedure reports are released immediately into your electronic medical record. You may view this report before your referring provider. If you have questions, please contact your health care provider. Technique: Retrograde cystogram performed in routine fashion with 300 cc of Cystografin. Fluoroscopy time 59 seconds. Indication: Status post sigmoidectomy with primary anastomosis for diverticulitis extending to the superior aspect of the bladder. Routine postop check for bladder leak. Comparison: Preoperative barium enema study 12/31/2024 Findings: Chronic trabeculation of the bladder dome noted without diverticulum or intraluminal mass. No extravasation of contrast. Impression: No bladder leak. Dictated by Zach Pineda MD @ 01/15/2025 1:15:34 PM (Electronically Signed)
== END 2025-01-14 09:20 | disposition home or self-care (01) ==
LOC: RAD 09:20
PROVIDERS: PCP Family Medicine; Visit Provider Surgery
DX: Z90.49 Acquired absence of other specified parts of digestive tract (principal)
CPT/HCPCS: 74430; Q9958

== ENCOUNTER 2025-01-15 22:33 | Emergency (ER) | payer BC, SELFPAY ==
[2025-01-15 22:35] VITALS: BP 130/73; PULSE 60; RESP 16; TEMP 36.4; O2SAT 96; BMI 31.9
--- OUTSIDE RECORDS SUMMARY | 2025-01-15 22:35 | XMS_ITS | Continuity of Care Document ---
Author Organization [facility] Address [address] [place] [address] Phone Care Team Providers Care Clinical Team Lead Name Role Phone Christiano Guzman Unavailable Unavailable [...] Visit,Est, [facility], [address], [place], [place], [id number], [place] tel:[phone] [facility] Spinal stenosis, cervical regionOther spondylosis, lumbar region 9 Mike Alvarado. [facility], [address], [place], [place], [id number] , [place]. tel:[phone] Referring Provider: Christiano Mckeon, [facility] [address], [place], [address] . tel:[phone] Office/Outpat ient Visit,New, [facility], [address], [place], [id number], [place] tel:[phone] [facility] [place] CervicalgiaLow back pain 8 Mike Alvarado. [facility], [address], [place], [place], [id number] , [place]. [phone] Referring Provider: Christiano Mckeon, [facility] [address], [place], [address] . tel:[phone] Family History Family Member Type Diagnosis Age At Onset No Information Payers Payer name Insurance type Covered democrat ID Valentine greer(s) [facility] [id number] [facility] [id number] Social History Type Description Quantity Date Captured [...]
--- OUTSIDE RECORDS SUMMARY | 2025-01-15 22:36 | XMS_ITS | Encounter Summary ---
Author Organization [email or web address] Address [address], [place] [address] Care Team Providers Care Asphalt Tamper Name Role Phone Ed Del Toro MD Primary Care Provider Reason for Visit * Procedure/Equipment (Routine) - Incomplete Specialty Diagnoses / Procedures Referred By Contac t Referred To Contact Diagnoses S/P total knee arthroplasty, left Procedures XR Knee Lt 3 Views Costa Chino MD [address] [place] [address] [place] [address] Phone: tel: fax: Referral ID Status Reason Start Date Expiration Date V isits Requested Visits Authorized [id number] Incomplete 12/08/2024 03/09/2026 1 1 Encounter Details Date Type Department Care Team (Late st Contact Info) Description 12/08/2024 9:55 AM [employer] Ancillary Procedure [facility] [address] [place], [place] [address] Costa Chino MD [address] [place] [address] [address] [place] [address] S/P total knee arthroplasty, left Social History Tobacco Use Types Packs/Day Years Used Date Smoking Tobacco: Never Smokeless Tobacco: Never [facility] Utilities Answer Date Recorded In the past 12 months has e electric, gas, oil, or water company threatened to shut off services in your home? No 10/29/2024 Humiliation, Afraid, Rape, and Kick questionnair e Answer Date Recorded Within the last year, have y ou been afraid of your partner or ex-partner? No 10/29/2024 Within the last year, have y ou been humiliated or emotionally abused in other ways by your partner or ex-partner? No Within the last year, have y ou been kicked, hit, slapped, or otherwise physically hurt by your partner or ex-partner? No 10/29/2024 Within the last year, have y ou been raped or forced to have any kind of sexual activity by your partner or ex-partner? No 10/29/2024 Hunger Vital Sign Answer Date Recorded Within the past 12 months, y ou worried that your food would run out before you got the money to buy more. Never true 10/29/20 24 Within the past 12 months, t he food you bought just didn't last and you didn't have money to get more. Never true 10/29/2024 PRAPARE - Transportation Answer Date Re corded In the past 12 months, has l ack of transportation kept you from medical appointments or from getting medications? No 10/05 In the past 12 months, has l ack of transportation kept you from meetings, work, or from getting things needed for daily living? No 10/29/2024 Housing Stability Vital Sign Answer Dimitry e [...] place to sleep or slept in a fpc (including now)? No 11/20/2023 Sex and Gender Information Value Date Recorded Sex Assigned at Not on file Legal Sex Male 10:09 AM CDT Gender Identity Not on file Sexual Orientation Not on file documented as of this encounter Plan of Treatment Upcoming Encounters Date Type Department Care Team (Late st Contact Info) Description 01/29/2025 11:30 AM CDT Appointment [facility] [address] [place] [address] Álvaro Flores, PT [address] [place] [address] documented as of this encounter Goals Goal Patient Goal Type Associated Problems Recent Progress Patient-Stated? Author Right Knee Replacement Care Plan ET PROE RIGHT KNEE No Emperatriz Richter, RN, [employer] Left Knee Care Plan ET PROE LEFT KNEE No Emperatriz Richter, RN, [employer] T[employer]ER documented as of this encounter Procedures Procedure Name Priority Date/Time Associated Diagnosis Comments XR KNEE LT 3 VIEWS Routine 12/08/2024 10 :02 AM [employer] S/P total knee arthroplasty, left documented in this encounter Results * XR Knee Lt 3 Views (12/08/2024 10:02 AM [employer]) Anatomical Region Laterality Modality Lower Extremity, Knee Digital Ra diography 12/08/2024 9:54 AM [employer] Narrative 12/08/2024 10:32 AM [employer] COMPARISON: 10/29/2024 FINDINGS: Left total knee arthroplasty appears satisfactorily articulated on 3 views. Bone and cement appear intact. Postoperative gas resorbed. Moderate joint effusion. Stable interference screw in the distal femur from previous ACL reconstruction. Procedure Note Chinedu Bailey MD - 12/08/2024 COMPARISON: 10/29/2024 FINDINGS: Left total knee arthroplasty appears satisfactorily articulatedon 3 views. Bone and cement appear intact. Postoperative gas resorbed.Moderate joint effusion. Stable interference screw in the distal femurfrom previous ACL reconstruction. us Costa Chino MD RAD GD Final Result documented in this encounter Visit Diagnoses Diagnosis S/P total knee arthroplasty, left documented in this encounter Additional Health Concerns Active Problems Noted Date Diagnosed Date ET PROE RIGHT KNEE 07/30/2023 ET PROE LEFT KNEE 12/31/2023 documented as of this encounter Care Teams Asphalt Tamper Relationship Specialty Start Date End Date Ed Del Toro MD [address] [place] [address] PCP - General Family Practice 07/25/22 documented as of this encounter
--- OUTSIDE RECORDS SUMMARY | 2025-01-15 22:36 | XMS_ITS | Clinical Summary ---
Author Organization [facility] Address [address] [place] [address] Care Team Providers Care [place] Polisher Name Role Phone Romina Cristobal NP Unavailable [phone] Ed Dle Toro MD Primary Care Provider Cassandra Kearney MD Unavailable [phone] Allergies No known active allergies Medications acetaminophen (TYLENOL EXTRA STRGTH) 500 mg tabletIndications :H/O radiofrequency ablation for complex left atrial arrhythmia Take 2 Tablets (1,000 mg) by mouth every 6 hours if needed for Pain (For mild pain.). Max acetaminophen dose: 4000mg in 24 hrs. 06/17/20 24 Active bisoprolol (ZEBETA) 5 mg tabletIndications :Atrial fibrillation with RVR (HC) Take 1 Tablet (5 mg) by mouth once daily. 90 Tablet 3 06/25/20 24 Active omeprazole (PRILOSEC) 20 mg Delayed-Release capsuleIndication s:Chronic GERD Take 1 Capsule (20 mg) by mouth once daily before a meal. 90 Capsule 1 10/11/20 24 Active metroNIDAZOLE (FLAGYL) 500 mg tabletIndications :Diverticulitis Take 1 Tablet (500 mg) by mouth two times daily. 42 Tablet 12/14/19 25 Active cefuroxime axetil (CEFTIN) 500 mg tabletIndications :Diverticulitis Take 1 Tablet (500 mg) by mouth two times daily. 42 Tablet 12/14/19 25 Active warfarin (COUMADIN) 2 mg tabletIndications :Anticoagulation monitoring, INR range 2-3,History of pulmonary embolus (PE),Atrial fibrillation with RVR (HC) Take by mouth 12/30: Hold; 12/31: Hold; 01/01: Hold; 01/02: Hold; 01/03: Hold; Otherwise 3 mg every Sun, Tue, Sandhya; 2 mg all other days in the evening OR as directed 12/21/19 25 Active warfarin (COUMADIN) 2 mg tabletIndications :Anticoagulation monitoring, INR range 2-3,History of pulmonary embolus (PE),Atrial fibrillation with RVR (HC) Take by mouth 3 mg (2 mg x 1.5) every Sun, Tue, Sandhya; 2 mg (2 mg x 1) all other days in the evening OR as directed 12/15/19 25 025 Discontin ued(Reord er (E-cancel not sent)) polyethylene glycol-electrolyt e (Golytely) 236-22.74-6.74 -5.86 gram suspensionIndicat ions:Diverticulit is Take 4,000 mL by mouth one time for 1 dose. Follow Colonoscopy prep instructions. one 4 liters solution prior to enema and another 4 liters prior to surgery. 8000 mL 12/16/19 25 025 Active Problems Problem Noted Date Diagnosed Date Lower urinary tract symptoms 12/08/2024 Atrial tachycardia 10/23/2024 Perforation of right tympanic membrane 4 Primary osteoarthritis of left knee 10/23/2024 Globus sensation 10/23/2024 GERD (gastroesophageal reflux disease) 4 Epistaxis 10/23/2024 Abnormal x-ray of lungs with single pulmonary no dule 10/23/2024 Longstanding persistent atrial fibrillation 06/04 Paroxysmal atrial fibrillation 05/28/2024 Status post total knee replacement, right 2023 Overview (10/23/2024): Dr. Chino 11/20/2023 Osteoarthritis of right knee 07/30/2023 Hemosiderin pigmentation of skin 03/03/2021 Venous stasis dermatitis 03/03/2021 Varicose veins of both lower extremities 021 History of pulmonary embolus (PE) 08/31/2019 Overview (08/31/2019): 2018 Anticoagulation monitoring, INR range 2-3 2017 ACP (advance care planning) 05/30/2018 Sinus tachycardia 05/30/2018 Obesity 08/07/2017 Hyperlipidemia 01/29/2007 Impotence of organic origin 01/29/2007 SYNDROME, CARPAL TUNNEL 12/13/2000 YARELY (obstructive sleep apnea) Resolved Problems Problem Noted Date Diagnosed Date Resolved Date Prediabetes 03/04/2022 08/09/2023 Other acute pulmonary emboli sm without acute cor pulmonale 06/02/2018 08/18/2019 Acute pulmonary embolism 05/30/2018 Overview (11/05/2018): After cardiac ablation Snoring 09/13/2017 11/09/2020 Atrial fibrillation with RVR 08/07/2017 11/06/2023 Routine adult health maintenance 06/18/2017 11/09/2020 Overview (06/18/2017): Colonoscopy 06/2017 diverticulosis repeat in 10 years EXAMINATION, PREOPERATIVE NEC 10/19/2002 11/13/2016 Encounters Date Type Department Care Team Description 01/12/2025 Telephone [facility] [place] [address] [place] [address] Mychal Gr MD symptoms 01/11/2025 Telephone [facility] [place] [address] [place] [address] Mychal Gr MD Questions 01/05/2025 Lab Requisition [facility] [phone] Mychal Gr MD 01/04/2025 1:00 PM PROGRESSIVE CARE UNIT REGISTERED NURSE Office Visit [facility] [place] at [facility] [address] [place] [address] Sandi Cuevas MD 01/04/2025 8:00 AM PROGRESSIVE CARE UNIT REGISTERED NURSE Office Visit [facility] [place] [facility] [address] [place] [address] Mychal Gr MD Surgery Scheduled 01/04/[address] [facility] Scanner 1 scan: (1-Ord) CRAIG, CYSTOSCOPY WITH LIGHTED LEFT URETERAL STENT PLACEMENT, 01/04/2025 01/04/[address] [facility] Scanner 1 scan: (1-Ord) CRAIG, CYSTOSCOPY, 01/04/2025 12/31/[address] [facility] Scanner 1 scan: (1-Ord) [facility] [place] ENEMA W/GASTROGRAFIN, 12/31/2024 12/24/2024 11:25 AM PROGRESSIVE CARE UNIT REGISTERED NURSE Office Visit [facility] [place] [address] [place] [address] Ed Del Toro MD Preoperative Exam (DOS: 01/04/2025, lap sigmoidectomy, Dr. Gr, [facility]) 12/24/2024 Travel 12/21/2024 Telephone [facility] [place] [address] [place] [address] Ed Del Toro MD Anticoagulation 12/21/2024 Telephone [facility] [place] [address] [place] [address] Ed Del Toro MD Anticoagulation (Unable to contact x3) 12/17/2024 Anticoagulation (warfarin) [facility] [place] [address] [place] [address] 1, [facility] Anticoagulation (Chart update- HOLD/Bridge) 12/17/2024 Telephone [facility] [place] [address] [place] [address] Ed Del Toro MD Anticoagulation (Colonoscopy 01/04/25) 12/16/2024 Telephone [facility] [place] [address] [place] [address] Mychal Gr MD Results (lab) 12/16/2024 Orders Only [facility] [place] [address] [place] [address] Mychal Gr MD <No scans attached> 12/15/2024 2:15 PM PROGRESSIVE CARE UNIT REGISTERED NURSE Orders Only [facility] [place] [address] [place] [address] Lab, [place] 12/15/2024 Telephone [facility] [place] [address] [place] [address] Mychal Gr MD Surgery Scheduled (Pt called and would like to schedule surgery) 12/14/2024 2:30 PM PROGRESSIVE CARE UNIT REGISTERED NURSE Office Visit [address] [address] Mychal Gr MD Consult (Colonic mass referred by Dr. Del Toro) 12/14/2024 9:00 AM PROGRESSIVE CARE UNIT REGISTERED NURSE Orders Only [facility] [address] [place] [address] Lab, [facility] 12/14/2024 Telephone [facility] [place] [address] [place] [address] Ed Del Toro MD Anticoagulation (BPA- METRONIDAZOLE) 12/14/2024 Anticoagulation (warfarin) [address] [address] 1, [facility] Anticoagulation 12/14/2024 Travel 12/10/2024 Telephone [facility] [place] [address] [place] [address] Ed Del Toro MD Medication Management (cefuroxime axetil (CEFTIN) 500 mg tablet //metroNIDAZOLE (FLAGYL) 500 mg tablet ) 12/10/2024 Anticoagulation (warfarin) [facility] [place] [address] [place] [address] 1, [facility] Anticoagulation (Chart Update) 12/10/2024 Telephone [facility] [place] [address] [place] [address] Ed Del Toro MD Anticoagulation (BPA Metronidazole and Warfarin ) 12/10/2024 Telephone [facility] [place] [address] [place] [address] Ed Del Toro MD Results 12/09/2024 3:30 PM PROGRESSIVE CARE UNIT REGISTERED NURSE Ancillary Procedure [facility] [place] [address] [place] [address] 12/09/2024 Refill [facility] [place] [address] [place] [address] Ed Del Toro MD Refill Request (Warfarin) 12/09/2024 Telephone [facility] [place] [address] [place] [address] Ed Del Toro MD Follow Up 12/08/2024 2:05 PM PROGRESSIVE CARE UNIT REGISTERED NURSE Office Visit [facility] [place] [address] [place] [address] dE Del Toro MD Abdominal Pain (LLQ discomfort, started about 2 months ago) 12/08/2024 Travel 11/30/2024 9:00 AM PROGRESSIVE CARE UNIT REGISTERED NURSE Orders Only [facility] [address] [place] [address] Lab, [facility] 11/30/2024 Anticoagulation (warfarin) [facility] [place] [address] [place] [address] 1, [facility] Anticoagulation 11/30/2024 Travel 11/26/2024 Nurse Triage [facility] [place] [address] [place] [address] Ed Del Toro MD Abdominal Pain 11/17/2024 10:15 AM PROGRESSIVE CARE UNIT REGISTERED NURSE Orders Only [facility] [address] [place] [address] Lab, [facility] 11/17/2024 Anticoagulation (warfarin) [facility] [place] [address] [place] [address] 1, [facility] Anticoagulation 11/17/2024 Travel 10/27/2024 Anticoagulation (warfarin) [facility] [place] [address] [place] [address] 1, [facility] Anticoagulation (Chart update ) 10/27/2024 Telephone [facility] [place] [address] [facility] [address] Ed Del Toro MD Anticoagulation (Unable to contact ) 10/26/2024 Telephone [facility] [place] [address] [facility] [place] [address] Kleber Mcmillan, DO Questions 10/23/2024 7:15 AM PROGRESSIVE CARE UNIT REGISTERED NURSE Office Visit [facility] [place] [address] [place] [address] Kleber Mcmillan, DO Preoperative Exam (LEFT knee - [facility] - Dr. Chino - 10/29/2024) 10/23/2024 Anticoagulation (warfarin) [facility] [place] [address] [place] [address] 1, [facility] Anticoagulation (Pre op today) 10/23/2024 Travel from Last 3 Months Immunizations Immunization Administration Dates Next Due Tdap 03/03/2015 Family [...] 0 07/14/2021 Social Connections Answer Date Recorded Do you often feel lonely or isolated from those around you? 0 05/28/2024 Financial Resource Strain Answer Date R ecorded Difficulty of Paying Living Expenses 3 05/28/2024 Difficulty of Paying Living Expenses Not on file 05/28/2024 Food Insecurity Answer Date Recorded Do you worry your food will run out before you are able to buy more? 1 05/28/2024 Transportation Needs Answer Date Record ed Does lack of transportation keep you from medica l appointments? 1 05/28/2024 Does lack of transportation keep you from work, meetings or getting things that you need? 1 05/28/2024 Housing Stability Answer Date Recorded What is your housing situation today? 1 05/28/2024 Interpersonal Safety Answer Date Record ed Are you being hit, kicked, p ushed or yelled at (see row info)? No 06/17/2024 Interpersonal Safety Abuse 12 - 18 Not on file 06/17/2024 Interpersonal Safety Ambulatory Vulnerability No t on file 06/17/2024 Utilities Answer Date Recorded Do you have trouble paying f or utilities (for example, heat, electricity, water, phone)? 1 05/28/2024 Sex and Gender Information Value Date Recorded Sex Assigned at Male 03/01/2023 9:24 AM CDT Legal Sex Male 5:24 AM PROGRESSIVE CARE UNIT REGISTERED NURSE Gender Identity Male 03/01/2023 9:24 AM CDT Sexual Orientation Not on file Occupation Industry Job Start Date Job End Date Contractor Not on file Not on file Not on file Obstetrics History Last Filed Vital Signs Vital Sign Reading Time Taken Comments Blood Pressure 130/82 12/24/2024 11:23 AM PROGRESSIVE CARE UNIT REGISTERED NURSE Pulse 71 12/24/2024 11:23 AM PROGRESSIVE CARE UNIT REGISTERED NURSE Temperature 36.7 C (98.1 F) 07/07/2024 12:52 PM CDT Respiratory Rate 16 07/07/2024 12:52 PM CDT Oxygen Saturation 97% 12/24/2024 11:23 AM PROGRESSIVE CARE UNIT REGISTERED NURSE Inhaled Oxygen Concentration - - Weight 100 kg (220 lb 6.4 oz) 12/24/2024 11:23 A M PROGRESSIVE CARE UNIT REGISTERED NURSE Height 171.7 cm (5' 7.6) 12/24/2024 11:23 AM CS T Body Mass Index 33.91 12/24/2024 11:23 AM PROGRESSIVE CARE UNIT REGISTERED NURSE Plan of Treatment Upcoming Encounters Date Type Department Care Team (Late st Contact Info) Description 01/18/2025 2:45 PM CDT Office Visit [facility] [place] [address] [place] [address] Mychal Gr MD [address] [place] [address] Health Maintenance Due Date Last Done Comments Pneumococcal series for age 50+ (1 of 2 - PCV) 1977 Zoster (shingles) series for age 50+ (1 of 2) 2008 RSV vaccine for adults or (1 - Risk 60-74 years 1-dose series) 2018 Depression screening for age 12+ 07/18/2022 07/18/2021, 07/14/2021, 10/10/2018, Additional history exists COVID-19 vaccine series ( season) 2024 02/13/2021 Influenza Vaccine (#1) 2024 Tetanus booster 03/03/2025 03/03/2015 BMI (ht and wt on same day) for age 18+ 12/24/2025 12/24/2024, 10/23/2024, 10/09/2024, Additional history exists Lipids for age 45-75 07/24/2028 07/24/2023, 03/19/2022, 11/09/2020, Additional history exists Colonoscopy through age 75 09/06/203309/06, 09/06/2023, 09/06/2023, Additional history exists Tdap Completed 03/03/2015 Hepatitis C screening for ag e 18-79 Completed 11/09/2020 Procedures Procedure Name Priority Date/Time Associated Diagnosis Comments PROCTOSIGMOIDOSCOPY Routine 01/05/2025 3 :16 PM PROGRESSIVE CARE UNIT REGISTERED NURSE Diverticulitis LAB TRACKING EVENT Routine 01/04/2025 2: 37 PM PROGRESSIVE CARE UNIT REGISTERED NURSE PATH TISSUE EXAM Routine 01/04/2025 2:37 PM PROGRESSIVE CARE UNIT REGISTERED NURSE SCAN-OPERATIVE/PROCEDURE REPORT 01/04/2025 12:00 AM PROGRESSIVE CARE UNIT REGISTERED NURSE SCAN-OPERATIVE/PROCEDURE REPORT 01/04/2025 12:00 AM PROGRESSIVE CARE UNIT REGISTERED NURSE SCAN-OPERATIVE/PROCEDURE REPORT 12/31/2024 12:00 AM PROGRESSIVE CARE UNIT REGISTERED NURSE CEA Routine 12/15/2024 2:10 PM PROGRESSIVE CARE UNIT REGISTERED NURSE Colonic mass INR,POCT Routine 12/14/2024 9:06 AM PROGRESSIVE CARE UNIT REGISTERED NURSE Anticoagulation monitoring, INR range 2-3 History of pulmonary embolus (PE) CT ABDOMEN PELVIS W Routine 12/09/2024 4 :22 PM PROGRESSIVE CARE UNIT REGISTERED NURSE Abdominal pain, LLQ (left lower quadrant) HEPATIC FUNCTION PANEL Routine 2:30 PM PROGRESSIVE CARE UNIT REGISTERED NURSE Abdominal pain, LLQ (left lower quadrant) BASIC METABOLIC PANEL Routine 12/08/2024 2:30 PM PROGRESSIVE CARE UNIT REGISTERED NURSE Abdominal pain, LLQ (left lower quadrant) CBC WITH AUTO DIFFERENTIAL Routine 12/08/2024 2:30 PM PROGRESSIVE CARE UNIT REGISTERED NURSE Abdominal pain, LLQ (left lower quadrant) UA W/ SEDIMENT EXAM REFLEXED PER CRITERIA Routine 12/08/2024 2:29 PM PROGRESSIVE CARE UNIT REGISTERED NURSE Abdominal pain, LLQ (left lower quadrant) PROTIME-INR Routine 11/30/2024 9:09 AM PROGRESSIVE CARE UNIT REGISTERED NURSE Anticoagulation monitoring, INR range 2-3 History of pulmonary embolus (PE) INR,POCT Routine 11/17/2024 10:19 AM PROGRESSIVE CARE UNIT REGISTERED NURSE Anticoagulation monitoring, INR range 2-3 History of pulmonary embolus (PE) PROTIME-INR Routine 10/23/2024 8:11 AM PROGRESSIVE CARE UNIT REGISTERED NURSE Pre-op evaluation Primary osteoarthritis of both knees HEMOGLOBIN Routine 10/23/2024 8:11 AM PROGRESSIVE CARE UNIT REGISTERED NURSE Pre-op evaluation COLONOSCOPY DIAGNOSTIC Routine 10:14 AM CDT Hematochezia LIPID PANEL W REFLEX MEASURED LDL Routine 07/24/2023 7:47 AM CDT Hyperlipidemia, unspecified hyperlipidemia type ANTI HCV Routine 11/09/2020 10:24 AM PROGRESSIVE CARE UNIT REGISTERED NURSE Need for hepatitis C screening test from Last 3 Months or Most Recently Relevant to Health Maintenance Results * LAB TRACKING EVENT (01/04/2025 2:37 PM PROGRESSIVE CARE UNIT REGISTERED NURSE) Other (Other) Client Collect / Unknown 01/04/2025 2:37 PM PROGRESSIVE CARE UNIT REGISTERED NURSE 01/05/2025 7:05 AM PROGRESSIVE CARE UNIT REGISTERED NURSE us Mychal Gr MD LAB BILL ONLY Final Resu lt [facility] [address] [place] [address], [place] * PATH TISSUE EXAM (01/04/2025 2:37 PM PROGRESSIVE CARE UNIT REGISTERED NURSE) Case Report Pathology Report Case: [id number] Authorizing Provider: Mychal Gr MD Collected: 01/04/2025 1437 Ordering Location: [facility] Received: 01/05/2025 0951 Pathologist: Curly Ramírez MD Specimen: Sigmoid Colon, and anastomatic rings 01/06/2025 9:49 AM PROGRESSIVE CARE UNIT REGISTERED NURSE [facility] Final Diagnosis A) COLON, SIGMOID, SEGMENTAL RESECTION: 1. Diverticulitis, featuring: a. Multiple diverticula b. Peripheral patient with ulceration and abscess c. Patchy mural chronic inflammation and fibrosis with serosal adhesions 2. Nonspecific reactive changes and otherwise normal background colonic mucosa 3. Negative for dysplasia and malignancy 01/06/2025 9:49 AM PROGRESSIVE CARE UNIT REGISTERED NURSE [facility] Clinical Information Diverticular disease 01/06/2025 9:49 AM PROGRESSIVE CARE UNIT REGISTERED NURSE [facility] Gross Description A) Received in formalin, labeled with the patient's name and sigmoid colon and anastomotic rings, is a 16 cm long, 3.5 cm diameter diffusely dusky hemorrhagic segment of bowel without orientation. The entire segment has dense fibrous adhesions including and adjacent cavity possibly representing abscess measuring up to 5 cm in greatest dimension. Specimen is opened lengthwise revealing erythematous mucosa with numerous diverticula scattered throughout. One diverticula extends into the disrupted serosal abscess cavity, representing an apparent perforation. There are no polyps or masses identified. There are 2 separately submitted rings of colonic tissue measuring 2 cm diameter each (ring with blue sutures inked blue). Both have overlying unremarkable mathis mucosa. Shift Production Associate sections are submitted as well as: 1. Margins of bowel, en face 2. Section showing perforated diverticulum into adjacent abscess cavity 3. Additional sections of apparent abscess cavity 4, 5. Shift Production Associate sections of intact diverticula 6. Sections of mucosa from each anastomotic ring 7. 1 possible (entry level marketing representative ) lymph node TRB 01/05/2025 01/06/2025 9:49 AM [facility] Microscopic Description The final diagnosis is based on microscopic examination of appropriate sections of all specimens. 01/06/2025 9:49 AM PROGRESSIVE CARE UNIT REGISTERED NURSE [facility] Additional Information Interpreted at [facility] - [address] [facility] [address], [place] [address] 01/06/2025 9:49 AM PROGRESSIVE CARE UNIT REGISTERED NURSE [facility] Other SPECIMEN FROM COLON / Unknown 01/04/2025 2:37 PM PROGRESSIVE CARE UNIT REGISTERED NURSE 01/05/2025 9:51 AM PROGRESSIVE CARE UNIT REGISTERED NURSE us Mychal Gr MD PATHOLOGY/CYTOLOGY Final R esult Performing Organization Address City/[facility]/ZIP Co de Phone Number [facility] [address] [place] [address], [place] * SCAN-OPERATIVE/PROCEDURE REPORT (01/04/2025 12:00 AM PROGRESSIVE CARE UNIT REGISTERED NURSE) us Scanner OTHER Final Result * SCAN-OPERATIVE/PROCEDURE REPORT (01/04/2025 12:00 AM PROGRESSIVE CARE UNIT REGISTERED NURSE) us Scanner OTHER Final Result * SCAN-OPERATIVE/PROCEDURE REPORT (12/31/2024 12:00 AM PROGRESSIVE CARE UNIT REGISTERED NURSE) us Scanner OTHER Final Result * CEA (12/15/2024 2:10 PM PROGRESSIVE CARE UNIT REGISTERED NURSE) CEA <2.0 See Note: ng/mL [facility] Comment: Reference Range: Non-Smoker: <2.5 Smoker: <5.0 This test was performed using the Siemens chemiluminescent method. Values obtained from different assay methods cannot be used interchangeably. CEA levels, regardless of value, should not be interpreted as absolute evidence of the presence or absence of disease. Blood BLOOD SPECIMEN / Unknown 12/15/2024 2:10 PM PROGRESSIVE CARE UNIT REGISTERED NURSE 12/15/2024 2:11 PM PROGRESSIVE CARE UNIT REGISTERED NURSE us Mychal Gr MD CHEMISTRY Final Resu lt Performing Organization Address City/[facility]/ZIP Co de Phone Number [facility] [address] [place] [address], [place] [phone] [facility] [address] [place] [address] * (ABNORMAL) INR - POCT [81684.2] - Standing Order (12/14/2024 9:06 AM PROGRESSIVE CARE UNIT REGISTERED NURSE) Only the most recent of2 resultswithin the time period is included. INR 1.5(H) ratio [facility] Comment: INRs >2.9 may be falsely elevated in patients receiving either unfractionated Heparin or Low Molecular Weight Heparin. Follow up testing in a hospital laboratory may be helpful if clinically indicated. INR results of > or = 5.0 should be verified using the standard venipuncture procedure. Reference Range 0.9-1.1 Moderate-intensity Warfarin Therapy 2.0-3.0 Higher-intensity Warfarin Therapy 3.0-4.0 PROTHROMBIN TIMEP 18.3(H) 10.5 - 13.1 sec [facility] Comment: Point of care fingerstick Prothrombin Time/INR results may vary from venous Prothrombin Time/INR methodologies. Any results exhibiting inconsistency with the patient's clinical status should be repeated using a venous Prothrombin Time/INR method. Blood BLOOD SPECIMEN / Unknown 12/14/2024 9:06 AM PROGRESSIVE CARE UNIT REGISTERED NURSE 12/14/2024 9:06 AM PROGRESSIVE CARE UNIT REGISTERED NURSE Ed Del Toro MD LABORATORY Final Result [facility] [address] [place] [address], [facility] [address] , [place] [address] * CT ABDOMEN PELVIS W (12/09/2024 4:22 PM PROGRESSIVE CARE UNIT REGISTERED NURSE) Anatomical Region Laterality Modality Abdomen, Pelvis, AORTA, LIVER, SPLEEN Computed Tomography 12/09/2024 8:39 PM PROGRESSIVE CARE UNIT REGISTERED NURSE Narrative 12/09/2024 8:39 PM PROGRESSIVE CARE UNIT REGISTERED NURSE For Patients: As a result of the Cures Act, medical imaging exams and procedure reports are released immediately into your electronic medical record. You may view this report before your referring provider. If you have questions, please contact your health care provider. Indication: Abdominal pain, left lower quadrant Technique: CT through the abdomen and pelvis following 100 mL Omnipaque 350 IV contrast Comparison: CT abdomen pelvis performed 01/09/2016 Findings: Lower chest: Mild bibasilar atelectasis and/or scarring. Hepatobiliary: No significant parenchymal abnormality is appreciated. Spleen: Unremarkable. Pancreas: Unremarkable. Adrenal glands: Unremarkable. Kidneys: Simple left renal cysts. No significant parenchymal abnormality appreciated. No visualized calculi. No hydronephrosis. Bowel: No obstruction. Diverticulosis. There is a large apparent diverticulum along the sigmoid colon which measures 7.6 x 6.4 centimeters with eccentric wall thickening, [id number] adjacent stranding, and effacement of fat planes with the adjacent bowel and bladder matting of the adjacent tissues. Duodenal diverticulum noted. The appendix is visualized and appears unremarkable. Vascular: Calcified and noncalcified atherosclerosis. Lymph nodes: No gross lymphadenopathy. Peritoneum: No free air. No free fluid. : Bladder wall thickening and matting adjacent to the diverticulum. Soft tissues: Tiny fat containing umbilical and right inguinal hernias. Bones: Degenerative changes of the spine and pelvis. Impression: On a background of colonic diverticulosis, there is a very large sigmoid diverticulum measuring 7.6 centimeters which demonstrates eccentric wall thickening, [id number] adjacent stranding, and effacement of fat planes along with matting of the adjacent bowel and bladder. Findings could represent a chronic diverticulum with acute inflammation, given the asymmetric wall thickening, asymmetric stranding, and a 2nd adjacent tissues, findings are concerning for neoplasm. Please note that all CT scans at this facility use dose modulation, iterative reconstruction, and/or weight-based dosing when appropriate to reduce radiation dose to as low as reasonably achievable. Dictated by Chin Eldridge MD @ 12/09/2024 8:39:39 PM (Electronically Signed) Procedure Note Chin Eldridge MD - 12/09/2024 For Patients: As a result of the 21st Century Cures Act, medical imagingexams and procedure reports are released immediately into your electronicmedical record. You may view this report before your referring provider.If you have questions, please contact your health care provider. Indication: Abdominal pain, left lower quadrant Technique: CT through the abdomen and pelvis following 100 mL Omnipaque 350 IVcontrast Comparison: CT abdomen pelvis performed 01/09/2016 Findings: Lower chest: Mild bibasilar atelectasis and/or scarring. Hepatobiliary: No significant parenchymal abnormality is appreciated. Spleen: Unremarkable. Pancreas: Unremarkable. Adrenal glands: Unremarkable. Kidneys: Simple left renal cysts. No significant parenchymal abnormalityappreciated. No visualized calculi. No hydronephrosis. Bowel: No obstruction. Diverticulosis. There is a large apparentdiverticulum along the sigmoid colon which measures 7.6 x 6.4 centimeterswith eccentric wall thickening, xlde-ov-sptkppyc adjacent stranding, andeffacement of fat planes with the adjacent bowel and bladder matting ofthe adjacent tissues. Duodenal diverticulum noted. The appendix isvisualized and appears unremarkable. Vascular: Calcified and noncalcified atherosclerosis. Lymph nodes: No gross lymphadenopathy. Peritoneum: No free air. No free fluid. : Bladder wall thickening and matting adjacent to the diverticulum. Soft tissues: Tiny fat containing umbilical and right inguinal hernias. Bones: Degenerative changes of the spine and pelvis. Impression: On a background of colonic diverticulosis, there is a very large sigmoiddiverticulum measuring 7.6 centimeters which demonstrates eccentric wallthickening, ealf-ol-ddmtdppj adjacent stranding, and effacement of fatplanes along with matting of the adjacent bowel and bladder. Findingscould represent a chronic diverticulum with acute inflammation, given theasymmetric wall thickening, asymmetric stranding, and a 2nd adjacenttissues, findings are concerning for neoplasm. Please note that all CT scans at this facility use dose modulation,iterative reconstruction, and/or weight-based dosing when appropriate toreduce radiation dose to as low as reasonably achievable. Dictated by Chin Eldridge MD @ 12/09/2024 8:39:39 PM (Electronically Signed) us Ed Del Toro MD CT Final Result * (ABNORMAL) CBC AND DIFFERENTIAL (12/08/2024 2:30 PM PROGRESSIVE CARE UNIT REGISTERED NURSE) WHITE BLOOD CELL COUNT 16.9(H) 3.8 - 10.8 Thousand/ uL [facility] RED BLOOD CELL COUNT 5.18 4.20 - 5.80 Million/u L [facility] HEMOGLOBIN 13.4 13.2 - 17.1 g/dL [facility] HEMATOCRIT 43.0 38.5 - 50.0 % [facility] MCV 83.0 80.0 - 100.0 fL [facility] MCH 25.9(L) 27.0 - 33.0 pg [facility] MCHC 31.2(L) 32.0 - 36.0 g/dL [facility] Comment: For adults, a slight decrease in the calculated MCHC value (in the range of 30 to 32 g/dL) is most likely not clinically significant; however, it should be interpreted with caution in correlation with other red cell parameters and the patient's clinical condition. RDW 13.6 11.0 - 15.0 % [facility] PLATELET COUNT 527(H) 140 - 400 Thousand/ uL [facility] MPV 9.4 7.5 - 12.5 fL [facility] ABSOLUTE NEUTROPHILS 13,047(H) 1,500 - 7,800 cells/uL [facility] ABSOLUTE LYMPHOCYTES 2,383 850 - 3,900 cells/uL [facility] ABSOLUTE MONOCYTES 1,251(H) 200 - 950 cells/uL [facility] ABSOLUTE EOSINOPHILS 152 15 - 500 cells/uL [facility] ABSOLUTE BASOPHILS 68 0 - 200 cells/uL [facility] NEUTROPHILS 77.2 % [facility] LYMPHOCYTES 14.1 % [facility] MONOCYTES 7.4 % [facility] EOSINOPHILS 0.9 % [facility] BASOPHILS 0.4 % [facility] Blood BLOOD SPECIMEN / Unknown 12/08/2024 2:30 PM PROGRESSIVE CARE UNIT REGISTERED NURSE 12/08/2024 2:30 PM PROGRESSIVE CARE UNIT REGISTERED NURSE us Ed Del Toro MD HEMATOLOGY Final Result [facility] [address] [place] [address], [place] [phone] [facility] [address] [place] [address] * (ABNORMAL) HEPATIC FUNCTION PANEL (12/08/2024 2:30 PM PROGRESSIVE CARE UNIT REGISTERED NURSE) Pathologist [facility] PROTEIN, TOTAL 8.0 6.1 - 8.1 g/dL [facility] ALBUMIN 4.1 3.6 - 5.1 g/dL [facility] GLOBULIN 3.9(H) 1.9 - 3.7 g/dL (calc) [facility] ALBUMIN/GLOBULIN RATIO 1.1 1.0 - 2.5 (calc) [facility] BILIRUBIN, TOTAL 0.5 0.2 - 1.2 mg/dL [facility] BILIRUBIN, DIRECT 0.1 < OR = 0.2 mg/dL [facility] BILIRUBIN, INDIRECT 0.4 0.2 - 1.2 mg/dL (calc) [facility] ALKALINE PHOSPHATASE 82 35 - 144 U/L [facility] AST 15 10 - 35 U/L [facility] ALT 10 9 - 46 U/L [facility] Blood BLOOD SPECIMEN / Unknown 12/08/2024 2:30 PM PROGRESSIVE CARE UNIT REGISTERED NURSE 12/08/2024 2:30 PM PROGRESSIVE CARE UNIT REGISTERED NURSE us Ed Del Toro MD CHEMISTRY Final Result [facility] [address] [place] [address], [place] [phone] [facility] [address] [place] [address] * (ABNORMAL) BASIC METABOLIC PANEL (12/08/2024 2:30 PM PROGRESSIVE CARE UNIT REGISTERED NURSE) GLUCOSE 94 65 - 99 mg/dL [facility] Comment: Fasting reference interval UREA NITROGEN (BUN) 19 7 - 25 mg/dL [facility] CREATININE 1.01 0.70 - 1.35 mg/dL [facility] EGFR 82 > OR = 60 mL/min/1. 73m2 [facility] BUN/CREATININE RATIO SEE NOTE: 6 - 22 (calc) [facility] Comment: Not Reported: BUN and Creatinine are within reference range. SODIUM 136 135 - 146 mmol/L [facility] POTASSIUM 5.0 3.5 - 5.3 mmol/L [facility] CHLORIDE 97(L) 98 - 110 mmol/L [facility] CARBON DIOXIDE 28 20 - 32 mmol/L [facility] ELECTROLYTE BALANCE 11 7 - 17 mmol/L (calc) [facility] CALCIUM 9.3 8.6 - 10.3 mg/dL [facility] Blood BLOOD SPECIMEN / Unknown 12/08/2024 2:30 PM PROGRESSIVE CARE UNIT REGISTERED NURSE 12/08/2024 2:30 PM PROGRESSIVE CARE UNIT REGISTERED NURSE Ed Del Toro MD CHEMISTRY Final Result [facility] [address] [place] [address], [facility] [address] [place] [address] * UA W/ SEDIMENT EXAM REFLEXED PER CRITERIA (12/08/2024 2:29 PM PROGRESSIVE CARE UNIT REGISTERED NURSE) COLOR Yellow Yellow Color 12/08/2024 10:29 PM PROGRESSIVE CARE UNIT REGISTERED NURSE [facility] CLARITY Clear Clear Clarity 12/08/2024 10:29 PM PROGRESSIVE CARE UNIT REGISTERED NURSE [facility] SPECIFIC GRAVITY,URINE 1.020 1.010, 1.015, 1.020, 1.025 12/08/2024 10:29 PM PROGRESSIVE CARE UNIT REGISTERED NURSE [facility] PH,URINE 6.5 6.0, 7.0, 8.0, 5.5, 6.5, 7.5, 8.5 12/08/2024 10:[address] [facility] UROBILINOGEN, QUALITATIVE Normal Normal EU/dl 12/08/2024 10:29 PM [facility] PROTEIN, URINE Negative Negative mg/dL 12/08/2024 10:[address] [facility] GLUCOSE, URINE Negative Negative mg/dL 12/08/2024 10:29 PM PROGRESSIVE CARE UN[facility] REGISTERED [facility]UR[facility] KETONES,URINE Negative Negative mg/dL 12/08/2024 10:[address] [facility] BILIRUBIN,URI NE Negative Negative 12/08/2024 10:[address] [facility] OCCULT BLOOD,URINE Negative Negative 12/08/2024 10:[address] [facility] NITRITE Negative Negative 12/08/2024 10:[address] [facility] LEUKOCYTE ESTERASE Negative Negative 12/08/2024 10:[address] [facility] Urine URINE SPECIMEN / Unknown Non-Blood / Unknown 12/08/2024 2:29 PM PROGRESSIVE CARE UNIT REGISTERED NURSE 12/08/2024 2:29 PM [facility] us Ed Del Toro MD URINE Final Result [facility] [address] [place] [address], [place] * (ABNORMAL) PROTIME-INR [70134.0] - Standing Order (11/30/2024 9:09 AM PROGRESSIVE CARE UNIT REGISTERED NURSE) Only the most recent of2 resultswithin the time period is included. INR 2.8(H) <1.3 11/30/2024 2:13 PM [facility] PROTIME 32.5(H) 10.6 - 12.4 sec 11/30/2024 2:13 PM [facility] Blood BLOOD SPECIMEN / Unknown [facility] / Unknown 11/30/2024 9:09 AM PROGRESSIVE CARE UNIT REGISTERED NURSE 11/30/2024 9:09 AM PROGRESSIVE CARE UNIT REGISTERED NURSE Narrative [facility] - 11/30/2024 2:13 PM PROGRESSIVE CARE UNIT REGISTERED NURSE Therapeutic Range 2.0-3.0 for most anticoagulated patients 2.5-3.5 [...] seconds if the patient is on UFH. us Ed Del Toro MD HEMATOLOGY Final Result [facility] [address] [place] [address], [place] * HEMOGLOBIN (10/23/2024 8:11 AM PROGRESSIVE CARE UNIT REGISTERED NURSE) Pathologist [facility] HEMOGLOBIN 14.6 13.2 - 17.1 g/dL [facility] Blood BLOOD SPECIMEN / Unknown 10/23/2024 8:11 AM PROGRESSIVE CARE UNIT REGISTERED NURSE 10/23/2024 8:12 AM PROGRESSIVE CARE UNIT REGISTERED NURSE Kleber Mcmillan DO HEMATOLOGY Final Result [facility] [address] [place] [address], [facility] [address] [place] [address] * COLONOSCOPY (09/06/2023 10:16 AM CDT) 09/06/2023 10:1 6 AM CDT Narrative Transcriptions Adrien Hussein MD - 09/06/2023 11:50 AM CDT Patient Name: Beau Cortez Procedure Date: 09/06/2023 Gender: Male Date [...] an adequate candidate for conscious sedation. The [id number] was passed through the anus and advanced [...] 10:16 AM Procedure Code(s): --- Professional --- 31515, Colonoscopy, flexible; diagnostic, including collection of specimen(s) bybrushing or washing, when performed (separateprocedure) Diagnosis Code(s): --- Professional --- K92.1, Melena (includes Hematochezia) K57.30, Diverticulosis of large intestine without perforation or abscess withoutbleeding CPT copyright 2021 [employer]. All rights reserved. The codes documented in this report are preliminary and upon survey research center director reviewmay be revised to meet current compliance requirements. Scope In: 11:22:55 AM Scope Withdrawal Time 0 hours 7 minutes 51 seconds Scope Out: 11:36:13 AM us Adrien Hussein MD PROCEDURE ORD Final Res ult * (ABNORMAL) LIPID PANEL W REFLEX MEASURED LDL (07/24/2023 7:47 AM CDT) CHOLESTEROL,TOTAL 232(H) 100 - 199 mg/dL 07/24/2023 2:23 PM CDT [facility] Comment: Cholesterol, Total Reference Ranges Desirable <200 mg/dL Borderline 200-239 mg/dL High >=240 mg/dL TRIGLYCERIDES 175(H) <150 mg/dL 07/24/2023 2:23 PM CDT [facility] HDL CHOLESTEROL 53 >40 mg/dL 2:23 PM CDT [facility] NON-HDL CHOLESTEROL 179(H) <145 mg/dl 07/24/2023 2:23 PM CDT [facility] CHOL/HDL RATIO 4.38 <4.50 07/24/2023 2:23 PM CDT [facility] LDL CHOLESTEROL 144(H) <=130 mg/dL 07/24/2023 2:23 PM CDT [facility] VLDL CHOLESTEROL 35(H) <=30 mg/dL 07/24/2023 2:23 PM CDT [facility] PROVIDER ORDERED STATUS RANDOM 07/24/2023 2:23 PM CDT [facility] Blood BLOOD SPECIMEN / Unknown Venipuncture / Unknown 07/24/2023 7:47 AM CDT 07/24/2023 7:48 AM CDT us Ed Del Toro MD CHEMISTRY Final Result [facility] [address] [place] [address], * ANTI HCV (11/09/2020 10:24 AM PROGRESSIVE CARE UNIT REGISTERED NURSE) HEPATITIS C ANTIBODY Non-React johnathan Non-React johnathan 11/09/2020 6:25 PM PROGRESSIVE CARE UNIT REGISTERED NURSE [facility] Comment:Antibodies to HCV no t detected; does not exclude the possibility of exposure to HCV. Blood BLOOD SPECIMEN / Unknown [facility]fly / Unknown 11/09/2020 10:24 AM PROGRESSIVE CARE UNIT REGISTERED NURSE 11/09/2020 10:25 AM PROGRESSIVE CARE UNIT REGISTERED NURSE us Ed Del Toro MD SEND OUTS Final Result [facility] [address] [place] [address], from Last 3 Months or Most Recently Relevant to Health Maintenance Insurance [facility] MEDICARE PART A HB ONLY [facility] [place]ELCAR[place] [id number] BLUE CROSS OF NON-MS-ITS Advance Directives * Full Code (Latest Code [...] 1:54 AM 08/09/2017 11:45 AM Care Teams Tombstone Polisher Relationship Specialty Start Date End Date Ed Del Toro MD [address] [place] [address] PCP - General Family Practice 12/05/20 Romina Cristobal NP [address] [address] Nurse Practitioner Cardiology - Electrophysiology 07/07/19 Cassandra Kearney MD [address] [place] [address] Consulting Physician Cardiology - Electrophysiology 10/23/21
--- OUTSIDE RECORDS SUMMARY | 2025-01-15 22:36 | XMS_ITS | Encounter Summary ---
Author Organization [employer] Address [address] [place] [address] Care Team Providers Care Jailer/Training Officer Name Role Phone Ed Del Toro MD Primary Care Provider Reason for Visit * Reason Comments Knee Problem Encounter Details Date Type Department Care Team (Late st Contact Info) Description 12/10/2024 11:00 AM IRONWORKER Therapy [facility], Physical Therapy [address] [place] [address] Álvaro Flores, PT [address] [place], [place] [phone] Aftercare following left knee joint replacement surgery (Primary Dx) Social History Tobacco Use Types Packs/Day Years Used Date Smoking Tobacco: Never Smokeless Tobacco: Never [facility] Utilities Answer Date Recorded In the past 12 months has [facility] [employer], gas, oil, or water [employer] threatened to shut off services in your [...] Progress Notes * Álvaro Flores, PT - 12/10/2024 11:00 AM CST Physical Therapy Post-Op Knee Daily Note Visit Number: 12 BS CO Initial Certification Period: 11/03/2024 to 02/01/25 Referring Provider: Dr. Matti MD Referring Diagnosis: Arthritis of left knee Date of Surgery: 10/29/24 Surgical Procedure: Left TKA and hardware removal (previous hardware - tibial screw) Orders: Evaluate & treat Precautions/Contraindications: transient a fib, hx PE Date of Onset: chronic Standardized Functional Score at initial evaluation: did not complete History: Patient is post op day 5 following a L tibial screw removal and L TKA. Previously attempted physical therapy and injections without lasting relief. Post operatively, patient spent one night in the hospital before returning home, he reports he has been completing a few exercises. His pain is well managed, using oxy (most recent 30 min ago). Sleeping fair. He underwent a R TKA in November 2023, also with Dr. Chino, successful outcome. Method of Injury: chronic Functional Limitations: walking, transfers, sleeping, range of motion restrictions, exercising and activity as desired Patient's Therapy Goals: reduce pain, return to golfing, return to skiing, normal walking SUBJECTIVE: Pain Ratin-3/10 Patient Report: 6-weeks Pt reports L knee feeling pretty good overall. Less overall pain throughout the day. Improving LE strength and ROM. HEP going well. MD visit last Saturday, MD happy with progress per pt. OBJECTIVE: Observation/Gait: mild antalgic gait on L Inspection of knee/LE: Steri strips in place, no signs or symptoms of infection or DVT Edema: mod expected post operative swelling ROM (ucmdizyzo-xhu-pyay): 5-120 deg Strength: Quad set: good- Supine SLR: ~5 deg extensor lag TREATMENT TODAY: Manual Treatment x 10 minutes: - knee flex PROM with PT assist - knee ext stretch with manual overpressure Therapeutic Exercise (CPT 38984) x 30 minutes: Utilized for the purpose of improving strength, ROM,endurance, and/or flexibility: Objective measures - Stationary bike x 5 mins - DL knee ext machine 30# 3 x 10 - sit to stands from bench without UE support 2 x 10 - step ups on 6 step 2 x 10 - lateral step ups on 6 step 2 x 10 - side steps with band around shins - Genuease x 10 minutes 5-0-125 Access Code: [email or web address] Timed Code Treatment Minutes: 40 Total Treatment Minutes: 40 ASSESSMENT: Maintained good knee ROM and quad strength per exercise progression, Progress strengthening with knee ext machine and lateral step ups without increased pain or difficulty. Good muscle fatigue at theend of tx. Pleased with progress made. PLAN: Start on stationary bike for ROM, genu-ease, progress knee ROM and quad strength; leg press, knee ext machine, step up progression? EXPECTED FUNCTIONAL OUTCOMES/GOALS: HEP/Independent Management: Demonstrate independence with HEP and self- management following each treatment session Ambulation: Patient will be able to demonstrate up/down 1 flight of stairs with a step through/reciprocal gait pattern and use of 0-1 railing in 6-8 weeks Ambulation: Patient will be able to ambulate community distances with minimal to no symptoms/limp in 8 weeks. ADL's: Resume previous sleep pattern without awakening due to symptoms in 4 weeks. ADL: Patient will be able to demonstrate sit to stand transfers using bilateral lower extremities equally 2-4 weeks ADL: Able to dress lower extremities with ease due to improved ROM in 4-6 weeks. ADL: Squat to lemon picker items from floor with minimal/no symptoms in 6-8 weeks. Therapist: Álvaro Flores, PT 11:02 AM 12/10/2024 WORKER documented in this encounter Plan of Treatment Upcoming Encounters Date Type Department Care Team (Late st Contact Info) Description 01/29/2025 11:30 AM CDT Appointment [facility], Physical Therapy [address] [place] [address] Álvaro Flores PT [address] [place] [address] documented as of this encounter Goals Goal Patient Goal Type Associated Problems Recent Progress Patient-Stated? Author Right Knee Replacement Care Plan ET PROE RIGHT KNEE No Emperatriz Richter, RN, PLANT TENDER FUEL OPERATOR Left Knee Care Plan ET PROE LEFT KNEE No Emperatriz Richter, RN, PLANT TENDER FUEL OPERATOR documented as of this encounter Visit Diagnoses Diagnosis Aftercare following left knee joint replacement surgery- Primary documented in this encounter Additional Health Concerns Active Problems Noted Date Diagnosed Date ET PROE RIGHT KNEE 07/30/2023 ET PROE LEFT KNEE 12/31/2023 documented as of this encounter Care Teams Jailer/Training Officer Relationship Specialty Start Date End Date Ed Del Toro MD [address] [place] [address] PCP - General Family Practice 07/25/22 documented as of this encounter
--- OUTSIDE RECORDS SUMMARY | 2025-01-15 22:36 | XMS_ITS | Encounter Summary ---
Author Organization [employer] Address [address] [place] [address] Care Team Providers Care Crime Prevention Police Officer Name Role Phone Ed Del Toro MD Primary Care Provider Reason for Visit * Reason Comments Knee Problem Encounter Details Date Type Department Care Team (Late st Contact Info) Description 12/01/2024 7:00 AM PRISONER CLASSIFICATION INTERVIEWER Therapy [facility], Physical Therapy [address] [place] [address] Álvaor Flores, PT [address] [place], [place] [phone] Aftercare following left knee joint replacement surgery (Primary Dx) Social History Tobacco Use Types Packs/Day Years Used Date Smoking Tobacco: Never Smokeless Tobacco: Never [facility] Utilities Answer Date Recorded In the past 12 months has [facility] [email or web address], gas, oil, or water [employer] threatened to shut off services in your [...] place to sleep or slept in a half-way (including now)? No 11/20/2023 Sex and Gender Information Value Date Recorded Sex Assigned at Not on file Legal Sex Male 10:09 AM CDT Gender Identity Not on file Sexual Orientation Not on file documented as of this encounter Progress Notes * Álvaro Flores, PT - 12/01/2024 7:00 AM CST Physical Therapy Post-Op Knee Daily Note Visit Number: 10 [employer] [place] Initial Certification Period: 11/03/2024 to 02/01/25 Referring [...] return to skiing, normal walking SUBJECTIVE: Pain Ratin-4/10 Patient Report: 1 month post op. Pt reports slight increased pain last night and into this morning. Not sure why, could be from doing more. Noticing improved LE strength and ROM. Walking more without SPC around the house. OBJECTIVE: Observation/Gait: SPC step through gait pattern, improving TKE Inspection of knee/LE: Steri strips in place, no signs or symptoms of infection or DVT Edema: mod expected post operative swelling ROM (pbfnnxocl-izi-myox): 5-120 deg Strength: Quad set: good- Supine SLR: ~5 deg extensor lag TREATMENT TODAY: Therapeutic Exercise (CPT 13557) x 40 minutes: Utilized for the purpose of improving strength, ROM,endurance, and/or flexibility: Objective measures - full circles on stationary bike x 5 mins - knee flex PROM with PT assist - knee ext stretch with manual overpressure - prone knee ext stretch with overpressure - added - LAQ with band - DL leg press 25# 2 x 10 - Mini squat holds 10 x 5 sec holds - standing calf stretch 3 x 20 sec - eccentric reverse step downs on 6 step - added - Genuease x 10 minutes 4-0-123 Access Code: [email or web address] Timed Code Treatment Minutes: 40 Total Treatment Minutes: 40 ASSESSMENT: Improving knee ROM and quad strength per exercise progression, Progress strengthening with eccentric reverse step downs with expected challenge. Good muscle fatigue at the end of tx. Pleased with progress made. PLAN: Start on stationary bike for ROM, genu-ease, progress knee ROM and quad strength; leg press? Step up progression? EXPECTED FUNCTIONAL OUTCOMES/GOALS: HEP/Independent Management: [...] ROM in 4-6 weeks. ADL: Squat to picker / packer items from floor with minimal/no symptoms in 6-8 weeks. Therapist: Álvaro Flores, PT 7:05 AM 12/01/2024 ONER CLASSIFICATION INTERVIEWER documented in this encounter Plan of Treatment Upcoming Encounters Date Type Department Care Team (Late st Contact Info) Description 01/29/2025 11:30 AM CDT Appointment [facility], Physical Therapy [address] [place] [address] Álvaro Flores PT [address] [place], [place] [phone] documented as of this encounter Goals Goal Patient Goal Type Associated Problems Recent Progress Patient-Stated? Author Right Knee Replacement Care Plan ET PROE RIGHT KNEE No Emperatriz Richter, RN, SALES PLANNER SHEETER MACHINE OPERATOR Left Knee Care Plan ET PROE LEFT KNEE No Emperatriz Richter RN, SALES PLANNER SHEETER MACHINE OPERATOR documented as of this encounter Visit Diagnoses Diagnosis Aftercare following left knee joint replacement surgery- Primary documented in this encounter Additional Health Concerns Active Problems Noted Date Diagnosed Date ET PROE RIGHT KNEE 07/30/2023 ET PROE LEFT KNEE 12/31/2023 documented as of this encounter Care Teams Crime Prevention Police Officer Relationship Specialty Start Date End Date Ed Del Toro MD [address] [place] [address] PCP - General Family Practice 07/25/22 documented as of this encounter
--- OUTSIDE RECORDS SUMMARY | 2025-01-15 22:36 | XMS_ITS | Encounter Summary ---
Author Organization [facility] Address [address] [place] [address] Care Team Providers Care Recruit Instructor Name Role Phone Ed Del Toro MD Primary Care Provider Reason for Visit * Reason Comments Knee Problem Encounter Details Date Type Department Care Team (Late st Contact Info) Description 12/29/2024 7:00 AM DIRECTOR INVESTOR RELATIONS Therapy [facility], Physical Therapy [address] [place] [address] Álvaro Flores, PT [address] [place], [place] [address] Aftercare following left knee joint replacement surgery (Primary Dx) Social History Tobacco Use Types Packs/Day Years Used Date Smoking Tobacco: Never Smokeless Tobacco: Never [facility] Utilities Answer Date Recorded In the past 12 months has [facility] [employer], gas, oil, or water [employer] threatened to shut off services in your [...] Progress Notes * Álvaro Flores, PT - 12/29/2024 7:00 AM CST Physical Therapy Post-Op Knee Daily Note Visit Number: 15 [employer] [place] Initial Certification Period: 11/03/2024 to [...] normal walking SUBJECTIVE: Pain Ratin-3/10 Patient Report: 8-weeks Pt reports knee feeling good this past week. Able to walk more outside over the weekend without difficulty. Feeling less stiff in the morning. OBJECTIVE: Observation/Gait: mild antalgic gait on L Inspection of knee/LE: well healing incision Edema: min post operative swelling ROM ([id number]): 3-126 deg Strength: Quad set: good Supine SLR: wnl TREATMENT TODAY: Manual Treatment x 8 minutes: - I/S patellar mobs - knee flex PROM with PT assist - knee ext stretch with manual overpressure Therapeutic Exercise (CPT 56109) x 23 minutes: Utilized for the purpose of improving strength, ROM,endurance, and/or flexibility: Objective measures - Stationary bike x 5 mins - bridge - leg press 25# and 40# x 15 each - DL knee ext machine 30# 35# 40# x 10 each - sled push 80# x 2 laps Access Code: [email or web address] Timed Code Treatment Minutes: 31 Total Treatment Minutes: 31 ASSESSMENT: Good tolerance to tx today. Maintained good knee ROM after manual tx and stretching. Still struggling to get full ext. Good tolerance to strength progression on resistance machines. Pt is having a medical procedure next week. Will hold off from PT until late January. PLAN: Will follow up in 4-weeks following medical procedure EXPECTED FUNCTIONAL OUTCOMES/GOALS: HEP/Independent Management: Demonstrate independence [...] ROM in 4-6 weeks. ADL: Squat to pickling tank operator items from floor with minimal/no symptoms in 6-8 weeks. Therapist: Álvaro Flores, PT 7:08 AM 12/29/2024 CTOR INVESTOR RELATIONS documented in this encounter Plan of Treatment Upcoming Encounters Date Type Department Care Team (Late st Contact Info) Description 01/29/2025 11:30 AM CDT Appointment [facility], Physical Therapy [address] [place], [place] [address] Álvaro Flores PT [address] [place] [address] documented as of this encounter Goals Goal Patient Goal Type Associated Problems Recent Progress Patient-Stated? Author Right Knee Replacement Care Plan ET PROE RIGHT KNEE No Emperatriz Richter, RN, PORCELAIN ENAMEL SPRAYER RETORT PRESS OPERATOR Left Knee Care Plan ET PROE LEFT KNEE No Emperatriz Richter, RN, PORCELAIN ENAMEL SPRAYER RETORT PRESS OPERATOR documented as of this encounter Visit Diagnoses Diagnosis Aftercare following left knee joint replacement surgery- Primary documented in this encounter Additional Health Concerns Active Problems Noted Date Diagnosed Date ET PROE RIGHT KNEE 07/30/2023 ET PROE LEFT KNEE 12/31/2023 documented as of this encounter Care Teams Recruit Instructor Relationship Specialty Start Date End Date Ed Del Toro MD [address] [place] [address] PCP - General Family Practice 07/25/22 documented as of this encounter
--- OUTSIDE RECORDS SUMMARY | 2025-01-15 22:36 | XMS_ITS | Encounter Summary ---
Author Organization [facility] Address [address] [place] [address] Care Team Providers Care Pay Station Attendant Name Role Phone Ed Del Toro MD Primary Care Provider Reason for Visit * Reason Comments Knee Problem Encounter Details Date Type Department Care Team (Late st Contact Info) Description 12/22/2024 7:00 AM CASH REGISTER MECHANIC Therapy [facility], Physical Therapy [address] [place] [address] Álvaro Flores, PT [address] [place], [place] [id number] Aftercare following left knee joint replacement surgery (Primary Dx) Social History Tobacco Use Types Packs/Day Years Used Date Smoking Tobacco: Never Smokeless Tobacco: Never [facility] Utilities Answer Date Recorded In the past 12 months has [facility] [employer], gas, oil, or water [employer] threatened to shut off services in your [...] Progress Notes * Álvaro Flores, PT - 12/22/2024 7:00 AM CST Physical Therapy Post-Op Knee Daily Note Visit Number: 14 [employer] [place] Initial Certification Period: 11/03/2024 to [...] Patient Report: 8-weeks Pt reports knee feeling better this past week. No longer experiencing quad soreness or twitching.Feels LE getting stronger every week. OBJECTIVE: Observation/Gait: mild antalgic gait on L Inspection of knee/LE: well healing incision Edema: min post operative swelling ROM ([id number]): 3-125 deg Strength: Quad set: good Supine SLR: wnl TREATMENT TODAY: Manual Treatment x 10 minutes: - I/S patellar mobs - knee flex PROM with PT assist - knee ext stretch with manual overpressure Therapeutic Exercise (CPT 11690) x 30 minutes: Utilized for the purpose of improving strength, ROM,endurance, and/or flexibility: Objective measures - Stationary bike x 5 mins - leg press 25# and 35# x 15 each - DL knee ext machine 30# 3 x 10 - runner step up on 6 step 2 x 10 - Genuease x 10 minutes 5-0-128 Access Code: [email or web address] Timed Code Treatment Minutes: 40 Total Treatment Minutes: 40 ASSESSMENT: Good tolerance to tx today. Improved knee ROM to 3-125 after manual tx and stretching. Able to progress exercises with runner step ups without increased pain or difficulty. PLAN: Start on stationary bike for ROM, genu-ease, progress knee ROM and quad strength; leg press, knee ext machine, step up progression EXPECTED FUNCTIONAL OUTCOMES/GOALS: HEP/Independent Management: Demonstrate independence [...] ROM in 4-6 weeks. ADL: Squat to spanish moss picker items from floor with minimal/no symptoms in 6-8 weeks. Therapist: Álvaro Flores, PT 7:06 AM 12/22/2024 REGISTER MECHANIC documented in this encounter Plan of Treatment Upcoming Encounters Date Type Department Care Team (Late st Contact Info) Description 01/29/2025 11:30 AM CDT Appointment [facility], Physical Therapy [address] [place], [place] [phone] Álvaro Flores PT [address] [place] [address] documented as of this encounter Goals Goal Patient Goal Type Associated Problems Recent Progress Patient-Stated? Author Right Knee Replacement Care Plan ET PROE RIGHT KNEE No Emperatriz Richter, RN, LODE MINER CAR SALES REPRESENTATIVE Left Knee Care Plan ET PROE LEFT KNEE No Emperatriz Richter, RN, LODE MINER CAR SALES REPRESENTATIVE documented as of this encounter Visit Diagnoses Diagnosis Aftercare following left knee joint replacement surgery- Primary documented in this encounter Additional Health Concerns Active Problems Noted Date Diagnosed Date ET PROE RIGHT KNEE 07/30/2023 ET PROE LEFT KNEE 12/31/2023 documented as of this encounter Care Teams Pay Station Attendant Relationship Specialty Start Date End Date Ed Del Toro MD [address] [place] [address] PCP - General Family Practice 07/25/22 documented as of this encounter
--- OUTSIDE RECORDS SUMMARY | 2025-01-15 22:36 | XMS_ITS | Clinical Summary ---
[facility] Address [address], [place] [address] Care Team Providers Care Conference Reservationist Name Role Phone Ed Del Toro MD Primary Care Provider Source Comments You are receiving this document as you are listed as the primary care provider,follow-up provider, or the patient has been referred to you for consultation.This is in compliance with the Medicare and[facility] EHR Incentive Program,which states Providers who transition their patient to another setting of careor provider of care or refers their patient to another provider of care shouldprovide summary care record for each transition of care or referral. [facility] Allergies No known active allergies Medications omeprazole (PRILOSEC) 20 MG capsule Take 1 Capsule (20 mg) by mouth daily. Take 1 hour before a meal. Active amoxicillin (AMOXIL) 500 MG capsuleIndicat ions:Status post total knee replacement, right Take 4 capsules (2,000mg) 1 hour before Dental Procedure. 8 Capsule 1 4 Active warfarin 2 MG tablet Take 1-1.5 Tablets (2-3 mg) by mouth daily. Managed by outside facility/provider . Takes 2mg on Mondays, Saturdays, and warfarin 3 mg all other days of the week. 4 Active bisoprolol (ZEBETA) 5 MG tablet Take 1 Tablet (5 mg) by mouth daily. Active acetaminophen (TYLENOL) 500 MG tabletIndicati ons:Pain Take 2 Tablets (1,000 mg) by mouth three times a day. 24 hour limit of acetaminophen (TYLENOL) is 4000mg. Indications: Pain 100 Tablet 10/30/2024 1:17 PM ADMINISTRATIVE SERVICES DIRECTOR 4 Active senna (SENOKOT) 8.6 MG tabletIndicati ons:Constipati on Take 2 Tablets by mouth daily at bedtime. Take while on narcotics. Hold for loose stools. Indications: Constipation 60 Tablet 10/30/2024 1:17 PM ADMINISTRATIVE SERVICES DIRECTOR 4 Active oxyCODONE (ROXICODONE) 5 MG immediate release tabletIndicati ons:Moderate to Moderately Severe Pain Take 1-2 Tablets (5-10 mg) by mouth at bedtime as needed for Pain. Take 1 tablet for pain rated at 4-7. Take 2 tablets for pain rated 8-10. Indications: Moderate to Moderately Severe Pain 10 Tablet 5 Active Active Problems Problem Noted Date Diagnosed Date S/P total knee arthroplasty, left 11/12/2024 Arthritis of left knee 12/31/2023 Status post total knee replacement, right 2023 Overview (11/21/2023): Dr. Chino 11/20/2023 Hypoxia 11/20/2023 YARELY (obstructive sleep apnea) 11/20/2023 Atrial fibrillation, transient 11/20/2023 Primary localized osteoarthritis of right knee 0 07/30/2023 History of pulmonary embolus (PE) 08/31/2019 Overview (11/20/2023): 2018 Obesity 08/07/2017 Encounters Date Type Department Care Team Description 12/29/2024 7:00 AM ADMINISTRATIVE SERVICES DIRECTOR Therapy [facility], Physical Therapy [address] [place] [address] Álvaro Flores, PT Aftercare following left knee joint replacement surgery (Primary Dx) 12/22/2024 7:00 AM ADMINISTRATIVE SERVICES DIRECTOR Therapy [facility], Physical Therapy [address] [place] [address] Álvaro Flores, PT Aftercare following left knee joint replacement surgery (Primary Dx) 12/15/2024 7:00 AM ADMINISTRATIVE SERVICES DIRECTOR Therapy [facility], Physical Therapy [address] [place] [address] Álvaro Flores, PT Aftercare following left knee joint replacement surgery (Primary Dx) 12/10/2024 11:00 AM ADMINISTRATIVE SERVICES DIRECTOR Therapy [facility], Physical Therapy [address] [facility] [place] [address] Álvaro Flores, PT Aftercare following left knee joint replacement surgery (Primary Dx) 12/08/2024 9:55 AM ADMINISTRATIVE SERVICES DIRECTOR Ancillary Procedure [facility] [address] [place] [id number] Costa Chino MD S/P total knee arthroplasty, left 12/08/2024 9:40 AM ADMINISTRATIVE SERVICES DIRECTOR Office Visit [facility] [address] [place] [address] Costa Chino MD S/P total knee arthroplasty, left (Primary Dx) 12/03/2024 8:45 AM ADMINISTRATIVE SERVICES DIRECTOR Therapy [facility], Physical Therapy [address] [facility] [place] [address] Elvis Nunn, PT Aftercare following left knee joint replacement surgery (Primary Dx); Left knee pain, unspecified chronicity 12/01/2024 7:00 AM ADMINISTRATIVE SERVICES DIRECTOR Therapy [facility], Physical Therapy [address] [place] [address] Álvaro Flores, PT Aftercare following left knee joint replacement surgery (Primary Dx) 11/26/2024 11:00 AM ADMINISTRATIVE SERVICES DIRECTOR Therapy [facility], Physical Therapy [address] [place] [address] Álvaro Flores, PT Aftercare following left knee joint replacement surgery (Primary Dx) 11/24/2024 8:00 AM ADMINISTRATIVE SERVICES DIRECTOR Therapy [facility] Physical Therapy [address] [place] [address] Álvaro Flores, PT Aftercare following left knee joint replacement surgery (Primary Dx) 11/19/2024 7:30 AM ADMINISTRATIVE SERVICES DIRECTOR Therapy [facility], Physical Therapy [address] [place] [address] Veronica Hahn, PT Left knee pain, unspecified chronicity (Primary Dx); Aftercare following left knee joint replacement surgery 11/17/2024 7:00 AM ADMINISTRATIVE SERVICES DIRECTOR Therapy [facility], Physical Therapy [address] [place] [address] Álvaro Flores, PT Aftercare following left knee joint replacement surgery (Primary Dx) 11/13/2024 6:45 AM ADMINISTRATIVE SERVICES DIRECTOR Therapy [facility], Physical Therapy [address] [place] [address] Elvis Nunn, PT Left knee pain, unspecified chronicity (Primary Dx); Aftercare following left knee joint replacement surgery 11/12/2024 9:30 AM ADMINISTRATIVE SERVICES DIRECTOR Office Visit [facility] [address] [place] [id number] Nurse, [facility] Um Delmi S/P total knee arthroplasty, left (Primary Dx) 11/12/2024 Refill [facility] [address] [place] [address] Costa Chino MD Refill 11/11/2024 11:15 AM ADMINISTRATIVE SERVICES DIRECTOR Therapy [facility], Physical Therapy [address] [place] [id number] Michelle Moreno, PT Left knee pain, unspecified chronicity (Primary Dx); Aftercare following left knee joint replacement surgery 11/09/2024 8:45 AM ADMINISTRATIVE SERVICES DIRECTOR Therapy [facility], Physical Therapy [address] [place] [address] Elvis Nunn, PT Left knee pain, unspecified chronicity (Primary Dx); Aftercare following left knee joint replacement surgery 11/05/2024 7:30 AM ADMINISTRATIVE SERVICES DIRECTOR Therapy [facility], Physical Therapy [address] [place] [address] Veronica Hahn, PT Left knee pain, unspecified chronicity (Primary Dx); Aftercare following left knee joint replacement surgery 11/03/2024 9:45 AM ADMINISTRATIVE SERVICES DIRECTOR Office Visit [facility], Physical Therapy [address] [facility] [place] [address] Michelle Moreno PT Aftercare following left knee joint replacement surgery (Primary Dx) 11/02/2024 Orders Only [facility] Soco Arango MD 10/29/2024 7:29 AM ADMINISTRATIVE SERVICES DIRECTOR Anesthesia Event [facility] [address] [facility] [place] [address] Renée Rodgers MD 10/29/2024 7:00 AM ADMINISTRATIVE SERVICES DIRECTOR - 10/29/2024 9:35 AM ADMINISTRATIVE SERVICES DIRECTOR Surgery [facility] [address] [facility] [place] [address] Costa Chino MD TOTAL KNEE JOINT REPLACEMENT, AND hardware removal 10/29/2024 5:39 AM ADMINISTRATIVE SERVICES DIRECTOR - 10/30/2024 1:14 PM ADMINISTRATIVE SERVICES DIRECTOR Hospital Encounter [facility] [address] [place] [place] [address] Costa Chino MD Status post total left knee replacement (Primary Dx); Pain Discharge Disposition: Home 10/29/2024 Orders Only [facility] Soco Arango MD 10/29/2024 Orders Only [facility] ProviderSoco MD 10/23/2024 Telephone [facility] [address] [place] [phone] Slime Hawk, RECORDING STUDIO INTERN RESULTS 10/20/2024 Telephone [facility] [address] [place] [address] Slime [place], RECORDING STUDIO INTERN RESULTS from Last 3 Months Social History Tobacco Use Types Packs/Day Years Used Date Smoking Tobacco: Never Smokeless Tobacco: Never Tobacco Cessation:Counseling Given: Not Answered [facility] Utilities Answer Date Recorded In the past 12 months has e [employer], gas, oil, or water Stance threatened to shut off services in your [...] Sign Reading Time Taken Comments Blood Pressure 109/61 10/30/2024 9:55 AM ADMINISTRATIVE SERVICES DIRECTOR Pulse 56 10/30/2024 9:55 AM ADMINISTRATIVE SERVICES DIRECTOR Temperature 36.8 C (98.2 F) 10/30/2024 9:55 AM ADMINISTRATIVE SERVICES DIRECTOR Respiratory Rate 15 10/30/2024 9:55 AM ADMINISTRATIVE SERVICES DIRECTOR Oxygen Saturation 96% 10/30/2024 9:55 AM ADMINISTRATIVE SERVICES DIRECTOR Inhaled Oxygen Concentration - - Weight 100.8 kg (222 lb 3.2 oz) 10/29/2024 6:27 AM ADMINISTRATIVE SERVICES DIRECTOR Height 172.7 cm (5' 7.99) 10/29/2024 6:27 AM CS T Body Mass Index 33.79 10/29/2024 6:27 AM ADMINISTRATIVE SERVICES DIRECTOR Plan of Treatment Upcoming Encounters Date Type Department Care Team (Late st Contact Info) Description 01/29/2025 11:30 AM CDT Appointment [facility], Physical Therapy [address] [place] [address] Álvaro Flores, PT [address] [place], [place] [phone] Health Maintenance Due Date Last Done Comments Colon Cancer Screening Plan Due 1958 Hep C Screening (Preventive Services) 1958 Adult Preventive Visit 1976 Cholesterol 1993 Pneumococcal 50+ Yrs (1 of 1 - PCV) 2008 Zoster/Shingles (1 of 2) 2008 COVID-19 Vaccine (2 - 2023-2 5 season) 2024 02/13/2021 Influenza (#1) 2024 PSA Screening Discussion 09/13/2024 09/13/2023 DTaP/Tdap/Td (2 - Tdap) 03/03/2025 03/03/2015 Diabetes Screening- (based o n age and BMI) 10/29/2027 10/29/2024 RSV (1 - 1-dose 75+ series) 2033 HepA Aged Out No longer eligi ble [...] on patient's age to complete this topic Meningococcal B Aged Out No longer el igible based on patient's age to complete this topic Goals Goal Patient Goal Type Associated Problems Recent Progress Patient-Stated? Author Right Knee Replacement Care Plan ET PROE RIGHT KNEE No Emperatriz Richter, RN, QA INTERN COMPUTER NUMERICAL CONTROL GRINDER Left Knee Care Plan ET PROE LEFT KNEE No Emperatriz Richter RN, QA INTERN COMPUTER NUMERICAL CONTROL GRINDER Medical Devices Implanted Type Area Inspector Chief Device Identifier Shelf Expiration Date Model / Serial / Lot Jose Bone Biomet R 1x40 - [id number] Implanted:Qty : 2 on 11/20/2023 by Costa Chino MD at [facility] DEVICE Right: KNEE [employer] 04/03/2026 [id number] / 0 / [id number] Patella All Poly Ply 35mm - [id number] Implanted:Qty : 1 on 11/20/[facility]: KNEE [employer] 09/14/2028 [id number] / 0 / [id number] Comp Fem Ps Ccr Ps Std Sz7 Rt - [id number] Implanted:Qty : 1 on 11/20/2023 by Costa Chino MD at [facility] DEVICE Right: KNEE [employer] 07/06/2033 [id number] / 0 / [id number] Stem Tib 5deg Szg Rt - [id number] Implanted:Qty : 1 on 11/20/2023 by Costa Chino MD at [facility] DEVICE Right: KNEE [employer] 08/23/2033 [id number] / 0 / [id number] Asf Ps Poly 11mm 69 Gh Rt - [id number] Implanted:Qty : 1 on 11/20/2023 by Costa Chino MD at [facility] DEVICE Right: KNEE [employer] 01/23/2028 [id number] / 0 / [id number] Jose [employer] R 1x40 - [id number] Implanted:Qty : 2 on 10/29/2024 by Costa Chino MD at [facility] DEVICE Left: KNEE [employer] 01/01/2027 [id number] / / [id number] Comp Fem Ps Ccr Ps Std Sz7 Lt - [id number] Implanted:Qty : 1 on 10/29/2024 by Costa Chino MD at [facility] DEVICE Left: KNEE [employer] 06/18/2034 [id number] / / [id number] Stem Tib 5deg Szg Lt - [id number] Implanted:Qty : 1 on 10/29/2024 by Costa Chino MD at [facility] DEVICE Left: KNEE [employer] 07/15/2034 [id number] / / [id number] Patella All Poly Ply 38mm - [id number] Implanted:Qty : 1 on 10/29/2024 by Costa Chino MD at [facility] DEVICE Left: KNEE [employer] 09/13/2029 [id number] / / [id number] Persona Articular Surface, Fixed Bearing, Posterior Stabilized, Left, 11mm Height Implanted:Qty : 1 on 10/29/2024 by Costa Chino MD at [facility] Left: KNEE [employer] - Orthopedics 08/09/2028 [id number] / / [id number] Procedures Procedure Name Priority Date/Time Associated Diagnosis Comments XR KNEE LT 3 VIEWS Routine 12/08/2024 10 :02 AM ADMINISTRATIVE SERVICES DIRECTOR S/P total knee arthroplasty, left EKG 11/02/2024 INR/PROTIME Routine 10/30/2024 7:14 AM ADMINISTRATIVE SERVICES DIRECTOR HEMOGLOBIN, BLOOD Routine 10/30/2024 7:1 4 AM ADMINISTRATIVE SERVICES DIRECTOR XR KNEE LT 2 VIEWS Routine 10/29/2024 4: 32 PM ADMINISTRATIVE SERVICES DIRECTOR SPINAL BLOCK Routine 10/29/2024 7:38 AM ADMINISTRATIVE SERVICES DIRECTOR TOTAL KNEE JOINT REPLACEMENT 10/29/2024 7:00 AM ADMINISTRATIVE SERVICES DIRECTOR Arthritis of left knee Case Notes 1 screw removed and disposed of per hospital policy COMPLETE BLOOD COUNT-W/DIFF STAT 10/29/2024 6:04 AM ADMINISTRATIVE SERVICES DIRECTOR INR/PROTIME STAT 10/29/2024 6:04 AM ADMINISTRATIVE SERVICES DIRECTOR HGB A1C STAT 10/29/2024 6:04 AM ADMINISTRATIVE SERVICES DIRECTOR BASIC METABOLIC PANEL STAT 10/29/2024 6:04 AM ADMINISTRATIVE SERVICES DIRECTOR CBC AND DIFFERENTIAL PANEL STAT 10/29/2024 6:04 AM ADMINISTRATIVE SERVICES DIRECTOR EKG 10/29/2024 LABORATORY REPORT 10/29/2024 from Last 3 Months Results * XR Knee Lt 3 Views (12/08/2024 10:02 AM ADMINISTRATIVE SERVICES DIRECTOR) Anatomical Region Laterality Modality Lower Extremity, Knee Digital Ra diography 12/08/2024 9:54 AM ADMINISTRATIVE SERVICES DIRECTOR Narrative 12/08/2024 10:32 AM ADMINISTRATIVE SERVICES DIRECTOR COMPARISON: 10/29/2024 FINDINGS: Left total knee arthroplasty [...] Costa Chino MD RAD GD Final Result * EKG (11/02/2024) Only the most recent of2 resultswithin the time period is included. us Interface Provider EKG Final Resu lt * (ABNORMAL) Hemoglobin in AM POD #1 (10/30/2024 7:14 AM ADMINISTRATIVE SERVICES DIRECTOR) Hemoglobin 12.6(L) 13.5 - 17.5 g/dL 10/30/2024 7:42 AM ADMINISTRATIVE SERVICES DIRECTOR [facility] Blood Venipuncture / Unknown 10/30/2024 7:14 AM ADMINISTRATIVE SERVICES DIRECTOR 10/30/2024 7:35 AM ADMINISTRATIVE SERVICES DIRECTOR us Emperatriz Richter RN, QA INTERN COMPUTER NUMERICAL CONTROL GRINDER LAB_1 Final Result Performing Organization Address [facility] de Phone Number [facility] [address] * INR/Protime (Daily in AM) (10/30/2024 7:14 AM ADMINISTRATIVE SERVICES DIRECTOR) Only the most recent of2 resultswithin the time period is included. Protime 14.1 11.8 - 14.6 Seconds 10/30/2024 7:57 AM ADMINISTRATIVE SERVICES DIRECTOR [facility] INR 1.1 0.9 - 1.1 10/30/2024 7:57 AM ADMINISTRATIVE SERVICES DIRECTOR [facility] Blood Venipuncture / Unknown 10/30/2024 7:14 AM ADMINISTRATIVE SERVICES DIRECTOR 10/30/2024 7:35 AM ADMINISTRATIVE SERVICES DIRECTOR Narrative [facility] - 10/30/2024 7:57 AM ADMINISTRATIVE SERVICES DIRECTOR If you take an anticoagulant medicine called warfarin, your doctor or clinician may establish a normal range for you that is different from the baseline range shown. us Costa Chino MD LAB_1 Final Result Performing Organization Address [facility] de Phone Number [facility] [address] * XR Knee Lt 2 Views (10/29/2024 4:32 PM ADMINISTRATIVE SERVICES DIRECTOR) Anatomical Region Laterality Modality Lower Extremity, Knee Digital Ra diography 10/29/2024 4:22 AM ADMINISTRATIVE SERVICES DIRECTOR Narrative 10/29/2024 4:55 PM ADMINISTRATIVE SERVICES DIRECTOR COMPARISON: 12/31/2023 FINDINGS: 2 views of the LEFT knee. Postoperative changes of left knee arthroplasty. Arthroplasty components are well seated and appear to be in appropriate position. No evidence of hardware complication. No displaced fracture and no dislocation. Postoperative soft tissue and intra-articular gas. There is a small to moderate volume knee joint effusion, probably postoperative. Left femoral interference screw remains in place. Procedure Note Sav Mead MD - 10/29/2024 COMPARISON: 12/31/2023 FINDINGS: 2 views of the LEFT knee. Postoperative changes of left kneearthroplasty. Arthroplasty components are well seated and appear to be inappropriate position. No evidence of hardware complication. No displacedfracture and no dislocation. Postoperative soft tissue and intra-articulargas. There is a small to moderate volume knee joint effusion, probablypostoperative. Left femoral interference screw remains in place. Emperatriz Richter RN, QA INTERN COMPUTER NUMERICAL CONTROL GRINDER RAD GD Final Result * Spinal Block (10/29/2024 7:38 AM ADMINISTRATIVE SERVICES DIRECTOR) Narrative EXTERNAL RESULTS - 10/29/2024 7:38 AM ADMINISTRATIVE SERVICES DIRECTOR Sav Ro, QA INTERN, DISH TECHNICIAN 10/29/2024 7:38 AM Spinal Block Performed by: Aron Fitzpatrick MD Authorizing/Supervising provider: Aron Fitzpatrick MD Performed by: Anesthesiologist Patient Location OR Checklist: risks and benefits discussed, IV checked, anesthesia consent, monitors and equipment checked, patient identified and pre-op evaluation Correct patient: yes Correct procedure: yes Correct position: yes Correct site: yes Patient Position: sitting Sterile prep: Betadine, Sterile gloves, Mask and Hat Insertion site: L4-5 Approach: right paramedian Needle type: Krzysztof Needle gauge: 25 G Needle length: 3.5 in Attempts: 1 Redirects: 1 Monitoring: shelter monitor and continuous pulse ox CSF: adequate CSF flow from spinal needle and CSF clear Paresthesias: No Complications: none Pt tolerated procedure well Notes: Local anesthesia used (unless otherwise indicated in Local anesthesia section of note): Spinal dose 1.8 mL of Bupivacaine 0.75% PF Procedure site infiltration with 2 mL of lidocaine 1% Signed by anesthesiologist of record who affirms this using a Intra-op Signature attestation Aron Fitzpatrick MD ANESTHESIA/AR Final Resul t EXTERNAL RESULTS * (ABNORMAL) Complete Blood Count-W/Diff (10/29/2024 6:04 AM ADMINISTRATIVE SERVICES DIRECTOR) WBC 9.5 3.5 - 10.5 x10(9)/L 10/29/2024 6:19 AM ADMINISTRATIVE SERVICES DIRECTOR [facility] RBC 5.27 4.32 - 5.72 x10(12)/L 10/29/2024 6:19 AM ADMINISTRATIVE SERVICES DIRECTOR [facility] Hemoglobin 14.1 13.5 - 17.5 g/dL 10/29/2024 6:19 AM ADMINISTRATIVE SERVICES DIRECTOR [facility] HCT 43.7 38.8 - 50.0 % 10/29/2024 6:19 AM ADMINISTRATIVE SERVICES DIRECTOR [facility] MCV 82.9 80.0 - 100.0 fL 10/29/2024 6:19 AM ADMINISTRATIVE SERVICES DIRECTOR [facility] MCH 26.8(L) 27.6 - 33.3 pg 10/29/2024 6:19 AM ADMINISTRATIVE SERVICES DIRECTOR [facility] MCHC 32.3 31.5 - 35.2 g/dL 10/29/2024 6:19 AM ADMINISTRATIVE SERVICES DIRECTOR [facility] RDW 13.8 11.9 - 15.5 % 10/29/2024 6:19 AM ADMINISTRATIVE SERVICES DIRECTOR [facility] Platelets 423 150 - 450 x10(9)/L 10/29/2024 6:19 AM ADMINISTRATIVE SERVICES DIRECTOR [facility] Automated NRBC 0 <=0 /100 WBC 10/29/2024 6:19 AM ADMINISTRATIVE SERVICES DIRECTOR [facility] Neutrophil Absolute 6.1 1.7 - 7.0 10(9)/L 10/29/2024 6:19 AM ADMINISTRATIVE SERVICES DIRECTOR [facility] Lymphocyte Absolute 2.1 1.0 - 4.8 10(9)/L 10/29/2024 6:19 AM ADMINISTRATIVE SERVICES DIRECTOR [facility] Monocyte Absolute 1.1(H) 0.2 - 0.9 10(9)/L 10/29/2024 6:19 AM ADMINISTRATIVE SERVICES DIRECTOR [facility] Eosinophil Absolute 0.2 0.0 - 0.5 10(9)/L 10/29/2024 6:19 AM ADMINISTRATIVE SERVICES DIRECTOR [facility] Basophil Absolute 0.0 0.0 - 0.3 10(9)/L 10/29/2024 6:19 AM ADMINISTRATIVE SERVICES DIRECTOR [facility] Immature Granulocyte % 0.4 0.0 - 0.5 % 10/29/2024 6:19 AM ADMINISTRATIVE SERVICES DIRECTOR [facility] Blood Venipuncture Butterfly / Unknown 10/29/2024 6:04 AM ADMINISTRATIVE SERVICES DIRECTOR 10/29/2024 6:15 AM ADMINISTRATIVE SERVICES DIRECTOR us Costa Chino MD LAB_1 Final Result [facility] [address] * (ABNORMAL) Basic Metabolic Panel (10/29/2024 6:04 AM ADMINISTRATIVE SERVICES DIRECTOR) Sodium 136 136 - 145 mmol/L 10/29/2024 6:45 AM ADMINISTRATIVE SERVICES DIRECTOR [facility] Potassium 3.9 3.5 - 5.1 mmol/L 10/29/2024 6:45 AM ADMINISTRATIVE SERVICES DIRECTOR [facility] Chloride 103 98 - 109 mmol/L 10/29/2024 6:45 AM ADMINISTRATIVE SERVICES DIRECTOR [facility] CO2 24 20 - 29 mmol/L 10/29/2024 6:45 AM ADMINISTRATIVE SERVICES DIRECTOR [facility] Anion Gap 9 6 - 16 mmol/L 10/29/2024 6:45 AM ADMINISTRATIVE SERVICES DIRECTOR [facility] Calcium 9.2 8.4 - 10.4 mg/dL 10/29/2024 6:45 AM ADMINISTRATIVE SERVICES DIRECTOR [facility] BUN 17 7 - 26 mg/dL 10/29/2024 6:45 AM ADMINISTRATIVE SERVICES DIRECTOR [facility] Creatinine 0.89 0.73 - 1.18 mg/dL 10/29/2024 6:45 AM ADMINISTRATIVE SERVICES DIRECTOR [facility] Glucose 108(H) 70 - 100 mg/dL 10/29/2024 6:45 AM [facility] Comment:The given reference range is for the fasting state. Non-fasting reference range for glucose is 70 - 180 mg/dL. GFR, Estimated >60 >60 mL/min/1.7 3m2 10/29/2024 6:45 AM [facility] Blood Venipuncture Butterfly / Unknown 10/29/2024 6:04 AM ADMINISTRATIVE SERVICES DIRECTOR 10/29/2024 6:15 AM [facility] us Costa Chino MD LAB_1 Final Result [facility] [address] * (ABNORMAL) Hgb A1C (10/29/2024 6:04 AM [facility]) Hemoglobin A1C 6.3(H) <=5.6 % 10/29/2024 9:33 AM [facility] Estimated Average Glucose (Calc) 134 < 117 mg/dL 10/29/2024 9:33 AM [facility] Comment:Estimated average gl ucose (eAG) converts A1c into glucose units (mg/dL) and estimates average glucose over the past approximately 3 months. The eAG reference interval (<117 mg/dL) corresponds to an A1c of <5.7%. Blood Venipuncture Butterfly / Unknown 10/29/2024 6:04 AM ADMINISTRATIVE SERVICES DIRECTOR 10/29/2024 6:15 AM ADMINISTRATIVE SERVICES DIRECTOR Narrative [facility] - 10/29/2024 9:33 AM ADMINISTRATIVE SERVICES DIRECTOR For patients not previously diagnosed with diabetes: 5.7-6.4%: Increased risk for diabetes 6.5% and greater: Diagnostic for diabetes For patients diagnosed with diabetes: <8.0%: Goal of therapy for ages 18-75 Clinicians may recommend a higher or lower goal for specific individuals. us Costa Chino MD LAB_1 Final Result [facility] [address] [address], [facility] * LABORATORY REPORT (10/29/2024) us Interface Provider DUMMY/OTHER/AR Final Resu lt from Last 3 Months Additional Health Concerns Active Problems Noted Date Diagnosed Date ET PROE RIGHT KNEE 07/30/2023 ET PROE LEFT KNEE 12/31/2023 Insurance MEDICARE PART A [facility] MEDIC[facility] PART A Advance Directives * Full Code (Latest Code Status on File) Date Activated Date Inactivated Comments 10/29/2024 1:17 PM 10/30/2024 3:19 PM * Full Code Date Activated Date Inactivated Comments 11/20/2023 4:32 PM 11/21/2023 3:07 PM * Full Code Date Activated Date Inactivated Comments 11/20/2023 7:10 AM 11/20/2023 3:45 PM Care Teams Conference Reservationist Relationship Specialty Start Date End Date Ed Del Toro MD [address] [place] [address] PCP - General Family Practice 07/25/22
--- OUTSIDE RECORDS SUMMARY | 2025-01-15 22:36 | XMS_ITS | Encounter Summary ---
Author Organization [facility] Address [address] [place] [address] [place] [address] Care Team Providers Care Mineral Industry Teacher Name Role Phone Ed Del Toro MD Primary Care Provider Reason for Visit * Reason Comments Knee Problem Encounter Details Date Type Department Care Team (Late st Contact Info) Description 12/03/2024 8:45 AM SCHOOL VOCATIONAL EDUCATOR Therapy [facility], Physical Therapy [address] [place] [address] Elvis Nunn, PT [address] [place] [address] Aftercare following left knee joint replacement surgery (Primary Dx); Left knee pain, unspecified chronicity Social History Tobacco Use Types Packs/Day Years Used Date Smoking Tobacco: Never Smokeless Tobacco: Never [facility] Utilities Answer Date Recorded In the past 12 months has [facility] [employer], gas, oil, or water [employer] threatened to shut off services in your [...] Progress Notes * Elvis Nunn, PT - 12/03/2024 8:45 AM CST Physical Therapy Post-Op Knee Daily Note Visit Number: 11 [employer]BS [place] Initial Certification Period: 11/03/2024 to 02/01/25 Referring [...] return to skiing, normal walking SUBJECTIVE: Pain Rating: mild/10 achy Patient Report: 5 weeks post op. Knee has been fine. Primary complaint is morning stiffness. Uses cane in the morning until it loosens up but otherwise not using it the rest of the day. Will use it for stairs though. OBJECTIVE: Observation/Gait: improving TKE Inspection of knee/LE: No signs or symptoms of infection or DVT ROM (fjhoapidz-lut-phxm): 3-4-121 deg, 0-0-123 right Strength: Quad set: good Supine SLR: <5 deg extensor lag TREATMENT TODAY: Therapeutic Exercise (CPT 49658) x 20 minutes: Utilized for the purpose of improving strength, ROM,endurance, and/or flexibility: Objective measures - DL Press warm up with 10 lbs - Eccentric leg press with 10 lbs 2 x 10 reps, unable to do SL press - Heel slides with strap - Reviewed heel prop and prone knee hang for extension, recommended doing these 5x/day - HEP Review Therapeutic Activities (CPT 65492) x 10 minutes: Dynamic activities utilized to improve functional performance. - Staggered sit to stand with left leg back Access Code: [email or web address] Genuease independent x 10 minutes at end of session Timed Code Treatment Minutes: 30 Total Treatment Minutes: 40 ASSESSMENT: Improving knee ROM and quad strength per exercise progression. Able to do eccentric leg press todaywith appropriate fatigue and good control. Good muscle fatigue at the end of [...] using bilateral lower extremities equally 2-4 weeks MET ADL: Able to dress lower extremities with ease due to improved ROM in 4-6 weeks. MET ADL: Squat to cherry picker operator items from floor with minimal/no symptoms in 6-8 weeks. Therapist: Elvis Nunn, PT 9:47 AM 12/03/2024 OL VOCATIONAL EDUCATOR documented in this encounter Plan of Treatment Upcoming Encounters Date Type Department Care Team (Late st Contact Info) Description 01/29/2025 11:30 AM CDT Appointment [facility], Physical Therapy [address] [place], [place] [id number] Álvaro Flores, PT [address] [place], [place] [address] documented as of this encounter Goals Goal Patient Goal Type Associated Problems Recent Progress Patient-Stated? Author Right Knee Replacement Care Plan ET PROE RIGHT KNEE No Emperatriz Richter, RN, BARBER OR BEAUTY SHOP MANAGER PNEUMATIC TESTER MECHANIC Left Knee Care Plan ET PROE LEFT KNEE No Emperatriz Richter, RN, BARBER OR BEAUTY SHOP MANAGER PNEUMATIC TESTER MECHANIC documented as of this encounter Visit Diagnoses Diagnosis Aftercare following left knee joint replacement surgery- Primary Left knee pain, unspecified chronicity documented in this encounter Additional Health Concerns Active Problems Noted Date Diagnosed Date ET PROE RIGHT KNEE 07/30/2023 ET PROE LEFT KNEE 12/31/2023 documented as of this encounter Care Teams Mineral Industry Teacher Relationship Specialty Start Date End Date Ed Del Toro MD [address] [place] [address] PCP - General Family Practice 07/25/22 documented as of this encounter
--- OUTSIDE RECORDS SUMMARY | 2025-01-15 22:36 | XMS_ITS | Encounter Summary ---
Author Organization [email or web address] Address [address] [place] [address] Care Team Providers Care Loop Puller Name Role Phone Ed Del Toro MD Primary Care Provider Reason for Referral * Procedure/Equipment (Routine) - Incomplete Specialty Diagnoses / Procedures Referred By Contac t Referred To Contact Diagnoses S/P total knee arthroplasty, left Procedures XR Knee Lt 3 Views Costa Chino MD [address] [place] [address] Phone: tel: fax: Referral ID Status Reason Start Date Expiration Date V isits Requested Visits Authorized [id number] Incomplete 12/08/2024 03/09/2026 1 1 RAL SALES MANAGER Reason for Visit * Reason Comments Post-Op Follow Up Left TKA Encounter Details Date Type Department Care Team (Late st Contact Info) Description 12/08/2024 9:40 AM GENERAL SALES MANAGER Office Visit [facility] [address] [facility] [place], [place] [phone] Costa Chino MD [address] [facility] [place] [place] [id number] S/P total knee arthroplasty, left (Primary Dx) Social History Tobacco Use Types Packs/Day Years Used Date Smoking Tobacco: Never Smokeless Tobacco: Never [facility] Utilities Answer Date Recorded In the past 12 months has [employer], gas, oil, or water company threatened [...] place to sleep or slept in a senior living (including now)? No 11/20/2023 Sex and Gender Information Value Date Recorded Sex Assigned at Not on file Legal Sex Male 10:09 AM CDT Gender Identity Not on file Sexual Orientation Not on file documented as of this encounter Patient Instructions * Patient Instructions* Elizabeth Stanley MA - 12/08/2024 9:40 AM GENERAL SALES MANAGER Thank you for Choosing [facility] for your health care visit today. Dr. Costa Chino MD Orthopaedic Surgeon Medication Requests: Prescriptions are not filled on weekends or on weekdays after 3:00 PM. For all medication refills: Request a refill using [employer] or contact your pharmacy. What is Know Your Cost? Know Your Cost is a service for patients and patient/members to call and receive personalized cost information and estimates across our care group. The phone number is (COST) Saturday - Saturday 8 AM to 5 PM Advanced Imaging Scheduling: To schedule an MRI, Ultrasound, or Image guided injection at [facility] please call [phone]. To schedule an MRI or CT at a [facility] please call [phone]. [facility] Workers' Compensation [address] [place] [address] (Phone) Email: [email or web address] Release of Information: Radiology/Imaging [address] [place] [address] (Phone) Health Information Management [address] [place] [address] (Phone) [employer] RAL SALES MANAGER documented in this encounter Progress Notes * Costa Chino MD - 12/08/2024 9:40 AM CST Beau Melgar Age: 64 y.o. Date of : 1960 Interval History Beau Melgar is a 64 y.o. male who returns today for a post-operative follow up visit s/p: 11/20/23 right tka 10/29/24 left TKA - Dhaval returns for a follow-up visit for the more recent left total knee replacement. He notes that things have been progressing well. His incision has healed uneventfully. His pain has been steadily improving. He is occasionally taking oxycodone to help sleep at night. Otherwise he is not using anyopioid pain medication and occasionally using Tylenol. He uses a cane for longer distances but is weaning off this appropriately. He is making good progress with therapy and has had about 120?? of flexion with therapy. Physical Exam: NAD AOx3 Interactive and cooperative with the exam. He walks with a well-balanced gait. Examination left knee demonstrates a well- healed midline incision. His range of motion is from 5-120 degrees. His knee is stable to varus and valgus stress. He hasno pain with knee range of motion. The extensor mechanism is intact. Data: Imaging: X-rays demonstrate well-fixed well-positioned left cemented knee replacement implants. Assessment and Plan: Beau Melgar is a 64 y.o. male is s/p the above procedure. He is making excellent progress following the more recent left knee replacement. He will continue to progress activities and exercise as tolerated. I would see him back in clinic in 6 weeks if he hasany ongoing pain or issues. Otherwise, if things are going well I would see him back for a routine 1 year follow-up visit. He will let us know if he has any other questions or concerns in the meantime. RAL SALES MANAGER documented in this encounter Plan of Treatment Upcoming Encounters Date Type Department Care Team (Late st Contact Info) Description 01/29/2025 11:30 AM CDT Appointment [facility], Physical Therapy [address] [place] [address] Álvaro Flores, PT [address] [place] [address] documented as of this encounter Goals Goal Patient Goal Type Associated Problems Recent Progress Patient-Stated? Author Right Knee Replacement Care Plan ET PROE RIGHT KNEE No Emperatriz Richter, RN, RESIN REMOVER DISTRIBUTION LINEMAN Left Knee Care Plan ET PROE LEFT KNEE No Emperatriz Richter, RN, RESIN REMOVER DISTRIBUTION LINEMAN documented as of this encounter Results * XR Knee Lt 3 Views (12/08/2024 10:02 AM GENERAL SALES MANAGER) Anatomical Region Laterality Modality Lower Extremity, Knee Digital Ra diography 12/08/2024 9:54 AM GENERAL SALES MANAGER Narrative 12/08/2024 10:32 AM GENERAL SALES MANAGER COMPARISON: 10/29/2024 FINDINGS: Left total knee arthroplasty [...] Visit Diagnoses Diagnosis S/P total knee arthroplasty, left- Primary S/P total knee arthroplasty, left documented in this encounter Additional Health Concerns Active Problems Noted Date Diagnosed Date ET PROE RIGHT KNEE 07/30/2023 ET PROE LEFT KNEE 12/31/2023 documented as of this encounter Care Teams Loop Puller Relationship Specialty Start Date End Date Ed Del Toro MD [address] [place] [address] PCP - General Family Practice 07/25/22 documented as of this encounter
--- OUTSIDE RECORDS SUMMARY | 2025-01-15 22:36 | XMS_ITS | Encounter Summary ---
Author Organization [employer] Address [address] [place] [address] Care Team Providers Care Automobile Upholsterer Apprentice Name Role Phone Ed Del Toro MD Primary Care Provider Reason for Visit * Reason Comments Knee Problem Encounter Details Date Type Department Care Team (Late st Contact Info) Description 12/15/2024 7:00 AM RISK REDUCTION COUNSELOR Therapy [facility], Physical Therapy [address] [place] [address] Álvaro Flores, PT [address] [place], [place] [address] Aftercare following left knee joint replacement surgery (Primary Dx) Social History Tobacco Use Types Packs/Day Years Used Date Smoking Tobacco: Never Smokeless Tobacco: Never [facility] Utilities Answer Date Recorded In the past 12 months has [facility] [employer], gas, oil, or water [employer] threatened to shut off services in your [...] Progress Notes * Álvaro Flores, PT - 12/15/2024 7:00 AM CST Physical Therapy Post-Op Knee Daily Note Visit Number: 13 BCBS [place] Initial Certification Period: 11/03/2024 to [...] SUBJECTIVE: Pain Ratin-3/10 Patient Report: 6-weeks Pt has been experiencing twitching and tightness in L lower quad since late last week. Unable to get comfortable at night affecting quality of sleep. Not sure why the increased symptoms. Doesn't feel like he overdid it with activity or exercising. OBJECTIVE: Observation/Gait: mild antalgic gait on L Inspection of knee/LE: well healing incision Edema: min-mod expected post operative swelling ROM (cjwxyjyln-fcw-bhok): 5-115 deg Strength: Quad set: good- Supine SLR: ~5 deg extensor lag TREATMENT TODAY: Manual Treatment x 10 minutes: - soft tissue mobs to distal quads - I/S patellar mobs - knee flex PROM with PT assist - knee ext stretch with manual overpressure Therapeutic Exercise (CPT 18273) x 30 minutes: Utilized for the purpose of improving strength, ROM,endurance, and/or flexibility: Objective measures - Stationary bike x 5 mins - leg press 25# and 30# 2 x 10 - DL knee ext machine 30# 3 x 10 - step ups on 6 step 2 x 10 - lateral step ups on 6 step 2 x 10 - Genuease x 10 minutes 5-0-125 Access Code: [email or web address] Timed Code Treatment Minutes: 40 Total Treatment Minutes: 40 ASSESSMENT: Decreased knee flex ROM, which slightly improved following recumbent bike, manual tx, and active movement. Good results after genu ease. Advised to use stationary bike more at home. PLAN: Start on stationary bike for ROM, [...] in 4-6 weeks. ADL: Squat to picker tender items from floor with minimal/no symptoms in 6-8 weeks. Therapist: Álvaro Flores PT 7:07 AM 12/15/2024 REDUCTION COUNSELOR documented in this encounter Plan of Treatment Upcoming Encounters Date Type Department Care Team (Late st Contact Info) Description 01/29/2025 11:30 AM CDT Appointment [facility], Physical Therapy [address] [place] [address] Álvaro Flores PT [address] [place] [address] documented as of this encounter Goals Goal Patient Goal Type Associated Problems Recent Progress Patient-Stated? Author Right Knee Replacement Care Plan ET PROE RIGHT KNEE No Emperatriz Richter, RN, SPORTS MEDICINE TRAINER WAREHOUSE SUPERVISOR Left Knee Care Plan ET PROE LEFT KNEE No Emperatriz Richter, RN, SPORTS MEDICINE TRAINER WAREHOUSE SUPERVISOR documented as of this encounter Visit Diagnoses Diagnosis Aftercare following left knee joint replacement surgery- Primary documented in this encounter Additional Health Concerns Active Problems Noted Date Diagnosed Date ET PROE RIGHT KNEE 07/30/2023 ET PROE LEFT KNEE 12/31/2023 documented as of this encounter Care Teams Automobile Upholsterer Apprentice Relationship Specialty Start Date End Date Ed Del Toro MD [address] [place] [address] PCP - General Family Practice 07/25/22 documented as of this encounter
--- OUTSIDE RECORDS SUMMARY | 2025-01-15 22:36 | XMS_ITS | Data Portability ---
Author Organization [facility] [employer] [facility] Address [address] [place] [address] Assessment No assessment recorded. Plan of Treatment Reminders Order Date Submit Date Provider Last Modified By Organization Details Last Modified Time Details Appointments None recorded. Lab None recorded. Referral None recorded. Procedures None recorded. Surgeries None recorded. Imaging None recorded. Medication Orders doxycycline hyclate 100 mg capsule 2023 [employer] #[id number], [address] [address], [id number], 4 07:36:57 albuterol sulfate HFA 90 mcg/actuati on aerosol inhaler 2023 [employer] #[id number], [address] [place], [id number], 4 07:36:53 Patient TargetsNo targets recorded. Patient InstructionsNo instructions recorded. Reason for Referral None Reported. Problems Name Problem SNOMED Code Status Onset Date Resolution Date Notes Provider Name and Address Organization Details Recorded Time Atrial fibrillation 81360374 Active 2023 TISH Hylton 1 [facility] [address], [place], [address], [facility] [employer] 07:37:01 Problem Notes None recorded. Medical Equipment None Reported. Allergies No known drug allergies Medications Name Sig Start Date Stop Date Status Note LastModified by Organization Details LastModified Time doxycycline hyclate 100 mg capsule Take 1 capsule twice a day by oral route for 7 days. 2023 active Not Available Not Available Not Avai lable albuterol sulfate HFA 90 mcg/actuatio n aerosol inhaler Inhale 2 puffs every 4 hours by inhalation route. 2023 active Not Available Not Available Not Avai lable omeprazole active ADDED BY MELANY T: 20 mg daily Not Available Not Available Not Available warfarin active ADDED BY MELANY T: Not Available Not Available Not Available bisoprolol fumarate active ADDED BY MELANY T: 5mg daily Not Available Not Available Not Available Vitals None Recorded Social History None recorded. Functional Status None recorded. Mental Status None recorded. Family History Nothing Reported. Medical History No medical history recorded. Past Encounters Encounter ID Performer Location Encounter Start Date Encounter Closed Date Diagnosis/Indication Diagnosis SNOMED-CT Code Diagnosis ICD10 Code Diagnosis Note [id number] TISH Hylton [facility] [address] [facility] [address] [place] [address] 10/08/2024 07:29:25 10/08/2024 13:35:03 Lower respiratory tract infection [id number] J22 URI planDiffer ential Diagnosis: Acute bacterial rhinosinus itis vs viral URI vs lower resp infection A: Acute lower respirator y infection suspected. Diagnosis and treatment plan discussed with patient using shared decision making. Patient voices understand ing and agrees with treatment plan. P: Use doxycyclin e, albuterol. Pt is on coumadin and I recommende d inr check 1-2 times per week and monitor for bleeding. Follow up with [facility] or your doctor in 5 days if not better. Go to the ER immediatel y if you develop fever higher than 103, severe headache, neck stiffness or any worsening symptoms. Counseled patient that this illness should run its natural course in 4-7 days Health Concerns Section Related Observation LastModified by Organization Detai ls LastModified Time None Recorded Concern Status LastModified by Organization Details LastModified Time None Recorded Advance Directives Directive None Recorded Payers Encounter Date Sequence Insurance Name Policy Number Policy Simons Covered Member ID Simons Member ID Guarantor Name 10/08/2024 1 [facility] [id number] Emma Melgar [id number] Emma Melgar 10/08/2024 2 *SELF PAY* [id number] Emma Melgar [id number] Emma Melgar Notes Date Note Type Note Provider Name and Address Organization Details Recorded Time 4 text/html URI/SINUSPatient greeted. Patient , location, and phone number confirmed. Verbal consent obtained to treat this patient via the telemedicine/video platform. Patient/parent understands that there are limitations to my evaluation.Clinician attests they are physically located in the following [place] at the time of visit: [place] History of Present Illness:64 yo male with symptoms for 3 weeksBegan with cough, congestionPatient reports worsening congestion, coughDenies dyspnea, no painful respirationsPatient has tried nothingPatient exposed to sick contactsno known contact with COVID -19 PUI/positive individual TISH Hylton [address] [facility] [address], [place], [address], [place] [facility] 10/08/2024 07:37:26
--- NOTE | 2025-01-15 22:59 | ED_ITS ---
HPI - General Adult General Chief complaint: Post Op Complication Stated complaint: bleeding from surgical site Time Seen by Provider: 01/15/25 22:47 Source: patient Mode of arrival: ambulatory Limitations: no limitations History of Present Illness HPI narrative: 64-year-old male presenting today with concerns of fluid coming from his surgical incision. Patient had a laparoscopic assisted sigmoidectomy done on . He had his clarisa removed yesterday. He states that since then he has noticed blood tinged fluid coming from his central incision. He denies increasing pain. He denies any systemic symptoms such as fevers, chills, nausea or vomiting. Related Data Home Medications ?Medication ?Instructions ?Recorded ?Confirmed famotidine 20 mg tablet 20 mg PO BID PRN 05/09/23 01/04/25 omeprazole 20 mg capsule,delayed 20 mg PO DAILY 05/09/23 01/04/25 release warfarin 2 mg tablet 2 - 3 mg PO DIRECTED 05/09/23 01/04/25 bisoprolol fumarate 5 mg tablet 5 mg PO DAILY 01/04/25 01/04/25 Previous Rx's ?Medication ?Instructions ?Recorded hydrocodone 5 mg-acetaminophen 325 1 tab PO Q6H PRN pain #20 tabs 01/07/25 mg tablet sennosides 8.6 mg capsule (senna) 8.6 mg PO DAILY PRN constipation 01/10/25 #90 caps Allergies Allergy/AdvReac Type Severity Reaction Status Date / Time No Known Drug Allergies Allergy Verified 01/04/25 07:56 Review of Systems Status of ROS: Reports: 6 or more systems reviewed and unremarkable except as noted in History and below [facility] Medical History Elevated cholesterol ?E78.00 - Pure hypercholesterolemia, unspecified (ICD-10) Arthritis ?M19.90 - Unspecified osteoarthritis, unspecified site (ICD-10) GERD (gastroesophageal reflux disease) ?K21.9 - Gastro-esophageal reflux disease without esophagitis (ICD-10) DVT (deep venous thrombosis) ?I82.409 - Acute embolism and thrombosis of unspecified deep veins of unspecified lower extremity (ICD-10) Pulmonary emboli ?I26.99 - Other pulmonary embolism without acute cor pulmonale (ICD-10) Sleep apnea ?G47.30 - Sleep apnea, unspecified (ICD-10) Atrial fibrillation ?I48.91 - Unspecified atrial fibrillation (ICD-10) Surgical History S/P laparoscopic-assisted sigmoidectomy ?Z90.49 - Acquired absence of other specified parts of digestive tract (ICD- 10) History of radiofrequency ablation (RFA) procedure for cardiac arrhythmia ?Z98.890 - Other specified postprocedural states (ICD-10) H/O cardiac catheterization (02/14/18) ?Z98.890 - Other specified postprocedural states (ICD-10) H/O arthroscopy of left knee ?Z98.890 - Other specified postprocedural states (ICD-10) H/O repair of right rotator cuff (11/2016) ?Z98.890 - Other specified postprocedural states (ICD-10) H/O excision of mass (10/05/19) ?Z98.890 - Other specified postprocedural states (ICD-10) S/P reconstruction of anterior cruciate ligament ?Z98.890 - Other specified postprocedural states (ICD-10) Family History Mother Diabetes Father Brain tumor Social History What is your current living situation?: I presently have a place to live Problems where you live: no known problems Problems where you live details: none In the past 12 months, utilities in danger of being shut off: no In past 12 months, lack of transportation kept you from medical appts, meetings, work, or getting things needed for daily living: no In the past 12 mos, have been you worried that your food would run out before you had money to buy more?: never true In the past 12 mos, the food you bought just didn't last and you didn't have money to buy more?: never true Smoking Status: Never smoker Do you use any of these nicotine containing products: None Second hand tobacco smoke exposure: No How often do you have a drink containing alcohol: 2-4 times a month How often do you have six or more drinks on one occasion: Never AUDIT-C Alcohol total score: 2 Non-prescribed substance use: denies use How often does anyone, including family, friends and others, physically hurt you : never How often does anyone, including family, friends and others, insult or talk down to you: never How often does anyone, including family, friends and others, threaten you with harm: never How often does anyone, including family, friends and others, scream or curse at you: never service: No Exam Narrative: Exam Narrative: Well-nourished well-developed patient in no acute distress. Alert and oriented. Answers questions appropriately. Mood and affect are appropriate. Thoughts are goal oriented and rational. No tangential or magical thinking noted. Patient speaks in full sentences without needing to catch his breath. HEENT: Normocephalic atraumatic. Extraocular muscles are intact. Conjunctivae are moist without any icterus noted. Moist mucous membranes. Abdomen: Soft and nondistended with normal bowel sounds. Incisions all appear to be healing well except for the central suprapubic incision the Steri-Strips are all very moist and there is serosanguineous fluid coming from the bottom 1/3. Upon removal of the Steri-Strips patient has a small area of the incision that has dehisced and is draining serosanguineous fluid. With IV able to insert just more than the head of a Q-tip into the area. Skin: Well perfused without any obvious rashes. Const: Vital Signs, click to edit/add: Vital Signs - 24 hr 01/15/25 22:35 Temperature 97.6 F Pulse Rate [Left P ulse Oximeter] 60 Respiratory Rate 16 Blood Pressure [Ri ght Upper Arm] 130/73 Pulse Oximetry 96 Oxygen Delivery Me thod Room Air Course Course ED Course: Consulted with Dr. Cuevas who recommends dressing or packing and follow up in the surgical clinic on Saturday. We were able to pack small amount of 1/4 inch packing without difficulty. Vital Signs Vital signs: Initial Vital Signs Temperature 97.6 F 01/15/25 22:35 Temperature Source Temporal Artery Scan 01/15/25 22:35 Pulse Rate 60 01/15/25 22:35 Pulse Rhythm Regular 01/15/25 22:35 Respiratory Rate 16 01/15/25 22:35 Blood Pressure 130/73 01/15/25 22:35 Blood Pressure Mean 92 01/15/25 22:35 Blood Pressure Position Sitting 01/15/25 22:35 Pulse Oximetry 96 01/15/25 22:35 Oxygen Delivery Method Room Air 01/15/25 22:35 Vital Signs Temperature 97.6 F 01/15/25 22:35 Pulse Rate 60 01/15/25 22:35 Respiratory Rate 16 01/15/25 22:35 Blood Pressure 130/73 01/15/25 22:35 Pulse Oximetry 96 01/15/25 22:35 Oxygen Delivery Method Room Air 01/15/25 22:35 Temperature 97.6 F 01/15/25 22:35 Pulse Rate 60 01/15/25 22:35 Respiratory Rate 16 01/15/25 22:35 Blood Pressure 130/73 01/15/25 22:35 Pulse Oximetry 96 01/15/25 22:35 Oxygen Delivery Method Room Air 01/15/25 22:35 Medical Decision Making MDM Narrative Medical decision making narrative: 64-year-old male with drainage from his surgical incision, probable small seroma underneath the skin that is draining. Patient will remove the packing in 24 hours replace it with a dressing in follow-up in the surgical clinic on Saturday. Discharge Plan Discharge Clinical Impression: Postoperative complication of skin involving drainage from surgical wound Patient Disposition: Home, Self-Care Condition: Stable Additional Instructions: Remove the packing on Saturday morning. Cover the incision with a clean dressing. Follow-up in the surgical clinic with Dr. Payne on Saturday. Prescriptions: No Action warfarin 2 mg tablet 2 - 3 mg PO DIRECTED Rx Instructions: TAKE 2MG ON SAT AND SAT, 3MG ON ALL OTHER DAYS famotidine 20 mg tablet 20 mg PO BID PRN omeprazole 20 mg capsule,delayed release(DR/EC) 20 mg PO DAILY bisoprolol fumarate 5 mg tablet 5 mg PO DAILY hydrocodone-acetaminophen 5-325 mg tablet 1 tab PO Q6H PRN (Reason: pain) Qty: 20 0RF senna 8.6 mg capsule 8.6 mg PO DAILY PRN (Reason: constipation) Qty: 90 0RF Follow Up/Referrals: Ed Del Toro MD [Primary Care Provider] - Stand Alone Forms: [employer] Info Instructions
--- OUTSIDE RECORDS SUMMARY | 2025-01-15 23:10 | XMS_ITS | Clinical Summary ---
Author Organization [email or web address] [facility] Address [address] [place] [address] Care Team Providers Care Equipment Maintenance Engineer Name Role Phone Romina Cristobal NP Unavailable [phone] Ed eDl Toro MD Primary Care Provider Cassandra Kearney MD Unavailable [phone] Allergies No known active allergies Medications acetaminophen [...] Type Department Care Team Description 01/12/2025 Telephone [facility] [address] [place] [address] Mychal Gr MD symptoms 01/11/2025 Telephone [facility] [address] [place] [address] Mychal Gr MD Questions 01/05/2025 Lab Requisition [facility] [phone] Mychal Gr MD 01/04/2025 1:00 PM TOOLING MECHANIC Office Visit [facility] [address] [place] [address] Sandi Cuevas MD 01/04/2025 8:00 AM TOOLING MECHANIC Office Visit [facility] [address] [place] [address] Mychal Gr MD Surgery Scheduled 01/04/2025 Orders Only [facility] Scanner 1 scan: (1-Ord) [place], CYSTOSCOPY WITH LIGHTED LEFT URETERAL STENT PLACEMENT, 01/04/2025 01/04/2025 Orders Only [facility] Scanner 1 scan: (1-Ord) [place], CYSTOSCOPY, 01/04/2025 12/31/2024 Orders Only [facility] Scanner 1 scan: (1-Ord) [facility] [place] ENEMA W/GASTROGRAFIN, 12/31/2024 12/24/2024 11:25 AM TOOLING MECHANIC Office Visit [facility] [address] [place] [address] Ed Del Toro MD Preoperative Exam (DOS: 01/04/2025, lap sigmoidectomy, Dr. Gr, [facility]) 12/24/2024 Travel 12/21/2024 Telephone [facility] [address] [place] [address] Ed Del Toro MD Anticoagulation 12/21/2024 Telephone [facility] [address] [place] [address] Ed Del Toro MD Anticoagulation (Unable to contact x3) 12/17/2024 Anticoagulation (warfarin) [facility] [address] [place] [address] 1, [facility] Anticoagulation (Chart update- HOLD/Bridge) 12/17/2024 Telephone [facility] [address] [place] [address] Ed Del Toro MD Anticoagulation (Colonoscopy 01/04/25) 12/16/2024 Telephone [facility] [address] [place] [address] Mychal Gr MD Results (lab) 12/16/2024 Orders Only [facility] [address] [place] [address] Mychal Gr MD <No scans attached> 12/15/2024 2:15 PM TOOLING MECHANIC Orders Only [facility] [address] [place] [address] Lab, [facility] 12/15/2024 Telephone [facility] [address] [place] [address] Mychal Gr MD Surgery Scheduled (Pt called and would like to schedule surgery) 12/14/2024 2:30 PM TOOLING MECHANIC Office Visit [address] [address] Mychal Gr MD Consult (Colonic mass referred by Dr. Del Toro) 12/14/2024 9:00 AM TOOLING MECHANIC Orders [place] [facility] [address] [place] [address] Lab, [facility] Lab 12/14/2024 Telephone [facility] [address] [place] [address] Ed Del Toro MD Anticoagulation (BPA- METRONIDAZOLE) 12/14/2024 Anticoagulation (warfarin) [address] [address] 1, [facility] Anticoagulation 12/14/2024 Travel 12/10/2024 Telephone [facility] [address] [place] [address] Ed Del Toro MD Medication Management (cefuroxime axetil (CEFTIN) 500 mg tablet //metroNIDAZOLE (FLAGYL) 500 mg tablet ) 12/10/2024 Anticoagulation (warfarin) [facility] [address] [place] [address] 1, [facility] Anticoagulation (Chart Update) 12/10/2024 Telephone [facility] [address] [place] [address] Ed Del Toro MD Anticoagulation (BPA Metronidazole and Warfarin ) 12/10/2024 Telephone [facility] [address] [place] [address] Ed Del Toro MD Results 12/09/2024 3:30 PM TOOLING MECHANIC Ancillary Procedure [facility] [address] [place] [address] 12/09/2024 Refill [facility] [address] [place] [address] Ed Del Toro MD Refill Request (Warfarin) 12/09/2024 Telephone [facility] [address] [place] [address] Ed Del Toro MD Follow Up 12/08/2024 2:05 PM TOOLING MECHANIC Office Visit [facility] [address] [place] [address] Ed Del Toro MD Abdominal Pain (LLQ discomfort, started about 2 months ago) 12/08/2024 Travel 11/30/2024 9:00 AM TOOLING MECHANIC Orders [place] [facility] [address] [address] Lab, Farm Lab 11/30/2024 Anticoagulation (warfarin) [facility] [address] [place] [address] 1, [facility] 11/30/2024 Travel 11/26/2024 Nurse Triage [facility] [address] [place] [address] Ed Del Toro MD Abdominal Pain 11/17/2024 10:15 AM TOOLING MECHANIC Orders [place] [facility] [address] [place] [address] Lab, [facility] 11/17/2024 Anticoagulation (warfarin) [facility] [address] [place] [address] 1, [facility] Anticoagulation 11/17/2024 Travel 10/27/2024 Anticoagulation (warfarin) [facility] [address] [place] [address] 1, [facility] Anticoagulation (Chart update ) 10/27/2024 Telephone [facility] [address] [facility] [place] [address] Ed Del Toro MD Anticoagulation (Unable to contact ) 10/26/2024 Telephone [facility] [address] [address] Kleber Mcmillan, DO Questions 10/23/2024 7:15 AM TOOLING MECHANIC Office Visit [facility] [address] [facility] [place] [address] Kleber Mcmillan, DO Preoperative Exam (LEFT knee - [facility] - Dr. Chino - 10/29/2024) 10/23/2024 Anticoagulation (warfarin) [facility] [address] [facility] [place] [address] 1, [facility] Anticoagulation (Pre op [...] AM CDT Legal Sex Male 5:24 AM TOOLING MECHANIC Gender Identity Male 03/01/2023 9:24 AM CDT Sexual Orientation Not on file Occupation Industry Job Start Date Job End Date Contractor Not on file Not on file Not on file Obstetrics History Last Filed Vital Signs Vital Sign Reading Time Taken Comments Blood Pressure 130/82 12/24/2024 11:23 AM TOOLING MECHANIC Pulse 71 12/24/2024 11:23 AM TOOLING MECHANIC Temperature 36.7 C (98.1 F) 07/07/2024 12:52 PM CDT Respiratory Rate 16 07/07/2024 12:52 PM CDT Oxygen Saturation 97% 12/24/2024 11:23 AM TOOLING MECHANIC Inhaled Oxygen Concentration - - Weight 100 kg (220 lb 6.4 oz) 12/24/2024 11:23 A M TOOLING MECHANIC Height 171.7 cm (5' 7.6) 12/24/2024 11:23 AM CS T Body Mass Index 33.91 12/24/2024 11:23 AM TOOLING MECHANIC Plan of Treatment Upcoming Encounters Date Type Department Care Team (Late st Contact Info) Description 01/18/2025 2:45 PM CDT Office Visit [facility] [address] [place] [address] Mychal Gr MD [address] [place] [address] Health Maintenance Due Date Last Done Comments [...] Comments PROCTOSIGMOIDOSCOPY Routine 01/05/2025 3 :16 PM TOOLING MECHANIC Diverticulitis LAB TRACKING EVENT Routine 01/04/2025 2: 37 PM TOOLING MECHANIC PATH TISSUE EXAM Routine 01/04/2025 2:37 PM TOOLING MECHANIC SCAN-OPERATIVE/PROCEDURE REPORT 01/04/2025 12:00 AM TOOLING MECHANIC SCAN-OPERATIVE/PROCEDURE REPORT 01/04/2025 12:00 AM TOOLING MECHANIC SCAN-OPERATIVE/PROCEDURE REPORT 12/31/2024 12:00 AM TOOLING MECHANIC CEA Routine 12/15/2024 2:10 PM TOOLING MECHANIC Colonic mass INR,POCT Routine 12/14/2024 9:06 AM TOOLING MECHANIC Anticoagulation monitoring, INR range 2-3 History of pulmonary embolus (PE) CT ABDOMEN PELVIS W Routine 12/09/2024 4 :22 PM TOOLING MECHANIC Abdominal pain, LLQ (left lower quadrant) HEPATIC FUNCTION PANEL Routine 2:30 PM TOOLING MECHANIC Abdominal pain, LLQ (left lower quadrant) BASIC METABOLIC PANEL Routine 12/08/2024 2:30 PM TOOLING MECHANIC Abdominal pain, LLQ (left lower quadrant) CBC WITH AUTO DIFFERENTIAL Routine 12/08/2024 2:30 PM TOOLING MECHANIC Abdominal pain, LLQ (left lower quadrant) UA W/ SEDIMENT EXAM REFLEXED PER CRITERIA Routine 12/08/2024 2:29 PM TOOLING MECHANIC Abdominal pain, LLQ (left lower quadrant) PROTIME-INR Routine 11/30/2024 9:09 AM TOOLING MECHANIC Anticoagulation monitoring, INR range 2-3 History of pulmonary embolus (PE) INR,POCT Routine 11/17/2024 10:19 AM TOOLING MECHANIC Anticoagulation monitoring, INR range 2-3 History of pulmonary embolus (PE) PROTIME-INR Routine 10/23/2024 8:11 AM TOOLING MECHANIC Pre-op evaluation Primary osteoarthritis of both knees HEMOGLOBIN Routine 10/23/2024 8:11 AM TOOLING MECHANIC Pre-op evaluation COLONOSCOPY DIAGNOSTIC Routine 10:14 AM CDT Hematochezia LIPID PANEL W REFLEX MEASURED LDL Routine 07/24/2023 7:47 AM CDT Hyperlipidemia, unspecified hyperlipidemia type ANTI HCV Routine 11/09/2020 10:24 AM TOOLING MECHANIC Need for hepatitis C screening test from Last 3 Months or Most Recently Relevant to Health Maintenance Results * LAB TRACKING EVENT (01/04/2025 2:37 PM TOOLING MECHANIC) Other (Other) Client Collect / Unknown 01/04/2025 2:37 PM TOOLING MECHANIC 01/05/2025 7:05 AM TOOLING MECHANIC us Mychal Gr MD LAB BILL ONLY Final Resu lt [facility] [address] [place] [address], [place] * PATH TISSUE EXAM (01/04/2025 2:37 PM TOOLING MECHANIC) Case Report Pathology Report Case: [id number] Authorizing Provider: Mychal Gr MD Collected: 01/04/2025 1437 Ordering Location: [facility] Received: 01/05/2025 0951 Pathologist: Curly Ramírez MD Specimen: Sigmoid Colon, and anastomatic rings 01/06/2025 9:49 AM TOOLING MECHANIC [facility] Final Diagnosis A) COLON, SIGMOID, SEGMENTAL RESECTION: 1. Diverticulitis, featuring: a. Multiple diverticula b. Peripheral patient with ulceration and abscess c. Patchy mural chronic inflammation and fibrosis with serosal adhesions 2. Nonspecific reactive changes and otherwise normal background colonic mucosa 3. Negative for dysplasia and malignancy 01/06/2025 9:49 AM TOOLING MECHANIC [facility] Clinical Information Diverticular disease 01/06/2025 9:49 AM TOOLING MECHANIC [facility] Gross Description A) Received in [...] blue). Both have overlying unremarkable mathis mucosa. Live Truck Technician sections are submitted as well as: 1. Margins of bowel, en face 2. Section showing perforated diverticulum into adjacent abscess cavity 3. Additional sections of apparent abscess cavity 4, 5. Live Truck Technician sections of intact diverticula 6. Sections of mucosa from each anastomotic ring 7. 1 possible (patient financial representative ) lymph node TRB 01/05/2025 01/06/2025 9:49 AM [facility] Microscopic Description The final diagnosis is based on microscopic examination of appropriate sections of all specimens. 01/06/2025 9:49 AM TOOLING MECHANIC [facility] Additional Information Interpreted at [facility] Central Laboratory - [address] [facility] [address], [place] [address] 01/06/2025 9:49 AM TOOLING MECHANIC [facility] Other SPECIMEN FROM COLON / Unknown 01/04/2025 2:37 PM TOOLING MECHANIC 01/05/2025 9:51 AM TOOLING MECHANIC us Mychal Gr MD PATHOLOGY/CYTOLOGY Final R esult Performing Organization Address City/[facility]/ZIP Co de Phone Number [facility] [address] [place] [address], [place] * SCAN-OPERATIVE/PROCEDURE REPORT (01/04/2025 12:00 AM TOOLING MECHANIC) us Scanner OTHER Final Result * SCAN-OPERATIVE/PROCEDURE REPORT (01/04/2025 12:00 AM TOOLING MECHANIC) us Scanner OTHER Final Result * SCAN-OPERATIVE/PROCEDURE REPORT (12/31/2024 12:00 AM TOOLING MECHANIC) us Scanner OTHER Final Result * CEA (12/15/2024 2:10 PM TOOLING MECHANIC) CEA <2.0 See Note: ng/mL [facility] Comment: Reference Range: Non-Smoker: <2.5 Smoker: <5.0 This test was performed using the Siemens chemiluminescent method. Values obtained from different assay methods cannot be used interchangeably. CEA levels, regardless of value, should not be interpreted as absolute evidence of the presence or absence of disease. Blood BLOOD SPECIMEN / Unknown 12/15/2024 2:10 PM TOOLING MECHANIC 12/15/2024 2:11 PM TOOLING MECHANIC us Mychal Gr MD CHEMISTRY Final Resu lt Performing Organization Address City/[facility]/ZIP Co de Phone Number [facility] [address] [place] [address], [place] [phone] [facility] [address] [place] [address] * (ABNORMAL) INR - POCT [66896.2] - Standing Order (12/14/2024 9:06 AM TOOLING MECHANIC) Only the most recent of2 resultswithin the time period is included. INR 1.5(H) ratio [facility] Comment: INRs >2.9 may be falsely elevated [...] PROTHROMBIN TIMEP 18.3(H) 10.5 - 13.1 sec [facility] Comment: Point of care fingerstick Prothrombin Time/INR results may vary from venous Prothrombin Time/INR methodologies. Any results exhibiting inconsistency with the patient's clinical status should be repeated using a venous Prothrombin Time/INR method. Blood BLOOD SPECIMEN / Unknown 12/14/2024 9:06 AM TOOLING MECHANIC 12/14/2024 9:06 AM TOOLING MECHANIC Ed Del Toro MD LABORATORY Final Result [facility] [address] [place] [address], [facility] [address] , [place] [address] * CT ABDOMEN PELVIS W (12/09/2024 4:22 PM TOOLING MECHANIC) Anatomical Region Laterality Modality Abdomen, Pelvis, AORTA, LIVER, SPLEEN Computed Tomography 12/09/2024 8:39 PM TOOLING MECHANIC Narrative 12/09/2024 8:39 PM TOOLING MECHANIC For Patients: As a result of the [...] x 6.4 centimeters with eccentric wall thickening, mgny-pl-otwnlsgq adjacent stranding, and effacement of fat planes [...] 7.6 centimeters which demonstrates eccentric wall thickening, zrwg-zz-afzejele adjacent stranding, and effacement of fat planes [...] 7.6 x 6.4 centimeterswith eccentric wall thickening, fbve-gj-kkwqsczm adjacent stranding, andeffacement of fat planes with [...] measuring 7.6 centimeters which demonstrates eccentric wallthickening, luxj-zx-djgqaeyi adjacent stranding, and effacement of fatplanes along [...] (ABNORMAL) CBC AND DIFFERENTIAL (12/08/2024 2:30 PM TOOLING MECHANIC) WHITE BLOOD CELL COUNT 16.9(H) 3.8 - [...] BLOOD SPECIMEN / Unknown 12/08/2024 2:30 PM TOOLING MECHANIC 12/08/2024 2:30 PM TOOLING MECHANIC us Ed Del Toro MD HEMATOLOGY Final Result [facility] [address] [place] [address], [place] [phone] [facility] [address] [place] [address] * (ABNORMAL) HEPATIC FUNCTION PANEL (12/08/2024 2:30 PM TOOLING MECHANIC) Pathologist [facility] PROTEIN, TOTAL 8.0 6.1 - 8.1 g/dL [...] BLOOD SPECIMEN / Unknown 12/08/2024 2:30 PM TOOLING MECHANIC 12/08/2024 2:30 PM TOOLING MECHANIC us Ed Del Toro MD CHEMISTRY Final Result [facility] [address] [place] [address], [place] [phone] [facility] [address] [place] [address] * (ABNORMAL) BASIC METABOLIC PANEL (12/08/2024 2:30 PM TOOLING MECHANIC) GLUCOSE 94 65 - 99 mg/dL Jai [...] CALCIUM 9.3 8.6 - 10.3 mg/dL [facility] Blood BLOOD SPECIMEN / Unknown 12/08/2024 2:30 PM TOOLING MECHANIC 12/08/2024 2:30 PM TOOLING MECHANIC Ed Del Toro MD CHEMISTRY Final Result [facility] [address] [place] [address], [facility] [address] [place] [address] * UA W/ SEDIMENT EXAM REFLEXED PER CRITERIA (12/08/2024 2:29 PM TOOLING MECHANIC) COLOR Yellow Yellow Color 12/08/2024 10:29 PM TOOLING MECHANIC [facility] CLARITY Clear Clear Clarity 12/08/2024 10:29 PM TOOLING MECHANIC [facility] SPECIFIC GRAVITY,URINE 1.020 1.010, 1.015, 1.020, 1.025 12/08/2024 10:29 PM TOOLING MECHANIC [facility] PH,URINE 6.5 6.0, 7.0, 8.0, 5.5, 6.5, 7.5, 8.5 12/08/2024 10:29 PM [facility] UROBILINOGEN, QUALITATIVE Normal Normal EU/dl 12/08/2024 10:29 PM [facility] PROTEIN, URINE Negative Negative mg/dL 12/08/2024 10:29 PM [facility] GLUCOSE, URINE Negative Negative mg/dL 12/08/2024 10:29 PM TOOLING MECHANIC [facility] KETONES,URINE Negative Negative mg/dL 12/08/2024 10:29 PM [facility] BILIRUBIN,URI NE Negative Negative 12/08/2024 10:29 PM [facility] OCCULT BLOOD,URINE Negative Negative 12/08/2024 10:29 PM [facility] NITRITE Negative Negative 12/08/2024 10:29 PM [facility] LEUKOCYTE ESTERASE Negative Negative 12/08/2024 10:29 PM [facility] Urine URINE SPECIMEN / Unknown Non-Blood / Unknown 12/08/2024 2:29 PM TOOLING MECHANIC 12/08/2024 2:29 PM [facility] us Ed Del Toro MD URINE Final Result [facility] [address] [place] [address], [place] * (ABNORMAL) PROTIME-INR [76029.0] - Standing Order (11/30/2024 9:09 AM TOOLING MECHANIC) Only the most recent of2 resultswithin the time period is included. INR 2.8(H) <1.3 11/30/2024 2:13 PM [facility] PROTIME 32.5(H) 10.6 - 12.4 sec 11/30/2024 2:13 PM [facility] Blood BLOOD SPECIMEN / Unknown [facility] / Unknown 11/30/2024 9:09 AM TOOLING MECHANIC 11/30/2024 9:09 AM TOOLING MECHANIC Narrative [facility] - 11/30/2024 2:13 PM TOOLING MECHANIC Therapeutic Range 2.0-3.0 for most anticoagulated patients [...] Ed Del Toro MD HEMATOLOGY Final Result [facility] [address] [place] [address], [place] * HEMOGLOBIN (10/23/2024 8:11 AM TOOLING MECHANIC) Pathologist [facility] HEMOGLOBIN 14.6 13.2 - 17.1 g/dL [facility] [place] Blood BLOOD SPECIMEN / Unknown 10/23/2024 8:11 AM TOOLING MECHANIC 10/23/2024 8:12 AM TOOLING MECHANIC Kleber Mcmillan DO HEMATOLOGY Final Result [facility] [address] [place] [address], [facility] [address] [place] [address] * COLONOSCOPY (09/06/2023 10:16 AM CDT) 09/06/2023 [...] an adequate candidate for conscious sedation. The [id number] was passed through the anus and advanced [...] 10:16 AM Procedure Code(s): --- Professional --- 04050, Colonoscopy, flexible; diagnostic, including collection of specimen(s) bybrushing or washing, when performed (separateprocedure) Diagnosis Code(s): --- Professional --- K92.1, Melena (includes Hematochezia) K57.30, Diverticulosis of large intestine without perforation or abscess withoutbleeding CPT copyright 2021 [employer]. All rights reserved. The codes documented in this report are preliminary and upon deboning team leader reviewmay be revised to meet current compliance requirements. Scope In: 11:22:55 AM Scope Withdrawal Time 0 hours 7 minutes 51 seconds Scope Out: 11:36:13 AM us Adrien Hussein MD PROCEDURE ORD Final Res ult * (ABNORMAL) LIPID PANEL W REFLEX MEASURED LDL (07/24/2023 7:47 AM CDT) CHOLESTEROL,TOTAL 232(H) 100 - 199 mg/dL 07/24/2023 2:23 PM CDT [facility] Comment: Cholesterol, Total Reference Ranges Desirable <200 mg/dL Borderline 200-239 mg/dL High >=240 mg/dL TRIGLYCERIDES 175(H) <150 mg/dL 07/24/2023 2:23 PM CDT [facility] HDL CHOLESTEROL 53 >40 mg/dL 2:23 PM CDT [facility] NON-HDL CHOLESTEROL 179(H) <145 mg/dl 07/24/2023 2:23 PM CDT [facility] CHOL/HDL RATIO 4.38 <4.50 07/24/2023 2:23 PM CDT [facility] LDL CHOLESTEROL 144(H) <=130 mg/dL 07/24/2023 2:23 PM CDT [facility] VLDL CHOLESTEROL 35(H) <=30 mg/dL 07/24/2023 2:23 PM CDT [facility] PROVIDER ORDERED STATUS RANDOM 07/24/2023 2:23 PM CDT [facility] Blood BLOOD SPECIMEN / Unknown Venipuncture / Unknown 07/24/2023 7:47 AM CDT 07/24/2023 7:48 AM CDT us Ed Del Toro MD CHEMISTRY Final Result [facility] [address] [place] [address], * ANTI HCV (11/09/2020 10:24 AM TOOLING MECHANIC) HEPATITIS C ANTIBODY Non-React johnathan Non-React johnathan 11/09/2020 6:25 PM TOOLING MECHANIC [facility] Comment:Antibodies to HCV no t detected; does not exclude the possibility of exposure to HCV. Blood BLOOD SPECIMEN / Unknown Butterfly / Unknown 11/09/2020 10:24 AM TOOLING MECHANIC 11/09/2020 10:25 AM TOOLING MECHANIC us Ed Del Toro MD SEND OUTS Final Result [facility] [address] [place] [address], from Last 3 Months or Most Recently Relevant to Health Maintenance Insurance [facility] MEDICARE PART A HB ONLY [facility] [place] [id number] BLUE CROSS OF NON-ND-ITS Advance Directives * Full Code (Latest Code [...] 1:54 AM 08/09/2017 11:45 AM Care Teams Equipment Maintenance Engineer Relationship Specialty Start Date End Date Ed Del Toro MD [address] [place] [address] PCP - General Family Practice 12/05/20 Romina Cristobal NP [address] [address] Nurse Practitioner Cardiology - Electrophysiology 07/07/19 Cassandra Kearney MD [address] [place] [address] [address] Consulting Physician Cardiology - Electrophysiology 10/23/21
--- OUTSIDE RECORDS SUMMARY | 2025-01-15 23:10 | XMS_ITS | Encounter Summary ---
Author Organization [facility] Address [address] [place] [address] [place] [address] Care Team Providers Care Coal Handler Name Role Phone Ed Del Toro MD Primary Care Provider Reason for Visit * Reason Comments Knee Problem Encounter Details Date Type Department Care Team (Late st Contact Info) Description 12/03/2024 8:45 AM TRAIN BRAKER Therapy [facility] [address] [place] [address] Elvis Nunn, PT [address] [place] [address] Aftercare following left knee joint replacement surgery (Primary Dx); Left knee pain, unspecified chronicity Social History Tobacco Use Types Packs/Day Years Used Date Smoking Tobacco: Never Smokeless Tobacco: Never [facility] Utilities Answer Date Recorded In the past 12 months has [facility] [employer], gas, oil, or water [employer] threatened to shut off services in your [...] Knee Daily Note Visit Number: 11 [employer] Initial Certification Period: 11/03/2024 to 02/01/25 Referring [...] or symptoms of infection or DVT ROM ([id number]): 3-4-121 deg, 0-0-123 right Strength: Quad set: good Supine SLR: <5 deg extensor lag TREATMENT TODAY: Therapeutic Exercise (CPT 07119) x 20 minutes: Utilized for the purpose [...] 5x/day - HEP Review Therapeutic Activities (CPT 06302) x 10 minutes: Dynamic activities utilized to [...] in 4-6 weeks. MET ADL: Squat to pick and shovel worker items from floor with minimal/no symptoms in 6-8 weeks. Therapist: Elvis Nunn, PT 9:47 AM 12/03/2024 N BRAKER documented in this encounter Plan of Treatment Upcoming Encounters Date Type Department Care Team (Late st Contact Info) Description 01/29/2025 11:30 AM CDT Appointment [facility], Physical Therapy [address] [place], [place] [id number] Álvaro Flores, PT [address] [place], [place] [phone] documented as of this encounter Goals Goal Patient Goal Type Associated Problems Recent Progress Patient-Stated? Author Right Knee Replacement Care Plan ET PROE RIGHT KNEE No Emperatriz Richter, RN, CONSTRUCTION CAR[employer]ENTERS HELPER MOTOR REBUILDER Left Knee Care Plan ET PROE LEFT KNEE No Emperatriz Richter, RN, CONSTRU[employer]ENT[employer] HELPER MOTOR REBUILDER documented as of this encounter Visit Diagnoses Diagnosis Aftercare following left knee joint replacement surgery- Primary Left knee pain, unspecified chronicity documented in this encounter Additional Health Concerns Active Problems Noted Date Diagnosed Date ET PROE RIGHT KNEE 07/30/2023 ET PROE LEFT KNEE 12/31/2023 documented as of this encounter Care Teams Coal Handler Relationship Specialty Start Date End Date Ed Del Toro MD [address] [place] [address] PCP - General Family Practice 07/25/22 documented as of this encounter
--- OUTSIDE RECORDS SUMMARY | 2025-01-15 23:10 | XMS_ITS | Clinical Summary ---
Author Organization [facility] Address [address], [place] [address] Care Team Providers Care Agency Owner Name Role Phone Ed Del Toro MD Primary Care Provider Source Comments You are receiving this document as you are listed as the primary care provider,follow-up provider, or the patient has been referred to you for consultation.This is in compliance with the Medicare and[facility] EHR Incentive Program,which states Providers who transition their patient to another setting of careor provider of care or refers their patient to another provider of care shouldprovide summary care record for each transition of care or referral. [facility] Allergies No known active allergies Medications omeprazole [...] Indications: Pain 100 Tablet 10/30/2024 1:17 PM LICENSED NURSING ASSISTANT 4 Active senna (SENOKOT) 8.6 MG tabletIndicati ons:Constipati on Take 2 Tablets by mouth daily at bedtime. Take while on narcotics. Hold for loose stools. Indications: Constipation 60 Tablet 10/30/2024 1:17 PM LICENSED NURSING ASSISTANT 4 Active oxyCODONE (ROXICODONE) 5 MG immediate [...] Department Care Team Description 12/29/2024 7:00 AM LICENSED NURSING ASSISTANT Therapy [facility], Physical Therapy [address] [place] [address] Álvaro Flores, PT Aftercare following left knee joint replacement surgery (Primary Dx) 12/22/2024 7:00 AM LICENSED NURSING ASSISTANT Therapy [facility], Physical Therapy [address] [place] [address] Álvaro Flores, PT Aftercare following left knee joint replacement surgery (Primary Dx) 12/15/2024 7:00 AM LICENSED NURSING ASSISTANT Therapy [facility], Physical Therapy [address] [place] [address] Álvaro Flores, PT Aftercare following left knee joint replacement surgery (Primary Dx) 12/10/2024 11:00 AM LICENSED NURSING ASSISTANT Therapy [facility], Physical Therapy [address] [place] [address] Álvaro Flores, PT Aftercare following left knee joint replacement surgery (Primary Dx) 12/08/2024 9:55 AM LICENSED NURSING ASSISTANT Ancillary Procedure [facility] [address] [place] [address] Costa Chino MD S/P total knee arthroplasty, left 12/08/2024 9:40 AM LICENSED NURSING ASSISTANT Office Visit [facility] [address] [place] [address] Costa Chino MD S/P total knee arthroplasty, left (Primary Dx) 12/03/2024 8:45 AM LICENSED NURSING ASSISTANT Therapy [facility] Physical Therapy [address] [place] [address] Elvis Nunn, PT Aftercare following left knee joint replacement surgery (Primary Dx); Left knee pain, unspecified chronicity 12/01/2024 7:00 AM LICENSED NURSING ASSISTANT Therapy [facility], Physical Therapy [address] [place] [place] [address] Álvaro Flores, PT Aftercare following left knee joint replacement surgery (Primary Dx) 11/26/2024 11:00 AM LICENSED NURSING ASSISTANT Therapy [facility] Physical Therapy [address] [place] [address] Álvaro Flores, PT Aftercare following left knee joint replacement surgery (Primary Dx) 11/24/2024 8:00 AM LICENSED NURSING ASSISTANT Therapy [facility] Physical Therapy [address] [place] [address] Álvaro Floers, PT Aftercare following left knee joint replacement surgery (Primary Dx) 11/19/2024 7:30 AM LICENSED NURSING ASSISTANT Therapy [facility] Physical Therapy [address] [place] [address] Veronica Hahn, PT Left knee pain, unspecified chronicity (Primary Dx); Aftercare following left knee joint replacement surgery 11/17/2024 7:00 AM LICENSED NURSING ASSISTANT Therapy [facility], Physical Therapy [address] [place] [address] Álvaro Flores, PT Aftercare following left knee joint replacement surgery (Primary Dx) 11/13/2024 6:45 AM LICENSED NURSING ASSISTANT Therapy [facility], Physical Therapy [address] [place] [address] Elvis Nunn, PT Left knee pain, unspecified chronicity (Primary Dx); Aftercare following left knee joint replacement surgery 11/12/2024 9:30 AM LICENSED NURSING ASSISTANT Office Visit [facility] [address] [place] [address] Nurse, [facility] Um Delmi S/P total knee arthroplasty, left (Primary Dx) 11/12/2024 Refill [facility] [address] [place] [address] Costa Chino MD Refill 11/11/2024 11:15 AM LICENSED NURSING ASSISTANT Therapy [facility], Physical Therapy [address] [place] [address] Michelle Moreno, PT Left knee pain, unspecified chronicity (Primary Dx); Aftercare following left knee joint replacement surgery 11/09/2024 8:45 AM LICENSED NURSING ASSISTANT Therapy [facility], Physical Therapy [address] [place] [address] Elvis Nunn, PT Left knee pain, unspecified chronicity (Primary Dx); Aftercare following left knee joint replacement surgery 11/05/2024 7:30 AM LICENSED NURSING ASSISTANT Therapy [facility], Physical Therapy [address] [place] [address] Veronica Hahn, PT Left knee pain, unspecified chronicity (Primary Dx); Aftercare following left knee joint replacement surgery 11/03/2024 9:45 AM LICENSED NURSING ASSISTANT Office Visit [facility], Physical Therapy [address] [facility] [place] [address] Michelle Moreno PT Aftercare following left knee joint replacement surgery (Primary Dx) 11/02/2024 Orders Only [facility] Soco Arango MD 10/29/2024 7:29 AM LICENSED NURSING ASSISTANT Anesthesia Event [facility] [address] [facility] [place] [address] Renée Rodgers MD 10/29/2024 7:00 AM LICENSED NURSING ASSISTANT - 10/29/2024 9:35 AM LICENSED NURSING ASSISTANT Surgery [facility] [address] [facility] [place] [address] Costa Chino MD TOTAL KNEE JOINT REPLACEMENT, AND hardware removal 10/29/2024 5:39 AM LICENSED NURSING ASSISTANT - 10/30/2024 1:14 PM LICENSED NURSING ASSISTANT Hospital Encounter [facility] [address] [facility] [place] [address] Costa Chino MD Status post total left knee replacement (Primary Dx); Pain Discharge Disposition: Home 10/29/2024 Orders Only [facility] Soco Arango MD 10/29/2024 Orders Only [facility] ProviderSoco MD 10/23/2024 Telephone [facility] [address] [place] [address] Sl[place], SENIOR RESEARCH PROJECT MANAGER RESULTS 10/20/2024 Telephone [facility] [address] [place] [address] Slime [place], SENIOR RESEARCH PROJECT MANAGER RESULTS from Last 3 Months Social History Tobacco Use Types Packs/Day Years Used Date Smoking Tobacco: Never Smokeless Tobacco: Never Tobacco Cessation:Counseling Given: Not Answered [facility] Utilities Answer Date Recorded In the past 12 months has [employer], gas, oil, or water [employer] threatened to shut off services in your [...] place to sleep or slept in a longterm (including now)? No 11/20/2023 Sex and Gender Information Value Date Recorded Sex Assigned at Not on file Legal Sex Male 10:09 AM CDT Gender Identity Not on file Sexual Orientation Not on file Last Filed Vital Signs Vital Sign Reading Time Taken Comments Blood Pressure 109/61 10/30/2024 9:55 AM LICENSED NURSING ASSISTANT Pulse 56 10/30/2024 9:55 AM LICENSED NURSING ASSISTANT Temperature 36.8 C (98.2 F) 10/30/2024 9:55 AM LICENSED NURSING ASSISTANT Respiratory Rate 15 10/30/2024 9:55 AM LICENSED NURSING ASSISTANT Oxygen Saturation 96% 10/30/2024 9:55 AM LICENSED NURSING ASSISTANT Inhaled Oxygen Concentration - - Weight 100.8 kg (222 lb 3.2 oz) 10/29/2024 6:27 AM LICENSED NURSING ASSISTANT Height 172.7 cm (5' 7.99) 10/29/2024 6:27 AM CS T Body Mass Index 33.79 10/29/2024 6:27 AM LICENSED NURSING ASSISTANT Plan of Treatment Upcoming Encounters Date Type Department Care Team (Late st Contact Info) Description 01/29/2025 11:30 AM CDT Appointment [facility], Physical Therapy [address] [place] [address] Álvaro Flores, PT [address] [place], [place] [phone] Health Maintenance Due Date Last Done Comments [...] PROE RIGHT KNEE No Emperatriz Richter, RN, HUMAN RESOURCES BENEFITS ADMINISTRATOR FLORIST HELPER Left Knee Care Plan ET PROE LEFT KNEE No Emperatriz Richter RN, HUMAN RESOURCES BENEFITS ADMINISTRATOR FLORIST HELPER Medical Devices Implanted Type Area Rivet Hole Machine Operator Device Identifier Shelf Expiration Date Model / Serial / Lot Jose Bone Biomet R 1x40 - [id number] Implanted:Qty : 2 on 11/20/2023 by Costa Chino MD at [facility] DEVICE Right: KNEE [employer] 04/03/2026 [id number] / 0 / [id number] Patella All Poly Ply 35mm - [id number] Implanted:Qty : 1 on 11/20/2023 [facility] Right: KNEE [employer] 09/14/2028 [id number] / 0 / [id number] Comp Fem Ps Ccr Ps Std Sz7 Rt - [id number] Implanted:Qty : 1 on 11/20/2023 by Costa Chino MD at [facility] DEVICE Right: KNEE [employer] 07/06/2033 [id number] / 0 / [id number] Stem Tib 5deg Szg Rt - [id number] Implanted:Qty : 1 on 11/20/2023 by Costa Chino MD at [facility] DEVICE Right: KNEE [employer] 08/23/2033 [id number] / 0 / [id number] Asf Ps Poly 11mm 69 Gh Rt - [id number] Implanted:Qty : 1 on 11/20/2023 by Costa Cihno MD at [facility] DEVICE Right: KNEE [employer] 01/23/2028 [id number] / 0 / [id number] Jose [employer] R 1x40 - [id number] Implanted:Qty : 2 on 10/29/2024 by Costa Chino MD at [facility] DEVICE Left: KNEE [employer] 01/01/2027 [id number] / / [id number] Comp Fem Ps Ccr Ps Std Sz7 Lt - [id number] Implanted:Qty : 1 on 10/29/2024 by Costa Chino MD at [facility] DEVICE Left: KNEE [employer] 06/18/2034 [id number] / / [id number] Stem Tib 5deg Szg Lt - [id number] Implanted:Qty : 1 on 10/29/2024 by Costa Chino MD at [facility] DEVICE Left: KNEE [employer] 07/15/2034 [id number] / / [id number] Patella All Poly Ply 38mm - [id number] Implanted:Qty : 1 on 10/29/2024 by Costa Chino MD at [facility] DEVICE Left: KNEE [employer] 09/13/2029 [id number] / / [id number] Persona Articular Surface, Fixed Bearing, Posterior Stabilized, Left, 11mm Height Implanted:Qty : 1 on 10/29/2024 by Costa Chino MD at [facility] Left: KNEE [employer] - Orthopedics 08/09/2028 [id number] / / [id number] Procedures Procedure Name Priority Date/Time Associated Diagnosis Comments XR KNEE LT 3 VIEWS Routine 12/08/2024 10 :02 AM LICENSED NURSING ASSISTANT S/P total knee arthroplasty, left EKG 11/02/2024 INR/PROTIME Routine 10/30/2024 7:14 AM LICENSED NURSING ASSISTANT HEMOGLOBIN, BLOOD Routine 10/30/2024 7:1 4 AM LICENSED NURSING ASSISTANT XR KNEE LT 2 VIEWS Routine 10/29/2024 4: 32 PM LICENSED NURSING ASSISTANT SPINAL BLOCK Routine 10/29/2024 7:38 AM LICENSED NURSING ASSISTANT TOTAL KNEE JOINT REPLACEMENT 10/29/2024 7:00 AM LICENSED NURSING ASSISTANT Arthritis of left knee Case Notes 1 screw removed and disposed of per hospital policy COMPLETE BLOOD COUNT-W/DIFF STAT 10/29/2024 6:04 AM LICENSED NURSING ASSISTANT INR/PROTIME STAT 10/29/2024 6:04 AM LICENSED NURSING ASSISTANT HGB A1C STAT 10/29/2024 6:04 AM LICENSED NURSING ASSISTANT BASIC METABOLIC PANEL STAT 10/29/2024 6:04 AM LICENSED NURSING ASSISTANT CBC AND DIFFERENTIAL PANEL STAT 10/29/2024 6:04 AM LICENSED NURSING ASSISTANT EKG 10/29/2024 LABORATORY REPORT 10/29/2024 from Last 3 Months Results * XR Knee Lt 3 Views (12/08/2024 10:02 AM LICENSED NURSING ASSISTANT) Anatomical Region Laterality Modality Lower Extremity, Knee Digital Ra diography 12/08/2024 9:54 AM LICENSED NURSING ASSISTANT Narrative 12/08/2024 10:32 AM LICENSED NURSING ASSISTANT COMPARISON: 10/29/2024 FINDINGS: Left total knee arthroplasty [...] in AM POD #1 (10/30/2024 7:14 AM LICENSED NURSING ASSISTANT) Hemoglobin 12.6(L) 13.5 - 17.5 g/dL 10/30/2024 7:42 AM LICENSED NURSING ASSISTANT [facility] Blood Venipuncture / Unknown 10/30/2024 7:14 AM LICENSED NURSING ASSISTANT 10/30/2024 7:35 AM LICENSED NURSING ASSISTANT us Emperatriz Richter RN, HUMAN RESOURCES BENEFITS ADMINISTRATOR FLORIST HELPER LAB_1 Final Result Performing Organization Address [facility] de Phone Number [facility] [address] * INR/Protime (Daily in AM) (10/30/2024 7:14 AM LICENSED NURSING ASSISTANT) Only the most recent of2 resultswithin the time period is included. Protime 14.1 11.8 - 14.6 Seconds 10/30/2024 7:57 AM LICENSED NURSING ASSISTANT [facility] INR 1.1 0.9 - 1.1 10/30/2024 7:57 AM LICENSED NURSING ASSISTANT [facility] Blood Venipuncture / Unknown 10/30/2024 7:14 AM LICENSED NURSING ASSISTANT 10/30/2024 7:35 AM LICENSED NURSING ASSISTANT Narrative [facility] - 10/30/2024 7:57 AM LICENSED NURSING ASSISTANT If you take an anticoagulant medicine called warfarin, your doctor or clinician may establish a normal range for you that is different from the baseline range shown. us Costa Chino MD LAB_1 Final Result Performing Organization Address [facility] de Phone Number [facility] [address] * XR Knee Lt 2 Views (10/29/2024 4:32 PM LICENSED NURSING ASSISTANT) Anatomical Region Laterality Modality Lower Extremity, Knee Digital Ra diography 10/29/2024 4:22 AM LICENSED NURSING ASSISTANT Narrative 10/29/2024 4:55 PM LICENSED NURSING ASSISTANT COMPARISON: 12/31/2023 FINDINGS: 2 views of the [...] screw remains in place. Emperatriz Richter RN, HUMAN RESOURCES BENEFITS ADMINISTRATOR FLORIST HELPER RAD GD Final Result * Spinal Block (10/29/2024 7:38 AM LICENSED NURSING ASSISTANT) Narrative EXTERNAL RESULTS - 10/29/2024 7:38 AM LICENSED NURSING ASSISTANT Sav Ro, HUMAN RESOURCES BENEFITS ADMINISTRATOR, PLASTIC PRESS OPERATOR 10/29/2024 7:38 AM Spinal Block Performed by: [...] 3.5 in Attempts: 1 Redirects: 1 Monitoring: monitoring specialist and continuous pulse ox CSF: adequate CSF [...] (ABNORMAL) Complete Blood Count-W/Diff (10/29/2024 6:04 AM LICENSED NURSING ASSISTANT) WBC 9.5 3.5 - 10.5 x10(9)/L 10/29/2024 6:19 AM LICENSED NURSING ASSISTANT [facility] RBC 5.27 4.32 - 5.72 x10(12)/L 10/29/2024 6:19 AM LICENSED NURSING ASSISTANT [facility] Hemoglobin 14.1 13.5 - 17.5 g/dL 10/29/2024 6:19 AM LICENSED NURSING ASSISTANT [facility] HCT 43.7 38.8 - 50.0 % 10/29/2024 6:19 AM LICENSED NURSING ASSISTANT [facility] MCV 82.9 80.0 - 100.0 fL 10/29/2024 6:19 AM LICENSED NURSING ASSISTANT [facility] MCH 26.8(L) 27.6 - 33.3 pg 10/29/2024 6:19 AM LICENSED NURSING ASSISTANT [facility] MCHC 32.3 31.5 - 35.2 g/dL 10/29/2024 6:19 AM LICENSED NURSING ASSISTANT [facility] RDW 13.8 11.9 - 15.5 % 10/29/2024 6:19 AM LICENSED NURSING ASSISTANT [facility] Platelets 423 150 - 450 x10(9)/L 10/29/2024 6:19 AM LICENSED NURSING ASSISTANT [facility] Automated NRBC 0 <=0 /100 WBC 10/29/2024 6:19 AM LICENSED NURSING ASSISTANT [facility] Neutrophil Absolute 6.1 1.7 - 7.0 10(9)/L 10/29/2024 6:19 AM LICENSED NURSING ASSISTANT [facility] Lymphocyte Absolute 2.1 1.0 - 4.8 10(9)/L 10/29/2024 6:19 AM LICENSED NURSING ASSISTANT [facility] Monocyte Absolute 1.1(H) 0.2 - 0.9 10(9)/L 10/29/2024 6:19 AM LICENSED NURSING ASSISTANT [facility] Eosinophil Absolute 0.2 0.0 - 0.5 10(9)/L 10/29/2024 6:19 AM LICENSED NURSING ASSISTANT [facility] Basophil Absolute 0.0 0.0 - 0.3 10(9)/L 10/29/2024 6:19 AM LICENSED NURSING ASSISTANT [facility] Immature Granulocyte % 0.4 0.0 - 0.5 % 10/29/2024 6:19 AM LICENSED NURSING ASSISTANT [facility] Blood Venipuncture Butterfly / Unknown 10/29/2024 6:04 AM LICENSED NURSING ASSISTANT 10/29/2024 6:15 AM LICENSED NURSING ASSISTANT us Costa Chino MD LAB_1 Final Result [facility] [address] * (ABNORMAL) Basic Metabolic Panel (10/29/2024 6:04 AM LICENSED NURSING ASSISTANT) Sodium 136 136 - 145 mmol/L 10/29/2024 6:45 AM LICENSED NURSING ASSISTANT [facility] Potassium 3.9 3.5 - 5.1 mmol/L 10/29/2024 6:45 AM LICENSED NURSING ASSISTANT [facility] Chloride 103 98 - 109 mmol/L 10/29/2024 6:45 AM LICENSED NURSING ASSISTANT [facility] CO2 24 20 - 29 mmol/L 10/29/2024 6:45 AM LICENSED NURSING ASSISTANT [facility] Anion Gap 9 6 - 16 mmol/L 10/29/2024 6:45 AM LICENSED NURSING ASSISTANT [facility] Calcium 9.2 8.4 - 10.4 mg/dL 10/29/2024 6:45 AM LICENSED NURSING ASSISTANT [facility] BUN 17 7 - 26 mg/dL 10/29/2024 6:45 AM LICENSED NURSING ASSISTANT [facility] Creatinine 0.89 0.73 - 1.18 mg/dL 10/29/2024 6:45 AM LICENSED NURSING ASSISTANT [facility] Glucose 108(H) 70 - 100 mg/dL 10/29/2024 6:45 AM [facility] Comment:The given reference range is for the fasting state. Non-fasting reference range for glucose is 70 - 180 mg/dL. GFR, Estimated >60 >60 mL/min/1.7 3m2 10/29/2024 6:45 AM [facility] Blood Venipuncture Butterfly / Unknown 10/29/2024 6:04 AM LICENSED NURSING ASSISTANT 10/29/2024 6:15 AM [facility] us Costa Chino MD LAB_1 Final Result [facility] [address] * (ABNORMAL) Hgb A1C (10/29/2024 6:04 AM [facility]) Hemoglobin A1C 6.3(H) <=5.6 % 10/29/2024 9:33 AM [facility] Estimated Average Glucose (Calc) 134 < 117 mg/dL 10/29/2024 9:33 AM [facility] Comment:Estimated average gl ucose (eAG) converts A1c into glucose units (mg/dL) and estimates average glucose over the past approximately 3 months. The eAG reference interval (<117 mg/dL) corresponds to an A1c of <5.7%. Blood Venipuncture Butterfly / Unknown 10/29/2024 6:04 AM LICENSED NURSING ASSISTANT 10/29/2024 6:15 AM LICENSED NURSING ASSISTANT Narrative [facility] - 10/29/2024 9:33 AM LICENSED NURSING ASSISTANT For patients not previously diagnosed with diabetes: 5.7-6.4%: Increased risk for diabetes 6.5% and greater: Diagnostic for diabetes For patients diagnosed with diabetes: <8.0%: Goal of therapy for ages 18-75 Clinicians may recommend a higher or lower goal for specific individuals. us Costa Chino MD LAB_1 Final Result [facility] [address] [address], [facility] * LABORATORY REPORT (10/29/2024) us Interface Provider DUMMY/OTHER/AR Final Resu lt from Last 3 Months Additional Health Concerns Active Problems Noted Date Diagnosed Date ET PROE RIGHT KNEE 07/30/2023 ET PROE LEFT KNEE 12/31/2023 Insurance MEDICARE PART A [facility] MEDIC[facility] PART A Advance Directives * Full Code (Latest Code Status on File) Date Activated Date Inactivated Comments 10/29/2024 1:17 PM 10/30/2024 3:19 PM * Full Code Date Activated Date Inactivated Comments 11/20/2023 4:32 PM 11/21/2023 3:07 PM * Full Code Date Activated Date Inactivated Comments 11/20/2023 7:10 AM 11/20/2023 3:45 PM Care Teams Agency Owner Relationship Specialty Start Date End Date Ed Del Toro MD [address] [place] [address] PCP - General Family Practice 07/25/22
--- OUTSIDE RECORDS SUMMARY | 2025-01-15 23:11 | XMS_ITS | Encounter Summary ---
Author Organization [employer] Address [address] [place] [address] Care Team Providers Care Plating Stripper Name Role Phone Ed Del Toro MD Primary Care Provider Reason for Visit * Reason Comments Knee Problem Encounter Details Date Type Department Care Team (Late st Contact Info) Description 12/10/2024 11:00 AM FRET SAW OPERATOR Therapy [facility], Physical Therapy [address] [place] [address] Álvaro Flores, PT [address] [place], [place] [address] Aftercare following left knee joint replacement surgery (Primary Dx) Social History Tobacco Use Types Packs/Day Years Used Date Smoking Tobacco: Never Smokeless Tobacco: Never [facility] Utilities Answer Date Recorded In the past 12 months has [facility] [employer], gas, oil, or water [employer] threatened to shut off services in your [...] Knee Daily Note Visit Number: 12 BS PA Initial Certification Period: 11/03/2024 to 02/01/25 Referring [...] Edema: mod expected post operative swelling ROM (lestjkrys-lpg-dues): 5-120 deg Strength: Quad set: good- Supine SLR: ~5 deg extensor lag TREATMENT TODAY: Manual Treatment x 10 minutes: - knee flex PROM with PT assist - knee ext stretch with manual overpressure Therapeutic Exercise (CPT 59508) x 30 minutes: Utilized for the purpose [...] in 4-6 weeks. ADL: Squat to pick and shovel man items from floor with minimal/no symptoms in 6-8 weeks. Therapist: Álvaro Flores, PT 11:02 AM 12/10/2024 SAW OPERATOR documented in this encounter Plan of Treatment Upcoming Encounters Date Type Department Care Team (Late st Contact Info) Description 01/29/2025 11:30 AM CDT Appointment [facility], Physical Therapy [address] [place] [address] Álvaro Flores PT [address] [place] [address] documented as of this encounter Goals Goal Patient Goal Type Associated Problems Recent Progress Patient-Stated? Author Right Knee Replacement Care Plan ET PROE RIGHT KNEE No Emperatriz Richter, RN, ADMIN SECRETARY SUSTAINABLE LANDSCAPE ARCHITECT Left Knee Care Plan ET PROE LEFT KNEE No Emperatriz Richter, RN, ADMIN SECRETARY SUSTAINABLE LANDSCAPE ARCHITECT documented as of this encounter Visit Diagnoses Diagnosis Aftercare following left knee joint replacement surgery- Primary documented in this encounter Additional Health Concerns Active Problems Noted Date Diagnosed Date ET PROE RIGHT KNEE 07/30/2023 ET PROE LEFT KNEE 12/31/2023 documented as of this encounter Care Teams Plating Stripper Relationship Specialty Start Date End Date Ed Del Toro MD [address] [place] [address] PCP - General Family Practice 07/25/22 documented as of this encounter
--- OUTSIDE RECORDS SUMMARY | 2025-01-15 23:11 | XMS_ITS | Encounter Summary ---
Author Organization [facility] Address [address] [address] Care Team Providers Care Tripe Finisher Name Role Phone Ed Del Toro MD Primary Care Provider [phone] Reason for Visit * Procedure/Equipment (Routine) - Incomplete Specialty Diagnoses / Procedures Referred By Contac t Referred To Contact Diagnoses S/P total knee arthroplasty, left Procedures XR Knee Lt 3 Views Costa Chino MD [address] [place] [address] [place] [address] Phone: tel: fax: Referral ID Status Reason Start Date Expiration Date V isits Requested Visits Authorized [id number] Incomplete 12/08/2024 03/09/2026 1 1 Encounter Details Date Type Department Care Team (Late st Contact Info) Description 12/08/2024 9:55 AM FAMILY SPECIALIST Ancillary Procedure [facility] [address] [place], [place] [id number] Costa Chino MD [address] [place] [address] [address] [place] [id number] S/P total knee arthroplasty, left Social History Tobacco Use Types Packs/Day Years Used Date Smoking Tobacco: Never Smokeless Tobacco: Never [facility] Utilities Answer Date Recorded In [...] [facility] [address] [place] [address] Álvaro Flores, PT [address] [place] [address] documented as of this encounter Goals Goal Patient Goal Type Associated Problems Recent Progress Patient-Stated? Author Right Knee Replacement Care Plan ET PROE RIGHT KNEE No Emperatriz Richter, RN, SANFORIZING MACHINE OPERATOR INTERNATIONAL MARKETING EXECUTIVE Left Knee Care Plan ET PROE LEFT KNEE No Emperatriz Richter, RN, SANFORIZING MACHINE OPERATOR INTERNATIONAL MARKETING EXECUTIVE documented as of this encounter Procedures Procedure Name Priority Date/Time Associated Diagnosis Comments XR KNEE LT 3 VIEWS Routine 12/08/2024 10 :02 AM FAMILY SPECIALIST S/P total knee arthroplasty, left documented in this encounter Results * XR Knee Lt 3 Views (12/08/2024 10:02 AM FAMILY SPECIALIST) Anatomical Region Laterality Modality Lower Extremity, Knee Digital Ra diography 12/08/2024 9:54 AM FAMILY SPECIALIST Narrative 12/08/2024 10:32 AM FAMILY SPECIALIST COMPARISON: 10/29/2024 FINDINGS: Left total knee arthroplasty [...] documented as of this encounter Care Teams Tripe Finisher Relationship Specialty Start Date End Date Ed Del Toro MD [address] [place] [address] PCP - General Family Practice 07/25/22 documented as of this encounter
--- OUTSIDE RECORDS SUMMARY | 2025-01-15 23:11 | XMS_ITS | Encounter Summary ---
Author Organization [employer] Address [address] [place] [address] Care Team Providers Care Braille Translator Name Role Phone Ed Del Toro MD Primary Care Provider Reason for Visit * Reason Comments Knee Problem Encounter Details Date Type Department Care Team (Late st Contact Info) Description 12/29/2024 7:00 AM PUBLIC TRANSIT BUS DRIVER Therapy [facility], Physical Therapy [address] [place] [address] Álvaro Flores, PT [address] [place], [place] [address] Aftercare following left knee joint replacement surgery (Primary Dx) Social History Tobacco Use Types Packs/Day Years Used Date Smoking Tobacco: Never Smokeless Tobacco: Never [facility] Utilities Answer Date Recorded In the past 12 months has [facility] [employer], gas, oil, or water [employer] threatened to shut off services in your [...] incision Edema: min post operative swelling ROM (hjtvdqvhb-lml-kezb): 3-126 deg Strength: Quad set: good Supine SLR: wnl TREATMENT TODAY: Manual Treatment x 8 minutes: - I/S patellar mobs - knee flex PROM with PT assist - knee ext stretch with manual overpressure Therapeutic Exercise (CPT 65046) x 23 minutes: Utilized for the purpose [...] ROM in 4-6 weeks. ADL: Squat to coal picker items from floor with minimal/no symptoms in 6-8 weeks. Therapist: Álvaro Flores, PT 7:08 AM 12/29/2024 IC TRANSIT BUS DRIVER documented in this encounter Plan of Treatment Upcoming Encounters Date Type Department Care Team (Late st Contact Info) Description 01/29/2025 11:30 AM CDT Appointment [facility], Physical Therapy [address] [place], [place] [address] Álvaro Flores PT [address] [place] [address] documented as of this encounter Goals Goal Patient Goal Type Associated Problems Recent Progress Patient-Stated? Author Right Knee Replacement Care Plan ET PROE RIGHT KNEE No Emperatriz Richter, RN, GROUND SYSTEMS ENGINEER OFFICE WORKER Left Knee Care Plan ET PROE LEFT KNEE No Emperatriz Richter, RN, GROUND SYSTEMS ENGINEER OFFICE WORKER documented as of this encounter Visit Diagnoses Diagnosis Aftercare following left knee joint replacement surgery- Primary documented in this encounter Additional Health Concerns Active Problems Noted Date Diagnosed Date ET PROE RIGHT KNEE 07/30/2023 ET PROE LEFT KNEE 12/31/2023 documented as of this encounter Care Teams Braille Translator Relationship Specialty Start Date End Date Ed Del Toro MD [address] [place] [address] PCP - General Family Practice 07/25/22 documented as of this encounter
--- OUTSIDE RECORDS SUMMARY | 2025-01-15 23:11 | XMS_ITS | Continuity of Care Document ---
Author Organization [facility] Address [address] [place] [address] Phone Care Team Providers Care Barrel Marker Name Role Phone Christiano Guzman Unavailable Unavailable [...] Visit,Est, Mod [facility], [address], [place], [place], [id number], [place] tel:[phone] [facility] [place] Spinal stenosis, cervical regionOther spondylosis, lumbar region 9 Mike Alvarado. [facility], [address], [place], [place], [id number] , [place]. tel:[phone] Referring Provider: Christiano Mckeon, [facility] [address], [place], [address] . tel:[phone] Office/Outpat ient Visit,New, Mod [facility], [address], [place], [place], [id number], [place] tel:[phone] [facility] [place] CervicalgiaLow back pain 8 Mike Alvarado. [facility], [address], [place], [place], [id number] , [place]. [phone] Referring Provider: Christiano Mckeon, [facility] [address], [place], [address] . tel:[phone] Family History Family Member Type Diagnosis Age At Onset No Information Payers Payer name Insurance type Covered constitution party ID Valentine greer(s) [facility] [id number] [facility] [place] [id number] Social History Type Description Quantity Date Captured [...]
--- OUTSIDE RECORDS SUMMARY | 2025-01-15 23:11 | XMS_ITS | Encounter Summary ---
Author Organization [employer] Address [address] [place] [address] Care Team Providers Care Loss Prevention Detective Name Role Phone Ed Del Toro MD Primary Care Provider Reason for Visit * Reason Comments Knee Problem Encounter Details Date Type Department Care Team (Late st Contact Info) Description 12/22/2024 7:00 AM THREAD CUTTER TENDER Therapy [facility], Physical Therapy [address] [place] [address] Álvaro Flores, PT [address] [place], [place] [address] Aftercare following left knee joint replacement surgery (Primary Dx) Social History Tobacco Use Types Packs/Day Years Used Date Smoking Tobacco: Never Smokeless Tobacco: Never [facility] Utilities Answer Date Recorded In the past 12 months has [facility] [employer], gas, oil, or water [employer] threatened to shut off services in your [...] place to sleep or slept in a nursing home (including now)? No 11/20/2023 Sex and Gender [...] incision Edema: min post operative swelling ROM (kaulrdyux-daw-fhna): 3-125 deg Strength: Quad set: good Supine SLR: wnl TREATMENT TODAY: Manual Treatment x 10 minutes: - I/S patellar mobs - knee flex PROM with PT assist - knee ext stretch with manual overpressure Therapeutic Exercise (CPT 98454) x 30 minutes: Utilized for the purpose [...] Therapist: Álvaro Flores, PT 7:06 AM 12/22/2024 AD CUTTER TENDER documented in this encounter Plan of Treatment Upcoming Encounters Date Type Department Care Team (Late st Contact Info) Description 01/29/2025 11:30 AM CDT Appointment [facility], Physical Therapy [address] [place], [place] [address] Álvaro Flores PT [address] [place] [address] documented as of this encounter Goals Goal Patient Goal Type Associated Problems Recent Progress Patient-Stated? Author Right Knee Replacement Care Plan ET PROE RIGHT KNEE No Emperatriz Richter, RN, INDUSTRIAL EDUCATION INSTRUCTOR ALARM INSTALLATION TECHNICIAN Left Knee Care Plan ET PROE LEFT KNEE No Emperatriz Richter, RN, INDUSTRIAL EDUCATION INSTRUCTOR ALARM INSTALLATION TECHNICIAN documented as of this encounter Visit Diagnoses Diagnosis Aftercare following left knee joint replacement surgery- Primary documented in this encounter Additional Health Concerns Active Problems Noted Date Diagnosed Date ET PROE RIGHT KNEE 07/30/2023 ET PROE LEFT KNEE 12/31/2023 documented as of this encounter Care Teams Loss Prevention Detective Relationship Specialty Start Date End Date Ed Del Toro MD [address] [place] [address] PCP - General Family Practice 07/25/22 documented as of this encounter
--- OUTSIDE RECORDS SUMMARY | 2025-01-15 23:11 | XMS_ITS | Encounter Summary ---
Author Organization [employer] Address [address] [place] [address] Care Team Providers Care Corporate Compliance Officer Name Role Phone Ed Del Toro MD Primary Care Provider Reason for Visit * Reason Comments Knee Problem Encounter Details Date Type Department Care Team (Late st Contact Info) Description 12/01/2024 7:00 AM TUNG NUT GROWER Therapy [facility], Physical Therapy [address] [place] [address] Álvaro Flores, PT [address] [place], [place] [address] Aftercare following left knee joint replacement surgery (Primary Dx) Social History Tobacco Use Types Packs/Day Years Used Date Smoking Tobacco: Never Smokeless Tobacco: Never [facility] Utilities Answer Date Recorded In the past 12 months has [facility] [employer], gas, oil, or water [employer] threatened to shut off services in your [...] Edema: mod expected post operative swelling ROM (emtppjdrz-xii-sziy): 5-120 deg Strength: Quad set: good- Supine SLR: ~5 deg extensor lag TREATMENT TODAY: Therapeutic Exercise (CPT 53727) x 40 minutes: Utilized for the purpose [...] ROM in 4-6 weeks. ADL: Squat to moss picker items from floor with minimal/no symptoms in 6-8 weeks. Therapist: Álvaro Flores, PT 7:05 AM 12/01/2024 NUT GROWER documented in this encounter Plan of Treatment Upcoming Encounters Date Type Department Care Team (Late st Contact Info) Description 01/29/2025 11:30 AM CDT Appointment [facility], Physical Therapy [address] [place] [address] Álvaro Flores PT [address] [place], [place] [address] documented as of this encounter Goals Goal Patient Goal Type Associated Problems Recent Progress Patient-Stated? Author Right Knee Replacement Care Plan ET PROE RIGHT KNEE No Emperatriz Richter, RN, MINES INSPECTOR DRIVEWAY ATTENDANT Left Knee Care Plan ET PROE LEFT KNEE No Emperatriz Richter RN, MINES INSPECTOR DRIVEWAY ATTENDANT documented as of this encounter Visit Diagnoses Diagnosis Aftercare following left knee joint replacement surgery- Primary documented in this encounter Additional Health Concerns Active Problems Noted Date Diagnosed Date ET PROE RIGHT KNEE 07/30/2023 ET PROE LEFT KNEE 12/31/2023 documented as of this encounter Care Teams Corporate Compliance Officer Relationship Specialty Start Date End Date Ed Del Toro MD [address] [place] [address] PCP - General Family Practice 07/25/22 documented as of this encounter
--- OUTSIDE RECORDS SUMMARY | 2025-01-15 23:11 | XMS_ITS | Encounter Summary ---
Author Organization [facility] Address [address] [place] [address] Care Team Providers Care Roof Bolter Operator Name Role Phone Ed Del Toro MD Primary Care Provider Reason for Referral * Procedure/Equipment (Routine) - Incomplete Specialty Diagnoses / Procedures Referred By Contac t Referred To Contact Diagnoses S/P total knee arthroplasty, left Procedures XR Knee Lt 3 Views Costa Chino MD [address] [facility] [place] [address] Phone: tel: fax: Referral ID Status Reason Start Date Expiration Date V isits Requested Visits Authorized [id number] Incomplete 12/08/2024 03/09/2026 1 1 SHIFT SUPERVISOR Reason for Visit * Reason Comments Post-Op Follow Up Left TKA Encounter Details Date Type Department Care Team (Late st Contact Info) Description 12/08/2024 9:40 AM SLOT SHIFT SUPERVISOR Office Visit [facility] [address] [facility] [place], [place] [address] Costa Chino MD [address] [facility] [place] [id number] S/P total knee arthroplasty, left (Primary Dx) Social History Tobacco Use Types Packs/Day Years Used Date Smoking Tobacco: Never Smokeless Tobacco: Never [facility] Utilities Answer Date Recorded In the past 12 months has [employer], gas, oil, or water company threatened [...] Elizabeth Stanley MA - 12/08/2024 9:40 AM SLOT SHIFT SUPERVISOR Thank you for Choosing [facility] for your health care visit today. Dr. Costa Chino MD Orthopaedic Surgeon Medication Requests: Prescriptions are not filled on weekends or on weekdays after 3:00 PM. For all medication refills: Request a refill using [employer] or contact your pharmacy. What is Know Your Cost? Know Your Cost is a service for patients and patient/members to call and receive personalized cost information and estimates across our care group. The phone number is (COST) Saturday - Saturday 8 AM to 5 PM Advanced Imaging Scheduling: To schedule an MRI, Ultrasound, or Image guided injection at [facility] please call [phone]. To schedule an MRI or CT at a [facility] please call [phone]. [facility] [address] [place] [address] (Phone) Email: [email or web address] Release of Information: Radiology/Imaging [address] [place] [address] (Phone) Health Information Management [address] [place] [address] (Phone) OWM SHIFT SUPERVISOR documented in this encounter Progress Notes * [...] other questions or concerns in the meantime. SHIFT SUPERVISOR documented in this encounter Plan of Treatment Upcoming Encounters Date Type Department Care Team (Late st Contact Info) Description 01/29/2025 11:30 AM CDT Appointment [facility], Physical Therapy [address] [place] [address] Álvaro Flores, PT [address] [place] [address] documented as of this encounter Goals Goal Patient Goal Type Associated Problems Recent Progress Patient-Stated? Author Right Knee Replacement Care Plan ET PROE RIGHT KNEE No Emperatriz Richter, RN, TOOL AND DIE MAKER LEVEL FIVE DUPLICATOR PUNCH OPERATOR Left Knee Care Plan ET PROE LEFT KNEE No Emperatriz Richter, RN, TOOL AND DIE MAKER LEVEL FIVE DUPLICATOR PUNCH OPERATOR documented as of this encounter Results * XR Knee Lt 3 Views (12/08/2024 10:02 AM SLOT SHIFT SUPERVISOR) Anatomical Region Laterality Modality Lower Extremity, Knee Digital Ra diography 12/08/2024 9:54 AM SLOT SHIFT SUPERVISOR Narrative 12/08/2024 10:32 AM SLOT SHIFT SUPERVISOR COMPARISON: 10/29/2024 FINDINGS: Left total knee arthroplasty [...] documented as of this encounter Care Teams Roof Bolter Operator Relationship Specialty Start Date End Date Ed Del Toro MD [address] [place] [address] PCP - General Family Practice 07/25/22 documented as of this encounter
--- OUTSIDE RECORDS SUMMARY | 2025-01-15 23:11 | XMS_ITS | Encounter Summary ---
Author Organization [employer] Address [address] [place] [address] Care Team Providers Care Medical Manager Name Role Phone Ed Del Toro MD Primary Care Provider Reason for Visit * Reason Comments Knee Problem Encounter Details Date Type Department Care Team (Late st Contact Info) Description 12/15/2024 7:00 AM BATCH BLENDER Therapy [facility], Physical Therapy [address] [place] [place] [address] Álvaro Flores, PT [address] [place], [place] [address] Aftercare following left knee joint replacement surgery (Primary Dx) Social History Tobacco Use Types Packs/Day Years Used Date Smoking Tobacco: Never Smokeless Tobacco: Never [facility] Utilities Answer Date Recorded In the past 12 months has [facility] [employer], gas, oil, or water [employer] threatened to shut off services in your [...] Edema: min-mod expected post operative swelling ROM (hwcqxvnfv-ysh-msvg): 5-115 deg Strength: Quad set: good- Supine SLR: ~5 deg extensor lag TREATMENT TODAY: Manual Treatment x 10 minutes: - soft tissue mobs to distal quads - I/S patellar mobs - knee flex PROM with PT assist - knee ext stretch with manual overpressure Therapeutic Exercise (CPT 91926) x 30 minutes: Utilized for the purpose [...] in 4-6 weeks. ADL: Squat to picker and sorter load and unload items from floor with minimal/no symptoms in 6-8 weeks. Therapist: Álvaro Flores PT 7:07 AM 12/15/2024 H BLENDER documented in this encounter Plan of Treatment Upcoming Encounters Date Type Department Care Team (Late st Contact Info) Description 01/29/2025 11:30 AM CDT Appointment [facility], Physical Therapy [address] [place] [place] [address] Álvaro Flores PT [address] [place] [address] documented as of this encounter Goals Goal Patient Goal Type Associated Problems Recent Progress Patient-Stated? Author Right Knee Replacement Care Plan ET PROE RIGHT KNEE No Emperatriz Richter, RN, TRANSITION SOCIAL WORKER CHIEF DRAFTER Left Knee Care Plan ET PROE LEFT KNEE No Emperatriz Richter, RN, TRANSITION SOCIAL WORKER CHIEF DRAFTER documented as of this encounter Visit Diagnoses Diagnosis Aftercare following left knee joint replacement surgery- Primary documented in this encounter Additional Health Concerns Active Problems Noted Date Diagnosed Date ET PROE RIGHT KNEE 07/30/2023 ET PROE LEFT KNEE 12/31/2023 documented as of this encounter Care Teams Medical Manager Relationship Specialty Start Date End Date Ed Del Toro MD [address] [place] [address] PCP - General Family Practice 07/25/22 documented as of this encounter
== END 2025-01-15 23:16 | disposition home or self-care (01) ==
LOC: ED 23:09
PROVIDERS: Emergency Provider Family Medicine; PCP Family Medicine
DX: L76.22 Postprocedural hemorrhage of skin and subcutaneous tissue following other procedure (principal)
CPT/HCPCS: 99282; 99283; 99284

== ENCOUNTER 2025-08-09 21:14 | Emergency (ER) | payer BC, SELFPAY ==
--- OUTSIDE RECORDS SUMMARY | 2025-07-01 08:20 | XMS_ITS | Encounter Summary ---
Author Organization [facility] Address [address] [place] [address] Care Team Providers Care Rehabilitation Case Coordinator Name Role Phone Ed Del Toro MD Primary Care Provider Reason for Referral * Procedure/Equipment (Routine) - Incomplete Specialty Diagnoses / Procedures Referred By Contac t Referred To Contact Diagnoses Left knee pain, unspecified chronicity Procedures XR Knee Rt 1-2 Views Comparison Elisabeth Rutherford MD [address] [place] [address] [place] [address] Phone: tel: fax: Referral ID Status Reason Start Date Expiration Date V isits Requested Visits Authorized [id number] Incomplete 07/01/2025 09/30/2026 1 1 * Procedure/Equipment (Routine) - Incomplete Specialty Diagnoses / Procedures Referred By Contac t Referred To Contact Diagnoses Left knee pain, unspecified chronicity Procedures XR Knee Lt 3 Views Elisabeth Rutherford MD [address] [place] [address] [place] [address] Phone: tel: fax: Referral ID Status Reason Start Date Expiration Date V isits Requested Visits Authorized [id number] Incomplete 07/01/2025 09/30/2026 1 1 Reason for Visit * Reason Comments Knee Pain or Injury Left knee pain onset : 06/30/25 Encounter Details Date Type Department Care Team (Late st Contact Info) Description 07/01/2025 8:20 AM CDT Office Visit [facility] [place] [address] [place] [address] Elisabeth Rutherford MD [address] [facility] [place] [id number] Left knee pain, unspecified chronicity (Primary Dx) Social History Tobacco Use Types Packs/Day Years Used Date Smoking Tobacco: Never Smokeless Tobacco: Never [facility] Utilities Answer Date Recorded In the past [...] money to buy more. Never true 10/29/20 Within the past 12 months, t he [...] on file documented as of this encounter Last Filed Vital Signs Vital Sign Reading Time Taken Comments Blood Pressure - - Pulse - - Temperature 36.6 C (97.9 F) 07/01/2025 8:19 AM CDT Respiratory Rate - - Oxygen Saturation - - Inhaled Oxygen Concentration - - Weight 108.9 kg (240 lb) 07/01/2025 8:19 AM CDT Height 172.7 cm (5' 8) 07/01/2025 8:19 AM CDT Body Mass Index 36.49 07/01/2025 8:19 AM CDT documented in this encounter Patient Instructions * Patient Instructions* Nasim Guevara, ATC - 07/01/2025 8:20 AM CDT Thank you for choosing [facility] for your health care visit today. If you have any questions regarding your visit or next steps, please contact us at [phone]. Elisabeth Rutherford MD Medication Requests: Prescriptions are filled on Weekdays before 3:00PM For all medication refills: Request a refill using MyChart or contact your Pharmacy Paperwork Requests: FMLA or disability paperwork can be faxed to: [phone] Please allow 7-10 business days for completion of all paperwork. [facility] Worker's Compensation Services: E-mail Address: [email or web address] What is Know Your Cost? Know Your Cost is a service for patients and patient/members to call and receive personalized cost information and estimates across our care group. The phone number is (COST) Saturday - Saturday 8 AM to 5 PM To request copies of your medical records, call: [phone] (option 4) Diagnosis: left knee hemiarthrosis Plan: Follow Up: Dr. Chino Medications: Over the Counter Medications: Acetaminophen (Tylenol) taken per bottle instructions unless specified by physician. RICE: - Utilize ice over the injured area (ice bag or bag of frozen vegetables) several times per day for up to 20 minutes at a time. Be sure to place a cold wet wash cloth or towel between the ice and your skin. - Elevate the affected body part above the level of the heart for 15-20 minutes, 3-4 times per day. - Modify activities as instructed by your physician - Avoid activities that cause pain. documented in this encounter Progress Notes * Elisabeth Rutherford MD - 07/01/2025 12:00 AM CDT NAME: KAJAL CORTEZ CSN: [id number] CLINIC NOTE DATE OF SERVICE: 07/01/2025 : 1960 Patient is a 65-year-old, here for evaluation for left knee pain that has been acutely painful and swollen since he was at the [facility]. He had no pain, no problems with his left knee which had a surgery by Dr. Chino on 10/29/2024, had been doing very well. [place] the [place] and then sat down for 1-1/2 hours, went to stand up and suddenly had much more severe pain in his left knee with a large swelling and wanted to have further evaluation. He denies any fevers, chills, or other concerns and had no trauma whatsoever, just walking at the [facility]. REVIEW OF SYSTEMS: No fevers, rashes, or joint pains. No diabetes. No smoking. PHYSICAL EXAM: Alert, in no acute distress, pleasant gentleman. Examination of his left knee shows large effusion. No increased warmth. No erythema. Range of motion limited due to the effusion. Varus-valgus stress testing shows no laxity or pain. ASSESSMENT AND PLAN: Presumed left knee hemarthrosis. Given the fact he is on anticoagulation and he had been doing a lot of walking, I am assuming that he has a small bleed that turned into hemarthrosis. I discussed the case with Dr. Chino and he will be having him follow up next week and then have further evaluation. If he gets any sudden worsening redness or pain or sudden fevers, he will go to the ER otherwise. Independently interpreted x-ray of the knee showed no fracture, subluxation, dislocation noted. Hardware appears to be well seated and no lucency noted. ELISABETH RUTHERFORD MD RTJ/AQS /[id number] documented in this encounter Plan of Treatment Not on file documented as of this encounter Goals Goal Patient Goal Type Associated Problems Recent Progress Patient-Stated? Author Left Knee Care Plan ET PROE LEFT KNEE Emperatriz Dover, RN, COPY CENTER SPECIALIST VOLUNTEER SERVICES DIRECTOR documented as of this encounter Results * XR Knee Rt 1-2 Views Comparison (07/01/2025 8:34 AM CDT) Anatomical Region Laterality Modality Lower Extremity, Knee Digital Ra diography Narrative 07/01/2025 8:39 AM CDT EXAM: XR KNEE LT 3 VIEWS; XR KNEE RT 1-2 VIEWS COMPARISON INDICATION: pain; compare COMPARISON: 12/08/2024 FINDINGS: Bilateral knee prostheses appear in normal alignment. No definite hardware complication or acute finding. Previous left knee ACL reconstruction. Signed by: Chin Felix 07/01/2025 8:39 AM Procedure Note Chin Felix MD - 07/01/2025 EXAM: XR KNEE LT 3 VIEWS; XR KNEE RT 1-2 VIEWS COMPARISON INDICATION: pain; compare COMPARISON: 12/08/2024 FINDINGS: Bilateral knee prostheses appear in normal alignment. No definitehardware complication or acute finding. Previous left knee ACLreconstruction. Signed by: Chin Felix 07/01/2025 8:39 AM us Elisabeth Rutherford MD RAD GD Final Result * XR Knee Lt 3 Views (07/01/2025 8:34 AM CDT) Anatomical Region Laterality Modality Lower Extremity, Knee Digital Ra diography Narrative 07/01/2025 8:39 AM CDT EXAM: XR KNEE LT 3 VIEWS; XR KNEE RT 1-2 VIEWS COMPARISON INDICATION: pain; compare COMPARISON: 12/08/2024 FINDINGS: Bilateral knee prostheses appear in normal alignment. No definite hardware complication or acute finding. Previous left knee ACL reconstruction. Signed by: Chin Felix 07/01/2025 8:39 AM Procedure Note Chin Felix MD - 07/01/2025 EXAM: XR KNEE LT 3 VIEWS; XR KNEE RT 1-2 VIEWS COMPARISON INDICATION: pain; compare COMPARISON: 12/08/2024 FINDINGS: Bilateral knee prostheses appear in normal alignment. No definitehardware complication or acute finding. Previous left knee ACLreconstruction. Signed by: Chin Felix 07/01/2025 8:39 AM us Elisabeth Rutherford MD RAD GD Final Result documented in this encounter Visit Diagnoses Diagnosis Left knee pain, unspecified chronicity- Primary Left knee pain, unspecified chronicity documented in this encounter Additional Health Concerns Active Problems Noted Date Diagnosed Date ET PROE LEFT KNEE 12/31/2023 documented as of this encounter Care Teams Rehabilitation Case Coordinator Relationship Specialty Start Date End Date Ed Del Toro MD [address] [place] [address] PCP - General Family Practice 07/25/22 documented as of this encounter
--- OUTSIDE RECORDS SUMMARY | 2025-07-01 08:25 | XMS_ITS | Encounter Summary ---
Author Organization [facility] Address [address] [address] Care Team Providers Care Offset Press Operator Name Role Phone Ed Del Toro MD Primary Care Provider Reason for Visit * Procedure/Equipment (Routine) - Incomplete Specialty Diagnoses / Procedures Referred By Real rivas Referred To Contact Diagnoses Left knee pain, unspecified chronicity Procedures XR Knee Rt 1-2 Views Comparison Nolan Love MD [address] [place] [address] [place] [address] Phone: tel: fax: Referral ID Status Reason Start Date Expiration Date V isits Requested Visits Authorized [id number] Incomplete 07/01/2025 09/30/2026 1 1 Encounter Details Date Type Department Care Team (Late st Contact Info) Description 07/01/2025 8:25 AM CDT Ancillary Procedure [facility] [address] [place] [address] Nolan Love MD [address] [place] [address] [address] [place] [id number] Left knee pain, unspecified chronicity Social History Tobacco Use Types Packs/Day Years Used Date Smoking Tobacco: Never Smokeless Tobacco: Never [facility] Utilities Answer Date Recorded In [...] as of this encounter Plan of Treatment Not on file documented as of this encounter Goals Goal Patient Goal Type Associated Problems Recent Progress Patient-Stated? Author Left Knee Care Plan ET PROE LEFT KNEE Emperatriz Dover, RN, LEATHER SORTER EELER documented as of this encounter Procedures Procedure Name Priority Date/Time Associated Diagnosis Comments XR KNEE RT 1-2 VIEWS COMPARISON Routine 07/01/2025 8:34 AM CDT Left knee pain, unspecified chronicity XR KNEE LT 3 VIEWS Routine 07/01/2025 8: 34 AM CDT Left knee pain, unspecified chronicity documented in this encounter Results * XR [...] by: Chin Felix 07/01/2025 8:39 AM us Nolan Love MD RAD GD Final Result * XR [...] by: Chin Felix 07/01/2025 8:39 AM us Nolan Love MD RAD GD Final Result documented in this encounter Visit Diagnoses Diagnosis Left knee pain, unspecified chronicity documented in this encounter Additional Health Concerns Active Problems Noted Date Diagnosed Date ET PROE LEFT KNEE 12/31/2023 documented as of this encounter Care Teams Offset Press Operator Relationship Specialty Start Date End Date Ed Del Toro MD [address] [place] [address] PCP - General Family Practice 07/25/22 documented as of this encounter
--- OUTSIDE RECORDS SUMMARY | 2025-08-09 21:17 | XMS_ITS | Clinical Summary ---
[facility] Address [address], [place] [address] Care Team Providers Care Business Banking Manager Name Role Phone Ed Del Toro MD Primary Care Provider [phone] Source Comments You are receiving this document as you are listed as the primary care provider,follow-up provider, or the patient has been referred to you for consultation.This is in compliance with the Medicare andKettering Healthcaid EHR Incentive Program,which states Providers who transition their patient to another setting of careor provider of care or refers their patient to another provider of care shouldprovide summary care record for each transition of care or referral. [facility] Allergies No known active allergies Medications omeprazole [...] Indications: Pain 100 Tablet 10/30/2024 1:17 PM STOCK SHEETS CLEANER INSPECTOR 4 Active senna (SENOKOT) 8.6 MG tabletIndicati ons:Constipati on Take 2 Tablets by mouth daily at bedtime. Take while on narcotics. Hold for loose stools. Indications: Constipation 60 Tablet 10/30/2024 1:17 PM STOCK SHEETS CLEANER INSPECTOR 4 Active oxyCODONE (ROXICODONE) 5 MG immediate [...] Encounters Date Type Department Care Team Description 07/01/2025 8:25 AM CDT Ancillary Procedure [facility] [address] [place] [address] Nolan Love MD Left knee pain, unspecified chronicity 07/01/2025 8:20 AM CDT Office Visit [facility] [address] [address] Nolan Love MD Left knee pain, unspecified chronicity (Primary Dx) 05/28/2025 7:30 AM CDT Office Visit [facility] [address] [place] [address] No Hoang, OA Postop check (Primary Dx) 05/19/2025 8:30 AM CDT Procedure Visit [facility] Orthopedic [facility] [address] [place] [address] Pierre Ku MD 05/10/2025 9:55 AM CDT Office Visit [facility] [address] [place] [address] Pierre Ku MD Mucous cyst of digit of hand (Primary Dx) from Last 3 Months Social History Tobacco Use Types Packs/Day Years Used Date Smoking Tobacco: Never Smokeless Tobacco: Never Tobacco Cessation:Counseling Given: Not Answered [facility] Utilities Answer Date Recorded In the past 12 months has e [employer], gas, oil, or water [employer] threatened to shut off services in your [...] place to sleep or slept in a residential (including now)? No 11/20/2023 Sex and Gender Information Value Date Recorded Sex Assigned at Not on file Legal Sex Male 10:09 AM CDT Gender Identity Not on file Sexual Orientation Not on file Last Filed Vital Signs Vital Sign Reading Time Taken Comments Blood Pressure 109/61 10/30/2024 9:55 AM STOCK SHEETS CLEANER INSPECTOR Pulse 56 10/30/2024 9:55 AM STOCK SHEETS CLEANER INSPECTOR Temperature 36.6 C (97.9 F) 07/01/2025 8:19 AM CDT Respiratory Rate 15 10/30/2024 9:55 AM STOCK SHEETS CLEANER INSPECTOR Oxygen Saturation 96% 10/30/2024 9:55 AM STOCK SHEETS CLEANER INSPECTOR Inhaled Oxygen Concentration - - Weight 108.9 kg (240 lb) 07/01/2025 8:19 AM CDT Height 172.7 cm (5' 8) 07/01/2025 8:19 AM CDT Body Mass Index 36.49 07/01/2025 8:19 AM CDT Plan of Treatment Health Maintenance Due Date Last Done Comments Colon Cancer Screening Plan Due 1960 Hep C Screening (Preventive Services) 1960 Adult Preventive Visit 1976 Cholesterol 1993 Pneumococcal Vaccine 50+ Yrs (1 of 1 - PCV) 2008 Zoster/Shingles Vaccine (1 of 2) 2008 PSA Screening Discussion 09/13/2024 09/13/2023 DTaP/Tdap/Td Vaccine (2 - Tdap) 03/03/2025 5 COVID-19 Vaccine (2 - 2024-2 6 season) 2025 02/13/2021 Influenza Vaccine (#1) 2025 Diabetes Screening- (based o n age and BMI) 10/29/2027 10/29/2024 RSV Vaccine (1 - 1-dose 75+ series) 2033 HepA Vaccine Aged Out No longer eligi ble based on patient's age to complete this topic HepB Vaccine Aged Out No longer eligi ble based on patient's age to complete this topic Hib Vaccine Aged Out No longer eligi ble based on patient's age to complete this topic IPV (Polio) Vaccine Aged Out No longe r eligible based on patient's age to complete this topic MCV4 Vaccine Aged Out No longer eligi ble based on patient's age to complete this topic Meningococcal B Vaccine Aged Out No l onger eligible based on patient's age to complete this topic Goals Goal Patient Goal Type Associated Problems Recent Progress Patient-Stated? Author Left Knee Care Plan ET PROE LEFT KNEE No Emperatriz Richter, RN, LIBRARY INFORMATION TECHNICIAN GENERAL LEDGER ACCOUNTANT Medical Devices Implanted Type Area Senior Benefits Specialist Device Identifier Shelf Expiration Date Model / Serial / Lot Jose Bone Biomet R 1x40 - [id number] Implanted:Qty : 2 on 11/20/2023 by Costa Chino MD at [facility] DEVICE Right: KNEE [employer] 04/03/2026 [id number] / 0 / [id number] Patella All Poly Ply 35mm - [id number] Implanted:Qty : 1 on 11/20/2023 by Costa Chino MD at [facility] DEVICE Right: KNEE [employer] 09/14/2028 [id number] / 0 / [id number] Comp Fem Ps Ccr Ps Std Sz7 Rt - [id number] Implanted:Qty : 1 on 11/20/2023 by Costa Chino MD at [facility] DEVICE Right: KNEE [employer] 07/06/2033 [id number] / 0 / [id number] Stem Tib 5deg Szg Rt - [id number] Implanted:Qty : 1 on 11/20/2023 by Costa Chino MD at [facility] DEVICE Right: KNEE [employer] 08/23/2033 [id number] / 0 / [id number] Asf Ps Poly 11mm 69 Gh Rt - [id number] Implanted:Qty : 1 on 11/20/2023 by Costa Chino MD at [facility] DEVICE Right: KNEE [employer] 01/23/2028 [id number] / 0 / [id number] Jose [employer] R 1x40 - [id number] Implanted:Qty : 2 on 10/29/2024 by Costa Chino MD at [facility] DEVICE Left: KNEE [employer] 01/01/2027 [id number] / / [id number] Comp Fem Ps Ccr Ps Std Sz7 Lt - [id number] Implanted:Qty : 1 on 10/29/2024 by Costa Chino MD at [facility] DEVICE Left: KNEE [employer] 06/18/2034 [id number] / / [id number] Stem Tib 5deg Szg Lt - [id number] Implanted:Qty : 1 on 10/29/2024 by Costa Chino MD at [facility] DEVICE Left: KNEE [employer] 07/15/2034 [id number] / / [id number] Patella All Poly Ply 38mm - [id number] Implanted:Qty : 1 on 10/29/2024 by Costa Chino MD at [facility] DEVICE Left: KNEE [employer] 09/13/2029 [id number] / / [id number] Persona Articular Surface, Fixed Bearing, Posterior Stabilized, Left, 11mm Height Implanted:Qty : 1 on 10/29/2024 by Costa Chino MD at [facility] Left: KNEE [employer] - Orthopedics 08/09/2028 [id number] / / [id number] Procedures Procedure Name Priority Date/Time Associated Diagnosis Comments XR KNEE RT 1-2 VIEWS COMPARISON Routine 07/01/2025 8:34 AM CDT Left knee pain, unspecified chronicity XR KNEE LT 3 VIEWS Routine 07/01/2025 8: 34 AM CDT Left knee pain, unspecified chronicity HGB A1C STAT 10/29/2024 6:04 AM STOCK SHEETS CLEANER INSPECTOR from Last 3 Months or Most Recently Relevant to Health Maintenance Results * XR Knee Rt 1-2 Views [...] Signed by: Chin Felix 07/01/2025 8:39 AM Nolan Love MD RAD GD Final Result [...] Love MD RAD GD Final Result * (ABNORMAL) Hgb A1C (10/29/2024 6:04 AM STOCK SHEETS CLEANER INSPECTOR) Hemoglobin A1C 6.3(H) <=5.6 % 10/29/2024 9:33 AM STOCK SHEETS CLEANER INSPECTOR [facility] Estimated Average Glucose (Calc) 134 < 117 mg/dL 10/29/2024 9:33 AM STOCK SHEETS CLEANER INSPECTOR [facility] Comment:Estimated average gl ucose (eAG) converts A1c into glucose units (mg/dL) and estimates average glucose over the past approximately 3 months. The eAG reference interval (<117 mg/dL) corresponds to an A1c of <5.7%. Blood Venipuncture Butterfly / Unknown 10/29/2024 6:04 AM STOCK SHEETS CLEANER INSPECTOR 10/29/2024 6:15 AM STOCK SHEETS CLEANER INSPECTOR Narrative [facility] - 10/29/2024 9:33 AM STOCK SHEETS CLEANER INSPECTOR For patients not previously diagnosed with diabetes: 5.7-6.4%: Increased risk for diabetes 6.5% and greater: Diagnostic for diabetes For patients diagnosed with diabetes: <8.0%: Goal of therapy for ages 18-75 Clinicians may recommend a higher or lower goal for specific individuals. us Costa Chino MD LAB_1 Final Result Performing Organization Address City/State/[facility] Co de Phone Number [facility] [address] from Last 3 Months or Most Recently Relevant to Health Maintenance Additional Health Concerns Active Problems Noted Date Diagnosed Date ET PROE LEFT KNEE 12/31/2023 Insurance MEDICARE PART A BCBS OUT OF STATE MEDICARE PART A BCBS OUT OF STATE Advance Directives * Full Code (Latest Code Status on File) Date Activated Date Inactivated Comments 10/29/2024 1:17 PM 10/30/2024 3:19 PM * Full Code Date Activated Date Inactivated Comments 11/20/2023 4:32 PM 11/21/2023 3:07 PM * Full Code Date Activated Date Inactivated Comments 11/20/2023 7:10 AM 11/20/2023 3:45 PM Care Teams Business Banking Manager Relationship Specialty Start Date End Date Ed Del Toro MD [address] [place] [address] PCP - General Family Practice 07/25/22
--- OUTSIDE RECORDS SUMMARY | 2025-08-09 21:17 | XMS_ITS | Clinical Summary ---
Author Organization [facility] Address [address] [place] [address] Care Team Providers Care Maintenance Services Dispatcher Name Role Phone Romina Cristobal NP Unavailable [phone] Ed Del Toro MD Primary Care Provider Cassandra Kearney MD Unavailable [phone] Allergies No known active allergies Medications acetaminophen (TYLENOL EXTRA STRGTH) 500 mg tabletIndications :H/O radiofrequency ablation for complex left atrial arrhythmia Take 2 Tablets (1,000 mg) by mouth every 6 hours if needed for Pain (For mild pain.). Max acetaminophen dose: 4000mg in 24 hrs. 024 Active omeprazole 20 mg Delayed-Release capsuleIndication s:Chronic GERD TAKE 1 CAPSULE(20 MG) BY MOUTH DAILY BEFORE A MEAL 90 Capsule 3 025 Active bisoprolol 5 mg tabletIndications :Atrial fibrillation with RVR (HC) TAKE 1 TABLET(5 MG) BY MOUTH DAILY 90 Tablet 025 Active warfarin (COUMADIN) 2 mg tabletIndications :Anticoagulation monitoring, INR range 2-3,History of pulmonary embolus (PE),Atrial fibrillation with RVR (HC),Paroxysmal atrial fibrillation (HC) Take by mouth 2 mg (2 mg x 1) every Tue, Sat; 3 mg (2 mg x 1.5) all other days or as directed 124 Tablet 025 Active bisoprolol 5 mg tabletIndications :Atrial fibrillation with RVR (HC) TAKE 1 TABLET(5 MG) BY MOUTH DAILY 90 Tablet 025 2024 Discontinued warfarin 2 mg tabletIndications :Anticoagulation monitoring, INR range 2-3,History of pulmonary embolus (PE),Atrial fibrillation with RVR (HC),Paroxysmal atrial fibrillation (HC) Take by mouth 2 mg (2 mg x 1) every Tue, Sat; 3 mg (2 mg x 1.5) all other days in the evening OR as directed. 124 Tablet 025 2024 Discontinued Active Problems Problem Noted Date Diagnosed Date [...] of pulmonary embolus (PE) 08/31/2019 Overview (08/31/2019): 2017 Anticoagulation monitoring, INR range 2-3 2017 ACP [...] Encounters Date Type Department Care Team Description 08/09/2025 [facility] [address] [place] [address] Ed Del Toro MD Refill Request (Warfarin) 08/06/2025 7:45 AM CDT Orders Only [facility] [address] [place] [address] Lab, Farm Lab 08/06/2025 Telephone [facility] [address] [place] [phone] Cassandra Kearney MD Concerns 08/06/2025 Anticoagulation (warfarin) [facility] [address] [place] [address] Nurse, Luis Armando Anticoag Anticoagulation 08/06/2025 Travel 07/14/2025 Refill [facility] [address] [place] [phone] Romina Cristobal NP Refill Request (Bisoprolol) 07/08/2025 10:00 AM CDT Orders Only [facility] [address] [place] [address] Lab, Farm Lab 07/08/2025 Anticoagulation (warfarin) [facility] [address] [place] [address] Nurse, Luis Armando Anticoag Anticoagulation 07/08/2025 Travel 05/27/2025 Telephone [facility] [address] [place] [address] Ed Del Toro MD Anticoagulation (INR result and review) 05/25/2025 1:00 PM CDT Orders Only [facility] [address] [place] [address] Lab, Farm Lab 05/25/2025 Anticoagulation (warfarin) [facility] [address] [facility] [address] Nurse, sadaf Anticoag Anticoagulation 05/25/2025 Travel from Last 3 Months Immunizations Immunization [...] Never Smokeless Tobacco: Never Tobacco Cessation:Counseling Given: Yes Alcohol Use Standard Drinks/Week Comments Yes 2 [...] AM CDT Legal Sex Male 5:24 AM HEALTH TECHNICIAN HEARING Gender Identity Male 03/01/2023 9:24 AM CDT Sexual Orientation Not on file Occupation Industry Job Start Date Job End Date Contractor Not on file Not on file Not on file Obstetrics History Last Filed Vital Signs Vital Sign Reading Time Taken Comments Blood Pressure 133/78 04/16/2025 11:54 AM CDT Pulse 48 04/16/2025 11:54 AM CDT Temperature 36.7 C (98.1 F) 07/07/2024 12:52 PM CDT Respiratory Rate 16 07/07/2024 12:52 PM CDT Oxygen Saturation 98% 04/16/2025 11:54 AM CDT Inhaled Oxygen Concentration - - Weight 107 kg (236 lb) 04/16/2025 11:54 AM CDT Height 171.7 cm (5' 7.6) 12/24/2024 11:23 AM CS T Body Mass Index 36.31 12/24/2024 11:23 AM HEALTH TECHNICIAN HEARING Plan of Treatment Upcoming Encounters Date Type Department Care Team (Late st Contact Info) Description 09/03/2025 11:00 AM CDT Office Visit [address] [phone] Hollis Blackwell MD [address] [place] [address] 10/04/2025 12:30 PM HEALTH TECHNICIAN HEARING Nurse/Clinic Staff Only [facility] [address] [place] [phone] 10/04/2025 1:00 PM HEALTH TECHNICIAN HEARING Office Visit [facility] [address] [place] [phone] Romina Cristobal, INTELLIGENCE AGENT [address] [place] [address] Health Maintenance Due Date Last Done Comments Pneumococcal series for age 50+ (1 of 2 - PCV) 1977 Zoster (shingles) series for age 50+ (1 of 2) 2008 RSV vaccine for adults or (1 - Risk 60-74 years 1-dose series) 2018 Depression screening for age 12+ 07/18/2022 07/18/2021, 07/14/2021, 10/10/2018, Additional history exists Tetanus booster 03/03/2025 03/03/2015 COVID-19 vaccine series (2 - 2024- season) 2025 02/13/2021 Influenza Vaccine (#1) 2025 BMI (ht and wt on same day) for age 18+ 12/24/2025 12/24/2024, 10/23/2024, 10/09/2024, Additional history exists Lipids for age 45-75 07/24/2028 07/24/2023, 03/19/2022, 11/09/2020, Additional history exists Colonoscopy through age 75 09/06/203309/06, 09/06/2023, 09/06/2023, Additional history exists Hepatitis C screening for age 18-79 Completed 11/09/2020 Hepatitis B series for 19+ Aged Out N o longer eligible based on patient's age to complete this topic Procedures Procedure Name Priority Date/Time Associated Diagnosis Comments INR,POCT Routine 08/06/2025 7:54 AM CDT Anticoagulation monitoring, INR range 2-3 History of pulmonary embolus (PE) INR,POCT Routine 07/08/2025 10:07 AM CDT Anticoagulation monitoring, INR range 2-3 History of pulmonary embolus (PE) INR,POCT Routine 05/25/2025 1:15 PM CDT Anticoagulation monitoring, INR range 2-3 History of pulmonary embolus (PE) COLONOSCOPY 09/06/2023 10:16 AM CDT LIPID PANEL W REFLEX MEASURED LDL Routine 07/24/2023 7:47 AM CDT Hyperlipidemia, unspecified hyperlipidemia type ANTI HCV Routine 11/09/2020 10:24 AM HEALTH TECHNICIAN HEARING Need for hepatitis C screening test from Last 3 Months or Most Recently Relevant to Health Maintenance Results * (ABNORMAL) INR - POCT [21874.2] - Standing Order (08/06/2025 7:54 AM CDT) Only the most recent of3 resultswithin the time period is included. INR 2.0(H) ratio 08/06/2025 8:00 AM CDT [facility] Comment: INRs >2.9 may be falsely elevated in patients receiving either unfractionated Heparin or Low Molecular Weight Heparin. Follow up testing in a hospital laboratory may be helpful if clinically indicated. INR results of > or = 5.0 should be verified using the standard venipuncture procedure. Reference Range 0.9-1.1 Moderate-intensity Warfarin Therapy 2.0-3.0 Higher-intensity Warfarin Therapy 3.0-4.0 PROTHROMBIN TIMEP 24.0(H) 10.5 - 13.1 sec 08/06/2025 8:00 AM CDT [facility] Comment: Point of care fingerstick Prothrombin Time/INR results may vary from venous Prothrombin Time/INR methodologies. Any results exhibiting inconsistency with the patient's clinical status should be repeated using a venous Prothrombin Time/INR method. Blood BLOOD SPECIMEN / Unknown [facility] / Unknown 08/06/2025 7:54 AM CDT 08/06/2025 7:54 AM CDT us Ed Del Toro MD LABORATORY Final Result [facility] [address] [place] [address], [place] [phone] [facility] [address] [place] [address], [place] [phone] * COLONOSCOPY (09/06/2023 10:16 AM CDT) 09/06/2023 10:1 6 AM CDT Narrative Transcriptions Adrien Hussein MD - 09/06/2023 11:50 AM CDT Patient Name: Beau Cortez Procedure Date: 09/06/2023 Gender: Male Date of : 1960 Admit Type: Outpatient Procedure: Colonoscopy Proceduralist: Adrien Hussein MD , Halima Ramirez, RN (Nurse), Mikayla Ochoa, BARI (Nurse) Referring MD: Ed Del Toro Indications/Pre-Op Diagnosis: Evaluation of unexplained GI bleeding presenting with Hematochezia, Lastcolonoscopy: June 2017 Medications: Fentanyl 100 micrograms IV, Midazolam 4 mgIV, The level of sedation administered wasmoderate Procedure Description: The patient had risks, benefits and alternatives explained to andgave informed consent. The patient had a stable cardiopulmonary status and judged an adequate candidate for conscious sedation. The [id number] was passed through the anus and advanced [...] 10:16 AM Procedure Code(s): --- Professional --- 54290, Colonoscopy, flexible; diagnostic, including collection of specimen(s) bybrushing or washing, when performed (separateprocedure) Diagnosis Code(s): --- Professional --- K92.1, Melena (includes Hematochezia) K57.30, Diverticulosis of large intestine without perforation or abscess withoutbleeding CPT copyright 2021 [employer]. All rights reserved. The codes documented in this report are preliminary and upon aoc director combat operations officer reviewmay be revised to meet current compliance [...] CHOLESTEROL 53 >40 mg/dL 2:23 PM CDT [facility] NON-HDL CHOLESTEROL 179(H) <145 mg/dl 07/24/2023 2:23 PM CDT [facility] CHOL/HDL RATIO 4.38 <4.50 07/24/2023 2:23 PM CDT [facility] LDL CHOLESTEROL 144(H) <=130 mg/dL 07/24/2023 2:23 PM CDT [facility] VLDL CHOLESTEROL 35(H) <=30 mg/dL 07/24/2023 2:23 PM CDT [facility] PROVIDER ORDERED STATUS RANDOM 07/24/2023 2:23 PM CDT [facility] Blood BLOOD SPECIMEN / Unknown Venipuncture / Unknown 07/24/2023 7:47 AM CDT 07/24/2023 7:48 AM CDT Ed Del Toro MD CHEMISTRY Final Result [facility] [address] [place] [address], * ANTI HCV (11/09/2020 10:24 AM HEALTH TECHNICIAN HEARING) HEPATITIS C ANTIBODY Non-React johnathan Non-React johnathan 11/09/2020 6:25 PM HEALTH TECHNICIAN HEARING [facility] Comment:Antibodies to HCV no t detected; does not exclude the possibility of exposure to HCV. Blood BLOOD SPECIMEN / Unknown [facility] / Unknown 11/09/2020 10:24 AM HEALTH TECHNICIAN HEARING 11/09/2020 10:25 AM HEALTH TECHNICIAN HEARING us Ed Del Toro MD SEND OUTS Final Result [facility] [address] [place] [address], [place] from Last 3 Months or Most Recently Relevant to Health Maintenance Insurance [facility] MEDICARE PART A HB ONLY [place] [id number] BLUE CROSS OF NON-[place]-ITS Advance Directives * Full Code (Latest Code [...] 1:54 AM 08/09/2017 11:45 AM Care Teams Maintenance Services Dispatcher Relationship Specialty Start Date End Date Ed Del Toro MD [address] [place] [address] PCP - General Family Practice 12/05/20 Romina Cristobal NP [address] [facility] [address] [place] [address] Nurse Practitioner Cardiology - Electrophysiology 07/07/19 Cassandra Kearney MD [address] [facility] [address] [place] [address] Consulting Physician Cardiology - Electrophysiology 10/23/21
[2025-08-09 21:20] VITALS: BP 158/85; PULSE 71; RESP 16; TEMP 36.6; O2SAT 97; BMI 35.7
--- NOTE | 2025-08-09 21:32 | ED_ITS ---
HPI - SOB/Dyspnea General Time Seen by Provider: 21:32 Date Seen: 08/09/25 Chief Complaint: Shortness of Breath/Dyspnea Stated Complaint: chest pain/shortness of breath Time Seen by Provider: 08/09/25 21:31 Source: patient, RN notes reviewed and old records reviewed Mode of arrival: ambulatory Limitations: no limitations History of Present Illness HPI Narrative: 65-year-old male who comes in today with chest pain and shortness of breath. He notes that this been going on for quite some time but beena had an episode starting about 8:00 p.m. the lasted about an hour, pain in the upper chest accompanied by shortness of breath, little bit of pain on the sternum. He says prior episodes are not lasted this long. Nausea with no vomiting. Has not noticed shortness of breath or chest pain with exertion but notices that he fatigues more easily. Reports he is currently anticoagulated on Coumadin. Related Data Home Medications ?Medication ?Instructions ?Recorded ?Confirmed famotidine 20 mg tablet 20 mg PO BID PRN 05/09/23 warfarin 2 mg tablet 2 - 3 mg PO DIRECTED 04/2608/09/25 bisoprolol fumarate 5 mg tablet 5 mg PO DAILY 01/04/25 08/09/25 Previous Rx's ?Medication ?Instructions ?Recorded sennosides 8.6 mg capsule (senna) 8.6 mg PO DAILY PRN constipation 01/10/25 #90 caps Allergies Allergy/AdvReac Type Severity Reaction Status Date / Time No Known Drug Allergies Allergy Verified 01/04/25 07:56 [facility] Medical History Elevated cholesterol ?E78.00 - Pure hypercholesterolemia, unspecified (ICD-10) Arthritis ?M19.90 - Unspecified osteoarthritis, unspecified site (ICD-10) GERD (gastroesophageal reflux disease) ?K21.9 - Gastro-esophageal reflux disease without esophagitis (ICD-10) DVT (deep venous thrombosis) ?I82.409 - Acute embolism and thrombosis of unspecified deep veins of unspecified lower extremity (ICD-10) Pulmonary emboli ?I26.99 - Other pulmonary embolism without acute cor pulmonale (ICD-10) Sleep apnea ?G47.30 - Sleep apnea, unspecified (ICD-10) Atrial fibrillation ?I48.91 - Unspecified atrial fibrillation (ICD-10) Surgical History S/P laparoscopic-assisted sigmoidectomy ?Z90.49 - Acquired absence of other specified parts of digestive tract (ICD- 10) History of radiofrequency ablation (RFA) procedure for cardiac arrhythmia ?Z98.890 - Other specified postprocedural states (ICD-10) H/O cardiac catheterization (02/14/18) ?Z98.890 - Other specified postprocedural states (ICD-10) H/O arthroscopy of left knee ?Z98.890 - Other specified postprocedural states (ICD-10) H/O repair of right rotator cuff (11/2016) ?Z98.890 - Other specified postprocedural states (ICD-10) H/O excision of mass (10/05/19) ?Z98.890 - Other specified postprocedural states (ICD-10) S/P reconstruction of anterior cruciate ligament ?Z98.890 - Other specified postprocedural states (ICD-10) Family History Mother Diabetes Father Brain tumor Social History What is your current living situation?: I presently have a place to live Problems where you live: no known problems Problems where you live details: none In the past 12 months, utilities in danger of being shut off: no In past 12 months, lack of transportation kept you from medical appts, meetings, work, or getting things needed for daily living: no In the past 12 mos, have been you worried that your food would run out before you had money to buy more?: never true In the past 12 mos, the food you bought just didn't last and you didn't have money to buy more?: never true Smoking Status: Never smoker Do you use any of these nicotine containing products: None Second hand tobacco smoke exposure: No How often do you have a drink containing alcohol: 2-4 times a month How often do you have six or more drinks on one occasion: Never AUDIT-C Alcohol total score: 2 Non-prescribed substance use: denies use How often does anyone, including family, friends and others, physically hurt you : never How often does anyone, including family, friends and others, insult or talk down to you: never How often does anyone, including family, friends and others, threaten you with harm: never How often does anyone, including family, friends and others, scream or curse at you: never service: No Exam Narrative: Exam Narrative: General: Well-developed and well-nourished, no acute distress Head: Atraumatic and normocephalic Eyes: Pupils are equal reactive, extraocular motions intact, conjunctiva clear ENT: External nose and ears are normal, posterior pharynx without erythema or exudate Neck: No midline cervical tenderness, full spontaneous range of motion the neck, trachea midline, no adenopathy Heart: Regular rate and rhythm no murmurs or thrills Lungs: Clear to auscultation bilaterally without wheezes or crackles Abdomen: Soft, nontender, nondistended with active bowel sounds Musculoskeletal: No tenderness, deformity, or edema Neurologic: Awake, alert, and oriented x3, no gross focal neurologic deficits, cranial nerves intact as tested Psych: Mood and affect are appropriate Skin: No rashes Const: Vital Signs, click to edit/add: Vital Signs - 24 hr 08/09/25 21:20 Temperature 98 F Pulse Rate [Pulse Oximeter] 71 Respiratory Rate 16 Blood Pressure [Ri ght Upper Arm] 158/85 H Pulse Oximetry 97 Oxygen Delivery Me thod Room Air Course Course ED Course: Reviewed prior procedure note from June 2024 when patient underwent ablation for atrial fibrillation. Also reviewed prior echo stress test from June 2021 which was normal. EKG independently interpreted by me performed at 9:31 a.m. demonstrates sinus rhythm rate 64, no acute ischemic changes, nonspecific T-wave changes, poor quality EKG limits interpretation, no prior for comparison. Patient presents today with chest pain and shortness or breath starting about 90 minutes prior to coming the emergency department, resolved about 30 minutes prior to arrival. Initial EKG poor quality but without acute changes, , this will be repeated. Patient has had intermittent chest pain for some time but lasted longer tonight,, also notes that he is fatigued more easily. Labs are ordered along with chest x-ray. Reevaluation(s) Time of Reevaluation #1: 22:21 Reevaluation #1: Repeat EKG in panel interpreted by me performed at 10:23 p.m. with sinus rhythm rate 62, QTC 416, LA 162, nonspecific ST changes. Compared to prior in outside system ([facility]) from October 2024, no acute changes. Time of Reevaluation #2: 22:46 Reevaluation #2: Labs independently interpreted by me with troponin 0, normal CBC. Repeat troponin ordered. Time of Reevaluation #3: 23:13 Reevaluation #3: Updated patient and significant other with findings and plan. Patient remains pain-free in the emergency department. Repeat troponin will be performed at 12:30 a.m.. If negative, patient will be discharged and stress test ordered. If positive, patient will need to be admitted or transferred for further cardiac evaluation. He verbalized understanding of this. Plan to sign out to oncoming provider to follow up troponin and final disposition for patient. Vital Signs Vital signs: Initial Vital Signs Temperature 98 F 08/09/25 21:20 Temperature Source Temporal Artery Scan 08/09/25 21:20 Pulse Rate 71 08/09/25 21:20 Respiratory Rate 16 08/09/25 21:20 Blood Pressure 158/85 H 08/09/25 21:20 Blood Pressure Mean 109 H 08/09/25 21:20 Blood Pressure Position Sitting 08/09/25 21:20 Pulse Oximetry 97 08/09/25 21:20 Oxygen Delivery Method Room Air 08/09/25 21:20 Vital Signs Temperature 98 F 08/09/25 21:20 Pulse Rate 71 08/09/25 21:20 Respiratory Rate 16 08/09/25 21:20 Blood Pressure 158/85 H 08/09/25 21:20 Pulse Oximetry 97 08/09/25 21:20 Oxygen Delivery Method Room Air 08/09/25 21:20 Temperature 98 F 08/09/25 21:20 Pulse Rate 71 08/09/25 21:20 Respiratory Rate 16 08/09/25 21:20 Blood Pressure 158/85 H 08/09/25 21:20 Pulse Oximetry 97 08/09/25 21:20 Oxygen Delivery Method Room Air 08/09/25 21:20 MDM - SOB/Dyspnea Lab Data Labs: Lab Results 08/09/25 08/09/25 Range/Units 21:28 21:45 WBC 9.25 (4.50-11.00) K/uL RBC 5.37 (4.30-5.90) m/uL Hgb 14.4 (13.5-17.5) gm/dL Hct 44.4 (37.0-53.0) % MCV 83 (80-100) fL MCH 27 (26-34) pg MCHC 32 (32-36) gm/dL RDW Coeff of [place] 13.8 (11.5-15.5) % Plt Count 322 (140-440) K/uL Neut % (Auto) 64.6 (42.0-72.0) % Lymph % (Auto) 20.2 (20-44) % [place] % (Auto) 12.8 H (0.0-11.0) % Eos % (Auto) 1.8 (0.0-7.0) % Baso % (Auto) 0.5 (0.0-3.0) % Neut # (Auto) 5.97 (1.7-7.0) K/uL Lymph # (Auto) 1.87 (0.90-2.90) K/uL [place] # (Auto) 1.20 H (0.00-0.90) K/UL Eos # (Auto) 0.17 (0.00-0.50) K/uL Baso # (Auto) 0.05 (0.00-0.30) K/uL Abs Immat Gran (auto) 0.01 (0.00-0.30) K/uL Imm/Tot Granulo (auto) 0.1 % INR 1.43 H (0.91-1.10) Sodium 135 (135-149) mmol/L Potassium 3.8 (3.6-5.1) mmol/L Chloride 102 (96-114) mmol/L Carbon Dioxide 26 (20-32) mmol/L Anion Gap 7 (7-15) mEq/L BUN 19 (7-30) mg/dL Creatinine 0.9 (0.5-1.5) mg/dL Estimated Creat Clear 69.35 Estimated GFR 94 ml/min Glucose 114 (60-115) mg/dL Calcium 9.3 (8.4-10.6) mg/dL Magnesium 2.0 (1.5-2.6) mg/dL POC Troponin I 0.00 L (0.01-0.04) ng/ml Discharge Plan Discharge Clinical Impression: Chest pain, Chronic anticoagulation, Subtherapeutic international normalized ratio (INR) Instructions: Chest Pain (DC) Additional Instructions: The hospital will call you to schedule your stress test. Your Coumadin level (INR) is below the therapeutic threshold. Contact your primary care provider for further instructions for this, INR today 1.43 Activity Level: Activity as Tolerated Discharge Diet: Heart Healthy (2 gm sodium, low fat) Prescriptions: No Action warfarin 2 mg tablet 2 - 3 mg PO DIRECTED Rx Instructions: TAKE 2MG ON MON AND SAT, 3MG ON ALL OTHER DAYS famotidine 20 mg tablet 20 mg PO BID PRN bisoprolol fumarate 5 mg tablet 5 mg PO DAILY senna 8.6 mg capsule 8.6 mg PO DAILY PRN (Reason: constipation) Qty: 90 0RF Follow Up/Referrals: Ed Del Toro MD [Primary Care Provider, Family Practice]
--- NOTE | 2025-08-09 21:45 | CRLHL7_ITS ---
For Patients: As a result of the Cures Act, medical imaging exams and procedure reports are released immediately into your electronic medical record. You may view this report before your referring provider. If you have questions, please contact your health care provider. INDICATION: Chest pain. TECHNIQUE: Chest 1 view. COMPARISON: 09/09/2023. FINDINGS: Cardiovascular and mediastinum: Stable mild cardiomegaly. Lungs and pleural spaces: Lungs are clear. No sign of infiltrate or mass. No sign of pleural effusion. No pneumothorax. Bones and soft tissues: Degenerative changes of the spine and shoulders. IMPRESSION: No evidence of acute pulmonary process. Dictated by Otilio Song MD @ 08/09/2025 11:18:23 PM (Electronically Signed)
[2025-08-09 22:34] LABS: Hematocrit* 44.4 % (37.0-53.0); Hemoglobin* 14.4 gm/dL (13.5-17.5); Immature Granulocytes Abs Auto 0.01 K/uL (0.00-0.30); Immature Granulocytes Pct Auto 0.1 %; Lymphocytes Absolute Auto 1.87 K/uL (0.90-2.90); Mean Corpuscular HGB Conc 32 gm/dL (32-36); Mean Corpuscular Hemoglobin 27 pg (26-34); Mean Corpuscular Volume 83 fL (80-100); RDW Coefficient of Variation % 13.8 % (11.5-15.5); Red Blood Count* 5.37 m/uL (4.30-5.90); White Blood Count* 9.25 K/uL (4.50-11.00)
[2025-08-09 22:36] LABS: Slide Review Reflex No
[2025-08-09 22:52] LABS: INR 1.43 (0.91-1.10); Prothrombin Time 18.4 Seconds
[2025-08-09 22:57] LABS: Troponin, Point-of-Care* 0.00 ng/ml (0.01-0.04)
[2025-08-09 23:52] LABS: Chloride* 102 mmol/L (96-114); Potassium* 3.8 mmol/L (3.6-5.1); Sodium* 135 mmol/L (135-149)
[2025-08-09 23:55] LABS: Anion Gap 7 mEq/L (7-15); Blood Urea Nitrogen* 19 mg/dL (7-30); Carbon Dioxide* 26 mmol/L (20-32); Creatinine* 0.9 mg/dL (0.5-1.5); Est. Creatinine Clearance* 69.35; Estimated Glomerular Filt Rate 94 ml/min
[2025-08-09 23:56] LABS: Calcium* 9.3 mg/dL (8.4-10.6); Glucose* 114 mg/dL (60-115)
[2025-08-10] VITALS: PULSE 59; RESP 19; O2SAT 94
[2025-08-10 00:08] LABS: NT Pro B Type NatriureticPept* 326 pg/mL (See Note)
[2025-08-10 00:31] VITALS: BP 132/76; PULSE 57; RESP 20; TEMP 36.4; O2SAT 97
[2025-08-10 00:59] LABS: Troponin, Point-of-Care* 0.00 ng/ml (0.01-0.04)
[2025-08-12 09:43] LABS: Troponin, Point-of-Care* 0.00 ng/ml (0.01-0.04)
== END 2025-08-10 01:11 | disposition home or self-care (01) ==
PROVIDERS: Family Medicine; Emergency Provider Family Medicine; PCP Family Medicine
DX: R07.9 Chest pain, unspecified (principal); R06.02 Shortness of breath; Z79.01 Long term (current) use of anticoagulants
CPT/HCPCS: 36415; 71045; 80048; 83735; 83880; 84484; 85025; 85610; 93005; 94761; 99284; 99285

== ENCOUNTER 2025-08-17 12:46 | Outpatient (CLI) | payer BC, SELFPAY ==
[2025-08-17] MEDS: PERFLUTREN LIPID MICROSPHERES 2 ML VIAL IVP (13:17)
[2025-08-17 13:53] VITALS: BP 122/72; PULSE 72; RESP 20; O2SAT 96
--- NOTE | 2025-08-17 13:57 | PM.ST ---
Stress Test Note Date Date of test: 08/17/25 Providers Primary care provider: Ed Del Toro Stress test physician: Cristi Marshall Stress Test Note Stress test ordered: Stress Echo Indication for test: Chest pain Stress test medicine: Definity Results discussion: this very nice gentleman presents for the above test, after discussion the risks benefits and side effects he would like to proceed, cardiac stress test medical history form is reviewed. Four years ago and 2020 when he had a stress test, got 9 minutes. Pretest EKG shows normal sinus rhythm, ventricular rate of 61 blood pressure 112/174, no acute ST wave changes are noted. Standard Sage protocol is employed, over a time course of 8 minutes, achieved a metabolic equivalent of 9.5, with a maximum heart rate of 152, which is 116% of his target, Maximum blood pressure was 162/72. test is terminated because of fulfillment of protocol, and fatigue, he did not develop any chest pain shortness of breath or other abnormality. Review of the tracings, shows occasional PVCs, but no significant dysrhythmias, there is no significant ST wave changes suggestive of ischemia, and recovered well. Conditioning was good Impression: Negative electrographic portion of stress echo, negative subjective component Follow up suggested: await cardiology review of the stress echo, clinical correlation with this will be needed, patient left this testing facility in good condition, there were no complications.
== END 2025-08-17 12:47 | disposition home or self-care (01) ==
LOC: STRESS 12:46
PROVIDERS: PCP Family Medicine; Visit Provider Family Medicine
DX: R07.9 Chest pain, unspecified (principal)
CPT/HCPCS: 93016; 93325; 93351; Q9957